=== PATIENT | female | born 1955 | race Caucasian/White ===

== ENCOUNTER → 2017-11-03 16:00 | Outpatient (CLI) | payer MEDICARE, SELFPAY ==
[2017-11-03 20:36] LABS: Anion Gap 9 (5-15); BUN 7 mg/dL (7-18); BUN/Creat Ratio 14.9 RATIO (10-20); Chloride 105 mmol/L (98-107); Creatinine, Serum 0.47 mg/dL (0.55-1.02); EST Glomerular Filtration Rate 142 mL/min (>60); Est Glom Filt Rate - Afr Amer 172 mL/min (>60); Glucose 129 mg/dL (70-110); Potassium 4.2 mmol/L (3.5-5.1); Sodium Level 139 mmol/L (136-145)
[2017-11-03 20:50] LABS: Hematocrit 34.9 % (37-47); Hemoglobin 10.7 g/dl (12.0-15.0); Mean Corp Hgb Conc 30.7 g/gl (32-36); Mean Corpuscular Hgb 31.9 pg (27.0-32.0); Mean Corpuscular Volume 104.2 fL (81-99); Mean Platelet Vol. 10.9 fl (6.2-12.0); Platelet Count 330 K/mm3 (150-450); RBC Distribution Width CV 20.9 % (11.6-14.6); RBC Distribution Width SD 80.2 fl (35.1-43.9); Red Blood Count 3.35 M/mm3 (4.2-5.4); White Blood Count 5.3 K/mm3 (4.4-11.0)
[2017-11-03 20:52] LABS: Scan Indicated on CBC? Y/N YES- FLAGS NOTED
[2017-11-03 21:24] LABS: Differential Comment SCANNED; Erythrocyte Sedimentation Rate 35 mm/hr (0-30)
--- OUTSIDE RECORDS SUMMARY | 2017-12-30 11:56 | XMS RPT_ITS ---
:1955 Author Organization OHIP Support Name Relationship Address Phone D Unavailable Unavailable Unavailable JEAN, KRYS Unavailable [address] + [place] [address] D Unavailable Unavailable Unavailable JEAN, KRYS Unavailable [address] + [place] [address] D Unavailable Unavailable Unavailable JEAN, KRYS Unavailable [address] + [place] [address] D Unavailable Unavailable Unavailable JEAN, KRYS Unavailable Sue [phone] [place] [address] D Unavailable Unavailable Unavailable JEAN, KRYS Unavailable [address] + [place] [address] D Unavailable Unavailable Unavailable JEAN, KRYS Unavailable [address] + [place] [address] D Unavailable Unavailable Unavailable JEAN, KRYS Unavailable [address] + [place] [address] D Unavailable Unavailable Unavailable JEAN, KRYS Unavailable [address] + [place] [address] D Unavailable Unavailable Unavailable JEAN, KRYS Unavailable Sue [phone] [place] [address] D Unavailable Unavailable Unavailable JEAN, KRYS Unavailable [address] + [place] [address] D Unavailable Unavailable Unavailable JEAN, KRYS Unavailable Sue [phone] [place] [address] D Unavailable Unavailable Unavailable JEAN, KRYS Unavailable Sue [phone] [place] [address] D Unavailable Unavailable Unavailable JEAN, KRYS Unavailable Sue [phone] [place] [address] D Unavailable Unavailable Unavailable JEAN, KRYS Unavailable [address] + [place] [address] D Unavailable Unavailable Unavailable JEAN, KRYS Unavailable [address] + [place] [address] D Unavailable Unavailable Unavailable JEAN, KRYS Unavailable [address] + [place] [address] D Unavailable Unavailable Unavailable JEAN, KRYS Unavailable [address] + [place] [address] D Unavailable Unavailable Unavailable JEAN, KRYS Unavailable [address] + [place] [address] D Unavailable Unavailable Unavailable JEAN, KRYS Unavailable [address] + [place] [address] Care Team Providers Name Role Phone Javier Godinez Attending Unavailable [facility] Care Unavailable RamanvaidenJavier Attending Unavailable [facility] Care Unavailable Carmelo Garibay Admitting Unavailable Carmelo Garibay Attending Unavailable [facility] Care Unavailable Aram Garcia Admitting Unavailable Aram Garcia Attending Unavailable [facility] Primary Care Unavailable Orlando Ramírez Consulting Unavailable Lexa Hahn Admitting Unavailable Lexa Hahn Attending Unavailable [facility] Unavailable Kurt Noriega Admitting Unavailable [facility] Care Unavailable Too Abbott Consulting Unavailable Orlando Ramírez Attending Unavailable Jamey Patiño Attending Unavailable [facility] Primary Care Unavailable Jamey Patiño Attending Unavailable [facility] Primary Care Unavailable Lexa Hahn Admitting Unavailable [facility] Primary Care Unavailable Rolando Lee Consulting Unavailable Diane Forbes Attending Unavailable Mariano Yoichi Consulting Unavailable Tai, Kenya SJosé Manuel Admitting Unavailable [facility] Primary Care Unavailable Diane Forbes Consulting Unavailable Tony Barry Attending Unavailable Rolando Lee Attending Unavailable [facility] Primary Care Unavailable Rolando Lee Attending Unavailable [facility] Primary Care Unavailable Rolando Lee Attending Unavailable [facility] Primary Care Unavailable Lorna Patel MARSHMALLOW MACHINE WORKER-C Attending Unavailable [facility] Primary Care Unavailable Rolando Lee Attending Unavailable [facility] Primary Care Unavailable Rolando Lee Attending Unavailable Javier Godinez Primary Care Unavailable Kurt Noriega Attending Unavailable Javier Godinez Primary Care Unavailable Lorna Patel MARSHMALLOW MACHINE WORKER-C Attending Unavailable Javier Godinez Primary Care Unavailable Rolando Lee Attending Unavailable Javier Godinez Primary Care Unavailable PROBLEMS PROBLEMS DATE TYPE CONDITION / CODE ATTENDING STATUS SOURCE 12/19/2017 Unknown E78.5 - Rosa, Active [facility] Hyperlipidemia, [facility] unspecified / Hospital E78.5(ICD-10) Repository 11/26/2017 Unknown G47.33 - Obstructive JorgeLorna dasilva MARSHMALLOW MACHINE WORKER-C Active [facility] sleep apnea (adult) Community (pediatric) / Hospital G47.33(ICD-10) Repository 11/04/2017 Unknown Z00.00 - Encounter Rosa Active [facility] for general adult [facility] medical examination Hospital without abnormal Repository findings / Z00.00(ICD-10) 11/02/2017 Unknown T81.4XXA - Infection Rosa Active [facility] following a [facility] procedure, initial Hospital encounter / Repository T81.4XXA(ICD-10) 10/15/2017 Unknown OTHER FATIGUE / Gbaruk, Kombian Active [facility] R53.83(ICD-10) [facility] Repository 10/15/2017 Unknown PRESENCE OF RIGHT Gbaruk, 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 [facility] JOINT / Hospital Z96.651(ICD-10) Repository 10/15/2017 Unknown INFECT/INFLM [place]baruk, Kombian Active [facility] REACTION DUE TO [facility] INTERNAL R KNEE Hospital PROSTH, SUBS / Repository T84.53XD(ICD-10) 10/15/2017 Unknown HYPERGLYCEMIA, [place], Kombian Active [facility] UNSPECIFIED / Community R73.9(ICD-10) Hospital Repository 10/16/2017 Unknown NICOTINE DEPENDENCE, Sementi, Active [facility] CIGARETTES, Diane Community UNCOMPLICATED / Hospital F17.210(ICD-10) Repository 10/16/2017 Unknown ESSENTIAL (PRIMARY) Sementi, Active [facility] HYPERTENSION / Diane [facility] I10(ICD-10) Hospital Repository 10/16/2017 Unknown SCOLIOSIS, Sementi, Active [facility] UNSPECIFIED / Diane Community M41.9(ICD-10) Hospital Repository 10/16/2017 Unknown OTHER CHRONIC PAIN / Sementi, Active [facility] G89.29(ICD-10) [facility] Repository 10/16/2017 Unknown DORSALGIA, Sementi, Active [facility] UNSPECIFIED / [facility] M54.9(ICD-10) Hospital Repository 10/16/2017 Unknown GASTRO-ESOPHAGEAL Sementi, Active [facility] REFLUX DISEASE [facility] WITHOUT ESOPHAGITIS Hospital / K21.9(ICD-10) Repository 10/16/2017 Unknown MAJOR DEPRESSIVE Sementi, Active [facility] DISORDER, SINGLE [facility] EPISODE, UNSPECIFIED Hospital / F32.9(ICD-10) Repository 10/16/2017 Unknown UNSPECIFIED Sementi, Active [facility] OSTEOARTHRITIS, [facility] UNSPECIFIED SITE / Hospital M19.90(ICD-10) Repository 10/16/2017 Unknown 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 MEDICAL SALES ASSOCIATE 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, Active [facility] (CURRENT) DRUG [facility] THERAPY / Hospital Z79.899(ICD-10) Repository 10/16/2017 Unknown PAIN IN RIGHT LOWER Sementi, Active [facility] LEG / [facility] M79.661(ICD-10) Hospital Repository 10/16/2017 Unknown INFECT/INFLM Sementi, Active [facility] REACTION DUE TO [facility] INTERNAL R KNEE Hospital PROSTH, INIT / Repository T84.53XA(ICD-10) 10/16/2017 Unknown STAPHYLOCOCCAL Sementi, Active [facility] ARTHRITIS, RIGHT [facility] KNEE / Hospital M00.061(ICD-10) Repository 10/16/2017 Unknown IMPLNT OF ARTIF INT Sementi, Active [facility] DEV CAUSE ABN [facility] REACT/COMPL, W/O Hospital MISADVNT / Repository Y83.1(ICD-10) 10/16/2017 Unknown HYPOXEMIA / Sementi, Active [facility] R09.02(ICD-10) [facility] Hospital Repository 10/16/2017 Unknown OTH STAPHYLOCOCCUS Sementi, Active [facility] THE CAUSE OF [facility] DISEASES CLASSD Hospital ELSWHR / Repository B95.7(ICD-10) 10/16/2017 Unknown OBESITY, UNSPECIFIED Sementi, Active [facility] / E66.9(ICD-10) [facility] Hospital Repository 10/16/2017 Unknown NUTRITIONAL ANEMIA, Sementi, Active [facility] UNSPECIFIED / [facility] D53.9(ICD-10) Hospital Repository 10/16/2017 Unknown ARTHRODESIS STATUS / Sementi, Active [facility] Z98.1(ICD-10) [facility] Repository 10/16/2017 Unknown PRESENCE OF Sementi, Active [facility] ARTIFICIAL KNEE [facility] JOINT, BILATERAL / Hospital Z96.653(ICD-10) Repository 10/16/2017 Unknown SLEEP APNEA, Sementi, Active [facility] UNSPECIFIED / [facility] G47.30(ICD-10) Hospital Repository 10/16/2017 Unknown BODY MASS INDEX Sementi, Active [facility] (BMI) 34.0-34.9, [facility] ADULT / Hospital Z68.34(ICD-10) Repository 10/14/2017 Unknown AFTERCARE FOLLOWING TerOrlando thompson Active [facility] JOINT REPLACEMENT [facility] SURGERY / Hospital Z47.1(ICD-10) Repository 10/14/2017 Unknown ACUTE Tereletsky, Orlando Active [facility] POSTHEMORRHAGIC [facility] ANEMIA / D62(ICD-10) Hospital Repository 10/14/2017 Unknown MEDICAL SALES ASSOCIATE (CURRENT) Tereletsboby, Orlando Active [facility] USE OF ASPIRIN / [facility] Z79.82(ICD-10) Hospital Repository 10/14/2017 Unknown TREMOR, UNSPECIFIED Tereletsky, Orlando Active [facility] / R25.1(ICD-10) [facility] Repository 10/14/2017 Unknown ELEVATED WHITE BLOOD Terjay, Orlando Active [facility] CELL COUNT, Community UNSPECIFIED / Hospital D72.829(ICD-10) Repository 10/14/2017 Unknown CONSTIPATION, Tereletsboby, Orlando Active [facility] UNSPECIFIED / Community K59.00(ICD-10) Hospital Repository 10/14/2017 Unknown UNILATERAL PRIMARY Tricia Hahnney Active [facility] OSTEOARTHRITIS, Community RIGHT KNEE / Hospital M17.11(ICD-10) Repository 10/11/2017 Unknown HYPO-OSMOLALITY AND Aram Garcia Active [facility] HYPONATREMIA / Community E87.1(ICD-10) Hospital Repository 10/11/2017 Unknown ESSENTIAL TREMOR / Aram Garcia Active [facility] G25.0(ICD-10) [facility] Repository 10/11/2017 Unknown MEDICAL SALES ASSOCIATE (CURRENT) Aram Garcia Active [facility] USE OF NON-STEROIDAL [facility] NON-INFLAM (NSAID) / Hospital Z79.1(ICD-10) Repository 10/11/2017 Unknown PRESENCE OF LEFT Aram Garcia Active [facility] ARTIFICIAL KNEE [facility] JOINT / Hospital Z96.652(ICD-10) Repository 10/11/2017 Unknown UNILATERAL PRIMARY KnapCarmelo dent Active [facility] OSTEOARTHRITIS, LEFT [facility] KNEE / Hospital M17.12(ICD-10) Repository 10/11/2017 Unknown OTHER SYNOVITIS AND KnapCarmelo dent Active [facility] TENOSYNOVITIS, LEFT [facility] LOWER LEG / Hospital M65.862(ICD-10) Repository 10/11/2017 Unknown OTHER SPECIFIED RollyapCarmelo dent Active [facility] DISORDERS OF TENDON, Community LEFT KNEE / Hospital M67.864(ICD-10) Repository 10/11/2017 Unknown ENCNTR SCREEN Herbert Active [facility] MAMMOGRAM FOR [facility] MALIGNANT NEOPLASM [facility] BREAST / Repository Z12.31(ICD-10) 10/11/2017 Unknown ENCNTR SCREEN FOR Ranoscar, Active [facility] MALIGNANT NEOPLASM [facility] RESPIRATORY [facility] ORGANS / Repository Z12.2(ICD-10) 10/11/2017 Unknown TOBACCO USE / Ranoscar, Active [facility] Z72.0(ICD-10) [facility] Repository 10/11/2017 Unknown PERSONAL HISTORY OF Herbert, Active [facility] NICOTINE DEPENDENCE [facility] / Z87.891(ICD-10) Hospital Repository PROCEDURES PROCEDURES DATE CODE DESCRIPTION STATUS SOURCE 03/24/2017 [id number](ICD-10 REPLACE OF L KNEE JT Completed [facility] ) WITH SYNTH SUB, Hospital Repository CEMENT, OPEN APPROACH 03/24/2017 [id number](ICD-10 EXCISION OF LEFT Completed [facility] ) KNEE JOINT, OPEN Hospital Repository APPROACH RESULTS RESULTS CBC W/DIFF, AUTOMATED Collected: 12/19/2017 Status: F Source: [place] 2:48 PM [facility] REPOSITORY TYPE CODE TESTS RESULT OUT OF RANGE REFERENCE UNITS LAB L100.1000 Normal 4.4-11.0 K/mm3 WBC 7.2 LAB L100.1200 Low 4.2-5.4 M/mm3 RBC 3.60 LAB L100.1300 Low 12.0-15.0 g/dl HGB 11.6 LAB L100.1400 Low 37-47 % HCT 35.0 LAB L100.1500 Normal 81-99 fL MCV 97.2 LAB L100.1600 High 27.0-32.0 pg MCH 32.2 LAB L100.1700 Normal 32-36 g/gl MCHC 33.1 LAB L100.1810 High 11.6-14.6 % RDW 20.8 CV LAB L100.1820 High 35.1-43.9 fl RDW 71.6 SD LAB L100.1900 Normal 150-450 K/mm3 PLT 388 LAB L100.2000 Normal 6.2-12.0 fl MPV 11.2 LAB L100.2100 Normal 47-70 % NEUT% 68.2 LAB L100.2200 Normal 19-41 % LY% 23.0 LAB L100.2300 Normal 0-10 % MONO% 6.1 LAB L100.2400 Normal 0-5 % EO% 2.2 LAB L100.2500 Normal 0-1 % BASO% 0.4 LAB L100.2550 Normal 0.0-0.9 % IM 0.100 GRAN % Result Comment: IG% - Immature Granulocytes (promyelocytes, myelocytes andmetamyelocytes) > 1% indicates that a LEFT SHIFT is Present. LAB L100.2620 Normal 2.0-7.7 X10 3/uL Absolute 4.9 Neut LAB L100.2720 Normal 0.83-4.51 X10 3/ul Absolute 1.65 Lymph LAB L100.4500 Normal SMEAR SCANNED COMMENT Result Comment: 2+ ANISOCYTOSIS Performed By: #### L100.0100, L101.9900 ####[facility] [address] [facility]. [place], [place], [id number] ERYTHROCYTE SED RATE Collected: 12/19/2017 Status: F Source: [place] 2:48 PM [facility] REPOSITORY TYPE CODE TESTS RESULT OUT OF RANGE REFERENCE UNITS LAB L102.0000 Normal 0-30 mm/hr SED 20 RATE Performed By: #### L100.0100, L101.9900 ####[facility] [address] [facility]. [place], [place], [address] BASIC METABOLIC Collected: 12/19/2017 Status: F Source: [place] PROFILE (BMP) 2:48 PM [facility] REPOSITORY TYPE CODE TESTS RESULT OUT OF RANGE REFERENCE UNITS LAB L501.0100 Normal 70-110 mg/dL GLU 96 LAB L501.1000 High 7-18 mg/dL BUN 19 LAB L501.1100 Normal 0.55-1.02 mg/dL 0.62 CREAT,SERUM Result Comment: The validity of the calculated GFR AND GFRAA in patients over70 years has not been determined. Clinical correlation isessential. LAB L501.1110 Normal >60 mL/min EST GFR 104 Result Comment: Non- GFR Calc LAB L501.1115 Normal >60 mL/min EST GFR - 126 AA Result Comment: GFR Calc LAB L501.1300 High 10-20 RATIO BUN/CRE 30.9 LAB L501.2200 Normal 8.5-10.1 mg/dL CA 9.1 LAB L501.5300 Normal 136-145 mmol/L NA 138 LAB L501.5600 Normal 3.5-5.1 mmol/L K 3.8 LAB L501.5900 Normal 98-107 mmol/L CL 104 LAB L501.6100 Normal 21.0-32.0 mmol/L CO2 26.0 LAB L501.6200 Normal 5-15 GAP 8 Performed By: #### L500.2500 ####[facility] [address] [place], [address] CBC W/DIFF, AUTOMATED Collected: 11/17/2017 Status: F Source: [place] 1:40 PM [facility] REPOSITORY TYPE CODE TESTS RESULT OUT OF RANGE REFERENCE UNITS LAB L100.1000 Normal 4.4-11.0 K/mm3 WBC 5.0 LAB L100.1200 Low 4.2-5.4 M/mm3 RBC 3.54 LAB L100.1300 Low 12.0-15.0 g/dl HGB 11.3 LAB L100.1400 Low 37-47 % HCT 35.7 LAB L100.1500 High 81-99 fL MCV 100.8 LAB L100.1600 Normal 27.0-32.0 pg MCH 31.9 LAB L100.1700 Low 32-36 g/gl MCHC 31.7 LAB L100.1810 High 11.6-14.6 % RDW 20.8 CV LAB L100.1820 High 35.1-43.9 fl RDW 75.5 SD LAB L100.1900 Normal 150-450 K/mm3 PLT 383 LAB L100.2000 Normal 6.2-12.0 fl MPV 10.7 LAB L100.2100 Normal 47-70 % NEUT% 62.7 LAB L100.2200 Normal 19-41 % LY% 26.7 LAB L100.2300 Normal 0-10 % MONO% 5.0 LAB L100.2400 High 0-5 % EO% 5.4 LAB L100.2500 Normal 0-1 % BASO% 0.2 LAB L100.2550 Normal 0.0-0.9 % IM 0.000 GRAN % Result Comment: IG% - Immature Granulocytes (promyelocytes, myelocytes andmetamyelocytes) > 1% indicates that a LEFT SHIFT is Present. LAB L100.2620 Normal 2.0-7.7 X10 3/uL Absolute Neut 3.1 LAB L100.2720 Normal 0.83-4.51 X10 3/ul Absolute Lymph 1.33 LAB L100.7300 Normal ANISO 1+ LAB L100.7600 Normal HYPOCHROMASIA 1+ LAB L100.7800 Normal MACROCYTE 1+ LAB L100.8600 Normal [employer] CELLS RARE Performed By: #### L100.0100, L101.9900 ####[facility] [address] [facility]. [place], [place], [address] ERYTHROCYTE SED RATE Collected: 11/17/2017 Status: F Source: [place] 1:40 PM [facility] REPOSITORY TYPE CODE TESTS RESULT OUT OF RANGE REFERENCE UNITS LAB L102.0000 Normal 0-30 mm/hr SED 30 RATE Performed By: #### L100.0100, L101.9900 ####[facility] [address] [facility] [place], [address] BASIC METABOLIC Collected: 11/17/2017 Status: F Source: [place] PROFILE (BMP) 1:40 PM [facility] REPOSITORY TYPE CODE TESTS RESULT OUT OF RANGE REFERENCE UNITS LAB L501.0100 High 70-110 mg/dL GLU 144 Result Comment: Fasting Glucose result greater than or equal to 126 mg/ dLsuggests DIABETES MELLITUS per A.D.A. criteria. LAB L501.1000 Low 7-18 mg/dL BUN 6 LAB L501.1100 Normal 0.55-1.02 mg/dL CREAT,SERUM 0.56 Result Comment: The validity of the calculated GFR AND GFRAA in patients over70 years has not been determined. Clinical correlation isessential. LAB L501.1110 Normal >60 mL/min EST GFR 117 Result Comment: Non- GFR Calc LAB L501.1115 Normal >60 mL/min EST GFR - 141 AA Result Comment: GFR Calc LAB L501.1300 Normal 10-20 RATIO BUN/CRE 10.8 LAB L501.2200 Normal 8.5-10.1 mg/dL CA 9.1 LAB L501.5300 Normal 136-145 mmol/L NA 139 LAB L501.5600 Normal 3.5-5.1 mmol/L K 3.6 LAB L501.5900 Normal 98-107 mmol/L CL 101 LAB L501.6100 Normal 21.0-32.0 mmol/L CO2 27.0 LAB L501.6200 Normal 5-15 GAP 11 Performed By: #### L500.2500 ####[facility] [address] [place], [address] CBC W/DIFF, AUTOMATED Collected: 11/10/2017 Status: F Source: [place] 1:15 PM [facility] REPOSITORY TYPE CODE TESTS RESULT OUT OF RANGE REFERENCE UNITS LAB L100.1000 Normal 4.4-11.0 K/mm3 WBC 5.6 LAB L100.1200 Low 4.2-5.4 M/mm3 RBC 3.44 LAB L100.1300 Low 12.0-15.0 g/dl HGB 11.2 LAB L100.1400 Low 37-47 % HCT 34.8 LAB L100.1500 High 81-99 fL MCV 101.2 LAB L100.1600 High 27.0-32.0 pg MCH 32.6 LAB L100.1700 Normal 32-36 g/gl MCHC 32.2 LAB L100.1810 High 11.6-14.6 % RDW 20.8 CV LAB L100.1820 High 35.1-43.9 fl RDW 76.0 SD LAB L100.1900 Normal 150-450 K/mm3 PLT 383 LAB L100.2000 Normal 6.2-12.0 fl MPV 10.7 LAB L100.2100 Normal 47-70 % NEUT% 61.4 LAB L100.2200 Normal 19-41 % LY% 26.6 LAB L100.2300 Normal 0-10 % MONO% 5.9 LAB L100.2400 High 0-5 % EO% 5.7 LAB L100.2500 Normal 0-1 % BASO% 0.4 LAB L100.2550 Normal 0.0-0.9 % IM 0.000 GRAN % Result Comment: IG% - Immature Granulocytes (promyelocytes, myelocytes andmetamyelocytes) > 1% indicates that a LEFT SHIFT is Present. LAB L100.2620 Normal 2.0-7.7 X10 3/uL Absolute 3.4 Neut LAB L100.2720 Normal 0.83-4.51 X10 3/ul Absolute 1.49 Lymph LAB L100.4500 Normal SMEAR SCANNED COMMENT LAB L100.7300 Normal ANISO 2+ Performed By: #### L100.0100, L101.9900 ####[facility] [address] [facility]. [place], [place], [address] ERYTHROCYTE SED RATE Collected: 11/10/2017 Status: F Source: [place] 1:15 PM [facility] REPOSITORY TYPE CODE TESTS RESULT OUT OF RANGE REFERENCE UNITS LAB L102.0000 Normal 0-30 mm/hr SED 30 RATE Performed By: #### L100.0100, L101.9900 ####[facility] [address] [place], [place], [address] BASIC METABOLIC Collected: 11/10/2017 Status: F Source: [place] PROFILE (BMP) 1:15 PM [facility] REPOSITORY TYPE CODE TESTS RESULT OUT OF RANGE REFERENCE UNITS LAB L501.0100 Normal 70-110 mg/dL GLU 89 LAB L501.1000 Normal 7-18 mg/dL BUN 8 LAB L501.1100 Low 0.55-1.02 mg/dL 0.46 CREAT,SERUM Result Comment: The validity of the calculated GFR AND GFRAA in patients over70 years has not been determined. Clinical correlation isessential. LAB L501.1110 Normal >60 mL/min EST GFR 148 Result Comment: Non- GFR Calc LAB L501.1115 Normal >60 mL/min EST GFR - 179 AA Result Comment: GFR Calc LAB L501.1300 Normal 10-20 RATIO BUN/CRE 17.6 LAB L501.2200 Normal 8.5-10.1 mg/dL CA 9.1 LAB L501.5300 Normal 136-145 mmol/L NA 139 LAB L501.5600 Normal 3.5-5.1 mmol/L K 4.1 LAB L501.5900 Normal 98-107 mmol/L CL 105 LAB L501.6100 Normal 21.0-32.0 mmol/L CO2 28.0 LAB L501.6200 Normal 5-15 GAP 6 Performed By: #### L500.2500 ####[facility] [address] [place], [address] DISCHARGE SUMMARY Observed: 11/06/2017 Status: F Source: [place] 4:44 PM [facility] RE[facility]ORY [facility] [address] [place], [place] [address]Nbydazbjf Kxenwaa02/14/17 0926MR#: [id number] Acct: [id number]: HAIM LIAO Rep #: [id number]: 1955 61 From: Lorna Patel MARSHMALLOW MACHINE WORKER-CPCP: Javier Godinez MD Status: DIS IN YLocation: RU [id number] by MARSHMALLOW MACHINE WORKER Lorna Patel on 11/06/17 at 1644Patient has a history of snoring, per family and Nursing staff , given that she is obese, andwith her snoring and poor sleeping quality feel that a sleep study is highly recommended.11/06/17 1644 <Electronically signed by Lorna HOPPERC>Date Lorna Patel MARSHMALLOW MACHINE WORKER -Ccc: RUDOLPH Patel; Javier Godinez MD *SignedRehab Discharge SummaryDATE OF ADMISSION: 10/10/17DATE OF DISCHARGE: 10/14/17- Rehab DiagnosisRight Knee RevisionDischarge Diet: No RestrictionsDischarge Activity: May Not Drive, May not drive while taking narcotic pain medications., MayShower, Use Walker, - - Do not soak in tubWeight Bearing Status: Weight bearing as toleratedCall your doctor if your incision/area has: Increased Pain/ Swelling, Increased Redness, FoulSmelling Discharge, Swelling at the incision siteCall your doctor if you observe: Fever of 101 or Higher, Coldness, Increased Pain, Numbness orTingling, Change in Color, Inability to urinate, Inability to have a bowel movement, Using morethan one pad per hour , Shortness of breath, Dizziness, Fainting spells, Swelling in the ankles,Chest pain, Prolonged hiccoughing, Increased palpitations (irregular heartbeat), Calfdiscomfort, Uncontrolled painHome Medications:Medications to take at DischargeNadolol [ Corgard (Beta Sal)] 20 mg PO DAILY 08/26/16ertraline HCl [Zoloft] 100 mg PO DAILY 08/26/16Cyclobenzaprine [Flexeril] 10 mg PO TID PRN PRN #30 tablet Lisinopril [Zestril] 20 mg PO DAILY #30 tablet 09/15/17Melatonin 10 mg PO QHS tablet 09/15/17Primidone [Mysoline] 50 mg PO BID #60 09/15/17cetaminophen [Tylenol] 1,000 mg PO Q8 tablet 10/10/17spirin 325 mg PO BIDCM tablet 10/10/17Ensure Enlive 120 ml PO 4X/DAY 10/10/17Nicotine [Nicoderm] 14 mg TRANSDERM. DAILY #42 patch 10/10/17Pantoprazole Sodium [Protonix] 20 mg PO DAILY tablet Ceftriaxone 2 gm IV Q24 38 Days 10/14/17Oxycodone [Oxyir] 5 - 10 mg PO Q6H PRN PRN #20 tablet 10/14/17Following Prescrptions Were Given to Patient:Oxycodone [Oxyir] 5 - 10 mg PO Q6H PRN PRN #20 tabletPRN Reason: Mod-Severe Pain (-09/09)Ceftriaxone 2 gm IV Q24 38 DaysPrimary Care Physician:Gaurang Godinez MD [Primary Care Provider] - Please Follow Up With: Lexa Hahn MDWhen: October 15, 2017Please Follow Up With: Gaurang Godinez MDWhen: October 21, 2017Please Follow Up With: Rosa, Rolando, MDDisposition: Home with Home HealthMinutes spent on discharge:: 40Patient Condition:: GoodRehab CourseThe patient is a 61 year old F with a PMH of hypertension, chronic back pain, status postlumbar fusion with Garcia rods, depression, GERD, obesity, osteoarthritis and tobaccodependence who was admitted to the hospital by Dr. Lexa Hahn for an infected rightprosthetic knee joint. Arthrocentesis done as an outpatient was positive for methicillinsensitive staph epidermidis. She was taken to surgery on 10/09 for debridement and wash out.Dr. Lee from [place] was consulted. Culture of the joint fluid from the wash out grew MSSE.She was transferred to rehab on 10/10 and will need 6 weeks of IV Rocephin , 2 GM daily. Aftershe completes 6 weeks of Rocephin she will need lifelong suppression with either doxycycline orKeflex. While on Rocephin she will require weekly BMP, CBC, ESR and labs should be sent to Dr.Robert Lee.While in the hospital she had an overnight trending pulse ox because she has HTN, isalways tired and her friends tell her snores like a [employer] train. The trending pulse ox wasconsistent with sleep disordered breathing. This was discussed with her and I recommend shehave and OP sleep study, she agreed and a sleep study appointment was setup. Smoking cessationcounselling was given in the hospital and she received a nicotine patch.With therapy patient is supervision and is doing well able to ambulate with walker, and doown self care task. Patient is requiring IV antibiotics. She will be discharged with homehealth to assist with IV therapy at home.Meaningful Use InfoMeaningful Use Diagnoses (Choose all that apply): None [id number]/14/17 1019 < Electronically signed by Lorna ALMEIDA>Date Lorna Patel NP-10/14/17 1106< Electronically signed by Kurt Noriega MD>Alfredo Signature (if applicable): Date Kurt Noriega [place] [facility]: [facility] Patel; Javier Godinez MD Signed BASIC METABOLIC Collected: 11/03/2017 Status: F Source: [place]AN[place] PROFILE (BMP) 10:08 AM [facility] REPOSITORY TYPE CODE TESTS RESULT OUT OF RANGE REFERENCE UNITS LAB L501.0100 High 70-110 mg/dL GLU 129 Result Comment: Fasting Glucose result greater than or equal to 126 mg/ dLsuggests DIABETES MELLITUS per A.D.A. criteria. LAB L501.1000 Normal 7-18 mg/dL BUN 7 LAB L501.1100 Low 0.55-1.02 mg/dL CREAT,SERUM 0.47 Result Comment: The validity of the calculated GFR AND GFRAA in patients over70 years has not been determined. Clinical correlation isessential. LAB L501.1110 Normal >60 mL/min EST GFR 142 Result Comment: Non- GFR Calc LAB L501.1115 Normal >60 mL/min EST GFR - 172 AA Result Comment: GFR Calc LAB L501.1300 Normal 10-20 RATIO BUN/CRE 14.9 LAB L501.2200 Normal 8.5-10.1 mg/dL CA 9.0 LAB L501.5300 Normal 136-145 mmol/L NA 139 LAB L501.5600 Normal 3.5-5.1 mmol/L K 4.2 Result Comment: Slight Hemolysis, Result may be falsely increased. LAB L501.5900 Normal 98-107 mmol/L CL 105 LAB L501.6100 Normal 21.0-32.0 mmol/L CO2 25.0 LAB L501.6200 Normal 5-15 9 GAP Performed By: #### L500.2500 ####[facility] [address] [place], [place], [address] CBC-COMPLETE BLOOD CNT Collected: 11/03/2017 Status: F Source: [place]AN[place] NO DIFF 10:08 AM [facility] REPOSITORY TYPE CODE TESTS RESULT OUT OF RANGE REFERENCE UNITS LAB L100.1000 Normal 4.4-11.0 K/mm3 WBC 5.3 LAB L100.1200 Low 4.2-5.4 M/mm3 RBC 3.35 LAB L100.1300 Low 12.0-15.0 g/dl HGB 10.7 LAB L100.1400 Low 37-47 % HCT 34.9 LAB L100.1500 High 81-99 fL MCV 104.2 LAB L100.1600 Normal 27.0-32.0 pg MCH 31.9 LAB L100.1700 Low 32-36 g/gl MCHC 30.7 LAB L100.1810 High 11.6-14.6 % RDW 20.9 CV LAB L100.1820 High 35.1-43.9 fl RDW 80.2 SD LAB L100.1900 Normal 150-450 K/mm3 PLT 330 LAB L100.2000 Normal 6.2-12.0 fl MPV 10.9 Performed By: #### L100.0500, L100.4500, L101.9900 ####[facility] [address] [place], [place], [id number] DIFFERENTIAL COMMENT Collected: 11/03/2017 Status: F Source: DANIA 10:08 AM [facility] REPOSITORY TYPE CODE TESTS RESULT OUT OF RANGE REFERENCE UNITS LAB L100.4500 Normal SMEAR SCANNED COMMENT Result Comment: ANISOCYTOSIS 1+RARE HYPOCHROMASIARARE TARGET CELLS Performed By: #### L100.0500, L100.4500, L101.9900 ####[facility] [address] [place], [place], [address] ERYTHROCYTE SED RATE Collected: 11/03/2017 Status: F Source: DAN[place] 10:08 AM [facility] REPOSITORY TYPE CODE TESTS RESULT OUT OF RANGE REFERENCE UNITS LAB L102.0000 High 0-30 mm/hr SED 35 RATE Performed By: #### L100.0500, L100.4500, L101.9900 ####[facility] [address] [place], [place], [address] BASIC METABOLIC Collected: 10/27/2017 Status: F Source: DANIA PROFILE (BMP) 11:25 AM [facility] REPOSITORY TYPE CODE TESTS RESULT OUT OF RANGE REFERENCE UNITS LAB L501.0100 High 70-110 mg/dL GLU 119 Result Comment: Fasting Glucose result from 110 to <126 mg/dLsuggests IMPAIRED HOMEOSTASIS per A.D.A. criteria. LAB L501.1000 Normal 7-18 mg/dL BUN 8 LAB L501.1100 Low 0.55-1.02 mg/dL CREAT,SERUM 0.46 Result Comment: The validity of the calculated GFR AND GFRAA in patients over70 years has not been determined. Clinical correlation isessential. LAB L501.1110 Normal >60 mL/min EST GFR 147 Result Comment: Non- GFR Calc LAB L501.1115 Normal >60 mL/min EST GFR - 177 AA Result Comment: GFR Calc LAB L501.1300 Normal 10-20 RATIO BUN/CRE 17.5 LAB L501.2200 Normal 8.5-10.1 mg/dL CA 8.9 LAB L501.5300 Normal 136-145 mmol/L NA 137 LAB L501.5600 Normal 3.5-5.1 mmol/L K 4.0 Result Comment: Slight Hemolysis, Result may be falsely increased. LAB L501.5900 Normal 98-107 mmol/L CL 100 LAB L501.6100 Normal 21.0-32.0 mmol/L CO2 28.0 LAB L501.6200 Normal 5-15 9 GAP Performed By: #### L500.2500 ####[facility] [address] [place], [place], [address] CBC-COMPLETE BLOOD CNT Collected: 10/27/2017 Status: F Source: [place] NO DIFF 11:25 AM [facility] REPOSITORY TYPE CODE TESTS RESULT OUT OF RANGE REFERENCE UNITS LAB L100.1000 Normal 4.4-11.0 K/mm3 WBC 5.0 LAB L100.1200 Low 4.2-5.4 M/mm3 RBC 3.13 LAB L100.1300 Low 12.0-15.0 g/dl HGB 10.5 LAB L100.1400 Low 37-47 % HCT 31.9 LAB L100.1500 High 81-99 fL MCV 101.9 LAB L100.1600 High 27.0-32.0 pg MCH 33.5 LAB L100.1700 Normal 32-36 g/gl MCHC 32.9 LAB L100.1810 High 11.6-14.6 % RDW 20.4 CV LAB L100.1820 High 35.1-43.9 fl RDW 74.0 SD LAB L100.1900 Normal 150-450 K/mm3 PLT 417 LAB L100.2000 Normal 6.2-12.0 fl MPV 10.8 Performed By: #### L100.0500, L100.4500, L101.9900 ####[facility] [address] [place], [address] DIFFERENTIAL COMMENT Collected: 10/27/2017 Status: F Source: [place] 11:25 AM [facility] REPOSITORY TYPE CODE TESTS RESULT OUT OF RANGE REFERENCE UNITS LAB L100.4500 Normal SMEAR COMMENT Result Comment: SLIDE SCANNED - 1+ ANISO NOTED. Performed By: #### L100.0500, L100.4500, L101.9900 ####[facility] [address] [place], [address] ERYTHROCYTE SED RATE Collected: 10/27/2017 Status: F Source: [place] 11:25 AM [facility] REPOSITORY TYPE CODE TESTS RESULT OUT OF RANGE REFERENCE UNITS LAB L102.0000 High 0-30 mm/hr SED 46 RATE Performed By: #### L100.0500, L100.4500, L101.9900 ####[facility] [address] [place], [address] 12 LEAD ELECTROCARDIOGRAM Observed: 10/21/2017 Status: F Source: [place] 10:27 AM [facility] RE[facility]ITORY [facility] [address] [place], [place] [id number] Lead EKG112/10/16 0621#: [id number] Acct: [id number]: HAIM LIAO Rep #: [id number]: 1955 61 From: Jose Braxton Dr: Diane oFrbes Status: DIS INOrdering Dr: Chriss Forbes DO Date: 10/10/17Location: MS3 Sex: F CAdmitted: 10/08/17Test Reason :Blood Pressure : / mmHGVent. Rate : 070 BPM Atrial Rate : 070 BPMP-R Int : 154 ms QRS Dur : 086 msQT Int : 378 ms P -R-T Axes : 017 038 050 degreesQTc Int : 408 msNormal sinus rhythmNormal ECGConfirmed by KATHERINE MANNING, JOSE ([id number]), managing editor ANYA HAHN ([id number]) on 10/21/2017 10:26:26 AMReferred By: Confirmed By:JOSE MURPHY MD10/21/17 1026Date Jose Murphy MDCC: Javier Godinez MD Signed BASIC METABOLIC Collected: 10/20/2017 Status: F Source: [place] PROFILE (BMP) 10:45 AM [facility] REPOSITORY TYPE CODE TESTS RESULT OUT OF RANGE REFERENCE UNITS LAB L501.0100 High 70-110 mg/dL GLU 114 Result Comment: Fasting Glucose result from 110 to <126 mg/dLsuggests IMPAIRED HOMEOSTASIS per A.D.A. criteria. LAB L501.1000 Low 7-18 mg/dL BUN 6 LAB L501.1100 Low 0.55-1.02 mg/dL CREAT,SERUM 0.40 Result Comment: The validity of the calculated GFR AND GFRAA in patients over70 years has not been determined. Clinical correlation isessential. LAB L501.1110 Normal >60 mL/min EST GFR 171 Result Comment: Non- GFR Calc LAB L501.1115 Normal >60 mL/min EST GFR - 207 AA Result Comment: GFR Calc LAB L501.1300 Normal 10-20 RATIO BUN/CRE 15.0 LAB L501.2200 Normal 8.5-10.1 mg/dL CA 9.3 LAB L501.5300 Normal 136-145 mmol/L NA 138 LAB L501.5600 Normal 3.5-5.1 mmol/L K 3.8 LAB L501.5900 Normal 98-107 mmol/L CL 103 LAB L501.6100 Normal 21.0-32.0 mmol/L CO2 26.0 LAB L501.6200 Normal 5-15 GAP 9 Performed By: #### L500.2500 ####[facility] [address] [place], [place], [id number] CBC-COMPLETE BLOOD CNT Collected: 10/20/2017 Status: F Source: [place] NO DIFF 10:45 AM [facility] REPOSITORY TYPE CODE TESTS RESULT OUT OF RANGE REFERENCE UNITS LAB L100.1000 Normal 4.4-11.0 K/mm3 WBC 8.2 LAB L100.1200 Low 4.2-5.4 M/mm3 RBC 3.00 LAB L100.1300 Low 12.0-15.0 g/dl HGB 10.1 LAB L100.1400 Low 37-47 % HCT 30.7 LAB L100.1500 High 81-99 fL MCV 102.3 LAB L100.1600 High 27.0-32.0 pg MCH 33.7 LAB L100.1700 Normal 32-36 g/gl MCHC 32.9 LAB L100.1810 High 11.6-14.6 % RDW 20.7 CV LAB L100.1820 High 35.1-43.9 fl RDW 75.6 SD LAB L100.1900 High 150-450 K/mm3 PLT 488 LAB L100.2000 Normal 6.2-12.0 fl MPV 10.7 Performed By: #### L100.0500, L100.4500, L101.9900 ####[facility] [address] [place], [place], [address] DIFFERENTIAL COMMENT Collected: 10/20/2017 Status: F Source: [place] 10:45 AM [facility] REPOSITORY TYPE CODE TESTS RESULT OUT OF RANGE REFERENCE UNITS LAB L100.4500 Normal SMEAR COMMENT COMMENT Result Comment: SLIDE SCANNED - 1+ ANISO NOTED. Performed By: #### L100.0500, L100.4500, L101.9900 ####[facility] [address] [place], [place], [id number] ERYTHROCYTE SED RATE Collected: 10/20/2017 Status: F Source: [place] 10:45 AM [facility] REPOSITORY TYPE CODE TESTS RESULT OUT OF RANGE REFERENCE UNITS LAB L102.0000 High 0-30 mm/hr SED 55 RATE Performed By: #### L100.0500, L100.4500, L101.9900 ####[facility] [address] [place], [address] HISTORY AND PHYSICAL Observed: 10/14/2017 Status: F Source: [place] EXAM 11:06 AM [facility] REPOSITORY [facility]ITAL[facility] [address] [place] [address]Stdszfz and Fxuemfgn76/10/17 1253MR#: [id number] Acct: [id number]: BENJAMIN LIAOSilke Harry Rep #: [id number]: 1955 61 From: Kurt Noriega MDPCP: Javier Godinez MD Status: DIS IN YLocation: MS3 [id number] of Present IllnessDate of Admission: 10/10/17Chief Complaint: Left knee pain, debilityThe patient is a 61 year old F with a past medical history of joint replacements, was recentlydischarged from the rehab unit last month after a right total knee replacement. Initially shehad some pain during her rehab stay but this dramatically improved [place] at home she experienced increasing pain to the extent that she could notstand. She is now status post treatment of her right total knee due to infection of theprosthetic joint. The procedure was performed by Dr. Hahn and Dr. Morgan withoutcomplication. She says her pain is now significantly improved. She has no other complaints.No GI or complaints. She has been sleeping well and tolerating therapies thus far, she nowp[facility] for rehabilitation in order toreturn home to her previous level functional independence. [facility], there are 3 steps.Past Medical HistoryPast Medical History (Chronic Problems):Chronic ProblemsAcquired scoliosis (Chronic)Benign essential HTN (Chronic)Chronic back pain (Chronic)Depression (Chronic)GERD (gastroesophageal reflux disease) (Chronic)Allergiesmeperidine [From Demerol] Adverse Reaction (Verified 10/20/16 19:26)OtherMAKES ME GOOFYPenicillins [PCN] Adverse Reaction (Verified 10/20/16 19:26)NauseaHome Medications:Ambulatory OrdersMedication Instructions RecordedNadolol [Corgard (Beta Sal)] 20 mg PO DAILY 08/26/16Omeprazole [Prilosec] 20 mg PO DAILY urgical History: cholecystectomy - Laparoscopic, total knee arthroplasty - Bilateral, - -Previous Back surgies x 3Psychiatric History: DepressionGYN History: No pertinent WEIGHT CONTROL ENGINEER historyLives: RoommateSmoking Status: Heavy Smoker (>10/day)- *Family History MaternalHistory Items: No pertinent history PaternalHistory Items: No pertinent historyReview of SystemsConstitutional: Denies: Chills, Fever, Weight ChangeHEENT: Denies: Head Aches, Sinus Congestion, Sinus DrainageCardiovascular : Denies: Chest Pain, PalpitationsRespiratory: Denies: Cough, Shortness of breath at rest, Sputum productionGastrointestinal: Denies: Abdominal Pain, Nausea, VomitingGenitourinary: Denies: DysuriaMusculoskeletal: Reports: Joint Pain - Knee. Denies: Joint TendernessSkin: Denies: Rash, WoundsNeurological: Denies: Numbness, Tingling, Focal weaknessPsychiatric: Denies: Anxiety, Depression, Homicidal Ideations, Suicidal IdeationsHematologic/ Lymphatic: Denies: Easy Bruising, Easy BleedingVTE Information - Inpt OnlyVTE Present on Admission: YesVTE Mechan Device Prophylaxis: SCD'sPatient Problems:Active and Suspected ProblemsProsthetic joint infection (Acute)- Physical ExamGeneral: Alert, Oriented x3, CooperativeHEENT: Atraumatic, PERRLA, EOMI, NormocephalicNeck: Supple, No JVD, Negative Carotid BruitsLungs: Clear to auscultation, Normal air movementCardiovascular: Regular rate, No murmursAbdomen: Bowel Sounds Present, Soft, Non TenderExtremities: No edema, Capillary Refill Less than 3 SecondsSkin: No rashes, No breakdownMusculoskeletal: No Tenderness to Palpation of Joints or ExtremitiesNeurological: Cranial nerves II -XII grossly intactPsych/Mental Status: Normal Affect, AppropriateVital SignsTemp Pulse Resp BP Pulse Ox36.6 C 83 14 131/69 09:48 10/10/17 09:48 09:48 10/10/17 09:48 10/10/17 09:48Oxygen Flow Rate 2Oxygen Delivery Method Room AirWeight: 90.7 kgBody Mass Index (BMI) 34.3Intake and Output for Last 24 HoursIntake Total 1999 2901 1625Output Total 500Balance 1999 2401 1625Microbiology Past 72 Hours10/08/17 20:35 Gram Stain - FinalTissue - Knee Wound Culture - Zfspnnkxigw26/08/17 20:35 Gram Stain - FinalLaboratory Tests Past 24 HrsWBC 5.8RBC 2.64 LHgb 8.7 LAssessment/PlanActive and Suspected ProblemsProsthetic joint infection (Acute)Pression: Debility status post prosthetic joint infection status post revision/debridement.Her postoperative course has been uneventful. She now presents to the [facility] acute rehab unit for rehabilitation in order to return her functional status toindependence as previously.Plan: Physical therapy for gait and balanceOccupational Therapy for ADLsAs needed analgesicsAntibiotics per ID recommendationsBowel protocolContinue cpgqulgbssgxreczi04/14/17 1106 <Electronically signed by Kurt Noriega MD>Date Kurt Noriega [facility] TULSAosigner Signature: Date (if applicable)CC: Javier Godinez MD; Kurt Noriega MD Signed DISCHARGE INSTRUCTION Observed: 10/14/2017 Status: F Source: [place] 11:06 AM [facility] REPOSITORY [facility]ITAL[facility] [address] [place] [address]Bglueowpcgxt for Home/Discharge Brtljxnnfrck36/14/17 0934MR #: [id number] Acct: [id number]: HAIM LIAO Rep #: [id number]: 1955 61 From: Lorna Patel MARSHMALLOW MACHINE WORKER- CPCP: Herbert MANNING,Javier Status: ADM IN- Discharge DiagnosesReason(s) for Visit for Discharge Instructions: Right Knee RevisionYou will use the following diet at home:: No restrictionsYour food should be the consistency of: RegularYour liquids should be the consistency of: Regular/ThinDischarge Activity: May Not Drive, May not drive while taking narcotic pain medications., MayShower, Use Walker, - - Do not soak in tubWeight Bearing Status: Weight bearing as toleratedCall your doctor if your incision/area has: Increased Pain/ Swelling, Increased Redness, FoulSmelling Discharge, Swelling at the incision siteCall your doctor if you observe: Fever of 101 or Higher, Coldness, Increased Pain, Numbness orTingling, Change in Color, Inability to urinate, Inability to have a bowel movement, Using morethan one pad per hour , Shortness of breath, Dizziness, Fainting spells, Swelling in the ankles,Chest pain, Prolonged hiccoughing, Increased palpitations (irregular heartbeat), Calfdiscomfort, Uncontrolled painAllergies/Adverse Reactions:Allergiesmeperidine [From Demerol] Adverse Reaction (Verified 10/20/16 19:26)OtherMAKES ME GOOFYPenicillins [PCN ] Adverse Reaction (Verified 10/20/16 19:26)NauseaMedications to take at DischargeNadolol [Corgard (Beta Sal)] 20 mg PO DAILY 08/26/16ertraline HCl [Zoloft] 100 mg PO DAILY 08/26/16Cyclobenzaprine [Flexeril] 10 mg PO TID PRN PRN #30 tablet 09/15/17Lisinopril [Zestril] 20 mg PO DAILY #30 tablet Melatonin 10 mg PO QHS tablet 09/15/17Primidone [Mysoline] 50 mg PO BID #60 cetaminophen [Tylenol] 1,000 mg PO Q8 tablet 10/10/17spirin 325 mg PO BIDCM tablet 10/10/17Ensure Enlive 120 ml PO 4X/DAY 10/10/17Nicotine [Nicoderm] 14 mg TRANSDERM. DAILY #42 patch 10/10/17Pantoprazole Sodium [Protonix] 20 mg PO DAILY tablet 10/10/17Ceftriaxone 2 gm IV Q24 38 Days 10/14/17Oxycodone [Oxyir] 5 - 10 mg PO Q6H PRN PRN #20 tablet 10/14/17The following prescriptions were given:Oxycodone [ Oxyir] 5 - 10 mg PO Q6H PRN PRN #20 tabletPRN Reason: Mod-Severe Pain (4-10/10) Ceftriaxone 2 gm IV Q24 38 DaysPrimary Care Physician:Gaurang Godinez MD [Primary Care Provider] -Please Follow Up With: Lexa Hahn MDWhen: October 15, 2017Please Follow Up With: Gaurang Godinez MDWhen: October 21, 2017Please Follow Up With: Rolando Lee MDProposed Discharge Date: 10/14/1711/14/17 1015 <Electronically signed by Lorna Patel NP-C>Date Lorna Patel MARSHMALLOW MACHINE WORKER-CCC: Diane Forbes; Javier Godinez MD BASIC METABOLIC Collected: 10/13/2017 Status: F Source: [place] PROFILE (BMP) 5:35 AM [facility] REPOSITORY TYPE CODE TESTS RESULT OUT OF RANGE REFERENCE UNITS LAB L501.0100 High 70-110 mg/dL GLU 123 Result Comment: Fasting Glucose result from 110 to <126 mg/dLsuggests IMPAIRED HOMEOSTASIS per A.D.A. criteria. LAB L501.1000 Normal 7-18 mg/dL BUN 9 LAB L501.1100 Low 0.55-1.02 mg/dL CREAT,SERUM 0.44 Result Comment: The validity of the calculated GFR AND GFRAA in patients over70 years has not been determined. Clinical correlation isessential. LAB L501.1110 Normal >60 mL/min EST GFR 153 Result Comment: Non- GFR Calc LAB L501.1115 Normal >60 mL/min EST GFR - 185 AA Result Comment: GFR Calc LAB L501.1255 Normal ml/min Estimated 114.48 CRCL LAB L501.1300 High 10-20 RATIO BUN/CRE 20.4 LAB L501.2200 Normal 8.5-10 mg/dL CA 8.9 .1 LAB L501.5300 Normal 136-14 mmol/L NA 141 5 LAB L501.5600 Normal 3.5-5. mmol/L K 4.1 1 LAB L501.5900 Normal 98-107 mmol/L CL 102 LAB L501.6100 Normal 21.0-3 mmol/L CO2 31.0 2.0 LAB L501.6200 Normal 5-15 GAP 8 Performed By: #### L500.2500 ####[facility] [address] [place], [place], [address] ERYTHROCYTE SED RATE Collected: 10/13/2017 Status: F Source: [place] 5:35 AM [facility] REPOSITORY TYPE CODE TESTS RESULT OUT OF RANGE REFERENCE UNITS LAB L102.0000 High 0-30 mm/hr SED 67 RATE Performed By: #### L101.9900, L100.0500, L100.4500 ####[facility] [address] [place], [place], [address] CBC-COMPLETE BLOOD CNT Collected: 10/13/2017 Status: F Source: [place] NO DIFF 5:35 AM [facility] REPOSITORY TYPE CODE TESTS RESULT OUT OF RANGE REFERENCE UNITS LAB L100.1000 Normal 4.4-11.0 K/mm3 WBC 5.6 LAB L100.1200 Low 4.2-5.4 M/mm3 RBC 2.65 LAB L100.1300 Low 12.0-15.0 g/dl HGB 8.6 LAB L100.1400 Low 37-47 % HCT 27.3 LAB L100.1500 High 81-99 fL MCV 103.0 LAB L100.1600 High 27.0-32.0 pg MCH 32.5 LAB L100.1700 Low 32-36 g/gl MCHC 31.5 LAB L100.1810 High 11.6-14.6 % RDW 20.1 CV LAB L100.1820 High 35.1-43.9 fl RDW 74.8 SD LAB L100.1900 High 150-450 K/mm3 PLT 520 LAB L100.2000 Normal 6.2-12.0 fl MPV 10.3 Performed By: #### L101.9900, L100.0500, L100.4500 ####[facility] [address] [facility] [place], [address] DIFFERENTIAL COMMENT Collected: 10/13/2017 Status: F Source: [place] 5:35 AM [facility] REPOSITORY TYPE CODE TESTS RESULT OUT OF RANGE REFERENCE UNITS LAB L100.4500 Normal SMEAR COMMENT Result Comment: 1+ ANISO2+ HYPO2+ MACROCYTESPLATELETS APPEAR SLIGHTLY INCREASED Performed By: #### L101.9900, L100.0500, L100.4500 ####[facility] [address] [facility] [place], [address] DISCHARGE SUMMARY Observed: 10/13/2017 Status: F Source: [place] 2:30 AM [facility] REPOSITORY [facility]ITAL[facility] Records [address] [place], [place] [address]Gkvcypoux Iguwect41/11/17 0625MR#: [id number] Acct: [id number]: HAIM LIAO Rep #: [id number]: 1955 61 From: Chriss Forbes DOPCP: Javier Godinez MD Status: DIS IN YLocation: MS3 [id number] Date and DiagnosisDate of Admission: 10/08/17Date of Discharge: 10/10/17- Primary Discharge DiagnosisProsthetic joint infection - R knee due to MSSE- Secondary Discharge DiagnosisChronic ProblemsAcquired scoliosis (Chronic)Benign essential HTN (Chronic)Chronic back pain (Chronic)Depression (Chronic)GERD (gastroesophageal reflux disease) (Chronic)History of lumbar spinal fusion (Chronic)Macrocytic anemia (Chronic)Obesity (Chronic)Osteoarthritis (Chronic)Sleep-disordered breathing (Chronic)Status post left knee replacement (Chronic)Tobacco dependence (Chronic)Hospital Course and TreatmentImaging Results:Laboratory Last ValuesWBC 5.8 K/mm3 (4.4-11.0) 10/10/17 05:40RBC 2.64 M/mm3 (4.2-5.4) L 10/10/17 05:40Hgb 8.7 g/dl (12.0-15.0) L 10/10/17 05:40Hct 27.2 % (37-47) L 10/10/17 05:59Zuimwhfffzub41/08/17 20:35 Tissue - Knee Gram Stain - Final10/08/17 20:35 Tissue - Knee Wound Culture - PreliminaryNo growth- Final to xdfjby65/08/17 20:35 Tissue - Knee Gram Stain - Final10/08/17 20:35 Tissue - Knee Wound Culture - PreliminaryNo growth-Final to umzgpu95/08/17 20:35 Tissue - Knee Gram Stain - Final10/08/17 20:35 Tissue - Knee Wound Culture - PreliminaryNo growth-Final to followHospitalist service - Admitted to Dr. Lexa HahnOperations: NoneProcedures: -Summary of Care Provided:The patient is a 61 year old F with a PMH of hypertension, chronic back pain, status postlumbar fusion with Garcia rods, depression, GERD, obesity, osteoarthritis and tobaccodependence who was admitted to the hospital by Dr. Lexa Hahn for an infected rightprosthetic knee joint. Arthrocentesis done as an outpatient was positive for methicillinsensitive staph epidermidis. She was taken to surgery on 10/09 for debridement and wash out.Dr. Lee from [place] was consulted. Culture of the joint fluid from the wash out grew MSSE.She was transferred to rehab on 10/10 and will need 6 weeks of IV Rocephin, 2 GM daily. Aftershe completes 6 weeks of Rocephin she will need lifelong suppression with either doxycycline orKeflex. While on Rocephin she will require weekly BMP, CBC, ESR and labs should be sent to Dr.Robert Lee.While in the hospital she had an overnight trending pulse ox because she has HTN, isalways tired and her friends tell her snores like a freBridgeway Capital train. The trending pulse ox wasconsistent with sleep disordered breathing. This was discussed with her and I recommend shehave and OP sleep study. Smoking cessation counselling was given in the hospital and shereceived a nicotine patch.Weight Bearing Status: Weight bearing as toleratedKeep extremity elevated above heart level: Right LegCall your doctor if you observe: Fever of 101 or Higher, Shortness of breath, Dizziness,Fainting spells, Swelling in the ankles, Chest painRemove Dressing in (days):: 4Home Medications:Medications to take at DischargeNadolol [Corgard ( Beta Sal)] 20 mg PO DAILY 08/26/16ertraline HCl [Zoloft] 100 mg PO DAILY 08/26/16Cyclobenzaprine [Flexeril] 10 mg PO TID PRN PRN #30 tablet Lisinopril [Zestril] 20 mg PO DAILY #30 tablet 09/15/17Melatonin 10 mg PO QHS tablet 09/15/17Oxycodone [Oxyir] 5 - 10 mg PO Q6H PRN PRN #56 tablet 09/15/17Primidone [Mysoline] 50 mg PO BID #60 09/15/17cetaminophen [Tylenol] 1,000 mg PO Q8 tablet 10/10/17spirin 325 mg PO BIDCM tablet 10/10/17Ceftriaxone [Rocephin] 2 gm IV Q24 #41 bag 10/10/17Ensure Enlive 120 ml PO 4X/DAY 10/10/17Nicotine [Nicoderm Cq ( PBKC)] 14 mg TRANSDERM. DAILY #42 patch 10/10/17Pantoprazole Sodium [Protonix] 20 mg PO DAILY tablet 10/10/17Senna/Docusate Sodium [Senokot-S] 2 tablet PO BID tablet 10/10/17Following Prescrptions Were Given to Patient:Ceftriaxone [Rocephin] 2 gm IV Q24 #41 bagNicotine [Nicoderm Cq (PBKC)] 14 mg TRANSDERM. DAILY #42 patchPrimary Care Physician:Gaurang Godinez MD [Primary Care Provider] -Please follow up with your Primary Care Physician in: following DC from the rehab unitPlease Follow Up With: Lexa Hahn MDWhen: 7-10 daysDisposition: Inpt Rehab Unit/FacilityMinutes spent on discharge:: 35Patient Condition:: GoodMeaningful Use InfoMeaningful Use Diagnoses (Choose all that apply): None yzyyjstszk49/13/17 0230 <Electronically signed by Chriss Forbes DO>Date M Blake Forbes DOCosigner Signature (if applicable): Date CC: Suzy Lujan MD; Diane Forbes; Javier Godinez MD; Lexa RENEigned BASIC METABOLIC Collected: 10/11/2017 Status: F Source: [place] PROFILE (BMP) 7:40 AM [facility] REPOSITORY TYPE CODE TESTS RESULT OUT OF RANGE REFERENCE UNITS LAB L501.0100 High 70-110 mg/dL GLU 130 Result Comment: Fasting Glucose result greater than or equal to 126 mg/ dLsuggests DIABETES MELLITUS per A.D.A. criteria. LAB L501.1000 Low 7-18 mg/dL BUN 6 LAB L501.1100 Low 0.55-1.02 mg/dL CREAT,SERUM 0.37 Result Comment: The validity of the calculated GFR AND GFRAA in patients over70 years has not been determined. Clinical correlation isessential. LAB L501.1110 Normal >60 mL/min EST GFR 189 Result Comment: Non- GFR Calc LAB L501.1115 Normal >60 mL/min EST GFR - 228 AA Result Comment: GFR Calc LAB L501.1255 Normal ml/min Estimated 136.13 CRCL LAB L501.1300 Normal 10-20 RATIO BUN/CRE 16.3 LAB L501.2200 Normal 8.5-10 mg/dL CA 8.9 .1 LAB L501.5300 Normal 136-14 mmol/L NA 139 5 LAB L501.5600 Normal 3.5-5. mmol/L K 4.0 1 LAB L501.5900 Normal 98-107 mmol/L CL 103 LAB L501.6100 Normal 21.0-3 mmol/L CO2 27.0 2.0 LAB L501.6200 Normal 5-15 GAP 9 Performed By: #### L500.2500 ####[facility] [address] [place], [address] CBC-COMPLETE BLOOD CNT Collected: 10/11/2017 Status: F Source: [place] NO DIFF 7:40 AM [facility] REPOSITORY TYPE CODE TESTS RESULT OUT OF RANGE REFERENCE UNITS LAB L100.1000 Normal 4.4-11.0 K/mm3 WBC 8.1 LAB L100.1200 Low 4.2-5.4 M/mm3 RBC 2.83 LAB L100.1300 Low 12.0-15.0 g/dl HGB 9.5 LAB L100.1400 Low 37-47 % HCT 28.5 LAB L100.1500 High 81-99 fL MCV 100.7 LAB L100.1600 High 27.0-32.0 pg MCH 33.6 LAB L100.1700 Normal 32-36 g/gl MCHC 33.3 LAB L100.1810 High 11.6-14.6 % RDW 19.4 CV LAB L100.1820 High 35.1-43.9 fl RDW 69.5 SD LAB L100.1900 High 150-450 K/mm3 PLT 471 LAB L100.2000 Normal 6.2-12.0 fl MPV 10.4 Performed By: #### L100.0500, L100.4500 ####[facility] [address] [facility] [place], [place], [address] DIFFERENTIAL COMMENT Collected: 10/11/2017 Status: F Source: [place] 7:40 AM [facility] REPOSITORY TYPE CODE TESTS RESULT OUT OF RANGE REFERENCE UNITS LAB L100.4500 Normal SMEAR SCAN COMMENT Result Comment: ANISOCYTOSIS 1+MICROCYTOSIS 1+HYPOCHROMIA 1+ Performed By: #### L100.0500, L100.4500 ####[facility] [address] [place], [address] DISCHARGE INSTRUCTION Observed: 10/10/2017 Status: F Source: [place] 3:01 PM [facility] REPOSITORY [facility] [address] [facility] [place], [place] [address]Kvbuolnbywsf for Home/Discharge Abnwtlwgafhl52/10/17 1442 #: [id number] Acct: [id number]: HAIM LIAO Rep #: [id number]: 1955 61 From: Chriss Forbes DOPCP: Javier Godinez MD Status: ADM IN- Discharge DiagnosesCurrent Active Problems:Current Active and Chronic ProblemsProsthetic joint infection (Acute)You will use the following diet at home:: CardiacYour food should be the consistency of: RegularYour liquids should be the consistency of: Regular/ ThinWeight Bearing Status: Weight bearing as toleratedKeep extremity elevated above heart level: Right LegCall your doctor if you observe: Fever of 101 or Higher, Shortness of breath, Dizziness,Fainting spells, Swelling in the ankles, Chest painRemove Dressing in (days):: 4Additional Instructions: ice to the right knee 3-4 times a day for 15 minutesAllergies/Adverse Reactions:Allergiesmeperidine [From Demerol] Adverse Reaction (Verified 10/20/16 19:26)OtherMAKES ME GOOFYPenicillins [PCN] Adverse Reaction (Verified 10/20/16 19:26)NauseaMedications to take at DischargeNadolol [Corgard (Beta Sal)] 20 mg PO DAILY 08/26/16ertraline HCl [Zoloft] 100 mg PO DAILY 08/26/16Cyclobenzaprine [Flexeril] 10 mg PO TID PRN PRN #30 tablet 09/15/17Lisinopril [Zestril] 20 mg PO DAILY #30 tablet 09/15/17Melatonin 10 mg PO QHS tablet 09/15/17Oxycodone [Oxyir] 5 - 10 mg PO Q6H PRN PRN #56 tablet 09/15/17Primidone [Mysoline] 50 mg PO BID #60 09/15/17cetaminophen [Tylenol] 1,000 mg PO Q8 tablet 10/10/17spirin 325 mg PO BIDCM tablet 10/10/17Ceftriaxone [Rocephin] 2 gm IV Q24 #41 bag 10/10/17Ensure Enlive 120 ml PO 4X/DAY 10/10/17Nicotine [Nicoderm Cq (PBKC)] 14 mg TRANSDERM. DAILY #42 patch 10/10/17Pantoprazole Sodium [Protonix] 20 mg PO DAILY tablet 10/10/17Senna/ Docusate Sodium [Senokot-S] 2 tablet PO BID tablet 11/10/17The following prescriptions were given:Ceftriaxone [Rocephin] 2 gm IV Q24 #41 bagNicotine [Nicoderm Cq (PBKC)] 14 mg TRANSDERM. DAILY #42 patchPrimary Care Physician:Gaurang Godinez MD [ Primary Care Provider] -Please follow up with your Primary Care Physician in: following DC from the rehab unitPlease Follow Up With: Lexa Hahn MDWhen: 7-10 daysProposed Discharge Date: 10/10/1711/10/17 1501 <Electronically signed by Chriss Forbes DO>Date Chriss Forbes DOCC: Javier Godinez MD; Rolando Lee MD; Lexa Hahn MD; Angeles Quintana M.D. HEMOGLOBIN A1C Collected: 10/10/2017 Status: F Source: [place] 5:40 AM [facility] REPOSITORY Order Comment: SPECIMEN OBTAINED FROM LINE DRAW TYPE CODE TESTS RESULT OUT OF RANGE REFERENCE UNITS LAB L501.9985 Normal 4.2-6.3 % HGB 6.0 A1C Performed By: #### L501.9985 ####[facility] [address] [place], [address] COMPREHENSIVE METABOLIC Collected: 10/10/2017 Status: F Source: [facility] 5:40 AM [facility] REPOSITORY Order Comment: SPECIMEN OBTAINED FROM LINE DRAW TYPE CODE TESTS RESULT OUT OF RANGE REFERENCE UNITS LAB L501.0100 High 70-110 mg/dL GLU 121 Result Comment: Fasting Glucose result from 110 to <126 mg/dLsuggests IMPAIRED HOMEOSTASIS per A.D.A. criteria. LAB L501.1000 Low 7-18 mg/dL BUN 5 LAB L501.1100 Low 0.55-1.02 mg/dL CREAT,SERUM 0.39 Result Comment: The validity of the calculated GFR AND GFRAA in patients over70 years has not been determined. Clinical correlation isessential. LAB L501.1110 Normal >60 mL/min EST GFR 175 Result Comment: Non- GFR Calc LAB L501.1115 Normal >60 mL/min EST GFR - 212 AA Result Comment: GFR Calc LAB L501.1255 Normal ml/min Estimated 129.15 CRCL LAB L501.1300 Normal 10-20 RATIO BUN/CRE 12.7 LAB L501.1500 Low 6.4-8. g/dL T PROT 5.9 2 LAB L501.1800 Low 3.4-5. g/dL ALB 2.7 0 Result Comment: Please note revised Albumin AND Globulin reference rangeeffective 2017. LAB L501.1950 Normal 2.2-4.2 g/dL GLOB 3.2 LAB L501.2000 Low 0.9-2.4 RATIO A/G 0.8 LAB L501.2200 Normal 8.5-10.1 mg/dL CA 8.5 LAB L501.4100 Low 15-37 U/L AST 11 LAB L501.4305 Normal 45-117 U/L ALK P 88 LAB L501.4405 Normal 12-78 U/L ALT 16 LAB L501.4600 Normal 0.20-1.00 mg/dL T BILI 0.30 LAB L501.5300 Normal 136-145 mmol/L NA 139 LAB L501.5600 Normal 3.5-5.1 mmol/L K 3.8 LAB L501.5900 Normal 98-107 mmol/L CL 103 LAB L501.6100 Normal 21.0-32.0 mmol/L CO2 29.0 LAB L501.6200 Normal 5-15 GAP 7 Performed By: #### L500.4050, L500.4100, L501.9520, L506.0250 ####[facility] [address] [place], [address] LIPID PROFILE Collected: 10/10/2017 Status: F Source: [place] 5:40 AM [facility] REPOSITORY Order Comment: SPECIMEN OBTAINED FROM LINE DRAW TYPE CODE TESTS RESULT OUT OF RANGE REFERENCE UNITS LAB L501.4900 Normal 200 mg/dL CHOL 173 Result Comment: <200 mg/dL Desirable 200-240 mg/dL Borderline >240 mg/dL High Risk LAB L501.5000 Normal mg/dL TRIG 125 Result Comment: The drugs N-Acetylcysteine and Metamizole may falselydepress this assay.Serum Triglycerides Reference Interval Normal <150 mg/dL Borderline high 150 - 199 mg/ dL High 200 - 499 mg/dL Very High > zq=423 mg/dL LAB L501.6400 Low mg/dL HDL 33 Result Comment: The drugs N-Acetylcysteine and Metamizole may falselydepress this assay. Reference Range HDL <40 mg/dL Low HDL Cholesterol HDL >or=60 mg/dL High HDL Cholesterol LAB L501.6500 Normal 0-130 mg/dL LDL 115 LAB L501.6600 Normal 5-40 mg/dL VLDL 25 Performed By: #### L500.4050, L500.4100, L501.9520, L506.0250 ####[facility] [address] [facility] [address] [place], [place], [id number] THYROID STIM HORMONE Collected: 10/10/2017 Status: F Source: [place] (TSH) 5:40 AM [facility] REPOSITORY Order Comment: SPECIMEN OBTAINED FROM LINE DRAW TYPE CODE TESTS RESULT OUT OF RANGE REFERENCE UNITS LAB L501.9520 High 0.358-3.74 uIU/mL TSH 10.70 Performed By: #### L500.4050, L500.4100, L501.9520, L506.0250 ####[facility] [address] [place], [place], [id number] FOLATES, (FOLIC ACID) Collected: 10/10/2017 Status: F Source: [place] 5:40 AM [facility] REPOSITORY Order Comment: SPECIMEN OBTAINED FROM LINE DRAW TYPE CODE TESTS RESULT OUT OF RANGE REFERENCE UNITS LAB L506.0250 Normal 3.1-55.4 ng/mL FOLATES 9.50 Result Comment: Please note revised Folates reference range tuhrlqfwh52/14/ 2017. Performed By: #### L500.4050, L500.4100, L501.9520, L506.0250 ####[facility] [address] [place], [place], [id number] CBC-COMPLETE BLOOD CNT Collected: 10/10/2017 Status: F Source: [place] NO DIFF 5:40 AM [facility] REPOSITORY Order Comment: SPECIMEN OBTAINED FROM LINE DRAW TYPE CODE TESTS RESULT OUT OF RANGE REFERENCE UNITS LAB L100.1000 Normal 4.4-11.0 K/mm3 WBC 5.8 LAB L100.1200 Low 4.2-5.4 M/mm3 RBC 2.64 LAB L100.1300 Low 12.0-15.0 g/dl HGB 8.7 LAB L100.1400 Low 37-47 % HCT 27.2 LAB L100.1500 High 81-99 fL MCV 103.0 LAB L100.1600 High 27.0-32.0 pg MCH 33.0 LAB L100.1700 Normal 32-36 g/gl MCHC 32.0 LAB L100.1810 High 11.6-14.6 % RDW 19.6 CV LAB L100.1820 High 35.1-43.9 fl RDW 74.6 SD LAB L100.1900 Normal 150-450 K/mm3 PLT 428 LAB L100.2000 Normal 6.2-12.0 fl MPV 10.2 Performed By: #### L100.0500, L100.9950, L100.4500 ####[facility] [address] [place], [place], [id number] RETIC PANEL Collected: 10/10/2017 Status: F Source: [place] 5:40 AM [facility] REPOSITORY Order Comment: SPECIMEN OBTAINED FROM LINE DRAW TYPE CODE TESTS RESULT OUT OF RANGE REFERENCE UNITS LAB L101.0000 High 0.5-1.5 % RETIC 1.94 LAB L101.0060 High 3.00-15.90 % IM RET 23.50 FRACTION LAB L101.0090 Low 30-35 pg RET-HE 29.6 LAB L101.0110 Normal 1.0-7.9 % IPF 2.0 Result Comment: Low PLT + Low IPF suggest a bone marrow production disorderLow PLT + high IPF suggests peripheral destruction(e.g.ITP, TTP, HIT, DIC, autoimmune) or bone marrow recoveryTrending of serial IPF measurements is recommended whenevaluating for bone marrow responesValue above normal range indicates an increase in RBCcellular response from bone marrow. Performed By: #### L100.0500, L100.9950, L100.4500 ####[facility] [address] [place], [place], [id number] DIFFERENTIAL COMMENT Collected: 10/10/2017 Status: F Source: [place] 5:40 AM [facility] REPOSITORY Order Comment: SPECIMEN OBTAINED FROM LINE DRAW TYPE CODE TESTS RESULT OUT OF RANGE REFERENCE UNITS LAB L100.4500 Normal SMEAR SCAN COMMENT Result Comment: ANISOCYTOSIS 1+HYPOCHROMIA 1+MICROCYTOSIS 1+POLYCHROMASIA 1+ Performed By: #### L100.0500, L100.9950, L100.4500 ####[facility] [address] [place], [address] VITAMIN B12 Collected: 10/10/2017 Status: F Source: [place] 5:40 AM [facility] REPOSITORY Order Comment: SPECIMEN OBTAINED FROM LINE DRAW TYPE CODE TESTS RESULT OUT OF RANGE REFERENCE UNITS LAB L503.0105 Normal 211-911 pg/mL Vitamin 713 B12 Performed By: #### L503.0105 ####[facility] [address] [facility] [place], [address] VANCOMYCIN, TROUGH Collected: 10/09/2017 Status: F Source: [place]AN[place] LEVEL 8:06 PM [facility] REPOSITORY Order Comment: Time Medication is to be Given? 2000 TYPE CODE TESTS RESULT OUT OF RANGE REFERENCE UNITS LAB L501.8820 Normal 5.0-15.0 ug/mL VANCO, 10.9 TROUGH Result Comment: VANCOMYCIN STANDARED DRUG THERAPY TROUGH LEVEL: 5.0 - 15.0 mg/LVANCOMYCIN HIGH INTENSITY THERAPY TROUGH LEVEL: 15.0 - 20.0 mg/LHigh Intensity therapy recommended for serious lifethreatening infections include:- Aptagddlaj-Vlzdhrnilfch-Glgdbyuum (Ventilator/Healtcare Associated)- SepsisPLEASE CONTACT PHARMACY SERVICES (#[id number]) FOR INTERPRETATIONOF RESULTS. Performed By: #### L501.8820 ####[facility] [address] [place], [address] CONSULTATION Observed: 10/09/2017 Status: F Source: [place] 12:19 PM [facility] REPOSITORY [facility] [address] [place], [place] [address]Pngbbfnflbjp69/09/17 1212#: [id number] Acct: [id number]: HAIM LIAO Rep #: [id number]: 1955 61 From: Rolando Lee MDPCP: Javier Godinez MD Status: ADM IN YLocation: MS3 [id number] List(1) Prosthetic joint infectionStatus: AcuteReason for Consult: PJIConsulted by: Dr. HahnHistory of Present Illness:The patient is a 61 year old F with R knee TKA 09/08/[address] Hahn. About 1-2 weekspost-op developed progressive soreness at the joint, worse with movement. No drainage, noredness, no fever, no outpatient abx. [place] like knee was getting swollen. Aspiration done10/07 which showed some purulence and cx (+ ) for staph. Taken to OR 10/08 for I AND D and polyexchange. Given vanc and cefazolin rere-op which she tolerated with no issue. Feeling finethis AM, pain controlled.Full ROS performed and neg except as noted above.- Medical HistoryPast Medical History (Chronic Problems):Chronic ProblemsAcquired scoliosis (Chronic)Benign essential HTN (Chronic)Chronic back pain (Chronic)Depression (Chronic)GERD (gastroesophageal reflux disease) (Chronic)Allergies/Adverse Reactions:Allergiesmeperidine [From Demerol ] Adverse Reaction (Verified 10/20/16 19:26)OtherMAKES ME GOOFYPenicillins [PCN ] Adverse Reaction (Verified 10/20/16 19:26)NauseaHome Medications:Ambulatory OrdersMedication Instructions RecordedNadolol [ Corgard (Beta Sal)] 20 mg PO DAILY 08/26/16Omeprazole [Prilosec] 20 mg PO DAILY 08/26/16- Social HistoryTobacco Use: cigarettesVital SignsTemp Pulse Resp BP Pulse Ox96.2 F 64 18 105/54 08:57 10/09/17 08:57 10/09/17 08:57 08/17 08:57 10/09/17 08:57Oxygen Flow Rate 2Oxygen Delivery Method Room AirWeight: 90.7 kgBody Mass Index (BMI) 34.3Microbiology Past 72 Hours10/08/17 20:35 Gram Stain - FinalTissue - Knee10/08/17 20:35 Gram Stain - FinalTissue - Knee10/08/17 20:35 Gram Stain - FinalTissue - KneeLaboratory Tests Past 24 HrsWBC 8.1RBC 2.80 LHgb 9.2 LHct 29.0 LMCV 103.6 HMCH 32.9 HMCHC 31.7 L- Other StudiesRadiology: [] reviewedOther Studies: []Route of nutrition/ use of supplements: []Nutritional Intake: []IV Site: []Cole Catheter: []- Physical ExamGeneral: Alert, Oriented x3, Cooperative, No apparent distressHEENT: Atraumatic, PERRLA, EOMINeck: Supple, No NodesLungs: Clear to auscultation, Normal air movementCardiovascular: Regular rate, Regular Rhythm, No murmursAbdomen: Bowel Sounds Present, Soft, Non Tender, Non- DistendedExtremities: - - RLE with surg dressing in placeSkin: No rashesIV Site: Peripheral, without redness- Assessment/PlanAntibiotics: []Assessment/Plan: []R knee MSSE PJI - now s/p I AND D and poly exchange 10/08/[address] Hahn. Surg cx pending.Aspiration 10/07 (+) for MSSE. Tolerated cefazolin rere-op, so will add ceftriaxone and orderpicc. Tentative plan, assuming no other organisms grow would be for 6 week course of ivceftriaxone, and then fdc suppression with po abx like doxy or keflex. Weekly bmp, cbc ,and esr while on iv abx. Rx written for labs and iv abx.Thank you, will followbrad case finisher.10/09/17 9632 <Electronically signed by Rolando Lee MD> Date Rolando MORALESosign Signature (if applicable): Date CC: Javier Godinez MD; Rolando Lee MD; Angeles Quintana M.D. Signed CONSULTATION Observed: 10/09/2017 Status: F Source: [place] 7:57 AM [facility] REPOSITORY [facility] [address] [address]Fhcckgfgmsba89/09/17 0746MR#: [id number] Acct: [id number]: HAIM LIAO Rep #: [id number]: 1955 61 From: Angeles Quintana MDPCP: Javier Godinez MD Status: ADM IN YLocation: MS3 [id number] List(1) Status post left knee replacementStatus: AcuteReason for ConsultDate of Consultation: 10/09/17Reason for Consultation: post-op pain.History of Present Illness: Patient is a 61 years old female, who had right knee open irrigation and debridementon 10/08/17 for infected right knee arthropathy. She is having persisting problems with pain inthe right leg despite of current pain medications.Past Medical HistoryPast Medical History (Chronic Problems):Chronic ProblemsAcquired scoliosis (Chronic) Benign essential HTN (Chronic)Chronic back pain (Chronic)Depression (Chronic)GERD (gastroesophageal reflux disease) (Chronic)Allergiesmeperidine [From Demerol] Adverse Reaction (Verified 10/20/16 19:26)OtherMAKES ME GOOFYPenicillins [PCN] Adverse Reaction (Verified 10/20/16 19:26)NauseaHome Medications:Ambulatory OrdersMedication Instructions RecordedNadolol [Corgard (Beta Sal)] 20 mg PO DAILY 08/26/16Omeprazole [Prilosec] 20 mg PO DAILY urgical History: cholecystectomy - Laparoscopic, total knee arthroplasty - Bilateral, - -Previous Back surgies x 3Psychiatric History: DepressionGYN History: No pertinent WEIGHT CONTROL ENGINEER historySmoking Status: Heavy Smoker (>10/day)- *Family History MaternalHistory Items: No pertinent history PaternalHistory Items: No pertinent historyReview of SystemsConstitutional: Denies: Anorexia, Chills, Fever, Night Sweats, MalaiseEyes: Denies: Blurred vision, Cataracts, Double vision, Pain, RednessHEENT: Denies: Difficulty Hearing, Difficulty SwallowingCardiovascular: Denies: Chest Pain, Claudication, Chest Pressure, Edema, OrthopneaRespiratory: Denies: Cough, Hemoptysis, Shortness of breath at restGastrointestinal: Denies: Abdominal Pain, Constipation, DiarrheaGenitourinary: Denies: Dysuria, Frequency , HematuriaGynecological: Denies: Breast symptoms, Vaginal bleedingMusculoskeletal: Reports: Joint stiffness, Leg PainSkin: Denies: Dryness, JaundiceNeurological: Denies: Balance problems, Blurred vision, Double visionPsychiatric: Denies: Anxiety, DepressionEndocrine: Denies: Change in Body HabitusHematologic/ Lymphatic: Denies: Adenopathy, Petechiae, PurpuraObjective:In general, patient is a well- nourished and developed adult.HEENT: Head is atraumatic, and normocephalic. Pupils are equal, round, and reactive to lightand accommodations. Neck is supple. There is no lymphadenopathy, or thyromegaly. Oral mucosa ispink, and moist. There are no lesions.Heart: Auscultation is normal with regular rhythm and rate. There is no extra heart sounds, ormurmurs. S1 and S2 are present. Point of maximal impulse is not displaced.Lungs: Lungs are clear to auscultation bilaterally. There is no wheezing, or crackles.Abdomen: Abdominal wall is non-tender, and non-distended. There is no palpable mass ororganomegaly. Normoactive bowel sounds are present.Extremities : There is no cyanosis or clubbing. Peripheral pulses are palpable. There is noedema. Right leg dressed, clean and dry.Skin: There are no any skin discoloration or lesions.Neurological: CN II - XII are intact. Sensory and motor functions are grossly normal with noobvious deficit. Cerebellar functions are within normal range. Gait was not tested.- Physical ExamVital SignsTemp Pulse Resp BP Pulse Ox98.2 F 59 16 125/63 02:00 10/09/17 02:00 10/09/17 02:00 10/09/17 02:00 10/09/17 02:00Oxygen Flow Rate 2Oxygen Delivery Method Nasal CannulaWeight: 199 lb 15.348 ozBody Mass Index (BMI) 34.3Intake and Output for Last 24 HoursIntake Total 1999 2301Output Total 500Balance 1999 1801Laboratory Tests Past 24 HrsWBC 8.1RBC 2.80 LHgb 9.2 LHct 29.0 LMCV 103.6 HMCH 32.9 HMCHC 31.7 LAssessment/PlanPatient is a 61 years old female, who had right knee open irrigation and debridementon 10/08/17 for infected right knee arthropathy. She is having persisting problems with pain inthe right leg despite of current pain medications.#1 leg pain.S/P Right knee open irrigation and debridement for Infected right total knee replacement.She is currently on MS Contin 15 mg po bid, Oxycodone IR 5 to 10 mg po q6h prn. She had beensleeping between the dosing of oxycodone. She states that she was on Duragesic patch in thepast, and had difficulty of getting off.Stop MS Contin and use short acting medications only. Continue oxycodone IR at current dosage.Add Morphine IVP 2 mg q4hr prn for breakthrough pain.#2 essential hypertension.Blood pressure is adequate.#3 Mild hypoxia.Oxygen prn.Add bronchodilator.Thank you for consultation. We will follow with you.10/09/17 0757 <Electronically signed by Angeles Quintana MD>Date Angeles Quintana [facility] Signature (if applicable): Date CC: Javier Godinez MD; Rolando Lee MD; Angeles Quintana M.D. Signed CBC-COMPLETE BLOOD CNT Collected: 10/09/2017 Status: F Source: [place] NO DIFF 5:52 AM [facility] REPOSITORY TYPE CODE TESTS RESULT OUT OF RANGE REFERENCE UNITS LAB L100.1000 Normal 4.4-11.0 K/mm3 WBC 8.1 LAB L100.1200 Low 4.2-5.4 M/mm3 RBC 2.80 LAB L100.1300 Low 12.0-15.0 g/dl HGB 9.2 LAB L100.1400 Low 37-47 % HCT 29.0 LAB L100.1500 High 81-99 fL MCV 103.6 LAB L100.1600 High 27.0-32.0 pg MCH 32.9 LAB L100.1700 Low 32-36 g/gl MCHC 31.7 LAB L100.1810 High 11.6-14.6 % RDW 19.8 CV LAB L100.1820 High 35.1-43.9 fl RDW 74.9 SD LAB L100.1900 Normal 150-450 K/mm3 PLT 423 LAB L100.2000 Normal 6.2-12.0 fl MPV 9.8 Performed By: #### L100.0500, L100.4500 ####[facility] [address] [place], [place], [address] DIFFERENTIAL COMMENT Collected: 10/09/2017 Status: F Source: [place] 5:52 AM [facility] REPOSITORY TYPE CODE TESTS RESULT OUT OF RANGE REFERENCE UNITS LAB L100.4500 Normal SMEAR SCAN COMMENT Result Comment: ANISOCYTOSIS 1+HYPOCHROMIA 1+MICROCYTOSIS 1+ Performed By: #### L100.0500, L100.4500 ####[facility] [address] [place], [place], [address] BASIC METABOLIC Collected: 10/09/2017 Status: F Source: [place] PROFILE (BMP) 5:52 AM [facility] REPOSITORY TYPE CODE TESTS RESULT OUT OF RANGE REFERENCE UNITS LAB L501.0100 High 70-110 mg/dL GLU 121 Result Comment: Fasting Glucose result from 110 to <126 mg/dLsuggests IMPAIRED HOMEOSTASIS per A.D.A. criteria. LAB L501.1000 Low 7-18 mg/dL BUN 6 LAB L501.1100 Low 0.55-1.02 mg/dL CREAT,SERUM 0.42 Result Comment: The validity of the calculated GFR AND GFRAA in patients over70 years has not been determined. Clinical correlation isessential. LAB L501.1110 Normal >60 mL/min EST GFR 160 Result Comment: Non- GFR Calc LAB L501.1115 Normal >60 mL/min EST GFR - 193 AA Result Comment: GFR Calc LAB L501.1255 Normal ml/min Estimated 119.93 CRCL LAB L501.1300 Normal 10-20 RATIO BUN/CRE 14.1 LAB L501.2200 Low 8.5-10 mg/dL CA 8.3 .1 LAB L501.5300 Normal 136-14 mmol/L NA 138 5 LAB L501.5600 Normal 3.5-5. mmol/L K 3.8 1 LAB L501.5900 Normal 98-107 mmol/L CL 101 LAB L501.6100 Normal 21.0-3 mmol/L CO2 27.0 2.0 LAB L501.6200 Normal 5-15 GAP 10 Performed By: #### L500.2500 ####[facility] [address] [facility]. [place], [place], [id number] Observed: 10/08/2017 Status: F Source: [place] CULTURE, DEEP WOUND 8:35 PM [facility] REPOSITORY Comments: COLLECTED IN OR SUPRA PATELLA POUCHGram StainGram Stain 3+ White Blood Cells Rare Red Blood Cells No organisms seen Wound CultureNo growth aerobically. Cult, AnaerobicNo anaerobic bacteria isolated. Performed By: #### M100.1500, M100.3880, M600.1900 ####[facility] [address] [facility] [place], [address] AFB Observed: 10/08/2017 Status: F Source: [place] CULT/SMEAR [id number] 8:35 PM [facility] REPOSITORY Comments: COLLECTED IN OR SUPRA PATELLA POUCH RIGHT KNEE Comments: COLLECTED IN OR SUPRA PATELLA POUCH Is this test to exclude patient from TB Isolation? N AFB Smear/Fluor TESTING PERFORMED AT [facility]. ORIGINAL REPORT ON FILE IN LAB CONTAINS ADDITIONAL TEST SITE INFORMATION. Smear, Acid Fast Tissue Grinding Smear: Negative AFB Cult TESTING PERFORMED AT [facility]. ORIGINAL REPORT ON FILE IN LAB CONTAINS ADDITIONAL TEST SITE INFORMATION. Culture, Acid Fast NO ACID-FAST BACILLI ISOLATED AFTER 6 WEEKS. Performed By: #### M100.1500, M100.3880, M600.1900 ####[facility] [address] [place], [address] Observed: 10/08/2017 Status: F Source: MARIBEL LOJA W/ 8:35 PM [facility] [id number] REPOSITORY Comments: COLLECTED IN OR SUPRA PATELLA POUCH RIGHT KNEE Comments: COLLECTED IN OR SUPRA PATELLA POUCH Is this test to exclude patient from TB Isolation? Silke Luke,Eamnqr8314 TESTING PERFORMED AT [facility]. ORIGINAL REPORT ON FILE IN LAB CONTAINS ADDITIONAL TEST SITE INFORMATION. CUF No yeast or mold isolated after [address] TESTING PERFORMED AT [facility]. ORIGINAL REPORT ON FILE IN LAB CONTAINS ADDITIONAL TEST SITE INFORMATION. Fungus Stain No yeast or mold observed. Performed By: #### M100.1500, M100.3880, M600.1900 ####[facility] [address] [place], [place], [id number] Observed: 10/08/2017 Status: F Source: [place] CULTURE, DEEP WOUND 8:35 PM [facility] REPOSITORY Comments: COLLECTED IN OR MEDIAL GUTTER RIGHT KNEEGram StainGram Stain 3+ Red Blood Cells No organisms seen Wound CultureORGANISM 1: Staphylococcus epidermidisAmount Growth Very Rare Staphylococcus epidermidis: REACTION Benzylpenicillin NF 0.25 R Cefoxitin *NF - Clindamycin $$ >=8 R Inducable Clindamycin Resistan - Erythromycin $ >=8 R Gentamicin $ & lt;=0.5 S Levofloxacin $ <=0.12 S Linezolid $$$ $ 1 S Oxacillin NF <=0.25 S Tigecycline $$$$ <=0.12 S Rifampin $$ <=0.5 S Tetracycline NF <=1 S Vancomycin $ 1 S(NF) indicates non-formulary drug at [facility]. Approval by Infectious Disease Specialist required before non-formulary drugs may be ordered and/or dispensed. * CLSI guidelines does not recommend testing of cephalosporins. This interpretation is deduced from Beta-lactam/penicillin results. Cult, AnaerobicNo anaerobic bacteria isolated. Performed By: #### M100.1500, M100.3880, M600.1900 ####[facility] [address] [place], [place], [address] AFB Observed: 10/08/2017 Status: F Source: [place] CULT/SMEAR [id number] 8:35 PM [facility] REPOSITORY Comments: COLLECTED IN OR RIGHT KNEE MEDIAL GUTTER Is this test to exclude patient from TB Isolation? N AFB Smear/Fluor TESTING PERFORMED AT [facility]. ORIGINAL REPORT ON FILE IN LAB CONTAINS ADDITIONAL TEST SITE INFORMATION. Smear, Acid Fast Tissue Grinding Smear: Negative AFB Cult TESTING PERFORMED AT [facility]. ORIGINAL REPORT ON FILE IN LAB CONTAINS ADDITIONAL TEST SITE INFORMATION. Culture, Acid Fast NO ACID-FAST BACILLI ISOLATED AFTER 6 WEEKS. Performed By: #### M100.1500, M100.3880, M600.1900 ####[place] [facility] [address] [place], [address] Observed: 10/08/2017 Status: F Source: MARIBEL LOJA W/ 8:35 PM [facility] [id number] REPOSITORY Comments: COLLECTED IN OR RIGHT KNEE MEDIAL GUTTER Is this test to exclude patient from TB Isolation? N MarlyGpddlf1614 TESTING PERFORMED AT [facility]. ORIGINAL REPORT ON FILE IN LAB CONTAINS ADDITIONAL TEST SITE INFORMATION. CUF No yeast or mold isolated after [address] TESTING PERFORMED AT [facility]. ORIGINAL REPORT ON FILE IN LAB CONTAINS ADDITIONAL TEST SITE INFORMATION. Fungus Stain No yeast or mold observed. Performed By: #### M100.1500, M100.3880, M600.1900 ####[facility] [address] [place] [place], [address] Observed: 10/08/2017 Status: F Source: [place] CULTURE, DEEP WOUND 8:35 PM [facility] REPOSITORY Comments: COLLECTED IN OR IMPLANT MEMBRANE RIGHT KNEEGram StainGram Stain Rare Red Blood Cells Rare White Blood Cells No organisms seen Wound CultureORGANISM 1: Staphylococcus epidermidisAmount Growth Rare Staphylococcus epidermidis: REACTION Benzylpenicillin NF 0.25 R Cefoxitin *NF - Clindamycin $$ >=8 R Inducable Clindamycin Resistan - Erythromycin $ >=8 R Gentamicin $ <=0.5 S Levofloxacin $ 0.25 S Linezolid $$$$ 1 S Oxacillin NF <=0.25 S Tigecycline $$$$ <=0.12 S Rifampin $$ <=0.5 S Tetracycline NF <=1 S Vancomycin $ 2 S(NF) indicates non-formulary drug at [facility]. Approval by Infectious Disease Specialist required before non- formulary drugs may be ordered and/or dispensed. * CLSI guidelines does not recommend testing of cephalosporins. This interpretation is deduced from Beta-lactam/penicillin results. Cult, AnaerobicNo anaerobic bacteria isolated. Performed By: #### M100.1500 ####[facility] [address] [place] [place], [address] AFB Observed: 10/08/2017 Status: F Source: [place] CULT/SMEAR [id number] 8:35 PM [facility] REPOSITORY Comments: COLLECTED IN OR IMPLANT MEMBRANE RIGHT KNEE Comments: COLLECTED IN OR IMPLANT MEMBRANE RIGHT KNEE Is this test to exclude patient from TB Isolation? N AFB Smear/Fluor TESTING PERFORMED AT [facility]. ORIGINAL REPORT ON FILE IN LAB CONTAINS ADDITIONAL TEST SITE INFORMATION. Smear, Acid Fast Tissue Grinding Smear: Negative AFB Cult TESTING PERFORMED AT [facility]. ORIGINAL REPORT ON FILE IN LAB CONTAINS ADDITIONAL TEST SITE INFORMATION. Culture, Acid Fast NO ACID-FAST BACILLI ISOLATED AFTER 6 WEEKS. Performed By: #### M100.3880, M600.1900 ####[place] [facility] [address] [place], [address] Observed: 10/08/2017 Status: F Source: [place] KELLEY, FUNGUS W/ 8:35 PM [facility] [id number] REPOSITORY Comments: COLLECTED IN OR IMPLANT MEMBRANE RIGHT KNEE Comments: COLLECTED IN OR IMPLANT MEMBRANE RIGHT KNEE Is this test to exclude patient from TB Isolation? N Cu,Zhfcrl0779 TESTING PERFORMED AT [facility]. ORIGINAL REPORT ON FILE IN LAB CONTAINS ADDITIONAL TEST SITE INFORMATION. __ CUF No yeast or mold isolated after [address] TESTING PERFORMED AT [facility]. ORIGINAL REPORT ON FILE IN LAB CONTAINS ADDITIONAL TEST SITE INFORMATION. Fungus Stain No yeast or mold observed. Performed By: #### M100.3880, M600.1900 ####[facility] [address] [place], [address] OPERATIVE REPORT Observed: 10/08/2017 Status: F Source: [place] 8:20 PM [facility] RE[facility]ITORY [facility] [address] [place] [address]T[place]owjak Bqyqmq36/08/17 [facility]#: [id number] Acct: [id number]: HAIM LIAO Rep #: [id number]: 1955 61 From: Lexa Hahn MDPCP: Javier Godinez MD Status: ADM IN YLocation: ACINP [id number] ReportDate of Procedure: 10/08/17Pre-operative diagnosis: Infected right total knee replacementpostoperative diagnosis: SameTitle of operation: Right knee open irrigation and debridement, 1 component revisionSurgeon: Dr. Lexa HahnAssistant: Dr. Kenny MorganAnesthesia: GeneralAnesthesiologist: Dr. GastonlaMedications: Vancomycin, Ancef IV. Also vancomycin powder intra-articularIndications for surgery: Patient is a 61-year-old female that had right total knee replacementapproximately 1 month ago. Postoperatively she noted to have pain and swelling. Right kneewas aspirated yesterday in the office showing fluid with increased white blood cell count,increased neutrophil percentage. Also elevated CRP and sed rate. Gram stain negative. Woundcultures reportedly growing staph bacteria today. Patient understood treatment options and didwish to proceed emergently to surgery this evening for right knee irrigation debridement,cultures, 1 component revision.. Had been discussed with the anesthesia department, Dr. Morgan,Dr. Sandoval, Dr. Contreras.. Certainly from an orthopedic standpoint it was felt patient would mostbenefit from expedient right knee irrigation debridement. Patient understood the increasedrisks especially associated with eating at approximately 3 PM today. It is still uncertain whogave the order for this.Findings: Intraoperative findings showed purulent fluid in her joint. Fibrinous soft tissuesconsistent with joint infection. Joint components noted to be well fixed. She underwentstandard thorough debridement of the joint, irrigation, soft tissue cultures obtained, 1component revision. Standard wound closure in layers.early childhood assistant, Dr. Kenny Morgan was crucial throughout the entire procedure. Hehelp with patient positioning, holding the limb holding of retractors. He help with the actualsurgical procedure of debridement, as well as through irrigation, obtaining cultures, woundrevision. Help with wound closure bandage application patient transfer. Without surgicalphysician as assistant at surgery, surgical time would have been increased, surgical outcome could havebeen less optimal. His expertise was required throughout.Details of procedure: She was taken to the operating room and transferred to the OR table.Appropriate timeouts were performed. Vancomycin was being given IV. 2 g of Ancef was givenIV. Well-padded tourniquet was applied to the right upper thigh. Left lower extremity had TEDhose and SCDs on throughout. Right lower extremity was prepped padded draped in the usualorthopedic sterile fashion for the procedure. Limb was elevated. Tourniquet was applied to250 mmHg. Midline incision carried out at the knee. Careful dissection through skinsubcutaneous tissue was carried out. Suture material removed. Careful full-thickness skinflaps raised medially and laterally about the patella. Came through the previous medialparapatellar arthrotomy with a knife. Purulent material noted. Further suture materialremoved. We carefully dissected the soft tissues from underneath the medial and lateral gutterproximally and distally with pickups, rondure, Bovie. Debridement carried out officially to D.Proximal to distal as well. Obtain cultures from the medial gutter, suprapatellar pouchregion, as well as fibrinous material from on the implant. We did remove the polyethylenecomponent of the knee. We also debrided the back of the joint with Kerrison rongeurscarefully. PCL was preserved. We used a chlorhexidine sterile sponge to thoroughly cleanse themetallic and plastic implants that remained. We used 6 L of sterile saline as irrigant. Theaqua Mantis was used to help with diminished postoperative bleeding. Surgeons changed gownsand gloves. Is again thoroughly irrigated. Knee had been found to be ligamentously stableprior to removing implant.. New identical sized 3-11 X3 CS polyethylene impacted fully. Hehad good range of motion and patellar tracking. Tourniquet was let down. Bleeding controlledwith the Bovie. 2 g of vancomycin powder in the knee joint. Knee closed in layers with a #1Vicryl in a xrwgqn-yh-gzgcf fashion as well as running fashion. Then inverted 2-0 Vicryl,chrissy. Silverlon dressing applied. Rudy Wrap applied. Patient was awoken from heranesthetic. Transferred back to her own bed in recovery room in satisfactory condition.Tranexamic acid will be ordered. Infectious disease consult placed. Hospitalist consultplaced.Tentative plan 6 weeks of IV antibiotics most likely. Also most likely will recommend 1 yearof oral antibiotic.10/08/172019 <Electronically signed by Lexa Hahn MD>Date Lexa Hahn [facility]: Javier Godinez MD; Lexa Hahn MD Signed HISTORY AND PHYSICAL Observed: 10/08/2017 Status: F Source: [place] EXAM 6:43 PM [facility] REPOSITORY [facility] [id number] [address]Edyjyjl and Kjwwnwri87/08/17 1833MR#: [id number] Acct: [id number]: HAIM LIAO Piero Rep #: [id number]: 1955 61 From: Lexa Hahn MDPCP: Javier Godinez MD Status: ADM IN YLocation: [facility]-OGP-3Rqmtwyw of Present IllnessDate of Admission: 10/08/17Chief Complaint: Right knee painThe patient is a 61 year old female that had right total knee replacement September 08, 2017. Shehas had some discomfort ever since. Seemingly pain is gotten worse over the past few days.More swelling. Denies injury. Denies significant fever chills. Patient was seen in theoffice yesterday. Knee aspiration done by physician assistant at surgery. Fluid had increased whitecount, neutrophils. Also elevated ESR and CRP. Cultures positive for staph today. Gram stainwas negative. Patient would like to proceed with urgent/emergent irrigation debridement ofright knee joint. []Past Medical HistoryPast Medical History (Chronic Problems):Chronic ProblemsAcquired scoliosis (Chronic)Benign essential HTN (Chronic)Chronic back pain (Chronic)Depression (Chronic)GERD (gastroesophageal reflux disease) (Chronic)Allergiesmeperidine [ From Demerol] Adverse Reaction (Verified 10/20/16 19:26)OtherMAKES ME GOOFY Penicillins [PCN] Adverse Reaction (Verified 10/20/16 19:26)NauseaHome Medications: Ambulatory OrdersMedication Instructions RecordedNadolol [ Corgard (Beta Sal)] 20 mg PO DAILY 08/26/16Omeprazole [Prilosec] 20 mg PO DAILY 08/26/urgical History: cholecystectomy - Laparoscopic, total knee arthroplasty - Bilateral, - -Previous Back surgies x 3Psychiatric History: DepressionGYN History: No pertinent WEIGHT CONTROL ENGINEER historySmoking Status: Heavy Smoker (>10/day)- *Family History MaternalHistory Items: No pertinent history PaternalHistory Items: No pertinent historyVTE Information - Inpt OnlyVTE Present on Admission: NoVTE Mechan Device Prophylaxis: SCD's, Knee High CECILIA HoseVTE Pharm Prophylaxis ordered?: Yes- Physical ExamGeneral: Alert, Oriented [id number]: PERRLAOral: Moist MucosaNeck: SuppleLungs : Clear to auscultationCardiovascular: Regular rateAbdomen: Bowel Sounds PresentExtremities: No clubbing, No cyanosisSkin: No rashesMusculoskeletal: Tenderness - Right knee joint. Fusion right knee joint. Knee motion 0-80 .Knee without pain or swelling in motion 0-105.Neurological: Cranial nerves II-XII grossly intactPsych/Mental Status: Normal AffectVital SignsTemp Pulse Resp BP Pulse Ox97.5 F 82 18 146/72 14:41 10/08/17 15:13 10/08/17 15:13 10/08/17 14:41 10/08/17 14:41Oxygen Delivery Method Room AirWeight: 90.718 kgBody Mass Index (BMI) 34.3Assessment/PlanRight knee joint infection status post total knee replacement approximately 1 month ago. Sheunderstands her risk. She understands associated increased risk of ingesting a small amount ofsoda and crackers approximately 4 hours ago. Risk of aspiration discussed. Patient and herfamily friend went to proceed with surgery this evening as soon as possible. Risk of surgeryincluding but not limited to from operative or postoperative complications. Risk ofanesthetic complications such as heart attacks, strokes, seizures, or . Risk ofinfections. Risk of damage to nerves arteries tendons. Risk of inadvertent fractures ordislocations. Risk of bone or wound healing complications. Possibility of nonunion malunionpain stiffness weakness. Possible need for further surgery such as hardware removal. Risk ofDVT PE and other potential complications could lead to or disability explained. Noguarantees were stated or implied. All of their questions were answered. Appropriate informedconsent was obtained and signed for surgical intervention. Patient understands Dr. Cathy avalos assisting/performing surgery. Again he is a total joint board-certified specialist. Sheunderstands more than one surgery may be needed to clear her infection. Patient can be limb orlife-threatening. Possibility of leaving a drain in the knee was discussed. She will beadmitted to the hospital, hospitalist service will be consulted. Infectious disease servicewill be consulted.10/08/17 1843 <Electronically signed by Lexa Hahn MD> Date Lexa Hahn MDCosigner Signature (if applicable): Date CC: Javier Godinez MD; Lexa Hahn MD Signed VENOUS DUPLEX LOWER Observed: 10/08/2017 Status: F Source: [place] EXTREMITY 8:47 AM [facility] REPOSITORY [facility]ITAL[facility] [address] [place], [place] [address]Jgklyu Duplex US, Wwlcjqvdjq59/07/17 1130MR#: [id number] Acct: [id number]: HAIM LIAO Rep #: [id number]: 1955 61 From: Chava Card MDAttending Dr: Jamey Encarnacion Status: REG CLIOrdering Dr: Jamey Patiño PA-C Date: 10/07/17Location: [facility] Sex: F CAdmitted:Reason For Study: LEG PAINRIGHT LEFTGSV is normal. CFV is compressible, spontaneous, phasic,CFV is compressible, spontaneous, phasic, competent, and demonstrates normalcompetent and demonstrates normal augmentation.augmentation.FV is compressible, spontaneous, phasic,competent and demonstrates normalaugmentation.POP V is compressible, spontaneous, phasic,competent and demonstrates normalaugmentation.T/P Trunk is compressible.PTV is compressible.RT PerV is compressible.ProcedureExam performed in department.A preliminary report was called and/or faxedto Gerri Patiño.Interpretation SummaryDeep veins of the right lower extremity are patent and compressible segmentally. There is noevidence of right lower extremity deep vein thrombosis. Valvular competence appears intactwithinthe proximal deep venous system on the right . The right greater saphenous vein appears patentandcompressible segmentally. Ordering Physician: Jamey PatiñoReferring Physician: Javier Godinez MDPerformed By: Indy Donald RVT 10/08/17 0847Date Chava Card MDCC: Javier Godinez MD; Jamey HAGER Date Dictated: 10/07/17 1130Date Transcribed: 10/08/17 0847Transcriptionist:Signed SYNOVIAL FLUID RBC, Collected: 10/07/2017 Status: C Source: [place] WBC AND DIFF 11:17 AM [facility] REPOSITORY TYPE CODE TESTS RESULT OUT OF RANGE REFERENCE UNITS LAB L200.4600 Normal SYNOVIAL RIGHT SOURCE KNEE LAB L200.4900 Normal Pale Yellow SYNOVIAL Red COLOR LAB L200.5000 Normal CLEAR SYNOVIAL NAMRATA. Cloudy LAB L200.5050 High 0.000-0.000 10 [address] 16.0930 Result Comment: This is the Total Number of Nucleated Cell Types in the BodyFluid. LAB L200.5100 High 0 10 6/uL SYNOVIAL RBC 0.372 LAB L200.5200 High 0.000-0 10 3uL SYNOVIAL WBC 16.0780 .002 LAB L200.5260 Normal % SYBF PMN WBC% 96.0 LAB L200.5270 Normal 10 3/ul SYBF PMN WBC# 15.428 LAB L200.5280 Normal % SYBF MN WBC% 4.0 LAB L200.5290 Normal 10 3/ul SYBF MN WBC# 0.650 LAB L200.5300 High 0-25 % NEUTROPHIL 96 LAB L200.5400 Normal % LYMPH 2 LAB L200.5500 Normal % MONO 2 LAB L200.5800 Normal PATH COM/SYFL Reviewed Result Comment: Negative for malignant cells and crystals.The specimen is bloody.Dean Masterson M.D. 10/08/17 AMENDED REPORT 10/08/17 1356 PATH COM/SYFL previously reported as: May follow Performed By: #### L200.0400 ####[facility] [address] [place], [place], [address] Observed: 10/07/2017 Status: F Source: [place] CULTURE, BODY FLUID 11:17 AM [facility] REPOSITORY List Antibiotics Last 48 Hours? UNKList Antibiotics to be Started? UNKGram StainCentrifuged Specimen? Culture performed on centrifuged specimen Gram Stain 2+ Red Blood Cells Rare White Blood Cells No organisms seen Body Fluid CultRESULTS CALLED TO SANDRA AT [place] [facility] 10/08/17 1012 Yissel Shah. REPORT READ BACK BY SAME. ORGANISM 1: Staphylococcus epidermidisAmount Growth Rare Staphylococcus epidermidis: REACTION Benzylpenicillin NF 0.25 R Cefoxitin *NF - Clindamycin $$ >=8 R Inducable Clindamycin Resistan - Erythromycin $ >=8 R Gentamicin $ <=0.5 S Levofloxacin $ 0.25 S Linezolid $$$$ 1 S Oxacillin NF <=0.25 S Tigecycline $$$$ <=0.12 S Rifampin $$ <=0.5 S Tetracycline NF <=1 S Vancomycin $ 1 S(NF) indicates non-formulary drug at [facility]. Approval by Infectious Disease Specialist required before non-formulary drugs may be ordered and/or dispensed. * CLSI guidelines does not recommend testing of cephalosporins. This interpretation is deduced from Beta-lactam/penicillin results. Cult, AnaerobicNo anaerobic bacteria isolated. Performed By: #### M100.1300 ####[facility] [address], [address] Observed: 10/07/2017 Status: F Source: [place] ACID FAST BACT 11:17 AM [facility] CULT/SM REPOSITORY AFB Smear/Fluor TESTING PERFORMED AT [facility]. ORIGINAL REPORT ON FILE IN LAB CONTAINS ADDITIONAL TEST SITE INFORMATION. Smear, Acid Fast NO ACID-FAST BACILLI OBSERVED ON SMEAR. AFB Cult TESTING PERFORMED AT [facility]. ORIGINAL REPORT ON FILE IN LAB CONTAINS ADDITIONAL TEST SITE INFORMATION. Culture, Acid Fast NO ACID-FAST BACILLI ISOLATED AFTER 6 WEEKS. Performed By: #### M300.1000, M600.2000 ####[facility] [address] [place], [address] Observed: 10/07/2017 Status: F Source: MARIBEL LOJA 8482 11:17 AM [facility] REPOSITORY Cu,Hpwwkt6066 TESTING PERFORMED AT [facility]. ORIGINAL REPORT ON FILE IN LAB CONTAINS ADDITIONAL TEST SITE INFORMATION. CUF No yeast or mold isolated after 4 weeks. Performed By: #### M300.1000, M600.2000 ####[place] [facility] [address] [place], [address] CBC W/DIFF, AUTOMATED Collected: 10/07/2017 Status: F Source: [place] 11:12 AM [facility] REPOSITORY TYPE CODE TESTS RESULT OUT OF RANGE REFERENCE UNITS LAB L100.1000 Normal 4.4-11.0 K/mm3 WBC 6.6 LAB L100.1200 Low 4.2-5.4 M/mm3 RBC 3.60 LAB L100.1300 Normal 12.0-15.0 g/dl HGB 12.0 LAB L100.1400 Low 37-47 % HCT 36.8 LAB L100.1500 High 81-99 fL MCV 102.2 LAB L100.1600 High 27.0-32.0 pg MCH 33.3 LAB L100.1700 Normal 32-36 g/gl MCHC 32.6 LAB L100.1810 High 11.6-14.6 % RDW 19.5 CV LAB L100.1820 High 35.1-43.9 fl RDW 72.7 SD LAB L100.1900 High 150-450 K/mm3 PLT 479 LAB L100.2000 Normal 6.2-12.0 fl MPV 9.9 LAB L100.2100 Normal 47-70 % NEUT% 65.0 LAB L100.2200 Normal 19-41 % LY% 26.2 LAB L100.2300 Normal 0-10 % MONO% 4.8 LAB L100.2400 Normal 0-5 % EO% 3.5 LAB L100.2500 Normal 0-1 % BASO% 0.2 LAB L100.2550 Normal 0.0-0.9 % IM 0.300 GRAN % Result Comment: IG% - Immature Granulocytes (promyelocytes, myelocytes andmetamyelocytes) > 1% indicates that a LEFT SHIFT is Present. LAB L100.2620 Normal 2.0-7.7 X10 3/uL Absolute 4.3 Neut LAB L100.2720 Normal 0.83-4.51 X10 3/ul Absolute 1.74 Lymph LAB L100.4500 Normal SMEAR SCANNED COMMENT LAB L100.7300 Normal ANISO 2+ LAB L100.7800 Normal MACROCYTE 2+ LAB L100.7900 Normal BASO STIP 1+ LAB L100.8600 Normal TARGET 1+ CELLS Performed By: #### L100.0100, L101.9900 ####[facility] [address] [place], [address] ERYTHROCYTE SED RATE Collected: 10/07/2017 Status: F Source: [place] 11:12 AM [facility] REPOSITORY TYPE CODE TESTS RESULT OUT OF RANGE REFERENCE UNITS LAB L102.0000 High 0-30 mm/hr SED 75 RATE Performed By: #### L100.0100, L101.9900 ####[facility] [address] [place], [address] CRP Collected: 10/07/2017 Status: F Source: [place] 11:12 AM [facility] REPOSITORY TYPE CODE TESTS RESULT OUT OF RANGE REFERENCE UNITS LAB L501.6710 High 0.0-3.0 mg/L 39.00 C-REACTIVE PROT Result Comment: C-Reactive Protein (CRP) provides useful information for thediagnosis, therapy and monitoring of inflammatory processesand associated diseases. For the evaluation of Relative Riskfor Cardiovascular Disease, a High Sensitivity CRP (HSCRP)should be ordered. Performed By: #### L501.6710 ####[facility] [address] [facility] [place], [address] DISCHARGE SUMMARY Observed: 09/16/2017 Status: F Source: [place] 10:03 AM [facility] REPOSITORY [facility] [address] [facility] [place], [place] [address]Jsmevjpoa Mcgeckr03/16/17 1112#: [id number] Acct: [id number]: HAIM LIAO Rep #: [id number]: 1955 61 From: Lorna Patel MARSHMALLOW MACHINE WORKER-CPCP: Javier Godinez MD Status: DIS IN YLocation: RU [id number] Discharge SummaryDATE OF ADMISSION: 09/09/17DATE OF DISCHARGE: 09/15/17- Rehab DiagnosisRight Knee ReplacementDischarge Diet: No RestrictionsDischarge Activity: Return to Normal Activity, May Not Drive, May not drive while takingnarcotic pain medications., May Shower, Use Walker - or cane, - - Do not soak in a tub bathuntil cleared by your surgeonWeight Bearing Status: Weight bearing as toleratedCall your doctor if your incision/area has: Increased Pain/ Swelling, Increased Redness, FoulSmelling Discharge, Swelling at the incision siteCall your doctor if you observe: Fever of 101 or Higher, Coldness, Increased Pain, Numbness orTingling, Change in Color, Inability to urinate, Inability to have a bowel movement, Using morethan one pad per hour , Shortness of breath, Dizziness, Fainting spells, Swelling in the ankles,Chest pain, Prolonged hiccoughing, Increased palpitations (irregular heartbeat), Calfdiscomfort, Uncontrolled painHome Medications:Medications to take at DischargeNadolol [ Corgard (Beta Sal)] 20 mg PO DAILY 08/26/16Omeprazole [Prilosec] 20 mg PO DAILY 08/26/16ertraline HCl [Zoloft] 100 mg PO DAILY 08/26/16Acetaminophen [Tylenol ] 1,000 mg PO Q8 tablet 09/09/17spirin 325 mg PO BIDCM tablet Cyclobenzaprine [Flexeril] 10 mg PO TID PRN PRN #30 tablet 09/15/17Lisinopril [Zestril] 20 mg PO DAILY #30 tablet 09/15/17Melatonin 10 mg PO QHS tablet 09/15/17Oxycodone [ Oxyir] 5 - 10 mg PO Q6H PRN PRN #56 tablet 09/15/17Primidone [Mysoline] 50 mg PO BID #60 09/15/17Following Prescrptions Were Given to Patient:Oxycodone [Oxyir] 5 - 10 mg PO Q6H PRN PRN #56 tabletPRN Reason: Mod-Severe Pain (-09/09)Cyclobenzaprine [ Flexeril] 10 mg PO TID PRN PRN #30 tabletPRN Reason: Muscle SpasmLisinopril [Zestril] 20 mg PO DAILY #30 tabletPrimidone [Mysoline] 50 mg PO BID #60Primary Care Physician:Gaurang Godinez MD [Primary Care Provider] -Please Follow Up With: Lexa Hahn MDPlease Follow Up With: Dr Pineda Follow Up With: [facility] OrthopaedicDisposition: HomeMinutes spent on discharge:: 40Patient Condition:: GoodRehab CourseThe patient is a 61 year old Female with a history of knee arthritis appropriately treatedand failed conservative measures and wished to proceed with total knee replacement. who is nowbeing admitted to the [facility] acute rehab unit as a result of debility s/p RTKR. Patient has hadan ongoing history of pain and discomfort in the R knee for years. Despite conservativemanagement, including therapy, NSAIDs, cortisone injections, pain progressed to the point thatit began to impair patient daily function. In addition she noted instability of the R knee.Thus on 09/08/17 patient underwent RTKR at [facility] by Dr. Lexa Hahn. The procedure itself wasreported without complications. With Physical therapy Able to ambulate on different surfaces,worked on going up and down stairs, with a walker and a cane. She did very well WithOccupational therapy she is stand by assist with upper body and minimum assist with gettingsocks and shoes on. Her blood pressure has been somewhat elevated so her Zestril was increased,she will follow up with Dr. Hahn her orthopedic surgeon on the to evaluate her progress,her knee pain has dramatically improved since her admission. Overall she has done very wellfrom both a Nursing. Physical therapy, and Occupational therapy viewpoint. The staff feels shewill do well at home.Meaningful Use InfoMeaningful Use Diagnoses (Choose all that apply): None yxspvdwkph81/16/17 1145 <Electronically signed by Lorna ALMEIDA>Date Lorna Patel NP-09/16/17 1003<Electronically signed by Kurt Noriega MD>Alfredo Signature (if applicable): Date Kurt Noriega [facility] MARSHMALLOW MACHINE WORKER Lorna Patel; Javier Godinez MD; Kurt Noriega MD Signed DISCHARGE INSTRUCTION Observed: 09/16/2017 Status: F Source: [place] 10:03 AM [facility] REPOSITORY [facility] [id number] [place] [address]Pvgfunefzvpj for Home/Discharge Fzdvgpawgcww76/16/17 1115MR #: [id number] Acct: [id number]: HAIM LIAO Rep #: [id number]: 1955 61 From: Lorna Patel [employer]SHMALLOW MACHINE WORKER- CPCP: Herbert MANNING,Javier Status: DIS INYou will use the following diet at home:: No restrictions, RegularYour food should be the consistency of: RegularYour liquids should be the consistency of: Regular/ThinDischarge Activity: Return to Normal Activity, May Not Drive, May not drive while takingnarcotic pain medications., May Shower, Use Walker - or cane, - - Do not soak in a tub bathuntil cleared by your surgeonWeight Bearing Status: Weight bearing as toleratedCall your doctor if your incision/area has: Increased Pain/ Swelling, Increased Redness, FoulSmelling Discharge, Swelling at the incision siteCall your doctor if you observe: Fever of 101 or Higher, Coldness, Increased Pain, Numbness orTingling, Change in Color, Inability to urinate, Inability to have a bowel movement, Using morethan one pad per hour , Shortness of breath, Dizziness, Fainting spells, Swelling in the ankles,Chest pain, Prolonged hiccoughing, Increased palpitations (irregular heartbeat), Calfdiscomfort, Uncontrolled painAllergies/Adverse Reactions:Allergiesmeperidine [From Demerol] Adverse Reaction (Verified 10/20/16 19:26)OtherMAKES ME GOOFYPenicillins [PCN ] Adverse Reaction (Verified 10/20/16 19:26)NauseaMedications to take at DischargeNadolol [Corgard (Beta Sal)] 20 mg PO DAILY 08/26/16Omeprazole [Prilosec] 20 mg PO DAILY 08/26/16ertraline HCl [Zoloft] 100 mg PO DAILY 08/26/16Acetaminophen [Tylenol] 1,000 mg PO Q8 tablet 09/09/17spirin 325 mg PO BIDCM tablet 09/09/17Cyclobenzaprine [Flexeril] 10 mg PO TID PRN PRN #30 tablet 09/15/17Lisinopril [Zestril] 20 mg PO DAILY #30 tablet 09/15/17Melatonin 10 mg PO QHS tablet 09/15/17Oxycodone [Oxyir] 5 - 10 mg PO Q6H PRN PRN #56 tablet 09/15/17Primidone [Mysoline] 50 mg PO BID #60 09/15/17The following prescriptions were given:Oxycodone [Oxyir] 5 - 10 mg PO Q6H PRN PRN #56 tabletPRN Reason: Mod-Severe Pain (-09/09)Cyclobenzaprine [Flexeril] 10 mg PO TID PRN PRN #30 tabletPRN Reason: Muscle SpasmLisinopril [Zestril] 20 mg PO DAILY #30 tabletPrimidone [Mysoline] 50 mg PO BID #60Primary Care Physician:Gaurang Godinez MD [ Primary Care Provider] -Please Follow Up With: Lexa Hahn MDPlease Follow Up With: Dr Pineda Follow Up With: [facility]ia OrthopaedicProposed Discharge Date: 09/15/1710/16/17 1145 <Electronically signed by Lorna ALMEIDA>Date Lorna Patel NP-CCC: Javier Godinez MD; Too Abbott MD CBC W/DIFF, AUTOMATED Collected: 09/12/2017 Status: F Source: [place] 5:37 AM [facility] REPOSITORY TYPE CODE TESTS RESULT OUT OF RANGE REFERENCE UNITS LAB L100.1000 Normal 4.4-11.0 K/mm3 WBC 5.7 LAB L100.1200 Low 4.2-5.4 M/mm3 RBC 2.80 LAB L100.1300 Low 12.0-15.0 g/dl HGB 9.5 LAB L100.1400 Low 37-47 % HCT 29.1 LAB L100.1500 High 81-99 fL MCV 103.9 LAB L100.1600 High 27.0-32.0 pg MCH 33.9 LAB L100.1700 Normal 32-36 g/gl MCHC 32.6 LAB L100.1810 High 11.6-14.6 % RDW 21.7 CV LAB L100.1820 High 35.1-43.9 fl RDW 82.1 SD LAB L100.1900 Normal 150-450 K/mm3 PLT 352 LAB L100.2000 Normal 6.2-12.0 fl MPV 10.5 LAB L100.2100 Normal 47-70 % NEUT% 57.3 LAB L100.2200 Normal 19-41 % LY% 27.7 LAB L100.2300 Normal 0-10 % MONO% 7.9 LAB L100.2400 High 0-5 % EO% 6.5 LAB L100.2500 Normal 0-1 % BASO% 0.4 LAB L100.2550 Normal 0.0-0.9 % IM 0.200 GRAN % Result Comment: IG% - Immature Granulocytes (promyelocytes, myelocytes andmetamyelocytes) > 1% indicates that a LEFT SHIFT is Present. LAB L100.2620 Normal 2.0-7.7 X10 3/uL Absolute Neut 3.3 LAB L100.2720 Normal 0.83-4.51 X10 3/ul Absolute Lymph 1.57 LAB L100.4500 Normal SMEAR COMMENT SCAN LAB L100.7300 Normal ANISO 1+ LAB L100.7800 Normal MACROCYTE 1+ Performed By: #### L100.0100 ####[facility] [address] [place], [address] ERYTHROCYTE SED RATE Collected: 09/11/2017 Status: F Source: [place] 11:58 AM [facility] REPOSITORY TYPE CODE TESTS RESULT OUT OF RANGE REFERENCE UNITS LAB L102.0000 High 0-30 mm/hr SED 70 RATE Performed By: #### L101.9900 ####[facility] [address] [place], [address] H AND P W/ COSIGN Observed: 09/10/2017 Status: F Source: [place] 1:57 PM [facility] REPOSITORY [facility] [id number] [place] [address]U AND P w/ Fnhzew42/10/17 1531#: [id number] Acct: [id number]: HAIM LIAO Rep #: [id number]: 1955 61 From: Lorna Patel 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 who is nowbeing admitted to the [facility] acute rehab unit as a result of debility s/p RTKR. Patient has hadan ongoing history of pain and discomfort in the R knee for years. Despite conservativemanagement, including therapy, NSAIDs, cortisone injections, pain progressed to the point thatit began to impair patient daily function. In addition she noted instability of the R knee.Thus on 09/08/17 patient underwent RTKR at [facility] by Dr. Lexa Hahn. The procedure itself wasreported without complications. Brii is admitted to the acute rehab unit at [facility] to participate in>3 hours of therapy daily. Therapies will focus on but not be limited to, strengthening theLLE, gait stability and instructing patient on how to compensate for new deficits. Final goalof rehab stay is for patient to return home at or near her prior level of functionalindependence (needing no assist with ADLs). Of note patient lives in a 1 level home. She doeshave basement with 13 steps but reports no need to go down them. She also had 4 steps to enterthe house.Past Medical HistoryPast Medical History (Chronic Problems):Chronic ProblemsAcquired scoliosis (Chronic)Benign essential HTN (Chronic)Chronic back pain (Chronic)Depression (Chronic)GERD (gastroesophageal reflux disease) (Chronic)Allergiesmeperidine [ From Demerol] Adverse Reaction (Verified 10/20/16 19:26)OtherMAKES ME GOOFY Penicillins [PCN] Adverse Reaction (Verified 10/20/16 19:26)NauseaHome Medications: Ambulatory OrdersMedication Instructions RecordedNadolol [ Corgard (Beta Sal)] 20 mg PO DAILY 08/26/16Surgical History: cholecystectomy - Laparoscopic, total knee arthroplasty - Bilateral, - -Previous Back surgies x 3Psychiatric History: DepressionGYN History: No pertinent WEIGHT CONTROL ENGINEER historyLives: AloneSmoking Status: Heavy Smoker (>10/day)Tobacco Use: CigarettesAlcohol: NoneDrugs: None- *Family History MaternalHistory Items: No pertinent history PaternalHistory Items: No pertinent historyReview of SystemsConstitutional: Denies: Chills, Fever, Weight ChangeHEENT: Denies: Head Aches, Sinus Congestion, Sinus DrainageCardiovascular: Denies: Chest Pain, PalpitationsRespiratory: Denies: Cough, Shortness of breath at rest, Sputum productionGastrointestinal: Denies: Abdominal Pain, Nausea, VomitingGenitourinary: Denies: DysuriaMusculoskeletal: Denies: Joint Pain, Joint TendernessSkin: Denies: Rash, WoundsNeurological: Denies: Numbness, Tingling, Focal weaknessPsychiatric : Denies: Anxiety, Depression, Homicidal Ideations, Suicidal IdeationsHematologic / Lymphatic: Denies: Easy Bruising, Easy BleedingVTE Information - Inpt OnlyVTE Present on Admission: NoVTE Mechan Device Prophylaxis: SCD's, Thigh High CECILIA HoseVTE Pharm Prophylaxis ordered?: Yes- Physical ExamGeneral: Alert, Oriented x3, CooperativeHEENT: Atraumatic, PERRLA, EOMI, NormocephalicNeck: Supple, No JVD, Negative Carotid BruitsLungs: Clear to auscultation, Normal air movementCardiovascular: Regular rate, No murmursAbdomen: Bowel Sounds Present, Soft, Non TenderExtremities: No edema, Capillary Refill Less than 3 SecondsSkin: No rashes, No breakdownMusculoskeletal: No Tenderness to Palpation of Joints or ExtremitiesNeurological: Cranial nerves II-XII grossly intact, Motor Exam 5/5 strength throughout - exceptin LLE associated with knee flexion and extension as a result of recent surgery., Muscle tonenormal, Sensory exam intact to light touch and pain - (pain=pin). No neglect., Coordinationnormal - FNF/ARACELIS, - - Gait deferred at this time and will reeval with therapists tomorrowmorning.Psych/Mental Status: Normal Affect, AppropriateAssessment/PlanDebility s/p RTKR, Patient now being admitted to the acute rehab unit where she will undergo>3 hours of therapy daily with final goal being patient's return home at or near her priorlevel of functional independence. While in the rehab unit, patient's other medical conditionswill be monitored and treated as needed.- PT/OT=> Weight bearing as tolerated- Analgesics prn=> OxyIR, OxyContin, and Tylenol for pain.- Bowel protocol: Currently with constipation.- DVT prophylaxis: B/L teds, SCDs, ASA 325mg BID per ortho.- RTKR : Will need ortho follow up after d/c from rehab unit.- Tremors: Continue home dose of Primidone.- HTN: Chronic. Goal BP <140/90. Continue home dose of Corgard.- Depression: Chronic and stable. Continue home dose of Sertraline.- Tobacco abuse: Encouraged cessation. Continue NicoDerm Cq while in rehab.- GERD: Stable. Continue Protonix.- Leukocytosis, afebrile; without acute signs of infection likely resulting from Decadronversus acute stress response anticipate resolution over the next couple days. Continue tomonitor.- Drop in hemoglobin hematocrit, asymptomatic; without indication for transfusion. Continue tomonitor.- Incentive spirometry every hour while awake09/09/17 1726 <Electronically signed by Lorna Patel NP-C> Date Lorna Patel [employer]SHMALL[employer] MACHINE WORKER-C10 [id number]<Electronically signed by Kurt Noriega MD>Cosigner Signature (if applicable): Date Kurt Noriega [facility]: RUDOLPH Patel; Javier Godinez MD; Kurt Noriega MD Signed BASIC METABOLIC Collected: 09/10/2017 Status: F Source: [place] PROFILE (BMP) 5:30 AM [facility] REPOSITORY TYPE CODE TESTS RESULT OUT OF RANGE REFERENCE UNITS LAB L501.0100 High 70-110 mg/dL GLU 114 Result Comment: Fasting Glucose result from 110 to <126 mg/dLsuggests IMPAIRED HOMEOSTASIS per A.D.A. criteria. LAB L501.1000 Normal 7-18 mg/dL BUN 11 LAB L501.1100 Low 0.55-1.02 mg/dL CREAT,SERUM 0.45 Result Comment: The validity of the calculated GFR AND GFRAA in patients over70 years has not been determined. Clinical correlation isessential. LAB L501.1110 Normal >60 mL/min EST GFR 150 Result Comment: Non- GFR Calc LAB L501.1115 Normal >60 mL/min EST GFR - 181 AA Result Comment: GFR Calc LAB L501.1255 Normal ml/min Estimated 111.93 CRCL LAB L501.1300 High 10-20 RATIO BUN/CRE 24.4 LAB L501.2200 Normal 8.5-10 mg/dL CA 8.9 .1 LAB L501.5300 Normal 136-14 mmol/L NA 140 5 LAB L501.5600 Normal 3.5-5. mmol/L K 4.1 1 LAB L501.5900 Normal 98-107 mmol/L CL 104 LAB L501.6100 Normal 21.0-3 mmol/L CO2 28.0 2.0 LAB L501.6200 Normal 5-15 GAP 8 Performed By: #### L500.2500 ####[facility] [address] [place], [place], [id number] CBC-COMPLETE BLOOD CNT Collected: 09/10/2017 Status: F Source: [place] NO DIFF 5:30 AM [facility] REPOSITORY TYPE CODE TESTS RESULT OUT OF RANGE REFERENCE UNITS LAB L100.1000 Normal 4.4-11.0 K/mm3 WBC 7.9 LAB L100.1200 Low 4.2-5.4 M/mm3 RBC 2.65 LAB L100.1300 Low 12.0-15.0 g/dl HGB 9.2 LAB L100.1400 Low 37-47 % HCT 27.1 LAB L100.1500 High 81-99 fL MCV 102.3 LAB L100.1600 High 27.0-32.0 pg MCH 34.7 LAB L100.1700 Normal 32-36 g/gl MCHC 33.9 LAB L100.1810 High 11.6-14.6 % RDW 21.9 CV LAB L100.1820 High 35.1-43.9 fl RDW 78.2 SD LAB L100.1900 Normal 150-450 K/mm3 PLT 339 LAB L100.2000 Normal 6.2-12.0 fl MPV 10.8 Performed By: #### L100.0500, L100.4500 ####[facility] [address] [facility] [address] [place], [place], [id number] DIFFERENTIAL COMMENT Collected: 09/10/2017 Status: F Source: [place] 5:30 AM [facility] REPOSITORY TYPE CODE TESTS RESULT OUT OF RANGE REFERENCE UNITS LAB L100.4500 Normal SMEAR SCAN COMMENT Result Comment: ANISOCYTOSIS 1+MACROCYTOSIS 1+POLYCHROMASIA 1+ Performed By: #### L100.0500, L100.4500 ####[facility] [address] [facility] [place], [address] DISCHARGE INSTRUCTION Observed: 09/09/2017 Status: F Source: [place] 9:04 AM [facility] REPOSITORY [facility] [address] [place], [place] [address]Qxkvcgsgqpek for Home/Discharge Oojwgvnklosi39/10/17 0902MR #: [id number] Acct: [id number]: HAIM LIAO Rep #: [id number]: 1955 61 From: Rachael RosaCP: Javier Godinez MD Status: ADM INDischarge Diet: No RestrictionsDischarge Activity: May Not Drive, May not drive while taking narcotic pain medications., UseWalkerMay shower in (days): 2 - AVOID DIRECT SHOWER CONTACT WITH DRESSING. PAT DRY.Ice area for (Minutes): 20 - every hour while awake.Weight Bearing Status: Weight bearing as toleratedElevate: Operative ExtremityAdditional Activity Instructions:: Wear elastic stockings for 2 weeks after your surgery. SEEPINK SHEETCall your doctor if your incision/area has: Continuous Slow Oozing , Sudden Increased Bleeding,Increased Pain/ Swelling, Increased Redness, Foul Smelling DischargeCall your doctor if you observe: Fever of 101 or Higher, Coldness, Increased Pain, Numbness orTingling, Change in Color, Calf discomfort, Uncontrolled painRemove Dressing in (days):: 5Cleanse incision/area with: Soap AND WaterAdditional Dressing/Incision Instructions:: SEE PINK SHEETAllergies/Adverse Reactions:Allergiesmeperidine [From Demerol] Adverse Reaction (Verified 19:26)OtherMAKES ME GOOFYPenicillins [PCN] Adverse Reaction (Verified 19:26)NauseaMedications to take at DischargeNadolol [Corgard (Beta Sal)] 20 mg PO DAILY 08/26/16Omeprazole [Prilosec] 20 mg PO DAILY 08/26/16Primidone [Mysoline ] 50 mg PO BID 08/26/16ertraline HCl [Zoloft] 100 mg PO DAILY 08/26/16Cyclobenzaprine [Flexeril] 10 mg PO TID PRN PRN #30 tablet 04/01/17Lisinopril [Zestril] 10 mg PO DAILY #30 tablet 04/01/17cetaminophen [Tylenol] 1,000 mg PO Q8 tablet 09/09/17spirin 325 mg PO BIDCM tablet 09/09/17Oxycodone CR [Oxycontin] 10 mg PO BID #15 tablet 09/09/17Oxycodone [Oxyir] 5 - 10 mg PO Q6H PRN PRN #60 tablet 09/09/17Senna/Docusate Sodium [Senokot-S] 2 tablet PO BID tablet 09/09/17The following prescriptions were given:Oxycodone [Oxyir] 5 - 10 mg PO Q6H PRN PRN # 60 tabletPRN Reason: Mod-Severe Pain (-10/10)Oxycodone CR [Oxycontin] 10 mg PO BID #15 tabletPrimary Care Physician:Gaurang Godinez MD [Primary Care Provider] -09/16 09 <Electronically signed by Rachael Jean >Date Rachael LeonardC: Javier Godinez MD CBC-COMPLETE BLOOD CNT Collected: 09/09/2017 Status: F Source: [place] NO DIFF 6:03 AM [facility] REPOSITORY TYPE CODE TESTS RESULT OUT OF RANGE REFERENCE UNITS LAB L100.1000 High 4.4-11.0 K/mm3 WBC 13.8 LAB L100.1200 Low 4.2-5.4 M/mm3 RBC 2.75 LAB L100.1300 Low 12.0-15.0 g/dl HGB 9.5 LAB L100.1400 Low 37-47 % HCT 28.6 LAB L100.1500 High 81-99 fL MCV 104.0 LAB L100.1600 High 27.0-32.0 pg MCH 34.5 LAB L100.1700 Normal 32-36 g/gl MCHC 33.2 LAB L100.1810 High 11.6-14.6 % RDW 22.0 CV LAB L100.1820 High 35.1-43.9 fl RDW 79.2 SD LAB L100.1900 Normal 150-450 K/mm3 PLT 331 LAB L100.2000 Normal 6.2-12.0 fl MPV 10.8 Performed By: #### L100.0500, L100.4500 ####[facility] [address] [place], [address] DIFFERENTIAL COMMENT Collected: 09/09/2017 Status: F Source: [place] 6:03 AM [facility] REPOSITORY TYPE CODE TESTS RESULT OUT OF RANGE REFERENCE UNITS LAB L100.4500 Normal SMEAR SCAN COMMENT Result Comment: ANISOCYTOSIS 2+MACROCYTOSIS 1+POLYCHROMASIA 1+HYPOCHROMIA 1+ Performed By: #### L100.0500, L100.4500 ####[facility] [address] [place], [address] BASIC METABOLIC Collected: 09/09/2017 Status: F Source: [place] PROFILE (BMP) 6:03 AM [facility] REPOSITORY TYPE CODE TESTS RESULT OUT OF RANGE REFERENCE UNITS LAB L501.0100 High 70-110 mg/dL GLU 163 Result Comment: Fasting Glucose result greater than or equal to 126 mg/ dLsuggests DIABETES MELLITUS per A.D.A. criteria. LAB L501.1000 Normal 7-18 mg/dL BUN 8 LAB L501.1100 Low 0.55-1.02 mg/dL CREAT,SERUM 0.51 Result Comment: The validity of the calculated GFR AND GFRAA in patients over70 years has not been determined. Clinical correlation isessential. LAB L501.1110 Normal >60 mL/min EST GFR 130 Result Comment: Non- GFR Calc LAB L501.1115 Normal >60 mL/min EST GFR - 158 AA Result Comment: GFR Calc LAB L501.1255 Normal ml/min Estimated 98.76 CRCL LAB L501.1300 Normal 10-20 RATIO BUN/CRE 15.7 LAB L501.2200 Low 8.5-10 mg/dL CA 8.4 .1 LAB L501.5300 Normal 136-14 mmol/L NA 137 5 LAB L501.5600 Normal 3.5-5. mmol/L K 4.0 1 LAB L501.5900 Normal 98-107 mmol/L CL 103 LAB L501.6100 Normal 21.0-3 mmol/L CO2 28.0 2.0 LAB L501.6200 Normal 5-15 GAP 6 Performed By: #### L500.2500 ####[facility] [address] [place], [address] OPERATIVE REPORT Observed: 09/08/2017 Status: F Source: [place] 1:57 PM [facility] RE[facility] [address] [place], [place] [address]Eszlikgjz Dlekki94/09/17 1354MR#: [id number] Acct: [id number]: HAIM LIAO Rep #: [id number]: 1955 61 From: Lexa Hahn MDPCP: Javier Godinez MD Status: ADM IN YLocation: MS3 [id number] ReportDate of Procedure: 09/08/17Preoperative diagnosis: [Right] knee severe primary osteoarthritisPostoperative diagnosis: SameTitle of procedure : [Right] total knee replacementSurgeon: Lexa Hahn MDAssistant: Rachael Jean PA-CAnesthesia: General, adductor canal nerve block for postoperative painAnesthesiologist: Dr. MartinSpecial medications: Ancef, tranexamic acidIndications for surgery: Patient is a [61]-year-old [female] with a history of knee arthritis appropriately treated andfailed conservative measures and wished to proceed with total knee replacement. Patient wascleared for surgery by the medical doctor and has been evaluated by the anesthesia staffFindings: Intraoperative findings showed severe arthritis of the knee. Patient underwent kneereplacement using Birchbox triathlon total knee components. Size [4] femur press-fit, size [3]tibia cemented, [29 x 9] asymmetric X3 patella cemented, size [3-11 CS] X3 tibial polyethyleneinsert, knee was nicely balanced. Patella tracked well. Patient underwent standard woundclosure in layers. Vicryl and strata fix sutures utilized.early childhood assistant, physician assistant at surgery, was utilized throughout the entire procedure.They were vital in helping with patient positioning, holding of retractors, exposing thetissues adequately for safe completion of the procedure including cutting of the bone, helpingjudge appropriate alignment and sizing of the components, implantation of the components, aswell as wound closure, bandage application, and safe patient transfer. Without surgical firstassistant, physician assistant at surgery, surgical time would have been significantly increased, andsurgical outcome would have been less optimal.Description of procedure:The patient was taken to the OR, transferred to the OR table. They were given a spinalanesthetic. Ancef was given IV preoperatively. Tranexamic acid was given IV preoperatively.Well-padded tourniquet was applied to the upper thigh of the operative leg. Nonoperative leghad a CECILIA hose and SCD on throughout. Operative limb was prepped padded and draped in usualorthopedic sterile fashion for the procedure. We began by injecting the pain relievingsolution in the anterior superior aspect of the knee region. The limb was exsanguinated, andthe tourniquet was applied to 300 mmHg. Made a midline incision through skin, subcutaneoustissue, bringing down us on the extensor mechanism. Medial parapatellar arthrotomy was carriedout. Straw-colored joint fluid was evacuated. We raised the sleeve of tissue off the uppermedial tibia. Resected some of the infrapatellar fat pad. We remove degenerative medial andlateral meniscus. Removed bone spurs from about the joint. We removed tissue off the anterioraspect of the distal femur. Patella was translated laterally and/or everted as neededthroughout the procedure. ACL was resected. PCL was preserved. Collateral ligaments werepreserved. Physician placed the retractors and assistant at surgery held retractors protecting aboveligaments throughout the procedure. Drill was placed up the distal femur. Flex guide tricia wasplaced up the femoral canal. We resected 8 mm off of the distal femur. 6 valgus cut. Nextcutting block was applied to the front of the femur. 3 of external rotation . We sized offthat block and decided on the appropriate size femur. 4-in-1 cutting block was applied to thedistal femur and held in place with 2 pins. Press Writer again held retractors to protect thesoft tissues while surgeon performed anterior, posterior, and chamfer cuts. Bony fragmentswere removed. PCL retractor was placed and collateral ligament protectors placed by thesurgeon, held by the assistance. Tibial external alignment guide was utilized under standardtechnique going down the shaft of the tibia, to the base of the second metatarsal. Appropriateposterior slope was built in. Press Writer help powerhouse engineer alignment. We went 2 mm off the deficientside of the tibia. Cutting block was held in place with 3 pins. Again checked the externalalignment. Tibial cut carried out with a saw while the assistant at surgery held retractors protectingthe soft tissues about the anterior, medial, lateral, and posterior knee. Bone fragmentremoved. We then sized off the upper tibia with the help of the assistant at surgery. We then checkedflexion extension gaps finding them to be adequate and equal. Next the distal femoral trialwas applied. Tibial tray was allowed to freefloat with a 9 mm insert. Knee was flexed andextended an external alignment guide is utilized. Tibial trial was pinned in place. Drillholes were placed into the distal femoral trial and it was removed. Punch was used on theupper tibial component and that was removed. The sclerotic bone was softened with a sharp pin.Bone spurs removed from the posterior medial and posterior lateral aspect of the knee whilethe assistant at surgery lifted up on the distal femur and exposed each compartment. Patella was evertedand measured and appropriate resection was carried out while the assistant at surgery held the guide andpatella in good position. Patella was sized. Clamp was utilized. 3 drill holes were placedthrough the clamp held by the assistant at surgery. Trial patella was placed and removed. Bleeding wascontrolled at the back of the knee with the bovey. Posterior knee soft tissues were carefullyinjected with pain relieving solution. Components were checked and open. One batch of bonecement were mixed. Knee was thoroughly irrigated by the assistant at surgery while surgeon fashioned abone plug that was placed in the femoral canal hole. The bony surfaces cleaned and dried.When the cement was of the appropriate texture the tibia, and then patella was cemented inplace. Femur was press-fit in place excellent bony contact. Press Writer held retractorsexposing the bony surfaces of the tibia and femur which were hammered in position. Patellaclamped into position. The excess bone cement removed. A trial insert applied to the tibia.Knee was held in full extension while the cement hardened. While the cement was hardening painrelieving solution was injected throughout the knee. When cement was fully hardened tourniquetwas deflated. We re-trialed with the help of the assistant at surgery and then placed the appropriatesized polyethylene component. We thoroughly irrigated and debrided the knee. Bleedingcontrolled with the Bovie. The knee was irrigated with sterile Betadine solution for 3minutes. Knee was again thoroughly irrigated. Patella noted to track nicely. We repairedthe arthrotomy with a combination of #1 Vicryl and #2 strata fix. We did a mid layer of 1Vicryl and #1 strata fix running. We then did inverted 3-0 Vicryl and running 0 strata fix .We then applied Steri-Strips over skin prep. Mepilex dressing applied. CECILIA hose and SCDsapplied. Patient was awoken from their anesthetic, transferred back [facility] satisfactory condition.Patient was admitted, appropriate IV antibiotic to be utilized as well as medication for DVTprevention. Hopeful discharge in 1-3 days. Physical therapy will be consulted.This note was generated with Enject dictation software. It may contain incorrect words,spelling, and punctuation that were not noted in checking the note before signing.09/08/17 1357 <Electronically signed by Lexa Hahn MD& gt;Date Lexa Hahn MDCC: Javier Godinez MD; Lexa Hahn MD Signed KNEE 1 OR 2 VIEWS Observed: 09/08/2017 Status: F Source: [place] 1:26 PM [facility] REPOSITORY [facility] [address] [place] [address]Ganc 1 or 2 ViewsMR#: [id number] Acct: [id number]: HAIM LIAO Rep #: [id number]: 1955 F 61 From: Atul Lu MDPCP: Javier Godinez MD Status: ADM INStudy: Knee 1 or 2 Views Date of Exam: 09/08/17Exam# [id number] Ordering Dr: Lexa Hahn MDSTUDY: X-RAY - RIGHT KNEEREASON FOR EXAM: Female, 61 years old. Total knee replacement.TECHNIQUE: AP and lateral view(s) of the knee.COMPARISON: Comparison is made with prior study dated March 07, 2016. FINDINGS:Normal visualized distal femur. Normal visualized proximal tibia andfibula. Normal proximal tibiofibular articulation.The patient is status post total knee replacement. There is goodalignment.Postoperative soft tissue changes. ORDER #: [id number] RAD/Knee 1 or 2 ViewsIMPRESSION:Status post total knee replacement. There is good alignment.Postoperative soft tissue changes.Electronically Signed:Atul Lu MD at 14:39 [facility] [phone], Service support , US: Javier Godinez MD; Lexa Hahn MD Cto: Signed TOTAL KNEE REPLACEMENT Observed: 09/08/2017 Status: F Source: [place] 11:58 AM [facility] REPOSITORY Patient: HAIM LIAO : 1955 (61/F) Acct Num: [id number] Phys: Lexa Hahn MD Unit Num: [id number] Loc: MS3 [id number] Specimen: [id number] Received: 09/08/171445 Spec Type: TOTAL KNEE TISSUES TISSUES: GROSS DESCRIPTION Received is one container designated bone and soft tissue right knee. The specimen consists of multiple fragments of molina-yellow bone measuring in aggregate 9 x 9 x 4 cm. No soft tissue is identified. A number of bony fragments contain articular surfaces consistent with tibial plateau and femoral condyle and displaying prominent osteophyte formation, eburnation, and bone erosion. Packing Floor Worker sections are submitted in one cassette after decalcification. / SJ:clint 09/08/17 TC:5 CPT: 47981, 61914 HEADER OPERATION: Total knee replacement PRE-OP DIAGNOSIS: Osteoarthritis right knee TISSUE SUBMITTED: Bone and tissue right knee MICROSCOPIC DESCRIPTION Slides are reviewed. MICROSCOPIC DIAGNOSIS Bone and soft tissue of right knee, total knee resection: Degenerative joint disease. AM: 09/12/17 Signed [facility] 09/12/17 <signature on file> Performed By: #### PKNEE ####[facility] [address] [place], [place], [id number] CBC-COMPLETE BLOOD CNT Collected: 09/02/2017 Status: F Source: [place] NO DIFF 10:30 AM [facility] REPOSITORY TYPE CODE TESTS RESULT OUT OF RANGE REFERENCE UNITS LAB L100.1000 Normal 4.4-11.0 K/mm3 WBC 4.5 LAB L100.1200 Low 4.2-5.4 M/mm3 RBC 3.43 LAB L100.1300 Normal 12.0-15.0 g/dl HGB 12.0 LAB L100.1400 Low 37-47 % HCT 35.2 LAB L100.1500 High 81-99 fL MCV 102.6 LAB L100.1600 High 27.0-32.0 pg MCH 35.0 LAB L100.1700 Normal 32-36 g/gl MCHC 34.1 LAB L100.1810 High 11.6-14.6 % RDW 22.0 CV LAB L100.1820 High 35.1-43.9 fl RDW 80.1 SD LAB L100.1900 Normal 150-450 K/mm3 PLT 360 LAB L100.2000 Normal 6.2-12.0 fl MPV 10.9 Performed By: #### L100.0500, L100.4500, M100.651 ####[facility] [address] [place], [place], [id number] DIFFERENTIAL COMMENT Collected: 09/02/2017 Status: F Source: [place] 10:30 AM [facility] REPOSITORY TYPE CODE TESTS RESULT OUT OF RANGE REFERENCE UNITS LAB L100.4500 Normal SMEAR COMMENT COMMENT Result Comment: SLIDE SCANNED - 1+ ANISO NOTED. Performed By: #### L100.0500, L100.4500, M100.651 ####[facility] [address] [place], [address] Observed: 09/02/2017 Status: F Source: [place] MRSA/SAID SCREEN 10:30 AM [facility] REPOSITORY Copy of report sent to Infection Control Printer [id number] 09/04/17 0821 BLUCAS. Copy of report sent to Printer [id number] MRSA/SAID SCRNS. AUREUS S. aureus PositiveMRSA MRSA Negative Performed By: #### L100.0500, L100.4500, M100.651 ####[facility] [address] [place], [address] BASIC METABOLIC Collected: 09/02/2017 Status: F Source: [place] PROFILE (BMP) 10:30 AM [facility] REPOSITORY TYPE CODE TESTS RESULT OUT OF RANGE REFERENCE UNITS LAB L501.0100 Normal 70-110 mg/dL GLU 105 LAB L501.1000 Normal 7-18 mg/dL BUN 7 LAB L501.1100 Normal 0.55-1.02 mg/dL 0.59 CREAT,SERUM Result Comment: The validity of the calculated GFR AND GFRAA in patients over70 years has not been determined. Clinical correlation isessential. LAB L501.1110 Normal >60 mL/min EST GFR 110 Result Comment: Non- GFR Calc LAB L501.1115 Normal >60 mL/min EST GFR - 134 AA Result Comment: GFR Calc LAB L501.1255 Normal ml/min Estimated 85.37 CRCL LAB L501.1300 Normal 10-20 RATIO BUN/CRE 11.9 LAB L501.2200 Normal 8.5-10 mg/dL CA 9.3 .1 LAB L501.5300 Normal 136-14 mmol/L NA 138 5 LAB L501.5600 Normal 3.5-5. mmol/L K 3.5 1 LAB L501.5900 Normal 98-107 mmol/L CL 104 LAB L501.6100 Normal 21.0-3 mmol/L CO2 28.0 2.0 LAB L501.6200 Normal 5-15 GAP 6 Performed By: #### L500.2500 ####[facility] [address] [place], [address] DISCHARGE SUMMARY Observed: 04/02/2017 Status: F Source: [place] 2:58 PM [facility] REPOSITORY [facility] [id number] [facility] [place] [address]Roofvbmdp Ptkpzrc28/02/17 1231#: [id number] Acct : [id number]: HAIM LIAO Rep #: [id number]: 1954 61 From: Katharina Bautista MARSHMALLOW MACHINE WORKER-CPCP: Javier Godinez MD Status: DIS IN YLocation: [place] [id number] Date and DiagnosisDate of Admission: Date of Discharge: 04/01/17- Primary Discharge DiagnosisLTKR- Secondary Discharge DiagnosisChronic ProblemsAcquired scoliosis (Chronic)Benign essential HTN (Chronic)Chronic back pain (Chronic)Depression (Chronic)GERD (gastroesophageal reflux disease) (Chronic)Hospital Course and TreatmentImaging Results:Laboratory Last ValuesWBC 6.3 K/mm3 (4.4-11.0) 03/27/17 05:40RBC 2.99 M/mm3 (4.2-5.4 ) L 03/27/17 05:40Hgb 10.0 g/dl (12.0-15.0) L 03/27/17 05:40Hct 30.4 % ( 37-47) L 03/27/17 05:40MCV 101.7 fL (81-99) H 03/27/17 05:40MCH 33.4 pg (27.0-32.0) H 03/27/17 05:40MCHC 32.9 g/gl (32-36) 03/27/17 05 :40RDW 20.5 % (11.6-14.6) H 03/27/17 05:40RDW Differential 77.1 fl (35.1 -43.9) H 03/27/17 05:40Plt Count 334 K/mm3 (150-450) 03/27/17 05:40MPV 10.2 fl (6.2-12.0) 03/27/17 05: 40Differential Comment SCANNED 03/27/17 05:40Sodium 130 mmol/L (136-145) L 03/27/17 05:40Potassium 4.2 mmol/L (3.5-5.1) 05:40Chloride 93 mmol/L (98-107) L 03/27/17 05:40Carbon Dioxide 30.0 mmol/L (21.0-32.0) 03/27/17 05:40Anion Gap 7 (5-15) 03/27/17 05:40BUN 5 mg/dL (7-18) L 03/27/17 05: 40Creatinine 0.46 mg/dL (0.55-1.02) L 03/27/17 05:40Estim Creat Clear Calc 109.50 ml/ min 03/27/17 05:40Est GFR (MDRD) Af Amer 176 mL/min (>60) 03/27/17 05: 40Est GFR (MDRD) Non-Af 145 mL/min (>60) 03/27/17 05:40BUN/Creatinine Ratio 10.8 RATIO (10-20) 03/27/17 05:40Glucose 129 mg/dL (70-110 ) H 03/27/17 05:40Calcium 8.5 mg/dL (8.5-10.1) 03/27/17 05: 40POC Glucose 87 mg/dL (70-110) 03/31/17 12:14[facility] Hospitalist GroupOperations: NoneProcedures: NoneSummary of Care Provided:The patient is a 61 year old right handed female, who is now being admitted to the [facility] acuterehab unit as a result of debility s/p LTKR. Patient has had an ongoing history of pain anddiscomfort in the L knee for years. She reports that she had a scope of the L knee done inthe fall of 2015 that showed lateral meniscus tear, OA and synovitis. Despite conservativemanagement, including therapy, NSAIDs, cortisone injections , pain progressed to the point thatit began to impair patient daily function. In addition she noted instability of the L knee.She underwent an MRI early this year that showed per Dr. Garibay: significant lateralcompartment failure with chondral and meniscal insufficiency as well as patellofemoralchondromalacia. Thus on 03/24/17 patient underwent LTKR at [facility] by Dr. Garibay. The procedureitself was reported without complications.Haim was admitted to the acute rehab unit at [facility] to participate in >3 hours of therapydaily. Final goal of rehab stay was for patient to return home at or near her prior level offunctional independence (needing no assist with ADLs). Her care in the RU was uncomplicatedand she was able to be discharged home with her family on 04/01/17.Summary of care provided* Debility due to above: PT/OT.* Pain due to above: Analgesics prn.* Bowel protocol: Currently with constipation.* DVT prophylaxis: ASA 325mg BID per ortho.* weight: 104.78, BMI 39.7, recommend weight loss* LTKR: Will need ortho follow up after d/c from rehab unit.* Hyponatremia : Mild and asx. Will monitor.* Post-op anemia: Currently asx. Will monitor. Start on Fe supplements. 03/26 HH 10 and 30.4will monitor* H/o Laminectomy x2: Currently complaints of thoracic pain. Will need MRI of spine followingd/c from rehab as well as follow up with neurosurgery. Pain control as above.* Tremors: Continue home dose of Primidone.* HTN: Chronic. Goal BP <140/90. Continue home dose of Corgard.* Depression: Chronic and stable. Continue home dose of Sertraline.* Tobacco abuse: Encouraged cessation. Continue Nicoderm Cq while in rehab.* GERD: Stable. Continue Protonix.Discharge Diet: No RestrictionsDischarge Activity: May Not Drive, Use WalkerWeight Bearing Status: Weight bearing as tolCall your doctor if your incision/area has: Continuous Slow Oozing, Sudden Increased Bleeding,Increased Pain/ Swelling, Increased Redness, Foul Smelling Discharge, Swelling at the incisionsiteCall your doctor if you observe: Fever of 101 or Higher, Coldness, Increased Pain, Numbness orTingling, Inability to urinate, Inability to have a bowel movement, Shortness of breath,Dizziness, Calf discomfort, Uncontrolled painHome Medications:Medications to take at DischargeMeloxicam [Mobic] 15 mg PO DAILY 08/26/16Nadolol [Corgard (Beta Sal)] 20 mg PO DAILY 08/26/16Omeprazole [ Prilosec] 20 mg PO DAILY 08/26/16Primidone [Mysoline] 50 mg PO BID 08/26/16ertraline HCl [Zoloft] 100 mg PO DAILY 08/26/16Acetaminophen [Tylenol] 1,000 mg PO Q8 #90 tablet 03/26/17mlodipine [Norvasc] 5 mg PO DAILY tablet 04/01/17spirin 325 mg PO BIDCM #46 tablet 04/01/17Cyclobenzaprine [Flexeril] 10 mg PO TID PRN PRN #30 tablet 04/01/17Lisinopril [Zestril] 10 mg PO DAILY #30 tablet 04/01/17Nicotine [ Nicoderm Cq] 7 mg TRANSDERM. DAILY #30 patch 04/01/17Oxycodone [Oxyir] 5 - 10 mg PO Q6H PRN PRN #30 tablet 04/01/17Senna/Docusate Sodium [Senokot-S] 2 tablet PO BID tablet 04/01/17Following Prescrptions Were Given to Patient:Oxycodone [Oxyir] 5 - 10 mg PO Q6H PRN PRN #30 tabletPRN Reason: Mod-Severe Pain (4-10/10)Cyclobenzaprine [ Flexeril] 10 mg PO TID PRN PRN #30 tabletPRN Reason: Muscle SpasmLisinopril [Zestril] 10 mg PO DAILY #30 tabletNicotine [Nicoderm Cq] 7 mg TRANSDERM. DAILY #30 patchPrimary Care Physician:Gaurang Godinez MD [Primary Care Provider] -Please follow up with your Primary Care Physician in: 1 weekPlease Follow Up With: [facility]When : as directedPatient Instructions: After Knee Replacement: Back at Home, After Knee Replacement: The FirstMonthAdditional Instructions:[facility] pharmacyDisposition: HomeMinutes spent on discharge:: 25Patient Condition:: GoodMeaningful Use InfoMeaningful Use Diagnoses (Choose all that apply): None lwmrdpfipq93/03/17 1458 <Electronically signed by Katharina ALMEIDA>Date Katharina Bautista NP-CCosigner Signature (if applicable): Date CC: Kahtarina Bautista NP; Javier Godinez MD; Carmelo Garibay DO; Kurt Noriega MD Signed DISCHARGE INSTRUCTION Observed: 04/02/2017 Status: F Source: [place] 9:24 AM [facility] REPOSITORY [facility] [id number] [place] [place] [address]Upwujpwbhkws for Home/Discharge Yvckunvufuph53/02/17 1227MR #: [id number] Acct: [id number]: HAIM LIAO Rep #: [id number]: 1955 61 From: Katharina Bautista MARSHMALLOW MACHINE WORKER-CPCP: Javier Godinez MD Status: DIS INDischarge Diet: No RestrictionsDischarge Activity: May Not Drive, Use WalkerWeight Bearing Status: Weight bearing as tolCall your doctor if your incision/area has: Continuous Slow Oozing, Sudden Increased Bleeding,Increased Pain/ Swelling, Increased Redness, Foul Smelling Discharge, Swelling at the incisionsiteCall your doctor if you observe: Fever of 101 or Higher, Coldness, Increased Pain, Numbness orTingling, Inability to urinate, Inability to have a bowel movement, Shortness of breath,Dizziness, Calf discomfort, Uncontrolled painInstructions: After Knee Replacement: The First Month, After Knee Replacement: Back at HomeAdditional Instructions:[facility] pharmacyAllergies/Adverse Reactions:Allergiesmeperidine [From Demerol] Adverse Reaction (Verified 10/20/16 19:26)OtherMAKES ME GOOFYPenicillins [PCN] Adverse Reaction (Verified 10/20/16 19:26)NauseaMedications to take at DischargeMeloxicam [Mobic] 15 mg PO DAILY 08/26/16Nadolol [Corgard (Beta Sal)] 20 mg PO DAILY 08/26/16Omeprazole [Prilosec] 20 mg PO DAILY 08/26/16Primidone [Mysoline] 50 mg PO BID 08/26/16ertraline HCl [Zoloft] 100 mg PO DAILY 08/26/16Acetaminophen [ Tylenol] 1,000 mg PO Q8 #90 tablet 03/26/17mlodipine [Norvasc] 5 mg PO DAILY tablet 04/01/17spirin 325 mg PO BIDCM #46 tablet 04/01/17Cyclobenzaprine [Flexeril] 10 mg PO TID PRN PRN #30 tablet 04/01/17Lisinopril [Zestril] 10 mg PO DAILY #30 tablet 04/01/17Nicotine [Nicoderm Cq] 7 mg TRANSDERM. DAILY #30 patch Oxycodone [Oxyir] 5 - 10 mg PO Q6H PRN PRN #30 tablet 04/01/17Senna/Docusate Sodium [ Senokot-S] 2 tablet PO BID tablet 04/01/17The following prescriptions were given: Oxycodone [Oxyir] 5 - 10 mg PO Q6H PRN PRN #30 tabletPRN Reason: Mod-Severe Pain (4-10/10)Cyclobenzaprine [Flexeril] 10 mg PO TID PRN PRN #30 tabletPRN Reason: Muscle SpasmLisinopril [Zestril] 10 mg PO DAILY #30 tabletNicotine [Nicoderm Cq] 7 mg TRANSDERM. DAILY #30 patchPrimary Care Physician:Gaurang Godinez MD [ Primary Care Provider] -Please follow up with your Primary Care Physician in: 1 weekPlease Follow Up With: [facility]When: as directedProposed Discharge Date: 04/02/1705/03/17 0924 <Electronically signed by Katharina Bautista NP-C> Date Katharina Bautista NP-CCC: Javier Godinez MD; Orlando Ramírez DO BEDSIDE GLUCOSE Collected: 03/31/2017 Status: F Source: [place] 12:14 PM [facility] REPOSITORY TYPE CODE TESTS RESULT OUT OF RANGE REFERENCE UNITS LAB L501.080 Normal 70-110 mg/dL BEDSIDE 87 GLU Result Comment: No Action RequiredMANAGEMENT OF PATIENT CARE PER NURSING PROTOCOL Performed By: #### L501.080 ####[facility] LaboratoryPoint of [address] [place] [address] OPERATIVE REPORT Observed: 03/31/2017 Status: F Source: [place] 8:27 AM [facility] REPOSITORY [facility] [address] [place] [address]Ipfrgtszb ReportMR#: [id number] Acct: [id number]: HAIM LIAO Rep #: [id number]: 1955 61 From: Carmelo Garibay DOPCP: Javier Godinez MD Status: DIS INDATE OF SERVICE: 03/24/2017DATE OF PROCEDURE:March 24, 2017OPERATION:Left total knee replacement arthroplasty utilizing [place] [employer] size 4 posteriorstabilized cemented femur, size 3 cemented tibia, 11 mm polyethylene and 29 mm cementedpatella with subtotal synovectomy and excision of capsular cyst.SURGEON:Carmelo CASSIDY GREEN CHAIN OFFBEARER:Jamey Patiño PA-C.PREOPERATIVE DIAGNOSIS:Osteoarthritis, left knee.POSTOPERATIVE DIAGNOSIS:Osteoarthritis, left knee with severe synovitis and lateral retinacular cyst.DRAINS:None.SPECIMEN:Bone and soft tissue.ESTIMATED BLOOD LOSS:25 mL.DESCRIPTION OF PROCEDURE:With appropriate informed consent, the patient was taken to the operative suite. Afterthe induction of general anesthesia and administration of preoperative antibiotics, thewell leg was fitted with TEDs and SCDs and well padded. The operative extremity wasfitted with a tourniquet and prepared and draped sterilely. Subsequently, an Esmarchbandage was utilized to exsanguinate the left lower extremity. Tourniquet was applied at300 mmHg.A midline longitudinal incision was made over the anterior aspect of the left knee and amedial parapatellar approach to the knee was carried out. There was severe patellofemoraland lateral compartment osteoarthritis. There was significant inflammatory and hyperemicsynovitis. There was also a firm cyst probably scar tissue from previous arthroscopy ____around the lateral retinaculum.A subtotal synovectomy with excision of the cyst was carried out. This was sent asspecimen.Access was gained to the femoral and tibial shafts with a step-cut drill. Femoralintramedullary alignment tricia was placed and the distal femoral cutting block was affixedto the distal femur. An oscillating saw was utilized to perform the distal femoralosteotomy. The osteotomized bone and cutting block were then removed. Femoral sizingguide was placed. 3-degree external rotation pins were drilled and then a size 4four-in- one cutting block was affixed to the distal femur. Anterior, posterior andchamfer cuts were made. The excess bone and cutting block were removed and then attentionwas brought to the tibia.Tibial alignment tricia was placed and then the proximal tibial osteotomy guide was affixedto proximal tibia. An oscillating saw was utilized to perform the proximal tibialosteotomy. The osteotomized bone was removed, as was interposed soft tissue.Subsequently, the femoral box cut was made and then trialing was undertaken with theabove-noted components revealing excellent range of motion and stability.The patella was everted, reamed and drilled to accept a 29-mm patella. The final punchcut was made in the tibia.All trials were removed. Hemostasis was perfected throughout the joint with Aquamantyselectrocautery and the pericapsular soft tissue was injected with 60 mL of the orthopedicjoint cocktail for postoperative pain management.The wound was copiously irrigated with sterile saline, pulsatile lavage and driedthoroughly while cement was mixed under third generation cementing technique. Insequence, the tibia, the femur and the patella were cemented into place. Knee was held inextension until the cement had cured. Excess cement was removed with curettes androngeurs.The trial poly was removed and the tourniquet was released. Excellent blood flow returnedto left lower extremity. Hemostasis was perfected with Aquamantys electrocautery and thenthe wound was copiously irrigated with sterile saline pulsatile lavage with the terminalBetadine wash. Thereafter, the permanent polyethylene was snapped into place. The woundwas then closed in layers in standard fashion with chrissy on the skin. Sterilewell-padded dressing was applied.My assistant at surgery, Mr. Patiño, provided a vital role in performance of this procedure, beginningwith positioning the patient, maneuvering the leg and holding retraction of soft tissueduring exposure of the wound, preparation of bone and placement of prosthesis. Then,under my direct supervision, he closed the wound and applied sterile postoperativedressing. Postoperatively, the patient was extubated and transferred to the PACU instable and satisfactory condition.Carmelo Garibay , DOT: NTSJOB: [id number]/12/17 0827 <Electronically signed by Carmelo Garibay DO>Date Carmelo Garibay DOCosigner Signature (If Indicated): Date ___CC: Javier Godinez MD; Carmelo Garibay DO Date Dictated: 03/24/17 1021Date Transcribed: 03/24/17 1021Transcriptionist:Signed HISTORY AND PHYSICAL Observed: 03/31/2017 Status: F Source: [place] EXAM 1:20 AM [facility] RE[facility]ITORY [facility] [address]pm[address] [place] [address]Wgytgvs and Xchxjjce37/26/17 1201MR#: [id number] Acct: [id number]: HAIM LIAO Rep #: [id number]: 1954 61 From: Aram Garcia MDPCP: Javier Godinez MD Status: DIS IN YLocation: MS3 LW686-1Ucigezl of Present IllnessDate of Admission: Chief Complaint: Debility s/p LTKR.The patient is a pleasant 61 year old right handed female, who is now being admitted to the [facility] rehab unit as a result of debility s/p LTKR. Patient has had an ongoing history of painand discomfort in the L knee for years. She reports that she had a scope of the L knee donein the fall of 2015 that showed lateral meniscus tear, OA and synovitis. Despite conservativemanagement , including therapy, NSAIDs, cortisone injections, pain progressed to the point thatit began to impair patient daily function. In addition she noted instability of the L knee.She underwent an MRI early this year that showed per Dr. Garibay: significant lateralcompartment failure with chondral and meniscal insufficiency as well as patellofemoralchondromalacia. Thus on 03/24/17 patient underwent LTKR at [facility] by Dr. Garibay. The procedureitself was reported without complications. Only complaints patient now as 2 days post op ispain and swelling of L knee (as would be expected) and constipation. She has an additionalcomplaint of back pain in the R thoracic region with no radiation near her prior laminectomyincision site. However, this is chronic and patient has reportedly not followed up withneurosurgeons.Patient now being admitted to the acute rehab unit at [facility] where she will undergo >3 hours oftherapy daily. Therapies will focus on but not be limited to, strengthening the LLE, gaitstability and instructing patient on how to compensate for new deficits. Final goal of rehabstay is for patient to return home at or near her prior level of functional independence (needing no assist with ADLs). Of note patient lives in a 1 level home. She does have basementwith 13 steps but reports no need to go down them. She also had 4 steps to enter the house.Past Medical HistoryPast Medical History (Chronic Problems):Chronic ProblemsAcquired scoliosis (Chronic)Benign essential HTN (Chronic)Chronic back pain (Chronic)Depression (Chronic)GERD (gastroesophageal reflux disease) (Chronic)Allergiesmeperidine [From Demerol] Adverse Reaction (Verified 10/20/16 19:26)OtherMAKES ME GOOFYPenicillins [PCN] Adverse Reaction ( Verified 10/20/16 19:26)NauseaHome Medications:Ambulatory OrdersMedication Instructions RecordedMeloxicam [Mobic] 15 mg PO DAILY 08/26/16Nadolol [Corgard] 20 mg PO DAILY 08/26/16Omeprazole [Prilosec] 20 mg PO DAILY 08/26/16Primidone [Mysoline] 50 mg PO BID 08/26/16ertraline HCl [Zoloft] 100 mg PO DAILY 08/26/16Ibuprofen 200 mg PO PRN PRN 03/19/17Oxycodone HCl/Acetaminophen 1 - 2 tablet PO Q4H PRN PRN 03/19/17[Percocet 5/325]Surgical History: 3 previous back surgeries, laparoscopic cholecystectomyLives: AloneSmoking Status: Current every day smokerTobacco Use: CigarettesAlcohol: NoneDrugs: None- *Family History MaternalHistory Items: No pertinent history PaternalHistory Items: No pertinent historyReview of SystemsConstitutional: Denies: Chills, Fever, Weight ChangeEyes: Denies: Vision ChangeHEENT: Denies: Head Aches, Sinus Congestion, Sinus Drainage, Visual ChangesCardiovascular: Denies: Chest Pain, Light Headedness, Palpitations, SyncopeRespiratory: Denies: Cough, Shortness of breath at rest, Sputum productionGastrointestinal: Reports: Constipation. Denies: Abdominal Pain, Nausea, VomitingGenitourinary: Denies: DysuriaMusculoskeletal: Reports: Back Pain - See HPI. Denies: Joint Pain, Joint Tenderness, Neck PainSkin: Denies: Rash, WoundsNeurological: Denies: Balance problems, Blurred vision, Double vision, Change in Speech,Slurred speech, Confusion, Difficulty swallowing, Focal weakness, Headaches, Incoordination,Numbness, Tingling, Tremor, SeizuresPsychiatric: Denies: Anxiety, Depression, Homicidal Ideations, Suicidal IdeationsHematologic/ Lymphatic: Denies: Easy Bruising, Easy BleedingVTE Information - Inpt OnlyVTE Present on Admission: NoVTE Mechan Device Prophylaxis: SCD's, Knee High CECILIA HoseVTE Pharm Prophylaxis ordered?: Yes- Physical ExamGeneral: Alert, Oriented x3, Cooperative, No apparent distress, - - Fluent and non dysarthric.Fund of knowledge grossly nml by MOCA.HEENT: Atraumatic, PERRLA, EOMI, Normocephalic, - - Fundi without papilledema.Oral: Moist MucosaNeck: Supple, No JVD, Negative Carotid BruitsLungs: Clear to auscultation, Normal air movementCardiovascular: Regular rate, Regular Rhythm, Normal S1, Normal P7Ekuolan: Bowel Sounds Present, Soft, Non TenderExtremities: No edema, Capillary Refill Less than 3 Seconds, No Calf TendernessSkin: No rashes, No breakdownMusculoskeletal: No Tenderness to Palpation of Joints or ExtremitiesNeurological: Cranial nerves II-XII grossly intact, Motor Exam 5/5 strength throughout - exceptin LLE associated with knee flexion and extension as a result of recent surgery., Muscle tonenormal, Sensory exam intact to light touch and pain - (pain=pin). No neglect., Coordinationnormal - FNF/ARACELIS, - - Gait deferred at this time and will reeval with therapists later today.Psych/Mental Status: Normal Affect, AppropriateVital SignsTemp Pulse Resp BP Pulse Ox97.8 F 58 18 160/79 08:30 03/26/17 08:30 03/26/17 08:30 03/26/17 08:30 08:30Oxygen Flow Rate 3Oxygen Delivery Method Room AirWeight: 217 lb 9.54 ozBody Mass Index (BMI) 37.3Intake and Output for Last 24 Hours03/24/17 03/25/17 03/26/1723:59 23 :59 23:59Intake Total 36535 720Balance 3653 1924 720Assessment/PlanPatient with debility s/p LTKR as result of significant lateral compartment failure withchondral and meniscal insufficiency as well as patellofemoral chondromalacia. Patient nowbeing admitted to the acute rehab unit where she will undergo >3 hours of therapy daily withfinal goal being patient's return home at or near her prior level of functional independence.While in the rehab unit, patient's other medical conditions will be monitored and treated asneeded.* Debility due to above: PT/OT.* Pain due to above: Analgesics prn.* Bowel protocol: Currently with constipation.* DVT prophylaxis: ASA 325mg BID per ortho.* LTKR: Will need ortho follow up after d/c from rehab unit.* Hyponatremia: Mild and asx. Will monitor.* Post-op anemia: Currently asx. Will monitor. Start on Fe supplements.* H/o Laminectomy x2: Currently complaints of thoracic pain. Will need MRI of spine followingd/c from rehab as well as follow up with neurosurgery. Pain control as above.* Tremors: Continue home dose of Primidone.* HTN: Chronic. Goal BP < 140/90. Continue home dose of Corgard.* Depression: Chronic and stable. Continue home dose of Sertaline.* Tobacco abuse: Encouraged cessation. Continue Nicoderm Cq while in rehab.* GERD: Stable. Continue Protonix.03/31/17 0120 <Electronically signed by Aram Garcia MD>Date Aram Garcia MDCosigner Signature (if applicable): Date CC: Javier Godinez MD; Aram Garcia MD Signed 12 LEAD ELECTROCARDIOGRAM Observed: 03/28/2017 Status: F Source: [place] 1:20 PM [facility] REPOSITORY [facility]ITAL[facility] [id number] [address]TUS - SD03/19/17 1038MR#: [id number] Acct: [id number]: HAIM LIAO Rep #: [id number]: 1955 61 From: Jose Murphy MDAttending Dr: Carmelo Garibay DO Status: DIS INOrdering Dr: Carmelo Garibay DO Date: Location: MS3 Sex: F CAdmitted: 03/24/17Test Reason :Blood Pressure : / mmHGVent. Rate : 064 BPM Atrial Rate : 064 BPMP-R Int : 188 ms QRS Dur : 084 msQT Int : 406 ms P-R-T Axes : 046 013 081 degreesQTc Int : 418 msNormal sinus rhythmNonspecific T wave abnormalityPoor R wave progressionAbnormal ECGConfirmed by KATHERINE MANNING, JOSE ([id number]), managing editor ANYA HAHN ([id number]) on 2016 1:05:03 PMReferred By: ISREAL ESCOBAR Confirmed By:JOSE MURPHY MD 1305Date Jose Murphy MDCC: Javier Godinez MD; Jose Murphy MD Date Dictated: 03/19/17 1038Date Transcribed: 03/19/17 1038Transcriptionist:Signed BASIC METABOLIC Collected: 03/27/2017 Status: F Source: [place] PROFILE (BMP) 5:40 AM [facility] REPOSITORY TYPE CODE TESTS RESULT OUT OF RANGE REFERENCE UNITS LAB L501.0100 High 70-110 mg/dL GLU 129 Result Comment: Fasting Glucose result greater than or equal to 126 mg/ dLsuggests DIABETES MELLITUS per A.D.A. criteria. LAB L501.1000 Low 7-18 mg/dL BUN 5 LAB L501.1100 Low 0.55-1.02 mg/dL CREAT,SERUM 0.46 Result Comment: The validity of the calculated GFR AND GFRAA in patients over70 years has not been determined. Clinical correlation isessential. LAB L501.1110 Normal >60 mL/min EST GFR 145 Result Comment: Non- GFR Calc LAB L501.1115 Normal >60 mL/min EST GFR - 176 AA Result Comment: GFR Calc LAB L501.1255 Normal ml/min Estimated 109.50 CRCL LAB L501.1300 Normal 10-20 RATIO BUN/CRE 10.8 LAB L501.2200 Normal 8.5-10 mg/dL CA 8.5 .1 LAB L501.5300 Low 136-14 mmol/L NA 130 5 LAB L501.5600 Normal 3.5-5. mmol/L K 4.2 1 LAB L501.5900 Low 98-107 mmol/L CL 93 LAB L501.6100 Normal 21.0-3 mmol/L CO2 30.0 2.0 LAB L501.6200 Normal 5-15 GAP 7 Performed By: #### L500.2500 ####[facility] [address] [place], [place], [id number] CBC-COMPLETE BLOOD CNT Collected: 03/27/2017 Status: F Source: [place] NO DIFF 5:40 AM [facility] REPOSITORY TYPE CODE TESTS RESULT OUT OF RANGE REFERENCE UNITS LAB L100.1000 Normal 4.4-11.0 K/mm3 WBC 6.3 LAB L100.1200 Low 4.2-5.4 M/mm3 RBC 2.99 LAB L100.1300 Low 12.0-15.0 g/dl HGB 10.0 LAB L100.1400 Low 37-47 % HCT 30.4 LAB L100.1500 High 81-99 fL MCV 101.7 LAB L100.1600 High 27.0-32.0 pg MCH 33.4 LAB L100.1700 Normal 32-36 g/gl MCHC 32.9 LAB L100.1810 High 11.6-14.6 % RDW 20.5 CV LAB L100.1820 High 35.1-43.9 fl RDW 77.1 SD LAB L100.1900 Normal 150-450 K/mm3 PLT 334 LAB L100.2000 Normal 6.2-12.0 fl MPV 10.2 Performed By: #### L100.0500, L100.4500 ####[facility] [address] [place], [address] DIFFERENTIAL COMMENT Collected: 03/27/2017 Status: F Source: [place] 5:40 AM [facility] REPOSITORY TYPE CODE TESTS RESULT OUT OF RANGE REFERENCE UNITS LAB L100.4500 Normal SMEAR SCANNED COMMENT Result Comment: 2+ TARGET CELLS2+ MACROCYTOSIS2+ ANISOCYTOSIS Performed By: #### L100.0500, L100.4500 ####[facility] [address] [place], [address] DISCHARGE INSTRUCTION Observed: 03/26/2017 Status: F Source: [place] 2:28 PM [facility] REPOSITORY [facility]ITAL[facility] Records [id number] [facility] [place], [place] [address]Hapuhwgivosd for Home/Discharge Isnlnjlirohh84/26/17 1426 #: [id number] Acct: [id number]: YANNIHAIM J Rep #: [id number]: 1955 61 From: Jamey HAGER-CPCP: Javier Godinez MD Status: ADM INDischarge Diet: No RestrictionsDischarge Activity: May Not Drive, May Shower, Use WalkerMay shower in (days): 1Ice area for (Minutes): 20 - each hour while awake.Weight Bearing Status: Weight bearing as tolElevate: Operative ExtremityAdditional Activity Instructions:: Wear elastic stockings for 2 weeks after your surgery.Call your doctor if your incision/ area has: Continuous Slow Oozing, Sudden Increased Bleeding,Increased Pain/ Swelling, Increased Redness, Foul Smelling DischargeCall your doctor if you observe: Fever of 101 or Higher, Coldness, Increased Pain - inextremity, Numbness or Tingling, Change in Color, Calf discomfort, Uncontrolled painChange Dressing in (Days):: 0 - and daily as needed.Remove Dressing in (days):: 9 - REMOVE AG DRESSING WHEN CHRISSY ARE REMOVED 2-0-62Oyhwcwe incision/area with: Soap AND WaterAllergies/Adverse Reactions:Allergiesmeperidine [From Demerol] Adverse Reaction (Verified 19:26)OtherMAKES ME GOOFYPenicillins [PCN] Adverse Reaction (Verified 19:26)NauseaMedications to take at DischargeMeloxicam [Mobic] 15 mg PO DAILY 08/26/16Nadolol [Corgard (Beta Sal)] 20 mg PO DAILY 08/26/16Omeprazole [ Prilosec] 20 mg PO DAILY 08/26/16Primidone [Mysoline] 50 mg PO BID 08/26/16ertraline HCl [Zoloft] 100 mg PO DAILY 08/26/16Ibuprofen 200 mg PO PRN PRN cetaminophen [Tylenol] 1,000 mg PO Q8 #90 tablet 03/26/17spirin 325 mg PO BIDCM #60 tablet 03/26/17Cyclobenzaprine [Flexeril] 10 mg PO TID PRN PRN #30 tablet Oxycodone [Oxyir] 5 - 10 mg PO Q6H PRN PRN #60 tablet 03/26/17The following prescriptions were given:Oxycodone [Oxyir] 5 - 10 mg PO Q6H PRN PRN #60 tabletPRN Reason: Mod- Severe Pain (4-10/10)Acetaminophen [Tylenol] 1,000 mg PO Q8 #90 tabletCyclobenzaprine [Flexeril] 10 mg PO TID PRN PRN #30 tabletPRN Reason: Muscle SpasmAspirin 325 mg PO BIDCM #60 tabletPrimary Care Physician:Gaurang Godinez MD [Primary Care Provider] -Please Follow Up With: Jayjay Garibay: SEE PINK SHEET03/26/17 1428 <Electronically signed by Jamey Patiño PA-C>Date Jamey LINCCC: Javier Godinez MD BASIC METABOLIC Collected: 03/25/2017 Status: F Source: [place] PROFILE (BMP) 5:28 AM [facility] REPOSITORY TYPE CODE TESTS RESULT OUT OF RANGE REFERENCE UNITS LAB L501.0100 Normal 70-110 mg/dL GLU 106 LAB L501.1000 Normal 7-18 mg/dL BUN 11 LAB L501.1100 Normal 0.55-1.02 mg/dL 0.68 CREAT,SERUM Result Comment: The validity of the calculated GFR AND GFRAA in patients over70 years has not been determined. Clinical correlation isessential. LAB L501.1110 Normal >60 mL/min EST GFR 93 Result Comment: Non- GFR Calc LAB L501.1115 Normal >60 mL/min EST GFR - 113 AA Result Comment: GFR Calc LAB L501.1255 Normal ml/min Estimated 74.07 CRCL LAB L501.1300 Normal 10-20 RATIO BUN/CRE 16.2 LAB L501.2200 Low 8.5-10 mg/dL CA 8.2 .1 LAB L501.5300 Low 136-14 mmol/L NA 130 5 LAB L501.5600 Normal 3.5-5. mmol/L K 4.6 1 Result Comment: Slight Hemolysis, Result may be falsely increased. LAB L501.5900 Low 98-107 mmol/L CL 96 LAB L501.6100 Normal 21.0-32.0 mmol/L CO2 26.0 LAB L501.6200 Normal 5-15 GAP 8 Performed By: #### L500.2500 ####[facility] [address] [place], [place], [id number] CBC-COMPLETE BLOOD CNT Collected: 03/25/2017 Status: F Source: [place] NO DIFF 5:28 AM [facility] REPOSITORY TYPE CODE TESTS RESULT OUT OF RANGE REFERENCE UNITS LAB L100.1000 Normal 4.4-11.0 K/mm3 WBC 8.5 LAB L100.1200 Low 4.2-5.4 M/mm3 RBC 3.11 LAB L100.1300 Low 12.0-15.0 g/dl HGB 10.6 LAB L100.1400 Low 37-47 % HCT 33.0 LAB L100.1500 High 81-99 fL MCV 106.1 LAB L100.1600 High 27.0-32.0 pg MCH 34.1 LAB L100.1700 Normal 32-36 g/gl MCHC 32.1 LAB L100.1810 High 11.6-14.6 % RDW 21.2 CV LAB L100.1820 High 35.1-43.9 fl RDW 82.8 SD LAB L100.1900 Normal 150-450 K/mm3 PLT 311 LAB L100.2000 Normal 6.2-12.0 fl MPV 10.2 Performed By: #### L100.0500, L100.4500 ####[facility] [address] [place], [address] DIFFERENTIAL COMMENT Collected: 03/25/2017 Status: F Source: [place] 5:28 AM [facility] REPOSITORY TYPE CODE TESTS RESULT OUT OF RANGE REFERENCE UNITS LAB L100.4500 Normal SMEAR SCANNED COMMENT Result Comment: 3+ MACROCYTOSISRARE TARGET CELLS2+ ANISOCYTOSIS Performed By: #### L100.0500, L100.4500 ####[facility] [address] [place], [address] TOTAL KNEE REPLACEMENT Observed: 03/24/2017 Status: F Source: [place] 9:32 AM [facility] REPOSITORY Patient: HAIM LIAO : 1955 (61/F) Acct Num: [id number] Phys: Carmelo Garibay DO Unit Num: [id number] Loc: MS3 SR190-9 Specimen: [id number] Received: 03/24/17 - 1259 Spec Type: TOTAL KNEE TISSUES TISSUES: GROSS DESCRIPTION A - Received is one container labeled with the patient's name and designated left knee cyst. The specimen consists of a piece of molina soft tissue measuring2.5 x 1 x 0.5 cm. The specimen is bisected and submitted entirely in one cassette. B - Received is one container designated bone and soft tissue left knee. Thespecimen consists of multiple fragments of molina-yellow bone measuring in aggregate 13 x 10 x 3 cm. Also in the specimen container are multiple fragmentsof yellow-white soft tissue measuring in aggregate 3 x 3 x 1 cm. A number of bony fragments contain articular surfaces consistent with tibial plateau and femoral condyle and displaying prominent osteophyte formation and bone erosion. Packing Floor Worker sections are submitted in two cassettes as follows: 1 - soft tissue, 2 - bone after decalcification. / SJ:clint 03/24/17 TC:5 CPT: 78980 x2, 25805 HEADER OPERATION: Total knee replacement PRE-OP DIAGNOSIS: Endstage osteoarthritis, left knee TISSUE SUBMITTED: A - Left knee cyst, B - Bone and soft tissue, left knee MICROSCOPIC DESCRIPTION Slides are reviewed. MICROSCOPIC DIAGNOSIS A. Cyst of left knee, excision: Fibrinoid material. Fragments of fibrocartilaginous tissue. B. Bone and soft tissue of left knee, total knee resection: Synovium with embedded cartilaginous tissue and associated reactive change. Bone with degenerative changes. AM:clint 03/27/17 Signed Chucho Uvaldo 03/27/17 < signature on file> Performed By: #### PKNEE ####[facility] [address] [facility] [place], [address] HISTORY AND PHYSICAL Observed: 03/24/2017 Status: F Source: [place] EXAM 7:17 AM [facility] REPOSITORY [facility] [id number] [facility] [place], [place] [address]Fvtgjir and Imeaieds97/20/17 1124MR#: [id number] Acct: [id number]: HAIM LIAO Rep #: [id number]: 1954 61 From: Carmelo Garibay DOPCP: Javier Godinez MD Status: PRE INLocation: ACINPDATE OF SERVICE:DATE OF SURGERY:March 24, 2017CHIEF COMPLAINT:Left knee pain.HISTORY OF CHIEF COMPLAINT:This is a very pleasant 61-year-old female, who has had an ongoing history of pain anddiscomfort in her left knee. She had an arthroscopy of the left knee performed by anotherphysician in August of 2016. At that point in time, she was noted to have lateralmeniscus tear, osteoarthritis, and synovitis. She unfortunately continued to have leftknee pain, swelling, and difficulty with ambulation despite physical therapy, cortisoneinjections, and activity modification. She ultimately came to see me and MRI and x-rayswere noted to show significant lateral compartment failure with chondral and meniscalinsufficiency as well as high-grade patellofemoral chondromalacia. At this point in time,options of treatment have been discussed and she wishes to proceed with left total kneereplacement arthroplasty.PAST MEDICAL HISTORY:Significant for arthritis, fibromyalgia, and mitral valve prolapse.ALLERGIES:DEMEROL AND PENICILLIN.MEDICATIONS:Please see the hospital intake sheet.PAST SURGICAL HISTORY:Laminectomy x2 in 2002 and 2003, laminectomy decompression with fusion in 2010 and 2012,cholecystectomy, and left wrist surgery. She has had no anesthesia complications.FAMILY HISTORY:Noncontributory.SOCIAL HISTORY:The patient is retired. She smokes cigarettes. Uses alcohol occasionally.REVIEW OF SYSTEMS:Negative with exception of the above.PHYSICAL EXAMINATION:VITAL SIGNS: Blood pressure is 150/80, pulse 72, respirations 18, and temperature is96.5.GENERAL: The patient is alert and oriented x3, moderately overweight female.HEENT: Pupils equal, round, and reactive to light and accommodation. Extraocular musclesare intact.NECK: Trachea is midline.HEART: Regular rate and rhythm.PULMONARY: Clear to auscultation and percussion bilaterally.ABDOMEN: Soft and nontender. Positive bowel sounds throughout.GENITOURINARY: Deferred.RECTAL: Deferred.NEUROLOGIC: Sensory and motor function in bilateral upper and lower extremities grosslyintact.MUSCULOSKELETAL : Evaluation of left knee revealed she has 2+ effusion without warmth orerythema. She has 3-100 degrees motion with pain along the mediolateral joint lines. Noinstability.IMPRESSION:Endstage osteoarthritis, left knee.PLAN:At this point in time, the patient likes to proceed with left total knee replacementarthroplasty. We did review the potential risks, benefits, and complications of theprocedure in detail, including, but not limited to , infection, nerve and bloodvessel damage, persistent pain, numbness, tingling, paresthesias, blood clots, pulmonaryembolism, and requiring further surgery. She is in full understanding and she does wishto proceed.Carmelo Garibay, DOT: NTSJOB: [id number]/ 0717 <Electronically signed by Carmelo Garibay DO>Date: Time: Carmelo Garibay DOCC: Javier Godinez MD; Carmelo Garibay DO Date Dictated: 03/20/17 1124Date Transcribed: 03/20/17 1124Transcriptionist:Signed____ I have re-examined the patient. There are no clinical changes since date ofexam.____ See Progress Notes for Changes____ Dictated on AdmissionDate: Time: Signature: BASIC METABOLIC Collected: 03/19/2017 Status: F Source: [place] PROFILE ([facility]) 11:54 AM [facility] REPOSITORY TYPE CODE TESTS RESULT OUT OF RANGE REFERENCE UNITS LAB L501.0100 Normal 70-110 mg/dL GLU 96 LAB L501.1000 Normal 7-18 mg/dL BUN 8 LAB L501.1100 Normal 0.55-1.02 mg/dL 0.66 CREAT,SERUM Result Comment: The validity of the calculated GFR AND GFRAA in patients over70 years has not been determined. Clinical correlation isessential. LAB L501.1110 Normal >60 mL/min EST GFR 97 Result Comment: Non- GFR Calc LAB L501.1115 Normal >60 mL/min EST GFR - 118 AA Result Comment: GFR Calc LAB L501.1255 Normal ml/min Estimated 76.32 CRCL LAB L501.1300 Normal 10-20 RATIO BUN/CRE 12.2 LAB L501.2200 Normal 8.5-10 mg/dL CA 9.1 .1 LAB L501.5300 Low 136-14 mmol/L NA 131 5 LAB L501.5600 Normal 3.5-5. mmol/L K 4.3 1 LAB L501.5900 Low 98-107 mmol/L CL 94 LAB L501.6100 Normal 21.0-3 mmol/L CO2 30.0 2.0 LAB L501.6200 Normal 5-15 GAP 7 Performed By: #### L500.2500, L100.0500 ####[facility] [address] [place], [place], [address] CBC-COMPLETE BLOOD CNT Collected: 03/19/2017 Status: F Source: [place] NO DIFF 11:54 AM [facility] REPOSITORY Order Comment: 2+ TARGET CELLS, 1+ BASOPHILIC STIPPLING, LARGE PLATELETSWITH MILD CLUMPING 2+ ANISO WITH MACROCYTIC CELLS TYPE CODE TESTS RESULT OUT OF RANGE REFERENCE UNITS LAB L100.1000 Normal 4.4-11.0 K/mm3 WBC 6.6 LAB L100.1200 Low 4.2-5.4 M/mm3 RBC 3.98 LAB L100.1300 Normal 12.0-15.0 g/dl HGB 13.5 LAB L100.1400 Normal 37-47 % HCT 40.4 LAB L100.1500 High 81-99 fL MCV 101.5 LAB L100.1600 High 27.0-32.0 pg MCH 33.9 LAB L100.1700 Normal 32-36 g/gl MCHC 33.4 LAB L100.1810 High 11.6-14.6 % RDW 20.3 CV LAB L100.1820 High 35.1-43.9 fl RDW 75.8 SD LAB L100.1900 Normal 150-450 K/mm3 PLT 393 LAB L100.2000 Normal 6.2-12.0 fl MPV 10.3 Performed By: #### L500.2500, L100.0500 ####[facility] [address] [place], [place], [address] Observed: 03/19/2017 Status: F Source: [place] MRSA/SAID SCREEN 11:40 AM [facility] REPOSITORY MRSA/SAID SCRNCopy of report sent to Infection Control Printer [id number] 03/20/[address] [place] [address]. Copy of report sent to Printer MS#[id number] S. AUREUS S. aureus PositiveMRSA MRSA Negative Performed By: #### M100.651 ####[facility] [address] [place], [place], [address] CHEST PA AND LATERAL Observed: 03/19/2017 Status: F Source: [place] 11:33 AM [facility] REPOSITORY [place] [facility] [id number] [place] [address]Jxdcoqf 4dChest PA and LateralMR#: [id number] Acct: [id number]: HAIM LIAO Rep #: [id number]: 1954 F 61 From: Wagner Rausch MDPCP: Javier Godinez MD Status: PRE INStudy: Chest PA and Lateral Date of Exam: 03/19/17Exam# [id number] Ordering Dr: Carmelo Garibay DOSTUDY: X-RAY CHESTREASON FOR EXAM: Female, 61 years old. PreopTECHNIQUE: Frontal and lateral views of the chest.COMPARISON: Chest x-ray 12/24/2016, CT scan 01/21/2017. FINDINGS:The lungs are clear and expanded. There is no demonstrated pleuralabnormality.Normal size heart. Normal mediastinum and arthur. Normal visualizedpulmonary arteries. Normal visualized aortic arch and descending thoracicaorta.Previous thoracolumbar surgery and posterior fixation.There is no demonstrated abnormality of the visualized soft tissuestructures of the upper abdomen. ORDER #: [id number] RAD/ Chest PA and LateralIMPRESSION:No acute chest disease.Electronically Signed:Wagner Rausch MD at 16:15 EDTT [phone], Service support , AE: Javier Godinez MD; Carmelo Garibay DO Cto:Signed SCREENING MAMM (CAD), Observed: 02/13/2017 Status: F Source: [place]AN[place] BILAT 9:52 AM [facility] RE[facility]ITORY [facility] [id number] [place] [address]Muqzxwr 4dSCREENING MAMM (CAD), BILATMR#: [id number] Acct: [id number]: HAIM LIAO Rep #: [id number]: 1954 F 61 From: Atul Lu MDPCP: Javier Godinez MD Status: REG CLIStudy: SCREENING MAMM (CAD), BILAT Date of Exam: 02/13/17Exam# [id number] Ordering Dr: Gaurang Godinez MDMAMMOGRAPHY - BILATERAL SCREENINGREASON FOR EXAM: Female, 61 years old. Routine annual screeningexamination.PERTINENT HISTORY: Non-contributory.TECHNIQUE: Digital bilateral breast ladarius (3D mammographic acquisition) inthe CC and MLO projections. 2-D mediolateral oblique (MLO) and craniocaudad(CC) views of both breasts were obtained. CAD: Full Field DigitalMammography with Computer Added Detection was performed.COMPARISON: Comparison is made with prior study dated October 12, 2015. FINDINGS:Breast Composition: There are scattered areas of fibroglandular density.There are no dominant masses or suspicious calcifications.No other significant abnormalities are identified. There has been nosignificant change since the prior study. HPBI/SCREENING MAMM (CAD), BILATIMPRESSION:Stable bilateral screening mammogram. Yearly follow-up mammogramrecommended. (A) ASSESSMENT CATEGORY:BIRADS Category 1: Negative. A letter regarding these results will besent to the patient by the facility within 30 days.Approximately 10% of breast cancers are not detected by mammography. Anormal mammogram should not delay biopsy of a clinically suspiciousabnormality.[id number] Signed:Atul Lu MD at 12:43 EDTTel [phone], Service support [phone], HG: Javier Godinez MD Cto:Signed LOW DOSE CT LUNG Observed: 01/21/2017 Status: F Source: [place] SCREENING 2:27 PM [facility] RE[facility]ITORY [facility] [id number] [place] [id number] 4dLow Dose CT Lung ScreeningMR#: [id number] Acct: [id number]: HAIM LIAO Piero Rep #: [id number]: 1954 F 61 From: Atul Lu MDPCP: Javier Godinez MD Status: REG CLIStudy: Low Dose CT Lung Screening Date of Exam: 01/21/17Exam# [id number] Ordering Dr: Gaurang Godinez MDSTUDY: CT CHEST WITHOUT CONTRAST- LOW DOSE SCREENING PROTOCOLREASON FOR EXAM: Female, 61 years old. Current smoker. 40 pack per yearhistory. No current symptoms of lung cancer or pulmonary infection. Shareddecision-making with referring PCP documented in patient's record.RADIATION DOSAGE (If Supplied By Facility): CTDIvol=( 4.02 ) mGy, DLP=( 137.93 ) mGycmTECHNIQUE: Low dose screening CT examination performed from the base of theneck to the upper abdomen. Sagittal and coronal reformatted imagesperformed. Sagittal and coronal MIP images provided. The measurementsprovided are average, rounded measurements per ACR guidelines.Individualized dose optimization techniques were used for this CT.COMPARISON: None. FINDINGS:The lungs are normal. There is no demonstrated pleural abnormality.Normal heart and pericardium. There are calcifications of the coronaryarteries.Normal mediastinum. Normal hilar regions. Normal unenhanced pulmonaryarteries. Normal aorta arch and descending thoracic aorta.There are multi-level degenerative changes of the thoracic spine. Thepatient is status post interpedicular screw fixation of the upper lumbarspine.Small hiatal hernia. ORDER #: [id number] CT/Low Dose CT Lung ScreeningIMPRESSION:1. No significant indeterminate incidental findings requiring additionalimaging.ASSESSMENT CATEGORY:LungRADS 2 - Benign Appearance or Behavior. Continue annual screening withLDCT in 12 months, per established ACR guidelines.Electronically Signed:Atul Lu MD at 15:30 ESTTel [phone], Service support [phone], XB: Javier Godinez MD Cto:Signed ALLERGIES ALLERGIES DATE TYPE / CODE NAME / CODE REACTION SEVERITY SOURCE 10/20/2016 Drug Penicillins/ Nausea Unknown [facility]160 [id number]([facility] 02982(SNOMED XNORM) Repository CT) 10/20/2016 Drug meperidine/F Other Unknown [facility]/4160 [id number]([facility] 08731(SNOMED NORM) Repository CT) 10/20/2016 Drug Penicillins/ Nausea [facility] Allergy/4160 [id number]([facility] 36026(SNOMED XNORM) Repository CT) 10/20/2016 Drug meperidine/F Other [facility] Allergy/4160 [id number]([facility] 98768(SNOMED NORM) Repository CT) ENCOUNTERS ENCOUNTERS ADMIT/DISCHARGE ACCOUNT ADMITTING ENCOUNTER LOCATION SOURCE NUMBER CLASS 12/19/2017 [id number] Ambulatory [place] [facility] 1 [facility] ing:MTLAB Repository 12/03/2017 [id number] Ambulatory [place] [facility] 4 [facility] ing:SP Repository 11/26/2017 [id number] Ambulatory [place] 0 [facility] ing:SL Repository 11/17/2017 [id number] Ambulatory [place] [facility] 9 [facility] ing:MEDOUTP Repository 11/12/2017 [id number] Ambulatory [place] 9 [facility] ing:LAB Repository 11/10/2017 [id number] Ambulatory [place] 6 [facility] ing:SL Repository 11/10/2017 [id number] Ambulatory [place] [facility] 5 [facility] ing:MEDOUTP Repository 11/03/2017 [id number] Ambulatory [place] [facility] 3 [facility] ing:HHLAB Repository 10/20/2017/ [id number] Amb[facility] [place] 7 9 [facility] ing:HHLAB Repository 10/10/2017/ [id number] Tai, Inpatient [place] 7 4 Kenya S. Encounter [facility] ing:RURoom: Repository YW684Aho: 1 10/08/2017/ [id number] Hahn, Inpatient [facility] 7 3 Lexa Encounter [facility] ing:YQ4Npxe: Repository FK189Tpj: 1 10/08/2017 [id number] Ambulatory [place] 0 [facility] ing:LAB.FUTUR Repository E 10/07/2017 [id number] Ambulatory [place] 9 [facility] ing:CVS Repository 09/09/2017/ [id number] Noriega, Inpatient [place] 7 2 Kurt Encounter [facility] ing:RURoom: Repository [id number]: 1 09/08/2017/ [id number] Hahn, Inpatient [place] [facility] 9 Lexa Encounter [facility] ing:MW1Qztw: Repository JG328Tbv: 1 03/26/2017/ [id number] Garcia, Inpatient [place] [facility] 8 Aram Encounter [facility] ing:RURoom: Repository RS738Zyv: 1 03/24/2017/ [id number] [place], Inpatient [place] 7 0 Carmelo Encounter [facility] ing:NL2Krgd: Repository BS336Www: 1 02/13/2017 [id number] Ambulatory [place] 8 [facility] ing:BI Repository 01/21/2017 [id number] Ambulatory [place] 2 [facility] ing:CT Repository PAYERS PAYERS ENCOUNTER GUARANTOR PAYER SUBSCRIBER SOURCE 12/19/2017 HAIM Harry Primary HAIM RINALDIORICH3688 Insurance:HOMETO SLYHDOB: [facility] [id number] Repository [address]Lhv: (330) Number: [id number] (HP) [id number] Date: [place], [place] [address]CQ: 12/19/2017 Secondary NOT GIVENUNK [place] Insurance:SELF PAY [facility] Number: Effective Repository Date:2017-12-19 12/03/2017 Haim Piero Primary Haim Piero Najera [id number] Insurance:[place] GregorichDOB: [facility] [id number] [facility] [place] Rep[place] [address]Kuj: (330) Number: [phone] (HP) [id number] Date: [place], [place] [address]DG: 12/03/2017 Secondary NOT GIVENUNK [place] Insurance:SELF PAY [facility] Number: Effective Repository Date:2017-11-26 11/26/2017 Haim J Primary Haim Piero Najera [id number] Insurance:[place] GregorichDOB: [facility] [id number] [facility] [place] Repository [address]Fbi: (330) Number: [phone] () [id number] Date:[id number] [place], [place] [address]VG: 11/26/2017 Secondary NOT GIVENUNK [place] Insurance:SELF PAY [facility] Number: Effective Repository Date:2017-11-21 11/17/2017 Haim J Primary Haim Piero Najera [id number] Insurance:[place] GregorichDOB: [facility] [id number] [facility] [place] Rep[place] [address]Ygh: (330) Number: [id number] (HP) [id number] Date: [place], [place] [address]RE: 11/17/2017 Secondary NOT GIVENUNK [place] Insurance:SELF PAY [facility] Number: Effective Repository Date:2017-11-04 11/12/2017 Haim Harry Primary Haim Piero [place] [id number] Insurance:[place] GregorichDOB: [facility] [id number] [facility] [place] Rep[place] [address]Evb: (330) Number: [phone] () [id number] Date:[id number] [place], [place] [address]QA: 11/12/2017 Secondary NOT GIVENUNK [place] Insurance:SELF PAY [facility] Number: Effective Repository Date:2017-11-02 11/10/2017 Haim Harry Primary Haim Harry [place] [id number] Insurance:[place] RanorichDOB: [facility] [id number] [facility] [place] Rep[place] [address]Kxy: (330) Number: [phone] () [id number] Date:[id number] [place], [place] [address]QQ: 11/10/2017 Secondary NOT GIVENUNK [place] Insurance:SELF PAY [facility] Number: Effective Repository Date:2017-10-14 11/10/2017 Haim J Primary Haim Piero [place] [id number] Insurance:[place] RanorichDOB: [facility] [id number] [facility] [place] Rep[place] [address]Tvk: (330) Number: [phone] () [id number] Date: [place], [place] [address]EC: 11/10/2017 Secondary NOT GIVENUNK [place] Insurance:SELF PAY [facility] Number: Effective Repository Date:2017-11-04 11/03/2017 Haim Harry Primary Haim Piero [place] [id number] Insurance:[place] GregorichDOB: [facility] [id number] [facility] [place] Rep[place] [address]Dxk: (330) Number: [phone] (HP) [id number] Date: [place], [place] [address]GH: 11/03/2017 Secondary NOT GIVENUNK [place] Insurance:SELF PAY [facility] Number: Effective Repository Date:2017-11-03 10/20/2017 HAIM Harry Primary HAIM RINALDIORICH3688 Insurance:[place] GREGORICHDOB: [facility] [id number] [facility] [place] Repository [address]Dlv: (330) Number: [phone] () [id number] Date: [place], [place] [address]IB: 10/10/2017 HAIM Harry Primary HAIM RINALDIORICH3688 Insurance:[place] GREGORICHDOB: [facility] [id number] [facility] [place] Repository [address]Xwl: (330) Number: [phone] () [id number] Date: [place], [place] [address]ND: 10/08/2017 HAIM Harry Primary HAIM RINALDIORICH3688 Insurance:[place] GREGORICHDOB: [facility] [id number] [facility] [place] Repository [address]Sdg: (330) Number: [phone] (HP) [id number] Date: [place], [place] [address]NU: 10/08/2017 HAIM Harry Primary HAIM RINALDIORICH3688 Insurance:[place] GREGORICHDOB: [facility] [id number] [facility] [place] MED[place] Repository [address]Uao: (330) Number: [phone] (HP) [id number] Date: [place], [place] [address]PO: 10/07/2017 HAIM RINALDIORICH3688 Insurance:[place] GREGORICHDOB: [facility] [id number] [facility] [place] Repository [address]Cgz: (330) Number: [phone] (HP) [id number] Date: [place], [place] [address]TS: 09/09/2017 HAIM RINALDIORICH3688 Insurance:[place] GREGORICHDOB: [facility] [id number] [facility] [place] Repository [address]Fdk: (330) Number: [phone] (HP) [id number] Date: [place], [place] [address]DG: 09/08/2017 HAIM RINALDIORICH3688 Insurance:[place] GREGORICHDOB: [facility] [id number] [facility] [place] MED[place] Repository [address]Amw: (330) Number: [phone] (HP) [id number] Date: [place], [place] [address]XF: 03/26/2017 HAIM RINALDIORICH3688 Insurance:[place] GREGORICHDOB: [facility] [id number] [facility] [place] Repository [address]Hjy: (330) Number: [phone] (HP) [id number] Date: [place], [place] [address]OP: 03/24/2017 HAIM Harry Primary HAIM RINALDIORICH3688 Insurance:HOMETOWSilke HEARTHDOB: [facility] [id number] [facility] [place] MED[place] Repository [address]Ady: (330) Number: [phone] () [id number] Date: [place], [place] [address]FP: 02/13/2017 HAIM Harry Primary HAIM Najera [id number] Insurance:HOMETOWSilke RINALDIORICHDOB: [facility] [id number] [facility] [place] MED[place] Repository [address]Ynb: (330) Number: [phone] () [id number] Date: [place], [place] [address]PZ: 01/21/2017 HAIM Harry Primary HAIM Najera [id number] Insurance:HOMETOWSilke HEARTHDOB: [facility] [id number] [facility] [place] MEDIC[place] Repository [address]Myc: (330) Number: [phone] () [id number] Date: [place], [place] [address]CO:
== END ==
PROVIDERS: Family Provider Family Medicine; PCP Family Medicine; Visit Provider Internal Medicine Infectious Disease
DX: T84.53XA Infection and inflammatory reaction due to internal right knee prosthesis, initial encounter (principal); Z45.2 Encounter for adjustment and management of vascular access device
CPT/HCPCS: 80048; 85027; 85652

== ENCOUNTER → 2018-03-25 12:36 | Outpatient (CLI) | payer MEDICARE, SELFPAY ==
--- NOTE | 2018-03-25 12:55 | RAD_ITS ---
STUDY: X-RAY CHEST REASON FOR EXAM: Female, 62 years old. Shortness of breath for 6 months. TECHNIQUE: 2 views COMPARISON: Prior chest radiograph of March 19, 2017 FINDINGS: The lungs are normally expanded to mildly hyperexpanded without focal consolidation, atelectasis or pleural effusion. There is no demonstrated pleural abnormality. Normal size heart. Normal mediastinum and arthur. Normal visualized pulmonary arteries. There is atherosclerotic tortuosity of the aortic arch and descending thoracic aorta. There is straightening of the normal kyphosis of the thoracic spine. Spinal fusion hardware of the lower thoracic and lumbar spine included in the ubpxb-zi-wdet without change from prior exam. There is no demonstrated abnormality of the visualized soft tissue structures of the upper abdomen. RAD/Chest PA and Lateral IMPRESSION: Normal expansion to mild hyperexpansion of the lungs unchanged from the prior exam without new consolidation, focal atelectasis, pleural effusion or cardiomegaly. Electronically Signed: Marie Tomlin MD at 18:02 EDT , Service support ,
[2018-03-25 14:02] LABS: Hematocrit 34.9 % (37-47); Hemoglobin 11.8 g/dl (12.0-15.0); Mean Corp Hgb Conc 33.8 g/gl (32-36); Mean Corpuscular Hgb 33.7 pg (27.0-32.0); Mean Corpuscular Volume 99.7 fL (81-99); Mean Platelet Vol. 11.7 fl (6.2-12.0); Platelet Count 337 K/mm3 (150-450); RBC Distribution Width CV 21.6 % (11.6-14.6); RBC Distribution Width SD 77.1 fl (35.1-43.9); White Blood Count 4.8 K/mm3 (4.4-11.0)
[2018-03-25 14:03] LABS: Scan Indicated on CBC? Y/N YES- FLAGS NOTED
[2018-03-25 14:43] LABS: ALB/GLOB Ratio 1.3 RATIO (0.9-2.4); AST(SGOT) 13 U/L (15-37); Alanine Aminotransfer ALT/SGPT 26 U/L (13-56); Alkaline Phosphatase 85 U/L (45-117); Anion Gap 6 (5-15); BUN 9 mg/dL (7-18); BUN/Creat Ratio 19.1 RATIO (10-20); Calcium,Total 9.2 mg/dL (8.5-10.1); Chloride 105 mmol/L (98-107); Creatinine, Serum 0.47 mg/dL (0.55-1.02); EST Glomerular Filtration Rate 141 mL/min (>60); Est Glom Filt Rate - Afr Amer 171 mL/min (>60); Glucose 87 mg/dL (74-106); Potassium 4.3 mmol/L (3.5-5.1); Sodium Level 138 mmol/L (136-145); Thyroid Stim Hormone (TSH) 5.36 uIU/mL (0.358-3.74)
== END ==
PROVIDERS: Family Provider Family Medicine; PCP Family Medicine; Visit Provider Family Medicine
DX: R06.00 Dyspnea, unspecified (principal)
CPT/HCPCS: 36415; 71046; 80053; 84443; 85027

== ENCOUNTER → 2018-04-20 10:18 | Outpatient (CLI) | payer MEDICARE, SELFPAY | PROVIDERS: Family Provider Family Medicine; PCP Family Medicine; Visit Provider Internal Medicine Cardiovascular Disease | DX: R00.2 Palpitations (principal) | CPT/HCPCS: 93225; 93226 ==

== ENCOUNTER → 2018-04-21 12:45 | Outpatient (CLI) | payer MEDICARE, SELFPAY ==
--- NOTE | 2018-04-21 12:46 | ECHOD_ITS ---
Reason For Study: MVP Procedure This was a 2D Doppler, Color Flow transthoracic echocardiogram. Exam performed in department. Left Ventricle Normal LV size. Left ventricular systolic function is normal. The estimated ejection fraction is 60 %. No evidence for diastolic dysfunction. No regional wall motion abnormalities noted. Right Ventricle Normal RV size. Normal systolic function. Atria Normal left atrium. Normal right atrium. Mitral Valve Normal mitral valve. Tricuspid Valve Normal tricuspid valve. Mild (1+) tricuspid valve insufficiency. Pulmonary artery systolic pressure is 29 mmHg. Aortic Valve Trisinus/trileaflet aortic valve. Mild focal aortic valve calcification. Pulmonic Valve Normal pulmonic valve. Great Vessels Normal aortic root. The pulmonary artery is normal size. Normal inferior vena cava. Pericardium/Pleural No pericardial effusion. MMode/2D Measurements & Calculations LVIDd: 4.8 cm IVSd: 1.2 cm Ao root diam: 3.0 cm LVIDs: 2.8 cm LVPWd: 0.88 cm LA dimension: 4.2 cm RVDd: 3.2 cm FS: 42.0 % LAV(MOD-sp2): 70.8 ml LVAd ap4: 16.2 cm2 LA A4 area: 16.5 cm2 EDV(MOD-sp4): 40.8 ml EDV(sp4-el): 43.0 ml RA A4 area: 20.7 cm2 Time Measurements MV dec time: 0.27 sec Doppler Measurements & Calculations MV E max nimesh: 107.3 cm/sec Lat Peak E' Nimesh: 10.7 cm/sec Med Peak E' Nimesh: 9.7 cm/sec MV A max nimesh: 72.3 cm/sec E/E' lat: 10.0 E/E' med: 11.0 MV E/A: 1.5 MV V2 max: 120.4 cm/sec MV P1/2t max nimesh: 120.4 cm/sec Ao V2 max: 183.6 cm/sec MV max P.8 mmHg MV P1/2t: 135.4 msec Ao max P.5 mmHg MV V2 mean: 61.2 cm/sec MV dec slope: 260.4 cm/sec2 Ao V2 mean: 117.5 cm/sec MV mean P.8 mmHg MVA(P1/2t): 1.6 cm2 Ao mean P.2 mmHg MV V2 VTI: 40.1 cm Ao V2 VTI: 35.5 cm LV V1 max: 145.2 cm/sec PA V2 max: 87.6 cm/sec TR max nimesh: 255.3 cm/sec LV V1 max P.4 mmHg TR max P.1 mmHg LV V1 mean P.8 mmHg LV V1 mean: 90.6 cm/sec LV V1 VTI: 29.9 cm Interpretation Summary Normal LV size. Left ventricular systolic function is normal. The estimated ejection fraction is 60 %. No evidence for diastolic dysfunction. Mild (1+) tricuspid valve insufficiency. Ordering Physician: Edgar Bowie Referring Physician: Edgar Bowie Performed By: Anival Ho RCS
== END ==
PROVIDERS: Family Provider Family Medicine; PCP Family Medicine; Visit Provider Internal Medicine Cardiovascular Disease
DX: R00.2 Palpitations (principal)
CPT/HCPCS: 93306

== ENCOUNTER → 2018-05-27 12:29 | Outpatient (CLI) | payer MEDICARE, SELFPAY ==
--- NOTE | 2018-05-27 12:45 | RAD_ITS ---
STUDY: X-RAY - RIGHT SHOULDER REASON FOR EXAM: Female, 62 years old. Shoulder impingement TECHNIQUE: 4 view(s) of the shoulder. COMPARISON: 10/29/2016 FINDINGS: Normal glenohumeral articulation. There is widening of the acromioclavicular joint, suggesting previous distal clavicle resection. Normal acromion. Normal humeral head and visualized proximal humerus. There is periarticular soft tissue calcification consistent with a calcific tendinitis. Normal visualized pulmonary apex. RAD/Shoulder min 2 Views IMPRESSION: Previous AC joint surgery, with distal right clavicle resection. Small calcification superior to the humeral head suggests calcific tendinitis. Electronically Signed: Wai Sheehan DO at 8:28 EDT Tel , Service support ,
--- NOTE | 2018-05-27 12:54 | RAD_ITS ---
STUDY: XR SPINE ENTIRE THORACIC T LUMBAR (W SKULL, CERVICAL AND SACRAL SPINE IF PERFORMED) REASON FOR EXAM: Female, 62 years old. Scoliosis TECHNIQUE: Radiological exam, spine, entire thoracic and lumbar, including skull, cervical and sacral spine if performed (eg, scoliosis evaluation); 2 or 3 views. COMPARISON: 10/20/2016 FINDINGS: There is a 17 degree levocurvature of the thoracic spine from T1 to T5. There is no significant curvature of the lumbar spine. The patient is status post extensive spinal fusion from T11 through the sacrum. The orthopedic hardware appears grossly intact. There is slightly exaggerated kyphosis at the thoracolumbar junction. The bones are demineralized. Multiple mild vertebral body compression deformities are seen. Intervertebral disc spacers are seen at L2-L3 and L3-L4. Efforts chronic calcifications are seen within the abdominal aorta. RAD/Scoliosis 2 or 3 views IMPRESSION: Postoperative changes to the lumbar spine, as described above. Electronically Signed: Wai Sheehan DO at 8:26 EDT Tel , Service support ,
== END ==
PROVIDERS: Family Provider Family Medicine; PCP Family Medicine; Visit Provider Family Medicine
DX: M75.41 Impingement syndrome of right shoulder (principal); M41.9 Scoliosis, unspecified
CPT/HCPCS: 72082; 73030

== ENCOUNTER → 2018-12-04 10:32 | Outpatient (CLI) | payer MEDICARE, SELFPAY ==
--- NOTE | 2018-12-04 10:37 | BI_ITS ---
MAMMOGRAPHY - BILATERAL SCREENING REASON FOR EXAM: Female, 63 years old. Routine annual screening examination. PERTINENT HISTORY: Non-contributory. TECHNIQUE: Digital bilateral breast ladarius (3D mammographic acquisition) in the CC and MLO projections. 2-D mediolateral oblique (MLO) and craniocaudad (CC) views of both breasts were obtained. CAD: Full Field Digital Mammography with Computer Added Detection was performed. COMPARISON: Comparison is made with prior study dated February 13, 2017 and October 12, 2015. FINDINGS: Breast Composition: There are scattered areas of fibroglandular density. There is a 7.4 mm well-defined nodule in the mid retroareolar region of the left breast. Correlation with ultrasound is recommended. Stable benign-appearing bilateral axillary lymph nodes. No other significant abnormalities are identified. BI/SCREENING MAMM (CAD), BILAT IMPRESSION: 7.4 mm well-defined nodule in the mid retroareolar region of the left breast as described. Correlation with ultrasound is recommended. ASSESSMENT CATEGORY: BIRADS Category 0: Incomplete. Need additional imaging evaluation. A letter regarding these results will be sent to the patient by the facility within 30 days. Approximately 10% of breast cancers are not detected by mammography. A normal mammogram should not delay biopsy of a clinically suspicious abnormality. [id number] Electronically Signed: Atul uL MD at 12:35 EST Tel [phone], Service support ,
== END ==
PROVIDERS: Family Provider Family Medicine; PCP Family Medicine; Referring Provider Family Medicine; Visit Provider Family Medicine
DX: Z12.31 Encounter for screening mammogram for malignant neoplasm of breast (principal)
CPT/HCPCS: 77063; 77067

== ENCOUNTER → 2018-12-08 15:23 | Outpatient (CLI) | payer MEDICARE, SELFPAY ==
--- NOTE | 2018-12-08 15:25 | US_ITS ---
STUDY: ULTRASOUND BREAST - LEFT REASON FOR EXAM: Female, 63 years old. Abnormal screening mammogram. TECHNIQUE: Axial and longitudinal images of the LEFT breast were performed with a high resolution ultrasound transducer. COMPARISON: Comparison is made with prior mammogram dated December 04, 2018. FINDINGS: LEFT Breast: The mammographic abnormality corresponds to a 7 mm x 4 mm x 5 mm hypoechoic well-defined nodule at the 3:00 position of the breast 1 cm from nipple. A biopsy is recommended for further evaluation. US/Breast Limited Unilateral IMPRESSION: 7 mm x 4 mm x 5 mm hypoechoic well-defined nodule at the 3:00 position of the breast, summary from nipple. A biopsy is recommended. ASSESSMENT CATEGORY: BIRADS Category 4: Suspicious - Biopsy Should Be Considered. A letter regarding these results will be sent to the patient by the facility within 30 days. Electronically Signed: Atul Lu MD at 8:14 EST Tel [phone], Service support ,
== END ==
PROVIDERS: Family Provider Family Medicine; PCP Family Medicine; Referring Provider Family Medicine; Visit Provider Family Medicine
DX: R92.8 Other abnormal and inconclusive findings on diagnostic imaging of breast (principal); N63.20 Unspecified lump in the left breast, unspecified quadrant
CPT/HCPCS: 76642

== ENCOUNTER → 2018-12-18 09:43 | Outpatient (CLI) | payer MEDICARE, SELFPAY ==
[2018-12-14 15:35] VITALS: BMI 35.2
--- NOTE | 2018-12-18 09:59 | EKG12_ITS ---
Test Reason : PRE OP Blood Pressure : / mmHG Vent. Rate : 081 BPM Atrial Rate : 081 BPM P-R Int : 156 ms QRS Dur : 080 ms QT Int : 358 ms P-R-T Axes : 054 076 073 degrees QTc Int : 415 ms Normal sinus rhythm Normal ECG Confirmed by MINGO MANNING, YARIEL ([id number]), editor book MISAEL BEDOLLA ([id number]) on 12/21/2018 9:31:33 AM Referred By: Carmelo Garibay Confirmed By:YARIEL AGUILA MD
[2018-12-18 11:24] LABS: Anion Gap 7 (5-15); BUN 10 mg/dL (7-18); BUN/Creat Ratio 18.4 RATIO (10-20); Calcium,Total 8.8 mg/dL (8.5-10.1); Chloride 105 mmol/L (98-107); Creatinine, Serum 0.54 mg/dL (0.55-1.02); EST Glomerular Filtration Rate 120 mL/min (>60); Est Glom Filt Rate - Afr Amer 145 mL/min (>60); Glucose 129 mg/dL (74-106); Potassium 3.8 mmol/L (3.5-5.1); Sodium Level 137 mmol/L (136-145)
--- OUTSIDE RECORDS SUMMARY | 2019-02-21 17:17 | XMS RPT_ITS ---
:1955 Author Organization OHIP Support Name Relationship Address Phone D Unavailable Unavailable Unavailable JEAN, KRYS Unavailable Unavailable + D Unavailable Unavailable Unavailable JEAN, KRYS Unavailable Unavailable + [place] [address] D Unavailable Unavailable Unavailable JEAN, KRYS Unavailable Unavailable + D Unavailable Unavailable Unavailable JEAN, KRYS Unavailable . + [place] [address] D Unavailable Unavailable Unavailable JEAN, KRYS Unavailable Unavailable + D Unavailable Unavailable Unavailable JEAN, KRYS Unavailable Unavailable + D Unavailable Unavailable Unavailable JEAN, KRYS Unavailable [address] + [place] [address] D Unavailable Unavailable Unavailable JEAN, KRYS Unavailable [address] + [place] [address] D Unavailable Unavailable Unavailable JEAN, KRSY Unavailable [address] + [place] [address] D Unavailable Unavailable Unavailable JEAN, KRYS Unavailable [address] + [place] [address] D Unavailable Unavailable Unavailable JEAN, KRYS Unavailable [address] + [place] [address] D Unavailable Unavailable Unavailable JEAN, KRYS Unavailable [address] + [place] [address] Care Team Providers Name Role Phone Javier Godinez Attending Unavailable Javier Godinez Referring Unavailable Javier Godinez Primary Care Unavailable Rolando Falk Attending Unavailable Javier Godinez Referring Unavailable Carmelo Garibay Attending Unavailable Carmelo Garibay Referring Unavailable Javier Godinez Primary Care Unavailable Lorna Patel CHECK GRADER-C Attending Unavailable Lorna Patel CHECK GRADER-C Referring Unavailable Ranney, Christopher Primary Care Unavailable Azeb, Edgar Attending Unavailable Carmelo Garibay Referring Unavailable Ranney, Christopher Attending Unavailable Ranney, Christopher Primary Care Unavailable Azeb, Plano Attending Unavailable Ranney, Christopher Referring Unavailable Ranney, Christopher Primary Care Unavailable Azeb, Edgar Attending Unavailable Azeb, Edgar Referring Unavailable Ranney, Christopher Primary Care Unavailable Azeb, Plano Attending Unavailable Azeb, Plano Referring Unavailable Ranney, Christopher Primary Care Unavailable Azeb, Edgar Attending Unavailable Ranney, Christopher Attending Unavailable Ranney, Christopher Referring Unavailable Ranney, Christopher Primary Care Unavailable Ranney, Christopher Attending Unavailable Ranney, Christopher Primary Care Unavailable Ranney, Christopher Referring Unavailable PROBLEMS PROBLEMS DATE TYPE CONDITION / CODE ATTENDING STATUS SOURCE 12/25/2018 Unknown I10 - Essential Azeb, Edgar Active [facility] (primary) [facility] hypertension / Hospital I10(ICD-10) Repository 04/01/2018 Unknown R00.2 - Azeb, Edgar Active [place] Palpitations / Community R00.2(ICD-10) Hospital Repository 04/01/2018 Unknown I36.1 - Azeb, Plano Active [facility] tricuspid (valve) Hospital insufficiency / Repository I36.1(ICD-10) 03/25/2018 Unknown R06.00 - Dyspnea, Ranney, Active [place] unspecified / [facility] R06.00(ICD-10) Hospital Repository 03/25/2018 Unknown 786.09 - Other Ranney, Active [place] respiratory [facility] abnormalities / Hospital 786.09(ICD-9) Repository PROCEDURES PROCEDURES No Procedure Records FoundRESULTS RESULTS 12 LEAD ELECTROCARDIOGRAM Observed: 12/21/2018 Status: F Source: [place] 9:31 AM [facility] REPOSITORY [facility] Cardiovascular Services [address] [place] [address] 12 Lead EKG 12/18/18 1011 MR#: [id number] Acct: [id number] Name: HAIM LIAO Rep #: [id number] : 1955 63 From: Edgar Bowie MD Attending Dr: Carmelo Garibay DO Status: REG CLI Ordering Dr: Carmelo Garibay DO Date: 12/18/18 Location: LAB Sex: F C Admitted: Test Reason : PRE OP Blood Pressure : / mmHG Vent. Rate : 081 BPM Atrial Rate : 081 BPM P-R Int : 156 ms QRS Dur : 080 ms QT Int : 358 ms P-R-T Axes : 054 076 073 degrees QTc Int : 415 ms Normal sinus rhythm Normal ECG Confirmed by AZEB MANNING, EDGAR ([id number]), order editor MISAEL BEDOLLA ([id number]) on 12/21/2018 9:31:33 AM Referred By: Carmelo Garibay Confirmed By:EDGAR BOWIE MD 12/21/18 0931 Date Edgar Bowie MD CC: Javier Godinez MD; Carmelo Garibay DO Signed BASIC METABOLIC Collected: 12/18/2018 Status: F Source: [place] PROFILE (BMP) 9:51 AM [facility] REPOSITORY TYPE CODE TESTS RESULT OUT OF RANGE REFERENCE UNITS LAB L501.0100 74-106 mg/dL High GLU 129 Result Comment: Fasting Glucose result greater than or equal to 126 mg/dL suggests DIABETES MELLITUS per A.D.A. criteria. Please note revised GLUCOSE reference range effective 2018. LAB L501.1000 7-18 mg/dL Normal BUN 10 LAB L501.1100 0.55-1.02 mg/dL Low CREAT,SERUM 0.54 Result Comment: The validity of the calculated GFR AND GFRAA in patients over 70 years has not been determined. Clinical correlation is essential. LAB L501.1110 >60 mL/min Normal EST GFR 120 Result Comment: Non- GFR Calc LAB L501.1115 >60 mL/min Normal EST GFR - AA 145 Result Comment: GFR Calc LAB L501.1300 10-20 RATIO Normal BUN/CRE 18.4 LAB L501.2200 8.5-10.1 mg/dL CA Normal 8.8 LAB L501.5300 136-145 mmol/L NA Normal 137 LAB L501.5600 3.5-5.1 mmol/L K Normal 3.8 LAB L501.5900 98-107 mmol/L CL Normal 105 LAB L501.6100 21.0-32.0 mmol/L Normal CO2 25.0 LAB L501.6200 5-15 Normal GAP 7 Performed By: #### L500.2500 #### [facility] [address] [place], [address] SURGERY VISIT REPORT Observed: 12/14/2018 Status: F Source: [place] 5:11 PM [facility] REPOSITORY [facility] [address] [place] [address] OFFICE VISIT Date of Service: 12/14/18 MR#: [id number] Acct: [id number] Name: HAIM LIAO Rep #: [id number] : 1955 Provider: Rolando Falk MD Age/Sex: 63/F Location: [facility] Status: Signed Intake Vital Signs12/14/18 Height 5 ft 4 in 12/14/18 Weight: 205 lb 2 oz 12/14/18 Body Mass Index (BMI) 35.2 12/14/18 Blood Pressure 127/77 H 12/14/18 Blood Pressure Location Lt brachial Intake Visit Reasons: L Breast birads 4 Mammo AND US 12/08 Chief Complaint: Initial visit. Is patient in pain?: No Allergies meperidine [From Demerol] Adverse Reaction (Verified 12/14/18 15:36) Other Penicillins [PCN] Adverse Reaction (Verified 12/14/18 15:36) Nausea Medications Sertraline HCl [Zoloft] 100 mg PO DAILY 08/26/16 [History Confirmed 04/01/18] Lisinopril [Zestril] 20 mg PO DAILY #30 tab 09/15/17 [Rx Confirmed 04/01/18] Primidone [Mysoline] 50 mg PO BID #60 09/15/17 [Rx Confirmed 04/01/18] Acetaminophen [Tylenol] 1,000 mg PO Q8 tab 10/10/17 [Rx Confirmed 04/01/18] meloxicam 15 mg tablet 15 mg PO QDAY 04/01/18 [History Confirmed 04/01/18] nadolol 20 mg tablet 20 mg PO BID tab 04/01/18 [History Confirmed 04/01/18] omeprazole 10 mg capsule,delayed release 10 mg PO QDAY 04/01/18 [History Confirmed 04/01/18] PFSH Medical History Nicotine dependence (Chronic) Sleep-disordered breathing (Chronic) Macrocytic anemia (Chronic) Osteoarthritis (Chronic) Obesity (Chronic) Acquired scoliosis (Chronic) Depression (Chronic) GERD (gastroesophageal reflux disease) (Chronic) Chronic back pain (Chronic) Prosthetic joint infection (Resolved) Surgical History History of lumbar spinal fusion (Chronic) Status post left knee replacement (Chronic) History of right knee joint replacement (Chronic) Family History Mother Heart disease Valvular Heart Disease Social History Smoking Status: Current every day smoker tobacco type: cigarettes alcohol intake: current alcohol intake frequency: a few times a week substance use type: does not use HPI HPI HPI: HAIM LIAO, is a 63 F who presents to the office today for surgical consultation regarding an abnormal left breast mammogram and ultrasound. The patient is referred by Dr. Javier Godinez and a written copy of my surgical consult recommendations will be returned to him 63-year-old female. G0. Menarche at age 11. Menopause approximately age 53. No previous breast biopsies. Not on any estrogen replacement. No family history of breast cancer. She has smoked cigarettes however since age 17 and smokes at least 1/2 pack/day. She is not interested in stopping. On December 04, 2018 at the [facility] she had bilateral screening mammography. This was compared back to films of February 13, 2017 and October 12, 2015. The right breast was felt not to be remarkable. There was felt to be a 7.4 mm well-defined nodule in the mid retroareolar area of the left breast. Ultrasound was recommended. On December 08, 2018 at the [facility] a left breast ultrasound was obtained. It was felt that the mammographic density corresponds to a 7 x 4 x 5 mm hypoechoic well-defined nodule left breast 3 o'clock position +1 cm. BI-RADS Category 4 ROS General General: No weight change, appetite, fatigue, colon cancer, breast cancer or weakness HEENT HEENT: No difficulty swallowing, eye injury, eye surgery, swollen glands or hoarseness Endo Endocrine: No thyroid disease, diabetes mellitus, thyroid cancer, Hair loss, heat intolerance or cold intolerance Skin Skin: No rash or changing moles Musc Musculoskeletal: Yes back problems and arthritis; no rheumatoid arthritis, gout or joint pain Cardio Cardiovascular: Yes murmur and high blood pressure; no pacemaker, heart disease, atrial fibrillation, heart attack, heart stent, palpitations, shortness of breat with exertion or chest pain Psych Psychiatric: No depression, anxiety or hearing voices Resp Respiratory: Yes sleep apnea, No shortness of breath, No cough, No COPD, No asthma, No emphysema, No wheezing Gastro Gastrointestinal: Yes acid reflux, No abdominal pain, No nausea or vomiting, No diarrhea, No constipation, No blood in stool, No hemorrhoids, No ulcers, No gallbladder problem, No black,tarry stools Edvin Hematologic: Yes anemia, No blood thinners, No blood disorders, No bleeding, No blood clots Neuro Neurologic: No system reviewed and no additional complaints, except as docu, No as per HPI, No abnormal walking, No abnormal hearing, No abnormal movements, No abnormal speech, No behavioral changes, No burning sensations, No confusion, No seizure-like activity, No unsteadiness, No dizziness, No localized weakness, No frequent falls, No headache(s), No lack of coordination, No loss of vision, No memory loss, No numbness, No other visual disturbances, No radiating pain, No restless legs, No sensory deficit, No fainting, No tingling, No tremor(s), No weakness, No other Exam Const General: cooperative Other: Odor of tobacco Chest Other: Right breast: No focal mass. No nipple discharge. No axillary or clavicular adenopathy Left breast: No focal mass. No nipple discharge. No axillary or clavicular Cardio Heart Sounds: murmur Assessment AND Plan Problems 1. Abnormal mammogram of left breast R92.8 Plan I am recommending the patient a ultrasound-guided needle core biopsy left breast 3 o'clock position +1 cm and I have described the technique, benefit, risks and alternatives. I believe that this would be an easier procedure for her than a stereotactic procedure. She has had an opportunity to ask and have questions answered. We will schedule and expedite her care. I very much appreciate the kind opportunity of assisting with her surgical management. Currently the findings would suggest more likely benign event. CC: Dr. Javier Falk M.D., F.A.C.S. Coding Level of Care Code Off vis,new,level 2 Diagnoses Abnormal mammogram of left breast R92.8 12/14/18 1711 <Electronically signed by Rolando Falk MD> Date Rolando Falk MD Cosigner Signature: Date (if applicable) CC: Javier Godinez MD BREAST LIMITED Observed: 12/08/2018 Status: F Source: [place] UNILATERAL 3:25 PM [facility] REPOSITORY [facility] Imaging Services [address] [place] [address] Breast Limited Unilateral MR#: [id number] Acct: [id number] Name: HAIM LIAO Rep #: [id number] : 1955 F 63 From: Atul Lu MD PCP: Javier Godinez MD Status: REG CLI Study: Breast Limited Unilateral Date of Exam: 12/08/18 Exam# [id number] Ordering Dr: Gaurang Godinez MD STUDY: ULTRASOUND BREAST - LEFT REASON FOR EXAM: Female, 63 years old. Abnormal screening mammogram. TECHNIQUE: Axial and longitudinal images of the LEFT breast were performed with a high resolution ultrasound transducer. COMPARISON: Comparison is made with prior mammogram dated December 04, 2018. FINDINGS: LEFT Breast: The mammographic abnormality corresponds to a 7 mm x 4 mm x 5 mm hypoechoic well-defined nodule at the 3:00 position of the breast 1 cm from nipple. A biopsy is recommended for further evaluation. US/Breast Limited Unilateral IMPRESSION: 7 mm x 4 mm x 5 mm hypoechoic well-defined nodule at the 3:00 position of the breast, summary from nipple. A biopsy is recommended. ASSESSMENT CATEGORY: BIRADS Category 4: Suspicious - Biopsy Should Be Considered. A letter regarding these results will be sent to the patient by the facility within 30 days. Electronically Signed: Atul Lu MD at 8:14 EST Tel [phone], Service support , CC: Javier Godinez MD Stock Pitcher: Signed SCREENING MAMM (CAD), Observed: 12/04/2018 Status: F Source: [facility] 10:37 AM [facility] REPOSITORY [facility] Imaging Services [address] [place] [id number] SCREENING MAMM (CAD), BILAT MR#: [id number] Acct: [id number] Name: HAIM LIAO Rep #: [id number] : 1955 F 63 From: Atul Lu MD PCP: Javier Godinez MD Status: REG CLI Study: SCREENING MAMM (CAD), BILAT Date of Exam: 12/04/18 Exam# [id number] Ordering Dr: Gaurang Godinez MD MAMMOGRAPHY - BILATERAL SCREENING REASON FOR EXAM: Female, 63 years old. Routine annual screening examination. PERTINENT HISTORY: Non-contributory. TECHNIQUE: Digital bilateral breast ladarius (3D mammographic acquisition) in the CC and MLO projections. 2-D mediolateral oblique (MLO) and craniocaudad (CC) views of both breasts were obtained. CAD: Full Field Digital Mammography with Computer Added Detection was performed. COMPARISON: Comparison is made with prior study dated February 13, 2017 and October 12, 2015. FINDINGS: Breast Composition: There are scattered areas of fibroglandular density. There is a 7.4 mm well-defined nodule in the mid retroareolar region of the left breast. Correlation with ultrasound is recommended. Stable benign-appearing bilateral axillary lymph nodes. No other significant abnormalities are identified. BI/SCREENING MAMM (CAD), BILAT IMPRESSION: 7.4 mm well-defined nodule in the mid retroareolar region of the left breast as described. Correlation with ultrasound is recommended. ASSESSMENT CATEGORY: BIRADS Category 0: Incomplete. Need additional imaging evaluation. A letter regarding these results will be sent to the patient by the facility within 30 days. Approximately 10% of breast cancers are not detected by mammography. A normal mammogram should not delay biopsy of a clinically suspicious abnormality. [id number] Electronically Signed: Atul Lu MD at 12:35 EST Tel [phone], Service support , CC: Javier Godinez MD Stock Pitcher: Signed SCOLIOSIS 2 OR 3 VIEWS Observed: 05/27/2018 Status: F Source: [place] 12:36 PM [facility] REPOSITORY [facility] Imaging Services [address] [place] [id number] Scoliosis 2 or 3 views MR#: [id number] Acct: [id number] Name: HAIM LIAO Rep #: [id number] : 1955 F 62 From: Wai Sheehan DO PCP: Javier Godinez MD Status: REG CLI Study: Scoliosis 2 or 3 views Date of Exam: 05/27/18 Exam# [id number] Ordering Dr: Gaurang Godinez MD STUDY: XR SPINE ENTIRE THORACIC T LUMBAR (W SKULL, CERVICAL AND SACRAL SPINE IF PERFORMED) REASON FOR EXAM: Female, 62 years old. Scoliosis TECHNIQUE: Radiological exam, spine, entire thoracic and lumbar, including skull, cervical and sacral spine if performed (eg, scoliosis evaluation); 2 or 3 views. COMPARISON: 10/20/2016 FINDINGS: There is a 17 degree levocurvature of the thoracic spine from T1 to T5. There is no significant curvature of the lumbar spine. The patient is status post extensive spinal fusion from T11 through the sacrum. The orthopedic hardware appears grossly intact. There is slightly exaggerated kyphosis at the thoracolumbar junction. The bones are demineralized. Multiple mild vertebral body compression deformities are seen. Intervertebral disc spacers are seen at L2-L3 and L3-L4. Efforts chronic calcifications are seen within the abdominal aorta. RAD/Scoliosis 2 or 3 views IMPRESSION: Postoperative changes to the lumbar spine, as described above. Electronically Signed: Wai Sheehan DO at 8:26 EDT Tel , Service support , CC: Javier Godinez MD Stock Pitcher: Signed SHOULDER MIN 2 VIEWS Observed: 05/27/2018 Status: F Source: [place] 12:36 PM [facility] REPOSITORY [facility] Imaging Services [address] [place] [address] Shoulder min 2 Views MR#: [id number] Acct: [id number] Name: YANNIMERCYHAIM J Rep #: [id number] : 1955 F 62 From: Wai Sheehan DO PCP: Javier Godinez MD Status: REG CLI Study: Shoulder min 2 Views Date of Exam: 05/27/18 Exam# [id number] Ordering Dr: Gaurang Godinez MD STUDY: X-RAY - RIGHT SHOULDER REASON FOR EXAM: Female, 62 years old. Shoulder impingement TECHNIQUE: 4 view(s) of the shoulder. COMPARISON: 10/29/2016 FINDINGS: Normal glenohumeral articulation. There is widening of the acromioclavicular joint, suggesting previous distal clavicle resection. Normal acromion. Normal humeral head and visualized proximal humerus. There is periarticular soft tissue calcification consistent with a calcific tendinitis. Normal visualized pulmonary apex. RAD/Shoulder min 2 Views IMPRESSION: Previous AC joint surgery, with distal right clavicle resection. Small calcification superior to the humeral head suggests calcific tendinitis. Electronically Signed: Wai Sheehan DO at 8:28 EDT Tel , Service support , CC: Javier Godinez MD Stock Pitcher: Signed ECHOCARDIOGRAM COMPLETE Observed: 04/21/2018 Status: F Source: [place] 2:15 PM [facility] REPOSITORY [facility] Cardiovascular Services [address] [place] [id number] Echo Complete 04/21/18 1304 MR#: [id number] Acct: [id number] Name: HAIM LIAO Rep #: [id number] : 1955 62 From: Edgar Bowie MD Attending Dr: Edgar Bowie MD Status: REG CLI Ordering Dr: Edgar Bowie MD Date: 04/21/18 Location: [facility] Sex: F C Admitted: Reason For Study: MVP Procedure This was a 2D Doppler, Color Flow transthoracic echocardiogram. Exam performed in department. Left Ventricle Normal LV size. Left ventricular systolic function is normal. The estimated ejection fraction is 60 %. No evidence for diastolic dysfunction. No regional wall motion abnormalities noted. Right Ventricle Normal RV size. Normal systolic function. Atria Normal left atrium. Normal right atrium. Mitral Valve Normal mitral valve. Tricuspid Valve Normal tricuspid valve. Mild (1+) tricuspid valve insufficiency. Pulmonary artery systolic pressure is 29 mmHg. Aortic Valve Trisinus/trileaflet aortic valve. Mild focal aortic valve calcification. Pulmonic Valve Normal pulmonic valve. Great Vessels Normal aortic root. The pulmonary artery is normal size. Normal inferior vena cava. Pericardium/Pleural No pericardial effusion. MMode/2D Measurements AND Calculations LVIDd: 4.8 cm IVSd: 1.2 cm Ao root diam: 3.0 cm LVIDs: 2.8 cm LVPWd: 0.88 cm LA dimension: 4.2 cm RVDd: 3.2 cm FS: 42.0 % LAV(MOD-sp2): 70.8 ml LVAd ap4: 16.2 cm2 LA A4 area: 16.5 cm2 EDV(MOD-sp4): 40.8 ml EDV(sp4-el): 43.0 ml RA A4 area: 20.7 cm2 Time Measurements MV dec time: 0.27 sec Doppler Measurements AND Calculations MV E max nimesh: 107.3 cm/sec Lat Peak E' Nimesh: 10.7 cm/sec Med Peak E' Nimesh: 9.7 cm/sec MV A max nimesh: 72.3 cm/sec E/E' lat: 10.0 E/E' med: 11.0 MV E/A: 1.5 MV V2 max: 120.4 cm/sec MV P1/2t max nimesh: 120.4 cm/sec Ao V2 max: 183.6 cm/sec MV max P.8 mmHg MV P1/2t: 135.4 msec Ao max P.5 mmHg MV V2 mean: 61.2 cm/sec MV dec slope: 260.4 cm/sec2 Ao V2 mean: 117.5 cm/sec MV mean P.8 mmHg MVA(P1/2t): 1.6 cm2 Ao mean P.2 mmHg MV V2 VTI: 40.1 cm Ao V2 VTI: 35.5 cm LV V1 max: 145.2 cm/sec PA V2 max: 87.6 cm/sec TR max nimesh: 255.3 cm/sec LV V1 max P.4 mmHg TR max P.1 mmHg LV V1 mean P.8 mmHg LV V1 mean: 90.6 cm/sec LV V1 VTI: 29.9 cm Interpretation Summary Normal LV size. Left ventricular systolic function is normal. The estimated ejection fraction is 60 %. No evidence for diastolic dysfunction. Mild (1+) tricuspid valve insufficiency. Ordering Physician: Edgar Bowie Referring Physician: Edgar Bowie Performed By: Anival Ho RCS 04/21/18 1414 Date [place] Azeb MD CC: Javier Godinez MD; Edgar Bowie MD Date Dictated: 04/21/18 1304 Date Transcribed: 04/21/18 1414 Stock Pitcher: Signed CARDIOLOGY VISIT Observed: 04/01/2018 Status: F Source: [place] REPORT 10:57 AM [facility] REPOSITORY [facility] [address] [place] [address] OFFICE VISIT Date of Service: 04/01/18 MR#: [id number] Acct: [id number] Name: HAIM LIAO Rep #: [id number] : 1955 Provider: Edgar Bowie MD Age/Sex: 62/F Location: [facility] Status: Signed HPI HPI Chief Complaint: Initial visit. Details: HAIM LIAO, is a 62 F who presents to the office today for an initial visit of possible mitral valve prolapse as well as palpitations. She had been seen in the neurologists office and was noted to have an elevated blood pressure of 160/80 mmHg due to her history of strokes it was decided to refer her to cardiology for further evaluation and management. She has not had any neck arm or jaw discomfort suggest angina no dizziness or diaphoresis she has had occasional palpitations. She has not had any neck arm or jaw discomfort suggest angina. She did have stress testing in 2011. She also has an essential tremor. She says that since the added the lisinopril to her regimen her blood pressure has been under much better control. Her physical exam today demonstrates clear lung bates regular rate and rhythm and no pedal edema no murmurs are noted. Intake Vital Signs04/01/18 Height 5 ft 4 in 04/01/18 Weight: 204 lb 04/01/18 Body Mass Index (BMI) 35.0 04/01/18 Blood Pressure 138/62 04/01/18 Respiratory Rate 18 04/01/18 Pulse Rate 66 Intake Visit Reasons: ref'd by Neuro,Hx of valve problems, [place] Allergies meperidine [From Demerol] Adverse Reaction (Verified 04/01/18 10:30) Other Penicillins [PCN] Adverse Reaction (Verified 04/01/18 10:30) Nausea Medications Sertraline HCl [Zoloft] 100 mg PO DAILY 08/26/16 [History Confirmed 04/01/18] Lisinopril [Zestril] 20 mg PO DAILY #30 tab 09/15/17 [Rx Confirmed 04/01/18] Primidone [Mysoline] 50 mg PO BID #60 09/15/17 [Rx Confirmed 04/01/18] Acetaminophen [Tylenol] 1,000 mg PO Q8 tab 10/10/17 [Rx Confirmed 04/01/18] doxycycline hyclate 100 mg capsule 100 mg PO BID 04/01/18 [History Confirmed 04/01/18] meloxicam 15 mg tablet 15 mg PO QDAY 04/01/18 [History Confirmed 04/01/18] nadolol 20 mg tablet 20 mg PO BID tab 04/01/18 [History Confirmed 04/01/18] omeprazole 10 mg capsule,delayed release 10 mg PO QDAY 04/01/18 [History Confirmed 04/01/18] PFSH Medical History Nicotine dependence (Chronic) Sleep-disordered breathing (Chronic) Macrocytic anemia (Chronic) Osteoarthritis (Chronic) Obesity (Chronic) Acquired scoliosis (Chronic) Depression (Chronic) GERD (gastroesophageal reflux disease) (Chronic) Chronic back pain (Chronic) Prosthetic joint infection (Resolved) Surgical History History of lumbar spinal fusion (Chronic) Status post left knee replacement (Chronic) History of right knee joint replacement (Chronic) Family History Mother Heart disease Valvular Heart Disease Social History Smoking Status: Current every day smoker tobacco type: cigarettes ROS Const Const: Negative for fatigue, weakness, difficulty sleeping, frequent falls, headache(s) or excessive sweating Eyes Eyes: Negative for loss of peripheral vision, transient loss of vision, blurry vision or double vision ENT ENT: Negative for headache(s), dizziness, Nosebleed/epistaxis or balance problems Cardio Chest Pain: No Palpitations: Yes feels like its: skipping, fast Edema: None Muscle aches with walking: None Resp Respiratory: Positive for SOB with activity (Better now that BP is under control); negative for SOB at rest, SOB orthopnea\SOB lying down or paroxysmal nocturnal dyspnea GI GI: Negative nausea or heartburn : Negative for hematuria Musc Musc: Positive for joint pain; negative for muscle aches/ myalgia, muscle weakness or balance problems Skin Skin: Negative non-healing lesions, unusual bruising or rash Neuro Neuro: Negative for weakness, frequent falls, blurry vision, headache(s), dizziness, lightheadedness, orthostatic symptoms or double vision Edvin Hematologic/Lymphatic: Negative for easy bruising Endo Endo: Negative for fatigue, excessive sweating or increased thirst/drinking Psych Psych: Negative for anxiety or depression Allergy Allergy/Immunology: Negative for hives, Negative for rash Cardiology Exam Const Appearance: cooperative, healthy appearing, well developed, well groomed and no acute distress Nutritional Appearance: well nourished and average body habitus Orientation: alert, awake and oriented x3 Head Head: normal to inspection, normocephalic and atraumatic Ears: hearing grossly normal bilaterally and external ears normal Nose: external nose normal, nasal mucous membranes and turbinates normal, nares normal, septum normal, no nasal discharge Face and Sinus: face symmetric Mouth: oral mucosae normal, tongue normal, oropharynx normal and moist mucous membranes Teeth and gingiva: dentition normal Throat: posterior oropharynx normal, tonsils normal and uvula midline Eyes General: appearance normal, both eyes and all related structures Eyelids: eyelids normal Conjunctivae: conjunctivae normal Pupils: PERRL, normal by confrontation and accommodation normal EOM: EOM intact bilaterally Neck Neck: normal visual inspection, trachea midline and no JVD JVD: +5 Carotids: normal carotid upstroke and bounding pulses Chest Chest inspection: normal inspection of the chest, symmetric chest movement and normal respiratory effort Auscultation: Bilateral: Clear to Auscultation Cardio Palpation: normal PMI Rate: regular rate Rhythm: regular rhythm Heart sounds: S1 normal, S2 normal and normal, physiologic split S2; negative rub, gallop or murmur GI GI: normal to inspection, soft, no hepatosplenomegaly and bowel sounds present Neuro General: alert, awake, oriented x3, no focal sensory deficit, gait normal and moves all extremities Skin Skin: no rashes or lesions noted Extremities Pulses: Normal: Right Femoral Pulse, Left Femoral Pulse, Right Dorsalis Pedis Pulse, Left Dorsalis Pedis Pulse, Right Posterior Tibial Pulse, Left Posterior Tibial Pulse, Right Radial Pulse, Left Radial Pulse Lower Extremity Edema: None: Bilateral Musculoskel Musculoskeletal: No joint tenderness Psych Psychological: normal affect Assessment AND Plan 1. Essential hypertension I10 Plan Her blood pressure appears to be under much better control at this time my recommendation is to continue the lisinopril together with the nadolol which may be providing mild antihypertensive properties. I will suggest that we obtain an echocardiogram to reassess her left ventricular function. 2. Palpitation R00.2 Plan She has been having palpitations the etiology of which is unclear she says that she was told that she had mitral valve prolapse Once upon a time and the plan would be to obtain a 24-hour Holter monitor to exclude any significant cardiac dysrhythmias. I have a doubt that she is having any significant abnormalities. Orders Orders: 3. Non-rheumatic tricuspid valve insufficiency I36.1 Plan She apparently does have a history of tricuspid regurgitation and as noted above she was told that she may have mitral valve prolapse I would like us to repeat her echocardiogram to reassess her left ventricular function evidence of tricuspid regurgitation as well as a mitral valve integrity. If no significant prolapse or regurgitation is noted I would not recommend any antibiotic prophylaxis. Thank you for allowing me to participate in the care of your patient. 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) Coding Level of Care Code Off vis,new,level 4 Diagnoses Essential hypertension I10 Hypertension type: essential hypertension Palpitation R00.2 Non-rheumatic tricuspid valve insufficiency I36.1 Coding Level of Care Code Off vis,new,level 4 Diagnoses Essential hypertension I10 Hypertension type: essential hypertension Palpitation R00.2 Non-rheumatic tricuspid valve insufficiency I36.1 04/01/18 1057 <Electronically signed by Edgar Bowie MD> Date Edgar Bowie MD Cosigner Signature: Date (if applicable) CC: Javier Godinez MD CHEST PA AND LATERAL Observed: 03/25/2018 Status: F Source: [place] 12:55 PM [facility] RE[facility] Imaging Services [address] [place] [address] Chest PA and Lateral MR#: [id number] Acct: [id number] Name: HAIM LIAO Rep #: [id number] : 1955 F 62 From: Marie Tomlin MD PCP: Javier Godinez MD Status: REG CLI Study: Chest PA and Lateral Date of Exam: 03/25/18 Exam# [id number] Ordering Dr: Gaurang Godinez MD STUDY: X-RAY CHEST REASON FOR EXAM: Female, 62 years old. Shortness of breath for 6 months. TECHNIQUE: 2 views COMPARISON: Prior chest radiograph of March 19, 2017 FINDINGS: The lungs are normally expanded to mildly hyperexpanded without focal consolidation, atelectasis or pleural effusion. There is no demonstrated pleural abnormality. Normal size heart. Normal mediastinum and arthur. Normal visualized pulmonary arteries. There is atherosclerotic tortuosity of the aortic arch and descending thoracic aorta. There is straightening of the normal kyphosis of the thoracic spine. Spinal fusion hardware of the lower thoracic and lumbar spine included in the [id number]-rw-ahni without change from prior exam. There is no demonstrated abnormality of the visualized soft tissue structures of the upper abdomen. RAD/Chest PA and Lateral IMPRESSION: Normal expansion to mild hyperexpansion of the lungs unchanged from the prior exam without new consolidation, focal atelectasis, pleural effusion or cardiomegaly. Electronically Signed: Marie Tomlin MD at 18:02 EDT , Service support , CC: Javier Godinez MD Stock Pitcher: Signed CBC-COMPLETE BLOOD CNT Collected: 03/25/2018 Status: F Source: [place] NO DIFF 12:37 PM [facility] Order Comment: Order Date: 03/25/18 Order Info: [id number] - CBC TYPE CODE TESTS RESULT OUT OF RANGE REFERENCE UNITS LAB L100.1000 4.4-11.0 K/mm3 Normal WBC 4.8 LAB L100.1200 4.2-5.4 M/mm3 Low RBC 3.50 LAB L100.1300 12.0-15.0 g/dl Low HGB 11.8 LAB L100.1400 37-47 % Low HCT 34.9 LAB L100.1500 81-99 fL High MCV 99.7 LAB L100.1600 27.0-32.0 pg High MCH 33.7 LAB L100.1700 32-36 g/gl Normal MCHC 33.8 LAB L100.1810 11.6-14.6 % High RDW CV 21.6 LAB L100.1820 35.1-43.9 fl High RDW SD 77.1 LAB L100.1900 150-450 K/mm3 Normal PLT 337 LAB L100.2000 6.2-12.0 fl Normal MPV 11.7 Performed By: #### L100.0500, L100.4500, L500.4050, L501.9520 #### [facility] [address] [place], [place], [address] DIFFERENTIAL COMMENT Collected: 03/25/2018 Status: F Source: [place] 12:37 PM [facility] Order Comment: Order Date: 03/25/18 Order Info: [id number] - CBC TYPE CODE TESTS RESULT OUT OF RANGE REFERENCE UNITS LAB L100.4500 Normal SMEAR COMMENT Result Comment: ANISOCYTOSIS 2+ Performed By: #### L100.0500, L100.4500, L500.4050, L501.9520 #### [facility] [address] [place], [place], [address] COMPREHENSIVE METABOLIC Collected: 03/25/2018 Status: F Source: [place] PROFIL 12:37 PM [facility] Order Comment: Order Date: 03/25/18 Order Info: [id number] - CMP Order Info: 3016-3 - TSH TYPE CODE TESTS RESULT OUT OF RANGE REFERENCE UNITS LAB L501.0100 74-106 mg/dL Normal GLU 87 Result Comment: Please note revised GLUCOSE reference range effective 2018. LAB L501.1000 7-18 mg/dL Normal BUN 9 LAB L501.1100 0.55-1.02 mg/dL Low CREAT,SERUM 0.47 Result Comment: The validity of the calculated GFR AND GFRAA in patients over 70 years has not been determined. Clinical correlation is essential. LAB L501.1110 >60 mL/min Normal EST GFR 141 Result Comment: Non- GFR Calc LAB L501.1115 >60 mL/min Normal EST GFR - AA 171 Result Comment: GFR Calc LAB L501.1300 10-20 RATIO Normal BUN/CRE 19.1 LAB L501.1500 6.4-8.2 g/dL T Normal PROT 7.0 LAB L501.1800 3.2-5.0 g/dL Normal ALB 4.0 LAB L501.1950 2.2-4.2 g/dL Normal GLOB 3.0 LAB L501.2000 0.9-2.4 RATIO Normal A/G 1.3 LAB L501.2200 8.5-10.1 mg/dL CA Normal 9.2 LAB L501.4100 15-37 U/L Low AST 13 LAB L501.4305 45-117 U/L Normal ALK P 85 LAB L501.4405 13-56 U/L Normal ALT 26 LAB L501.4600 0.20-1.00 mg/dL T Normal BILI 0.80 LAB L501.5300 136-145 mmol/L NA Normal 138 LAB L501.5600 3.5-5.1 mmol/L K Normal 4.3 LAB L501.5900 98-107 mmol/L CL Normal 105 LAB L501.6100 21.0-32.0 mmol/L Normal CO2 27.0 LAB L501.6200 5-15 Normal GAP 6 Performed By: #### L100.0500, L100.4500, L500.4050, L501.9520 #### [facility] [address] [place], [address] THYROID STIM HORMONE Collected: 03/25/2018 Status: F Source: [place] (TSH) 12:37 PM [facility] Order Comment: Order Date: 03/25/18 Order Info: [id number] - CMP Order Info: 3016-3 - TSH TYPE CODE TESTS RESULT OUT OF RANGE REFERENCE UNITS LAB L501.9520 0.358-3.74 uIU/mL High TSH 5.36 Performed By: #### L100.0500, L100.4500, L500.4050, L501.9520 #### [facility] [address] [place], [address] ALLERGIES ALLERGIES DATE TYPE / CODE NAME / CODE REACTION SEVERITY SOURCE 12/22/2018 Drug Penicillins/ Nausea Unknown [facility] Allergy/4160 [id number](R Hospital 30571(SNOMED XNORM) Repository CT) 12/22/2018 Drug meperidine/F Other Unknown [facility] Allergy/4160 [id number](RX Hospital 91178(SNOMED NORM) Repository CT) ENCOUNTERS ENCOUNTERS ADMIT/DISCHARGE ACCOUNT ADMITTING ENCOUNTER LOCATION SOURCE NUMBER CLASS 12/24/2018 [id number] Ambulatory [place] 5 [facility] ing:SL Repository 12/18/2018 [id number] Ambulatory [place] 5 [facility] ing:LAB Repository 12/18/2018 [id number] Ambulatory BMSBuilding:W [place] 1 [facility] Repository 12/14/2018/ [id number] Ambulatory BMSBuilding:B [place] 9 3 [facility] Repository 12/08/2018 [id number] Ambulatory [place] [facility] ing:OPUS Repository 12/04/2018 [id number] Ambulatory [place] 5 [facility] ing:OPBI Repository 05/27/2018 [id number] Ambulatory [place] [facility] ing:MTRAD Repository 04/21/2018 [id number] Ambulatory [place] [facility] ing:CVS Repository 04/21/2018 [id number] Ambulatory BMSBuilding:W [place] 1 [facility] Repository 04/20/2018 [id number] Ambulatory [place] 1 [facility] ing:PSN Repository 04/01/2018/ [id number] Ambulatory BMSBuilding:B [place] 8 4 [facility] Repository 03/25/2018 [id number] Ambulatory [place] 5 [facility] ing:MFPLAB Repository PAYERS PAYERS ENCOUNTER GUARANTOR PAYER SUBSCRIBER SOURCE 12/24/2018 HAIM Piero Primary HAIM [place]aj[place] [id number] [place]: Community [facility] [id number] [facility] [place] MEDICARE[place] Repository 32547Evh: (330) Number: [phone] () [id number] Date[facility] [place] [address]QU: 12/24/2018 Secondary NOT GIVENUNK [place] Insurance:SELF PAY [facility] Number: Effective Repository Date:2018-12-09 12/18/2018 HAIM Piero Primary HAIM [place] [id number] Insurance:[place]REG[place]IC[place]OB: [facility] [id number] [facility] [place] MEDICARE[place] Repository 489[address]Yjd: (330) Number: [phone] () [id number] Date: [facility] [place] [address]XP: 12/18/2018 Secondary NOT GIVENUNK [place] Insurance:SELF PAY [facility] Number: Effective Repository Date:2018-12-18 12/18/2018 HAIM Harry Primary HAIM [place] [id number] Insurance:[place]IC[place]OB: [facility] [id number] [facility] [place] MED[place] Repository 857[address]Eio: (330) Number: [phone] (HP) [id number] Date[facility] [place] [address]IU: 12/18/2018 Secondary NOT GIVENUNK [place] Insurance:SELF PAY [facility] Number: Effective Repository Date:2018-12-18 12/14/2018 HAIM Piero Primary HAIM [place] [id number] Insurance:[place]ORIC[place]OB: Community [facility] [id number] [facility] [place] MED[place]ARE[place] Repository 914[address]Bxl: (330) Number: [phone] () [id number] Date: [place], [place] [address]WV: 12/14/2018 Secondary NOT GIVENUNK [place] Insurance:SELF PAY [facility] Number: Effective Repository Date:2018-12-09 12/08/2018 HAIM Piero Primary HAIM Harry [place] [id number] Insurance:[place]IC[place]OB: Community [facility] [id number] [facility] [place] MED[place] Repository [address]Nub: (330) Number: [phone] () [id number] Date: [place], [place] [address]IW: 12/08/2018 Secondary NOT GIVENUNK [place] Insurance:SELF PAY [facility] Number: Effective Repository Date:2018-12-04 12/04/2018 HAIM Piero Primary HAIM [place] [id number] Insurance:[place]OB: Community [facility] [id number] [facility] [place] Repository [address]Qza: (330) Number: [phone] () [id number] Date: [place], [place] [address]DM: 12/04/2018 Secondary NOT GIVENUNK [place] Insurance:SELF PAY [facility] Number: Effective Repository Date:2018-07-16 05/27/2018 HAIM Piero Primary HAIM [place] [id number] Insurance:[place]OB: Community [facility] [id number] [facility] [place] Repository [address]Njv: (330) Number: [phone] (HP) [id number] Date: [place], [place] [address]HU: 05/27/2018 Secondary NOT GIVENUNK [place] Insurance:SELF PAY [facility] Number: Effective Repository Date:2018-05-27 04/21/2018 HAIM Piero Primary HAIM N[place] [id number] Insurance:[place]: Community [facility] [id number] [facility] [place] Repository [address]Biq: (330) Number: [phone] (HP) [id number] Date: [place], [place] [address]SI: 04/21/2018 Secondary NOT GIVENUNK [place] Insurance:SELF PAY [facility] Number: Effective Repository Date:2018-04-01 04/21/2018 HAIM Harry Primary HAIM Piero [place] [id number] Insurance:[place]OB: Community [facility] [id number] [facility] [place] Repository 89[address]Qxo: (330) Number: [phone] () [id number] Date: [place], [place] [address]YJ: 04/21/2018 Secondary NOT GIVENUNK [place] Insurance:SELF PAY [facility] Number: Effective Repository Date:2018-04-21 04/20/2018 HAIM Piero Primary HAIM [place] [id number] Insurance:[place]OB: Community [facility] [id number] [facility] [place] Repository [address]Bfn: (330) Number: [phone] (HP) [id number] Date: [place], [place] [address]ET: 04/20/2018 Secondary NOT GIVENUNK [place] Insurance:SELF PAY [facility] Number: Effective Repository Date:2018-04-01 04/01/2018 HAIM [place] [id number] Insurance:HOMETOWBernice GAGNONOB: Community [facility] [id number] [facility] [place] MEDICARE[place] Repository [address]Zjj: (330) Number: [phone] () [id number] Date: [place], [place] [address]BZ: 04/01/2018 Secondary NOT GIVENUNK [place] Insurance:SELF PAY [facility] Number: Effective Repository Date:2018-04-01 03/25/2018 HAIM [place] [id number] Insurance:HOMETOWBernice GAGNONOB: Community [facility] [id number] [facility] [place] Repository [address]Ueg: (330) Number: [phone] () [id number] Date: [place], [place] [address]RZ: 03/25/2018 Secondary NOT GIVENUNK [place] Insurance:SELF PAY [facility] Number: Effective Repository Date:2018-03-25
== END ==
PROVIDERS: Family Provider Family Medicine; PCP Family Medicine; Referring Provider Orthopaedic Surgery; Visit Provider Orthopaedic Surgery
DX: Z01.818 Encounter for other preprocedural examination (principal)
CPT/HCPCS: 36415; 80048; 93005

== ENCOUNTER 2018-12-28 09:56 | Day surgery (SDC) | payer MEDICARE, SELFPAY ==
[2018-12-14 15:35] VITALS: BMI 35.2
[2018-12-28 10:26] VITALS: BP 130/73; PULSE 72; RESP 16; TEMP 36; O2SAT 95; BMI 35.3
[2018-12-28] MEDS: Cefazolin 2 GM in 0.9% Normal Saline 100 ML IV (11:02)
--- NOTE | 2018-12-28 11:03 | PCM.IMDPSTOP ---
Immediate Post-Op Note Date of Procedure: 12/28/18 Primary Surgeon/Physician: Carmelo Garibay, DO sack repairer: none Pre-Operative Diagnosis: A1 stenosing tenosynovitis LMF Post-Operative Diagnosis: same Surgery/Procedure Performed:: Release A1 dilia LMF Description of Surgical Findings:: see op note Estimated Blood Loss: min Specimen's removed: none Type of Anesthesia:: Block,Juaquin ASA Class: ASA3 Severe Disease - Admit VTE Documentation VTE Present on Admission: No VTE Mechan Device Prophylaxis: SCD's VTE Pharm Prophylaxis ordered?: No Reason prophylaxis not ordered:: Treatment Not Indicated
--- NOTE | 2018-12-28 11:06 | OP.PN_ITS ---
Immediate Post-Op Note Date of Procedure: 12/28/18 Primary Surgeon/Physician: Carmelo Garibay, DO job coach: none Pre-Operative Diagnosis: A1 stenosing tenosynovitis LMF Post-Operative Diagnosis: same Surgery/Procedure Performed:: Release A1 dilia LMF Description of Surgical Findings:: see op note Estimated Blood Loss: min Specimen's removed: none Type of Anesthesia:: Block,Juaquin ASA Class: ASA3 Severe Disease - Admit VTE Documentation VTE Present on Admission: No VTE Mechan Device Prophylaxis: SCD's VTE Pharm Prophylaxis ordered?: No Reason prophylaxis not ordered:: Treatment Not Indicated
[2018-12-28 11:35] VITALS: BP 130/73; BP 132/68; PULSE 66; RESP 16; TEMP 36.2; O2SAT 96
[2018-12-28 11:40] VITALS: BP 124/68; BP 130/73; PULSE 64; RESP 18; O2SAT 95
[2018-12-28 11:45] VITALS: BP 129/67; BP 130/73; PULSE 62; RESP 16; O2SAT 96
[2018-12-28 11:50] VITALS: BP 118/69; BP 130/73; PULSE 62; RESP 18; TEMP 36.5; O2SAT 96
--- NOTE | 2018-12-28 11:54 | PCM.OP.BLANK ---
Operative Report Date of Procedure: 12/28/18 Operation: Release of A1 dilia LMF Pre-op DX: A1 stenosing tenosynovitis LMF Post-op DX: same Anesthesia: [place] block Anesthesiologist: Dr. Martin Drains: none Specimen: none Complications: none EBL: minimal Procedure: With appropriate informed consent and the LMF having been marked in pre-op holding, the patient was taken to OR 1. After the induction of [place] block anesthesia, the LUE was prepared and draped sterilely. Time out was taken. A longitudinal incision was made in the palm overlying the A1 dilia of the LMF. Hemostasis was perfected with bipolar electrocautery. Scissor dissection was carried down to the annular dilia. Under direct visualization, the dilia was divided with a combination of scalpel and scissor dissection. Care was taken to protect neurovascular structures and the flexor tendon. After release of the A1 dilia, the finger was no longer noted to trigger or catch. The wound was then copiously irrigated with normal saline and closed with interrupted sutures of 4-0 nylon. A sterile, well-padded dressing and CRISTOBAL wrap were applied. The tourniquet was released revealing excellent blood flow to the LUE. The patient was then transferred to PACU in stable and satisfactory condition.
--- NOTE | 2018-12-28 12:05 | OP.PCM_ITS ---
Operative Report Date of Procedure: 12/28/18 Operation: Release of A1 dilia LMF Pre-op DX: A1 stenosing tenosynovitis LMF Post-op DX: same Anesthesia: [place] block Anesthesiologist: Dr. Martin Drains: none Specimen: none Complications: none EBL: minimal Procedure: With appropriate informed consent and the LMF having been marked in pre-op holding, the patient was taken to OR 1. After the induction of [place] block anesthesia, the LUE was prepared and draped sterilely. Time out was taken. A longitudinal incision was made in the palm overlying the A1 dilia of the LMF. Hemostasis was perfected with bipolar electrocautery. Scissor dissection was carried down to the annular dilia. Under direct visualization, the dilia was divided with a combination of scalpel and scissor dissection. Care was taken to protect neurovascular structures and the flexor tendon. After release of the A1 dilia, the finger was no longer noted to trigger or catch. The wound was then copiously irrigated with normal saline and closed with interrupted sutures of 4-0 nylon. A sterile, well-padded dressing and CRISTOBAL wrap were applied. The tourniquet was released revealing excellent blood flow to the LUE. The patient was then transferred to PACU in stable and satisfactory condition.
[2018-12-28 12:24] VITALS: BP 130/73
== END 2018-12-28 12:25 | disposition home or self-care (01) ==
LOC: SDC 09:57 → AC 09:58
PROVIDERS: Family Provider Family Medicine; PCP Family Medicine; Referring Provider Orthopaedic Surgery; Visit Provider Orthopaedic Surgery
PROC: (CPT 26055; principal; 2018-12-28 11:15)
DX: M65.332 Trigger finger, left middle finger (principal); S46.011A Strain of muscle(s) and tendon(s) of the rotator cuff of right shoulder, initial encounter; E66.3 Overweight; F17.210 Nicotine dependence, cigarettes, uncomplicated; Z68.36 Body mass index [BMI] 36.0-36.9, adult; I10 Essential (primary) hypertension; I34.1 Nonrheumatic mitral (valve) prolapse; M79.7 Fibromyalgia; K21.9 Gastro-esophageal reflux disease without esophagitis; E78.00 Pure hypercholesterolemia, unspecified; F32.9 Major depressive disorder, single episode, unspecified; G47.30 Sleep apnea, unspecified; Z79.891 Long term (current) use of opiate analgesic; Z79.899 Other long term (current) drug therapy; W18.30XA Fall on same level, unspecified, initial encounter; Y93.89 Activity, other specified; Y92.89 Other specified places as the place of occurrence of the external cause; Y99.8 Other external cause status
CPT/HCPCS: 01810; 26055; J7120

== ENCOUNTER → 2019-01-04 10:25 | Outpatient (CLI) | payer MEDICARE, SELFPAY ==
[2018-12-28 10:26] VITALS: BMI 35.3
--- NOTE | 2019-01-04 11:53 | PCM.OPRPT ---
Problem List (1) Abnormal mammogram of left breast Status: Acute Report of Operation Date of Procedure: 01/04/19 Pre-Operative Diagnosis: Vague density 3 o'clock position left breast Post-Operative Diagnosis: Same Surgery/Procedure Performed:: Attempted stereotactic needle core left breast biopsy Description of Surgical Findings:: Timeout and informed consent was obtained. 63-year-old female was taken to the stereotactic room. She was placed prone on the table. The left breast was placed in a lateral medial view. Despite several different positions and referral back to the two-dimensional and three-dimensional views the density in question could not be identified with certainty. After multiple localizing efforts I elected to stop the procedure. At the completion of the procedure I strongly recommended to the patient that we refer her to a breast specialty center for evaluation of this left breast density. It is of note that several days prior I attempted in the office to identify this under ultrasound to perform an ultrasound-guided needle core biopsy and I was not able to duplicate what was suggested on the pre-interventional images. At this point the patient declines additional interventions on her left breast. She declines tertiary referral. She is well aware that there is the potential that she currently has a left breast cancer in situ. She suggests that follow-up films to be obtained at 6 months. As noted above I strongly recommended to her that I did not feel comfortable with that and that she should have a tertiary specialist center referral in a timely fashion. She again declined. I will recontact her again this week with recommendations otherwise we will pursue her wishes of repeat left breast mammogram and ultrasound in 6 months Rolando Falk M.D., F.A.C.S.
--- NOTE | 2019-01-04 12:00 | OP.PCM_ITS ---
Problem List (1) Abnormal mammogram of left breast Status: Acute Report of Operation Date of Procedure: 01/04/19 Pre-Operative Diagnosis: Vague density 3 o'clock position left breast Post-Operative Diagnosis: Same Surgery/Procedure Performed:: Attempted stereotactic needle core left breast biopsy Description of Surgical Findings:: Timeout and informed consent was obtained. 63-year-old female was taken to the stereotactic room. She was placed prone on the table. The left breast was placed in a lateral medial view. Despite several different positions and referral back to the two-dimensional and three-dimensional views the density in question could not be identified with certainty. After multiple localizing efforts I elected to stop the procedure. At the completion of the procedure I strongly recommended to the patient that we refer her to a breast specialty center for evaluation of this left breast density. It is of note that several days prior I attempted in the office to identify this under ultrasound to perform an ultrasound-guided needle core biopsy and I was not able to duplicate what was suggested on the pre- interventional images. At this point the patient declines additional interventions on her left breast. She declines tertiary referral. She is well aware that there is the potential that she currently has a left breast cancer in situ. She suggests that follow- up films to be obtained at 6 months. As noted above I strongly recommended to her that I did not feel comfortable with that and that she should have a tertiary specialist center referral in a timely fashion. She again declined. I will recontact her again this week with recommendations otherwise we will pursue her wishes of repeat left breast mammogram and ultrasound in 6 months Rolando Falk M.D., F.A.C.S.
== END ==
PROVIDERS: Family Provider Family Medicine; PCP Family Medicine; Referring Provider Surgery; Visit Provider Surgery
DX: Z53.8 Procedure and treatment not carried out for other reasons (principal); R92.8 Other abnormal and inconclusive findings on diagnostic imaging of breast; M19.90 Unspecified osteoarthritis, unspecified site; F32.9 Major depressive disorder, single episode, unspecified; K21.9 Gastro-esophageal reflux disease without esophagitis; F17.210 Nicotine dependence, cigarettes, uncomplicated; E66.9 Obesity, unspecified; Z68.35 Body mass index [BMI] 35.0-35.9, adult; Z79.899 Other long term (current) drug therapy
CPT/HCPCS: 19081

== ENCOUNTER 2019-01-27 08:34 | Emergency (ER) | payer MEDICARE, SELFPAY ==
[2019-01-27] VITALS (7 sets, daily range): BP systolic 96–151; BP diastolic 56–81; PULSE 61–80; RESP 16–18; TEMP 36.4–36.7; O2SAT 88–99; BMI 35.4
[2019-01-27] MEDS: Ondansetron 4 MG/2 ML Vial IV (09:03)
[2019-01-27] MEDS: Morphine 4 MG/ML Syringe IV (09:03)
--- NOTE | 2019-01-27 09:35 | RAD_ITS ---
STUDY: X-RAY - LEFT HAND REASON FOR EXAM: Female, 63 years old. Infection, left middle finger surgery one month ago, swelling and warmth TECHNIQUE: 3 view(s) of the hand. COMPARISON: 12/08/2014 FINDINGS: There has been prior resection of the proximal carpal row. Stable radiocarpal degenerative disease. Third digit soft tissue swelling. No underlying osteolysis or periosteal reaction. RAD/Hand Min 3 Views IMPRESSION: No evidence of osteomyelitis. If there is further concern for osteomyelitis, consider correlation with three-phase bone scan or contrast-enhanced MRI. Electronically Signed: Aram Hays MD at 9:49 EST Tel , Service support ,
[2019-01-27 09:41] LABS: Erythrocyte Sedimentation Rate 43 mm/hr (0-30)
[2019-01-27 09:49] LABS: Prothrombin Time (Protime)PT. 13.3 SECONDS (11.7-14.9)
[2019-01-27 09:50] LABS: Partial Thromboplast Time 32.2 Seconds (24.1-36.2)
--- NOTE | 2019-01-27 09:53 | CASEMGMT ---
According to patient's insurance, [employer] website, patient can go to [facility], [facility] EDWIN MANNING made aware. Emmy Borges RNCM
[2019-01-27 09:55] LABS: Absolute Lymphocyte Count 1.18 X10^3/ul (0.83-4.51); Absolute Neutrophil Count 7.9 X10^3/uL (2.0-7.7); Basophil# 0.02 X10^3/uL; Basophil% 0.2 % (0-1); Eosinophil# 0.14 X10^3/uL; Eosinophils% 1.4 % (0-5); Hematocrit 35.1 % (37-47); Hemoglobin 11.3 g/dl (12.0-15.0); Lymphocyte # 1.18 X10^3/ul (4.0); Lymphocyte % 11.6 % (19-41); Mean Corp Hgb Conc 32.2 g/gl (32-36); Mean Corpuscular Hgb 32.3 pg (27.0-32.0); Mean Corpuscular Volume 100.3 fL (81-99); Mean Platelet Vol. 10.4 fl (6.2-12.0); Monocyte# 0.95 X10^3/uL; Monocyte% 9.3 % (0-10); Neutrophil # 7.86 X10^3/uL (2.7-7.7); Neutrophil % 77.3 % (47-70); Platelet Count 374 K/mm3 (150-450); RBC Distribution Width CV 22.6 % (11.6-14.6); RBC Distribution Width SD 83.4 fl (35.1-43.9); White Blood Count 10.2 K/mm3 (4.4-11.0)
[2019-01-27 09:58] LABS: Absolute Nucleated RBC Count 0.09 10^3/uL (0-5); Differential Indicated SCAN CRITERIA MET; NRBC Flagged by Analyzer 0.9 % (0-5); POSITIVE COUNT NO; POSITIVE DIFFERENTIAL NO; POSITIVE MORPHOLOGY YES
[2019-01-27 10:16] LABS: Anion Gap 8 (5-15); BUN 8 mg/dL (7-18); BUN/Creat Ratio 13.5 RATIO (10-20); Calcium,Total 8.7 mg/dL (8.5-10.1); Chloride 98 mmol/L (98-107); Creatinine, Serum 0.59 mg/dL (0.55-1.02); EST Glomerular Filtration Rate 109 mL/min (>60); Est Glom Filt Rate - Afr Amer 132 mL/min (>60); Estimated Creatinine Clearance 83.18 ml/min; Glucose 109 mg/dL (74-106); Sodium Level 131 mmol/L (136-145)
[2019-01-27] MEDS: HYDROmorphone 1 MG/ML Syringe IV (11:11)
--- NOTE | 2019-01-27 12:55 | ED.VISSUMM ---
- ER Visit Summary Date of Service: 01/27/19 Chief Complaint: Pain History of Present Illness: The patient is a 63 F with left hand pain for 3 days. Patient had surgery about [address] Garibay for trigger finger. About 3 weeks ago she was having increased pain. She was put on oral antibiotics, and her symptoms improved. They have recurred over the last 3 days, gradually getting worse, and they are very severe this time. No fevers or systemic symptoms. She is right-hand dominant. Physical Examination: Afebrile and vital signs unremarkable. Left palm shows an eschar which is very tender to palpation. There is no bleeding or drainage. Her left middle finger is slightly and diffusely swollen. There is tenderness to palpation over the flexor tendon and the palm. Her finger is held in slight flexion and she has pain with extension. Test Results: X-rays showed no evidence of osteomyelitis. White count normal. Hemoglobin 11.3. [place]izar[place] panel unremarkable. Coags unremarkable. ESR 43 and CRP 76. Emergency Department Course and Treatment: Patient was treated with morphine and Zofran. I spoke with Dr. Morgan who was on-call for Dr. Garibay. He spoke with Dr. Garibay. They advised that if there was concern for flexor tenosynovitis, the patient should see a hand surgeon. I attempted to call Dr. Contreras at this facility, but he is not available. Patient requested [facility]. There was a wait list there, and the patient was notified. She would still like to go to [facility]. She did not want to go to [facility] or [place]. Patient required additional pain meds. She was discussed with Dr. Conner who will consult Dr. Sepulveda. He advised treatment with vancomycin and Unasyn. The patient has a penicillin allergy and she was treated with vancomycin and Azactam. Patient will be transferred for further care. Treatment Plan: As above Disposition: Transfer Impression: 1. Left middle finger flexor tenosynovitis This note was generated with [employer] dictation software. It may contain incorrect words, spelling, and punctuation that were not noted in review of the chart prior to signing ED Disposition - Plan for ED Patient: Referrals: Gaurang Godinez MD [Primary Care Provider] -
--- NOTE | 2019-01-27 12:59 | ED.DCSUM_ITS ---
- ER Visit Summary Date of Service: 01/27/19 Chief Complaint: Pain History of Present Illness: The patient is a 63 F with left hand pain for 3 days. Patient had surgery about [address] Garibay for trigger finger. About 3 weeks ago she was having increased pain. She was put on oral antibiotics, and her symptoms improved. They have recurred over the last 3 days, gradually getting worse, and they are very severe this time. No fevers or systemic symptoms. She is right-hand dominant. Physical Examination: Afebrile and vital signs unremarkable. Left palm shows an eschar which is very tender to palpation. There is no bleeding or drainage. Her left middle finger is slightly and diffusely swollen. There is tenderness to palpation over the flexor tendon and the palm. Her finger is held in slight flexion and she has pain with extension. Test Results: X-rays showed no evidence of osteomyelitis. White count normal. Hemoglobin 11.3. [place]izar[place] panel unremarkable. Coags unremarkable. ESR 43 and CRP 76. Emergency Department Course and Treatment: Patient was treated with morphine and Zofran. I spoke with Dr. Morgan who was on-call for Dr. Garibay. He spoke with Dr. Garibay. They advised that if there was concern for flexor tenosynovitis, the patient should see a hand surgeon. I attempted to call Dr. Contreras at this facility, but he is not available. Patient requested [facility]. There was a wait list there, and the patient was notified. She would still like to go to [facility]. She did not want to go to [facility] or [place]. Patient required additional pain meds. She was discussed with Dr. Conner who will consult Dr. Sepulveda. He advised treatment with vancomycin and Unasyn. The patient has a penicillin allergy and she was treated with vancomycin and Azactam. Patient will be transferred for further care. Treatment Plan: As above Disposition: Transfer Impression: 1. Left middle finger flexor tenosynovitis This note was generated with [employer] dictation software. It may contain incorrect words, spelling, and punctuation that were not noted in review of the chart prior to signing ED Disposition - Plan for ED Patient: Referrals: Gaurang Godinez MD [Primary Care Provider] -
== END 2019-01-27 16:34 | disposition short-term general hospital (02) ==
LOC: ED 08:49
PROVIDERS: Emergency Provider Emergency Medicine; Family Provider Family Medicine; PCP Family Medicine
DX: M65.9 Synovitis and tenosynovitis, unspecified (principal); K21.9 Gastro-esophageal reflux disease without esophagitis; I10 Essential (primary) hypertension; I27.20 Pulmonary hypertension, unspecified; Z72.0 Tobacco use; Z79.899 Other long term (current) drug therapy
CPT/HCPCS: 73130; 80048; 85025; 85610; 85652; 85730; 86140; 96365; 96367; 96375; 99284; J7040; J7050; A4216; J2405

== ENCOUNTER → 2019-07-15 | Outpatient (CLI) | payer MEDICARE, SELFPAY ==
[2019-01-27 08:35] VITALS: BMI 35.4
--- NOTE | 2019-07-15 15:22 | RAD_ITS ---
STUDY: X-RAY - UNILATERAL RIBS ( LEFT ) WITH CHEST REASON FOR EXAM: Female, 63 years old. Fall, chest pain, rib pain TECHNIQUE - RIBS: 3 view(s) of the ribs. TECHNIQUE - CHEST: Single PA view of the chest. COMPARISON: 03/25/2018 FINDINGS - RIBS: Acute nondisplaced fracture of the lateral left sixth rib. FINDINGS - CHEST: The lungs are clear and expanded. There is no demonstrated pleural abnormality. Normal size heart. Normal mediastinum and arthur. Normal visualized pulmonary arteries. Normal visualized aortic arch and descending thoracic aorta. Spinal rods in the thoracolumbar spine. Normal visualized ribs, clavicles, and shoulders. There is no demonstrated abnormality of the visualized soft tissue structures of the upper abdomen. RAD/Ribs Uni Min 3V w/PA Chest IMPRESSION: RIBS: Acute nondisplaced fracture of the lateral left sixth rib. CHEST: No hemothorax or pneumothorax. Electronically Signed: Yakov Rene MD at 15:44 EDT Tel , Service support ,
== END | disposition home or self-care (01) ==
PROVIDERS: Family Provider Family Medicine; PCP Family Medicine; Referring Provider Family Medicine; Visit Provider Family Medicine
DX: S20.219A Contusion of unspecified front wall of thorax, initial encounter (principal)
CPT/HCPCS: 71101

== ENCOUNTER → 2020-01-13 | Outpatient (CLI) | payer MEDICARE, SELFPAY ==
[2019-01-27 08:35] VITALS: BMI 35.4
--- NOTE | 2020-01-13 10:34 | RAD_ITS ---
STUDY: X-RAY - RIGHT HAND REASON FOR EXAM: Female, 64 years old. right hand pain, no injury TECHNIQUE: 3 view(s) of the hand. COMPARISON: None. FINDINGS: There is joint space narrowing of the radiocarpal articulation consistent with degenerative arthrosis. Normal distal radioulnar joint. There is deformity of the lunate. Normal carpal articulations There are degenerative changes of the first metacarpal greater multangular joint. Normal second through fifth carpometacarpal joints. Normal metacarpi. Normal metacarpophalangeal joint of the thumb. Normal interphalangeal joint of the thumb. Normal proximal and distal phalanges of the thumb. Normal metacarpophalangeal joints of the second through fifth fingers. There are degenerative changes of the second, third, and fourth PIP joints and second, third, and fifth DIP joints. Normal phalanges of the second through fifth fingers. The soft tissue structures are unremarkable. RAD/Hand Min 3 Views IMPRESSION: Degenerative joint disease of the hand and wrist, as described above. There is deformity of the lunate which may be congenital in nature or due to old injury. Electronically Signed: Carmine Cartagena MD at 18:12 EST , Service support ,
[2020-01-13 13:01] LABS: AST(SGOT) 14 U/L (15-37); Alanine Aminotransfer ALT/SGPT 29 U/L (13-56); Albumin, Serum 3.8 g/dL (3.2-5.0); Alkaline Phosphatase 75 U/L (45-117); Anion Gap 7 (5-15); BUN 11 mg/dL (7-18); BUN/Creat Ratio 19.4 RATIO (10-20); Calcium,Total 9.4 mg/dL (8.5-10.1); Chloride 107 mmol/L (98-107); Cholesterol 261 mg/dL (200); Creatinine, Serum 0.57 mg/dL (0.55-1.02); EST Glomerular Filtration Rate 114 mL/min (>60); Est Glom Filt Rate - Afr Amer 138 mL/min (>60); Globulin 3.7 g/dL (2.2-4.2); Glucose 107 mg/dL (74-106); High Density Lipoprotein 61 mg/dL; Potassium 4.3 mmol/L (3.5-5.1); Protein, Total 7.5 g/dL (6.4-8.2); Sodium Level 138 mmol/L (136-145); Thyroid Stim Hormone (TSH) 4.89 uIU/mL (0.358-3.74); Triglycerides 96 mg/dL; Very Low Density Lipoprotein 19 mg/dL (5-40)
== END | disposition home or self-care (01) ==
LOC: MTLAB 10:34
PROVIDERS: PCP Family Medicine; Referring Provider Family Medicine; Visit Provider Family Medicine
DX: I10 Essential (primary) hypertension (principal); M79.641 Pain in right hand; R94.6 Abnormal results of thyroid function studies
CPT/HCPCS: 36415; 73130; 80053; 80061; 84443; 84550

== ENCOUNTER 2020-02-03 05:41 | Day surgery (SDC) | payer MEDICARE, SELFPAY ==
[2020-01-21 09:38] VITALS: BMI 35.4
[2020-02-03 06:01] VITALS: BP 117/60; PULSE 64; RESP 16; TEMP 36; O2SAT 96; BMI 34.4
[2020-02-03] MEDS: Lactated Ringers 1,000 ML 100 ML IV (06:18)
--- NOTE | 2020-02-03 07:30 | LES_PTH ---
PATIENT: HAIM LIAO LOC: [facility] U#:[id number] AGE/SX: 64/F ROOM: RE02/03/[address]: Dr. Fabian Temple MD : 1955 BED: DIS: 02/03/2020 SPEC #: [id number] RECD: 02/03/20 09:11 STATUS: MIRA REEdil #: [id number] URSULA: 02/03/20 07:[address]: Fabian Temple DEPT: SURGICAL PATHOLOGY RECD BY: Kleber Chang ENTERED: 02/03/20 09:39 SP TYPE: Lesion OTHR DR: Dr. Javier Godinez MD Tissues: Shoulder, NOS Procedures: Surgery Specimen Level III HEADER OPERATION: Excision subcutaneous left shoulder lesion PRE-OP DIAGNOSIS: Lesion of subcutaneous tissue L98.9 TISSUE SUBMITTED: Left shoulder subcutaneous lesion MICROSCOPIC DIAGNOSIS Left shoulder subcutaneous lesion, excision: Mature adipose tissue, consistent with lipoma. SJ:clint 02/04/20 MICROSCOPIC DESCRIPTION Slides are reviewed. GROSS DESCRIPTION Received is one container labeled with the patient's name and not further designated. The specimen consists of a disrupted piece of molina-yellow adipose tissue measuring 8 x 6 x 3 cm. Sections reveal cut surfaces without any area of hemorrhage, necrosis or cystic degeneration. Terrazzo Mechanic Helper sections are submitted in five cassettes. / NICOLE:clint 02/03/20 TC:1 CPT: 14406
--- NOTE | 2020-02-03 07:55 | PCM.HP.BLA ---
History and Physical Date of Admission: 02/03/20 [facility] [address] [place], [place] [id number] OFFICE VISIT Date of Service: 01/21/20 MR#: [id number] Acct: [id number] Name: HAIM LIAO Rep #: [id number] : [id number] Provider: Fabian Temple MD Age/Sex: 64/F Location: [facility] Status: Signed Intake Vital Signs 01/21/20 Height 5 ft 4 in 01/21/20 Weight: 196 lb 01/21/20 BMI 33.6 01/21/20 BP 154/82 H 01/21/20 Blood Pressure Location Rt brachial 01/21/20 Position Sitting 01/21/20 Respiration 18 01/21/20 Pulse 70 01/21/20 Pulse Source Monitor 01/21/20 Temp 98.2 F 01/21/20 Temp Source Oral 01/21/20 Pulse Oximetry (%) 98 01/21/20 Oxygen Delivery Method room air Intake Visit Reasons: LIPOMA Chief Complaint: 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 left scapula 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 Is patient in pain?: No Allergies meperidine [From Demerol] Adverse Reaction (Verified 01/21/20 09:35) Other Penicillins [PCN] Adverse Reaction (Verified 01/21/20 09:35) Nausea Medications Sertraline HCl [Zoloft] 100 mg PO DAILY 08/26/16 [History Confirmed 01/27/19] meloxicam 15 mg tablet 15 mg PO QDAY 04/01/18 [History Confirmed 01/27/19] nadolol 20 mg tablet 20 mg PO BID tab 04/01/18 [History Confirmed 01/27/19] omeprazole 10 mg capsule,delayed release 20 mg PO QDAY 04/01/18 [History Confirmed 01/27/19] Lisinopril [Zestril] 20 mg PO DAILY 12/22/18 [History Confirmed 01/27/19] Primidone [Mysoline] 50 mg PO BID 12/22/18 [History Confirmed 01/27/19] Amlodipine [Norvasc] 10 mg PO DAILY 01/27/19 [History Confirmed 01/27/19] albuterol sulfate 2.5 mg INHALATION Q4H PRN 01/21/20 [History Confirmed 01/21/20] albuterol sulfate 90 mcg/actuation aerosol inhaler 2 puff INHALATION Q6H PRN 01/21/20 [History Confirmed 01/21/20] amlodipine 10 mg tablet 10 mg PO DAILY 01/21/20 [History Confirmed 01/21/20] cyclobenzaprine 10 mg tablet 10 mg PO TID PRN 01/21/20 [History Confirmed 01/21/20] PFSH Medical History Abnormal mammogram of left breast (Acute) 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) Nicotine dependence (Chronic) Hypertension (Chronic) Secondary pulmonary arterial hypertension (Chronic) Non-rheumatic tricuspid valve insufficiency (Chronic) Sleep-disordered breathing (Chronic) Macrocytic anemia (Chronic) Osteoarthritis (Chronic) Obesity (Chronic) Acquired scoliosis (Chronic) Depression (Chronic) GERD (gastroesophageal reflux disease) (Chronic) Chronic back pain (Chronic) lipoma left scapula (Acute) Prosthetic joint infection (Resolved) Surgical History History of right knee joint replacement (Chronic) History of lumbar spinal fusion (Chronic) Status post left knee replacement (Chronic) History of laparoscopic cholecystectomy (Acute) history left ankle surgery (Acute) history left hand surgery (Acute) history left trigger finger release (Acute) history spur removal right shoulder (Acute) Family History Mother Heart disease Valvular Heart Disease Cancer leukemia Uncle Colon cancer Aunt Cancer Leukemia Social History (Updated 01/30/20 @ 12:[address] Fabian Temple MD) Smoking Status: Current every day smoker tobacco type: cigarettes alcohol intake: current alcohol intake frequency: a few times a week substance use type: does not use HPI HPI HPI: HAIM LIAO, is a 64 F who presents to the office today for HPI HPI HPI: HAIM LIAO, is a 64 F who presents to the office today for Large subcutaneous lesion on her left posterior shoulder. She just noticed this about a month ago. She is unsure of how long it is been there it is very noticeable to her now when she looks into the mirror. She states that she has not complaining of any pain drainage and denies any itching to the area. ROS General General: No weight change, appetite, fatigue, colon cancer, breast cancer or weakness HEENT HEENT: No difficulty swallowing, eye injury, eye surgery, swollen glands or hoarseness Endo Endocrine: No thyroid disease, diabetes mellitus, thyroid cancer, Hair loss, heat intolerance or cold intolerance Skin Skin: No rash or changing moles Breast Breast: No left breast lump, right breast lump, nipple discharge, breast pain, abnormal mammogram, abnormal US or breast enlargement Musc Musculoskeletal: Yes back problems and arthritis; no rheumatoid arthritis, gout or joint pain Cardio Cardiovascular: No murmur, pacemaker, heart disease, atrial fibrillation, high blood pressure, heart attack, heart stent, palpitations, shortness of breat with exertion or chest pain Psych Psychiatric: No depression, anxiety or hearing voices Resp Respiratory: No shortness of breath, Yes sleep apnea, No cough, No COPD, No asthma, No emphysema, No wheezing Gastro Gastrointestinal: No abdominal pain, No nausea or vomiting, No diarrhea, No constipation, No blood in stool, No acid reflux, No hemorrhoids, No ulcers, No gallbladder problem, No black,tarry stools Edvin Hematologic: No blood thinners, No blood disorders, No bleeding, No anemia, No blood clots Neuro Neurologic: No system reviewed and no additional complaints, except as docu, No as per HPI, No abnormal walking, No abnormal hearing, No abnormal movements, No abnormal speech, No behavioral changes, No burning sensations, No confusion, No seizure-like activity, No unsteadiness, No dizziness, No localized weakness, No frequent falls, No headache(s), No lack of coordination, No loss of vision, No memory loss, No numbness, No other visual disturbances, No radiating pain, No restless legs, No sensory deficit, No fainting, No tingling, No tremor(s), No weakness, No other Exam Const General: no acute distress, well developed, well hydrated Orientation: oriented to person, oriented to place, oriented to time [facility] Head: normocephalic, atraumatic Ears: external ears normal Mouth: moist mucous membranes Eyes Sclera: sclerae normal Pupils: normal by confrontation Neck Neck: no lymphadenopathy noted Neck mass: No Thyroid: thyroid normal, symmetrical Chest Chest palpation & inspection: normal inspection of the chest Breast Palpation: No nipple discharge Resp Effort & Inspection: normal respiratory effort Auscultation: clear to auscultation bilaterally Percussion: percussion normal Cardio Rate: regular rate Rhythm: regular rhythm Heart Sounds: no murmurs GI Palpation: soft, no hepatosplenomegaly, no masses, nontender Rectal Exam: other Other: Rectal exam deferred. Skin Other: Large 10 cm subcutaneous lesion lateral to the left shoulder blade near the deltoid region. It feels soft consistent most likely with a lipoma. Extrem General: normal to inspection, no clubbing, cyanosis or edema Assessment & Plan Problems 1. Lesion of subcutaneous tissue L98.9 Plan My plan is to excise this lesion in the OR. Risk benefits to include bleeding infection have been reviewed in detail with the patient. She also understands that there could be some numbness in the area as well as recurrence of the lipoma if I am unable to get the entire thing out. Coding Level of Care Code Off vis,new,level 3 Diagnoses Lesion of subcutaneous tissue L98.9 01/30/20 1256 <Electronically signed by Fabian Temple MD> Date Fabian Temple MD Cosign Signature: Date (if applicable) CC: Javier Godinez MD ~ I have re-examined the patient. There are no clinical changes since date of exam.
[2020-02-03] MEDS: Bupivacaine Mpf 0.5% 30 ML VIAL (07:57)
--- NOTE | 2020-02-03 07:59 | PCM.OPRPT ---
Problem List (1) Lesion of subcutaneous tissue Status: Acute Report of Operation Date of Procedure: 02/03/20 Pre-Operative Diagnosis: 8.5 cm subcutaneous lesion left shoulder Post-Operative Diagnosis: Same Surgery/Procedure Performed:: Excision of an 8-1/2 cm subcutaneous lesion of the left shoulder deep posterior to muscle Type of Anesthesia:: Local MAC Anesthesiologist: Esequiel Londono Specimen's removed: 8.5 cm subcutaneous lesion Estimated Blood Loss (mL): < 25 cc Fluids Replaced: 350 cc lr Description of Procedure: Patient was brought into the operating room. Placed in the right lateral decubitus position with the left shoulder exposed properly padded and then sterilely prepped and draped in the usual fashion. Local was injected. Incision was made electrocautery was used to go through the subcutaneous tissues down to the fascia of the shoulder blade split this length ways got deep to this and identified a fatty lesion which I was able to remove in its entirety. I had good pneumostasis. I injected local deep. I brought the muscle back together with a 2-0 Vicryl. Deep dermal stitches of 3-0 Vicryl. In a running 4-0 Monocryl. Dermabond was applied sterile dressings were applied and the patient tolerated the procedure well. - Admit VTE Documentation VTE Present on Admission: No VTE Mechan Device Prophylaxis: SCD's VTE Pharm Prophylaxis ordered?: No Reason prophylaxis not ordered:: Treatment Not Indicated
--- NOTE | 2020-02-03 08:02 | DCINST_ITS ---
Allergies/Adverse Reactions: Allergies meperidine [From Demerol] Adverse Reaction (Verified 02/01/20 15:16) Other MAKES ME GOOFY Penicillins [PCN] Adverse Reaction (Verified 02/01/20 15:16) Nausea Medications to take at Discharge Sertraline HCl [Zoloft] 100 mg PO DAILY 08/26/16 meloxicam 15 mg tablet 15 mg PO QDAY 04/01/18 nadolol 20 mg tablet 20 mg PO BID tab 04/01/18 omeprazole 10 mg capsule,delayed release 20 mg PO QDAY 04/01/18 Lisinopril [Zestril] 20 mg PO DAILY 12/22/18 Primidone [Mysoline] 50 mg PO BID 12/22/18 Amlodipine [Norvasc] 10 mg PO DAILY 01/27/19 albuterol sulfate 2.5 mg INHALATION Q4H PRN 01/21/20 albuterol sulfate 90 mcg/actuation aerosol inhaler 2 puff INHALATION Q6H PRN 01/21/20 cyclobenzaprine 10 mg tablet 10 mg PO QHS 01/21/20 Levothyroxine [Synthroid] 75 mcg PO DAILY 02/01/20 Oxycodone HCl/Acetaminophen [Percocet 5/325] 1 - 2 tablet PO Q4H PRN PRN 6 Days #30 tablet 02/03/20 The following prescriptions were given: Oxycodone HCl/Acetaminophen [Percocet 5/325] 1 - 2 tablet PO Q4H PRN PRN 6 Days #30 tablet PRN Reason: Pain Transmission Status: Sent to [facility] - [address] Primary Care Physician: Gaurang Godinez MD [Primary Care Provider] - Test Results: Test results from this visit will be discussed in further detail at your follow- up appointment, if applicable. Please Follow Up With: Angelika Adams PA-C
[2020-02-03 08:20] VITALS: BP 117/60; BP 93/60; PULSE 62; RESP 16; TEMP 36.6; O2SAT 93
[2020-02-03 08:25] VITALS: BP 105/54; BP 117/60; PULSE 61; RESP 16; O2SAT 93
[2020-02-03 08:30] VITALS: BP 102/53; BP 117/60; PULSE 58; RESP 16; O2SAT 93
[2020-02-03 08:35] VITALS: BP 101/59; BP 117/60; PULSE 61; RESP 16; TEMP 36.1; O2SAT 93
[2020-02-03 09:01] VITALS: BP 117/60
== END 2020-02-03 09:08 | disposition home or self-care (01) ==
LOC: SDC 05:41 → AC 05:43
PROVIDERS: PCP Family Medicine; Referring Provider Surgery; Visit Provider Surgery
PROC: (CPT 12034; principal; 2020-02-03 07:20)
DX: D17.1 Benign lipomatous neoplasm of skin and subcutaneous tissue of trunk (principal); I10 Essential (primary) hypertension; I27.20 Pulmonary hypertension, unspecified; M19.90 Unspecified osteoarthritis, unspecified site; E66.9 Obesity, unspecified; F32.9 Major depressive disorder, single episode, unspecified; K21.9 Gastro-esophageal reflux disease without esophagitis; F17.210 Nicotine dependence, cigarettes, uncomplicated; E06.9 Thyroiditis, unspecified; G47.30 Sleep apnea, unspecified; G25.0 Essential tremor; M41.9 Scoliosis, unspecified; Z68.33 Body mass index [BMI] 33.0-33.9, adult; Z79.51 Long term (current) use of inhaled steroids; Z79.1 Long term (current) use of non-steroidal anti-inflammatories (NSAID); Z79.899 Other long term (current) drug therapy
CPT/HCPCS: 11406; 12034; 88304; 88305; J7120; J2405

== ENCOUNTER → 2020-05-01 | Outpatient (CLI) | payer MEDICARE, SELFPAY ==
[2020-05-01 13:48] LABS: Cholesterol 238 mg/dL (200); High Density Lipoprotein 55 mg/dL; T4 Free Direct 0.85 ng/dL (0.76-1.46); Thyroid Stim Hormone (TSH) 6.24 uIU/mL (0.358-3.74); Triglycerides 145 mg/dL; Very Low Density Lipoprotein 29 mg/dL (5-40)
== END | disposition home or self-care (01) ==
LOC: MFPLAB 10:09
PROVIDERS: PCP Family Medicine; Referring Provider Family Medicine; Visit Provider Family Medicine
DX: E78.5 Hyperlipidemia, unspecified (principal); E03.9 Hypothyroidism, unspecified
CPT/HCPCS: 36415; 80061; 84439; 84443

== ENCOUNTER → 2020-07-18 | Outpatient (CLI) | payer MEDICARE, SELFPAY ==
[2020-07-18 15:24] LABS: Absolute Lymphocyte Count 1.43 X10^3/uL (0.83-4.51); Absolute Neutrophil Count 2.4 X10^3/uL (2.0-7.7); Basophil# 0.04 X10^3/uL; Basophil% 0.9 % (0-1); Eosinophil# 0.16 X10^3/uL; Eosinophils% 3.7 % (0-5); Hematocrit 34.6 % (37-47); Hemoglobin 11.7 g/dL (12.0-15.0); Lymphocyte # 1.43 X10^3/ul (4.0); Lymphocyte % 33.2 % (19-41); Mean Corp Hgb Conc 33.8 g/dL (32-36); Mean Corpuscular Hgb 34.4 pg (27.0-32.0); Mean Corpuscular Volume 101.8 fL (81-99); Mean Platelet Vol. 10.5 fl (6.2-12.0); Monocyte# 0.29 X10^3/uL; Monocyte% 6.7 % (0-10); NRBC Flagged by Analyzer 0 % (0-5); Neutrophil # 2.38 X10^3/uL (2.7-7.7); Neutrophil % 55.3 % (47-70); POSITIVE MORPHOLOGY YES; Platelet Count 400 K/mm3 (150-450); RBC Distribution Width CV 22.5 % (11.6-14.6); RBC Distribution Width SD 83.8 fl (35.1-43.9); White Blood Count 4.3 K/mm3 (4.4-11.0)
[2020-07-18 15:42] LABS: Erythrocyte Sedimentation Rate 20 mm/hr (0-30)
[2020-07-18 15:46] LABS: Differential Indicated SCAN CRITERIA MET
[2020-07-18 16:44] LABS: Differential Comment SCANNED
[2020-07-18 16:45] LABS: Anisocytosis 4+; Macrocytosis 1+; Platelet Estimate ADEQUATE (ADEQ); Target Cells 2+
[2020-07-18 16:46] LABS: ALB/GLOB Ratio 1.2 RATIO (0.9-2.4); AST(SGOT) 16 U/L (15-37); Alanine Aminotransfer ALT/SGPT 29 U/L (13-56); Albumin, Serum 3.8 g/dL (3.2-5.0); Alkaline Phosphatase 68 U/L (45-117); Anion Gap 5 (5-15); BUN 10 mg/dL (7-18); BUN/Creat Ratio 15.8 RATIO (10-20); Chloride 103 mmol/L (98-107); Creatinine, Serum 0.63 mg/dL (0.55-1.02); EST Glomerular Filtration Rate 100 mL/min (>60); Est Glom Filt Rate - Afr Amer 121 mL/min (>60); Globulin 3.2 g/dL (2.2-4.2); Glucose 100 mg/dL (74-106); Potassium 4.1 mmol/L (3.5-5.1); Sodium Level 136 mmol/L (136-145); T4 Free Direct 1.06 ng/dL (0.76-1.46); Thyroid Stim Hormone (TSH) 3.22 uIU/mL (0.358-3.74)
== END | disposition home or self-care (01) ==
LOC: MFPLAB 13:54
PROVIDERS: PCP Family Medicine; Referring Provider Family Medicine; Visit Provider Family Medicine
DX: E03.9 Hypothyroidism, unspecified (principal); R19.7 Diarrhea, unspecified
CPT/HCPCS: 36415; 80053; 84439; 84443; 85025; 85652

== ENCOUNTER 2020-10-02 08:35 | Day surgery (SDC) | payer MEDICARE, SELFPAY ==
--- NOTE | 2020-10-02 10:10 | RAD_ITS ---
PROCEDURE: Caudal block. DATE OF EXAMINATION: 10/02/2020. INDICATION: Female, 64 years old. Chronic low back pain. FLUOROSCOPY TIME (if supplied): (16 seconds.) minutes/seconds. 3 images. Intraoperative imaging provided for caudal block. RAD/Fluor Guidance for Spine Inj IMPRESSION: Intraoperative imaging provided for caudal block. Electronically Signed: Atul Lu, at 12:50 EST , Service support ,
[2020-10-02 10:17] VITALS: BP 123/75; PULSE 62; RESP 18; TEMP 36.4; O2SAT 98; BMI 34.9
[2020-10-02] MEDS: Lactated Ringers 1,000 ML 100 ML IV (10:34)
[2020-10-02] MEDS: MethylPREDNISolone Acetate 40 MG/ML Vial IM (10:51)
[2020-10-02] MEDS: 0.9% Normal Saline (Pres. free 10 ML Vial (10:51)
[2020-10-02] MEDS: Bupivacaine 0.25% 30 ML Vial (10:52)
[2020-10-02 10:57] VITALS: BP 117/61; BP 124/75; PULSE 65; RESP 16; TEMP 36.4; O2SAT 97
[2020-10-02 11:02] VITALS: BP 105/61; BP 124/75; PULSE 65; RESP 16; O2SAT 95
[2020-10-02 11:07] VITALS: BP 109/64; BP 124/75; PULSE 58; RESP 16; O2SAT 95
[2020-10-02 11:12] VITALS: BP 100/54; BP 124/75; PULSE 58; RESP 16; TEMP 36.6; O2SAT 100
--- NOTE | 2020-10-02 14:59 | PCM.OPRPT ---
Report of Operation Date of Procedure: 10/02/20 Description of Surgical Findings:: PREOPERATIVE DIAGNOSIS: Lumbosacral radiculopathy, lumbosacral degenerative disc disease, lumbosacral spinal stenosis POSTOPERATIVE DIAGNOSIS: Lumbosacral radiculopathy, lumbosacral degenerative disc disease, lumbosacral spinal stenosis PROCEDURE PERFORMED: Diagnostic/therapeutic caudal epidural steroid injection. ANESTHESIA: MAC. BLOOD LOSS: Minimal. COMPLICATIONS: None. DESCRIPTION OF PROCEDURE: History and physical of today was reviewed. Risks and benefits of the procedure were explained. The patient understood and agreed to proceed. Informed consent was obtained. IV inserted per routine protocol. The patient was taken to the operating room and placed in the prone position with a pillow positioned underneath the abdomen. The lower back and tailbone area was prepped and draped in a sterile fashion using iodine x3. Under fluoroscopy guidance on a lateral view, the caudal space was identified. The skin and subcutaneous tissue was anesthetized with approximately 3 mL of 1% lidocaine using a 25-gauge regular needle. Under direct visualization with fluoroscopy, using a 22-gauge 3-1/2-inch spinal needle, the needle was advanced via the skin through the sacral hiatus. The tip of the needle was passed through the sacrococcygeal ligament and advanced to approximately S4 area. After negative aspiration of blood or CSF, a total of 3 mL of contrast was injected to confirm correct placement of the needle as well as cephalad spread. The spread was followed to approximately L5 area. After confirmation on AP as well as lateral view and repeated negative aspiration, a total of 15 mL of preservative-free 0.125% Marcaine with 80 mg of Depo-Medrol was injected easily. The needle was then removed intact. The patient experienced no sign or symptoms of intrathecal or intravascular injection. The patient experienced no paresthesia. The procedure was completed without any apparent difficulty or any complications. The patient appeared to tolerate it well. ASSESSMENT AND PLAN: This is an 64-year-old female with lumbosacral radiculopathy, lumbosacral degenerative disc disease, lumbosacral spinal stenosis status post nonstick/therapeutic caudal epidural steroid injection. Patient will continue her current medications, the patient will follow in approximately 2 weeks for reevaluation.
== END 2020-10-02 11:44 | disposition home or self-care (01) ==
LOC: SDC 08:35 → AC 09:42
PROVIDERS: PCP Family Medicine; Referring Provider Anesthesiology Pain Medicine; Visit Provider Anesthesiology Pain Medicine
PROC: 3E0S3BZ Introduction of Anesthetic Agent into Epidural Space, Percutaneous Approach (ICD-10-PCS; CPT 62282; principal; 2020-10-02 10:05)
DX: M51.17 Intervertebral disc disorders with radiculopathy, lumbosacral region (principal); M48.07 Spinal stenosis, lumbosacral region; I10 Essential (primary) hypertension; M19.90 Unspecified osteoarthritis, unspecified site; F17.210 Nicotine dependence, cigarettes, uncomplicated; K21.9 Gastro-esophageal reflux disease without esophagitis; F32.9 Major depressive disorder, single episode, unspecified; E06.9 Thyroiditis, unspecified; Z79.899 Other long term (current) drug therapy
CPT/HCPCS: 01992; 62323; 64520; 64483; 77003; J7040; J7120; J3490

== ENCOUNTER 2020-12-04 08:23 | Day surgery (SDC) | payer MEDICARE, SELFPAY ==
[2020-12-04 08:42] VITALS: BP 130/69; PULSE 64; RESP 16; TEMP 17.7; O2SAT 96; BMI 34.9
[2020-12-04] MEDS: Lactated Ringers 1,000 ML 100 ML IV (09:02)
--- NOTE | 2020-12-04 09:50 | RAD_ITS ---
STUDY: X-RAY - LUMBAR SPINE REASON FOR EXAM: Female, 65 years old. Left side lumbar transforaminal epidural steroid injection, L4-5 and L5-S1. TECHNIQUE: 3 intraprocedural view(s) of the lumbar spine were obtained. COMPARISON: Scoliosis study, 06/26/2016. FINDINGS: 3 images of the lumbar spine demonstrate placement of needles at the left facet joints of L4-5 and L5-S1. Again seen is evidence of spinal fusion. Please refer to the procedural report for further details. RAD/Lumbar Spine 2 or 3 Views IMPRESSION: Left sided L4-5 and L5-S1 epidural steroid injection. Electronically Signed: Zoltan Verdin DO at 17:27 EST Tel [phone], Service support ,
[2020-12-04] MEDS: MethylPREDNISolone Acetate 40 MG/ML Vial IM (10:09)
[2020-12-04] MEDS: Lidocaine 1% (5 ml sdv) 5 ML Vial (10:09)
[2020-12-04] MEDS: Bupivacaine 0.25% 30 ML Vial (10:09)
[2020-12-04 10:19] VITALS: BP 109/52; BP 130/69; PULSE 60; RESP 16; TEMP 36.3; O2SAT 98
[2020-12-04 10:27] VITALS: BP 130/69; BP 94/63; PULSE 56; RESP 16; O2SAT 96
[2020-12-04 10:30] VITALS: BP 130/69; BP 97/64; PULSE 56; RESP 16; O2SAT 95
[2020-12-04 10:35] VITALS: BP 101/64; BP 130/69; PULSE 56; RESP 16; TEMP 36.1; O2SAT 96
[2020-12-04 10:50] VITALS: BP 130/69
--- NOTE | 2020-12-04 10:57 | OP.PCM_ITS ---
Report of Operation Date of Procedure: 12/04/20 Description of Surgical Findings:: PREOPERATIVE DIAGNOSIS: Lumbosacral radiculopathy, lumbosacral degenerative disc disease, postlaminectomy syndrome of the lumbar spine POSTOPERATIVE DIAGNOSIS: Lumbosacral radiculopathy, lumbosacral degenerative disc disease, postlaminectomy syndrome of the lumbar spine PROCEDURE PERFORMED: Left-sided lumbar transforaminal epidural steroid injection, L4-5 and L5-S1. ANESTHESIA: MAC BLOOD LOSS: Minimal COMPLICATIONS: None DESCRIPTION OF PROCEDURE: History and physical of today was reviewed. Risks and benefits of the procedure were explained. The patient understood and agreed to proceed. Informed consent was obtained. IV inserted per routine protocol. The patient was taken to the operating room and placed in the prone position wi th a pillow positioned underneath the abdomen. The left side of the lower back was prepped and draped in a sterile fashion using iodine x3. Under fluoroscopy guidance on oblique view, the L4 through S1 vertebral bodies were visualized. The skin and subcutaneous tissue was anesthetized with approximately 5 mL of 1% lidocaine using a 25-gauge regular needle. Under direct visualization with fluoroscopy at approximately 35-degree angle, starting on the left L4, ending on the left L5, using a 22-gauge 5-inch spinal needle, the needle was advanced via the skin. The tip of the needle was maneuvered and directed towards the inferior and medial gutter of the transverse process at the superiormost aspect of the neural foramen. Once the tip of the needle was at the vicinity of the foramen, after negative aspiration for blood or CSF, a total of 1 mL of contrast was injected in divided doses between both levels to confirm correct placement of the needle as well as medial spread. The confirmation was obtained on AP as well as lateral view. After repeated negative aspiration and confirmation on AP as well as lateral view, a total of 6 mL of preservative-free 0.25% Marcaine with 80 mg of Depo-Medrol was injected in divided doses between both levels. The needles were then removed intact. The patient experienced no sign or symptoms of intrathecal or intravascular injection. The patient experienced no paresthesia. The procedure was completed without any apparent difficulty or any complications. The patient appeared to tolerate it well. Assessment and plan: This is a 65-year-old female with lumbosacral radiculopathy, lumbosacral degenerative disc disease, postlaminectomy syndrome of the lumbar spine status post left-sided lumbar transforaminal epidural steroid injection L4-5, L5-S1, patient will continue her current medications, patient will follow in approximately 2 weeks for reevaluation.
== END 2020-12-04 11:09 | disposition home or self-care (01) ==
LOC: SDC 08:24 → AC 08:25
PROVIDERS: PCP Family Medicine; Referring Provider Anesthesiology Pain Medicine; Visit Provider Anesthesiology Pain Medicine
PROC: 3E0S3BZ Introduction of Anesthetic Agent into Epidural Space, Percutaneous Approach (ICD-10-PCS; CPT 62322; principal; 2020-12-04 09:45)
DX: M51.17 Intervertebral disc disorders with radiculopathy, lumbosacral region (principal); M96.1 Postlaminectomy syndrome, not elsewhere classified; M47.27 Other spondylosis with radiculopathy, lumbosacral region; M48.07 Spinal stenosis, lumbosacral region; M79.7 Fibromyalgia; I10 Essential (primary) hypertension; F17.210 Nicotine dependence, cigarettes, uncomplicated; K21.9 Gastro-esophageal reflux disease without esophagitis; F32.9 Major depressive disorder, single episode, unspecified; Z79.899 Other long term (current) drug therapy
CPT/HCPCS: 64484; 64483; 72050; 72100; J7120

== ENCOUNTER → 2021-01-19 10:24 | Outpatient (CLI) | payer MEDICARE, SELFPAY ==
--- NOTE | 2021-01-19 10:27 | RAD_ITS ---
STUDY: X-RAY CHEST REASON FOR EXAM: Female, 65 years old. Cough TECHNIQUE: PA and lateral views of the chest. COMPARISON: Comparison is made with prior study 07/15/2019. FINDINGS: Hyperinflation. The lungs are clear. There is no demonstrated pleural abnormality. Normal size heart. Normal mediastinum and arthur. Normal visualized pulmonary arteries. There is atherosclerotic tortuosity of the aortic arch and descending thoracic aorta. Prior interpedicular screw and tricia fixation of the lower thoracic and upper lumbar spine. Normal visualized ribs, clavicles, and shoulders. There is no demonstrated abnormality of the visualized soft tissue structures of the upper abdomen. RAD/Chest PA and Lateral IMPRESSION: Hyperinflation. The lungs are clear. Electronically Signed: Atul Lu MD at 14:49 EST , Service support ,
[2021-01-19 12:50] LABS: Erythrocyte Sedimentation Rate 38 mm/hr (0-30)
[2021-01-19 12:53] LABS: Anion Gap 8 (5-15); BUN 7 mg/dL (7-18); BUN/Creat Ratio 12.6 RATIO (10-20); Basophil# 0.07 X10^3/uL; Basophil% 0.8 % (0-1); Calcium,Total 9.2 mg/dL (8.5-10.1); Chloride 101 mmol/L (98-107); Creatinine, Serum 0.56 mg/dL (0.55-1.02); EST Glomerular Filtration Rate 116 mL/min (>60); Eosinophil# 0.71 X10^3/uL; Est Glom Filt Rate - Afr Amer 141 mL/min (>60); Glucose 94 mg/dL (74-106); Hematocrit 37.6 % (37-47); Hemoglobin 12.7 g/dL (12.0-15.0); Lymphocyte % 18.1 % (19-41); Mean Corp Hgb Conc 33.8 g/dL (32-36); Mean Corpuscular Hgb 33.6 pg (27.0-32.0); Mean Corpuscular Volume 99.5 fL (81-99); Mean Platelet Vol. 10.8 fl (6.2-12.0); Monocyte# 0.49 X10^3/uL; Monocyte% 5.5 % (0-10); NRBC Flagged by Analyzer 0.3 % (0-5); Neutrophil # 5.96 X10^3/uL (2.7-7.7); Neutrophil % 67.3 % (47-70); POSITIVE MORPHOLOGY YES; Platelet Count 408 K/mm3 (150-450); Potassium 4.4 mmol/L (3.5-5.1); RBC Distribution Width CV 22.7 % (11.6-14.6); RBC Distribution Width SD 84.2 fl (35.1-43.9); Red Blood Count 3.78 M/mm3 (4.2-5.4); Sodium Level 134 mmol/L (136-145); White Blood Count 8.9 K/mm3 (4.4-11.0)
[2021-01-19 12:59] LABS: Differential Indicated SCAN CRITERIA MET
[2021-01-19 13:15] LABS: Anisocytosis 1+; Differential Comment SCANNED; Hypochromasia 1+; Macrocytosis 1+
== END ==
PROVIDERS: PCP Family Medicine; Referring Provider Family Medicine; Visit Provider Family Medicine
DX: R05 Cough (principal); R53.83 Other fatigue
CPT/HCPCS: 36415; 71046; 80048; 85025; 85652; 87633; 87635; U0002

== ENCOUNTER → 2021-04-03 13:18 | Outpatient (CLI) | payer MEDICARE, SELFPAY ==
--- NOTE | 2021-04-03 13:19 | CT_ITS ---
STUDY: CT LEFT KNEE WITHOUT CONTRAST REASON FOR EXAM: Female, 65 years old. UNILATERAL PRIMARY OSTEOARTHRITIS, L KNEE. The patient is status post total knee replacement. RADIATION DOSAGE (If Supplied By Facility): CTDIvol = ( 15.35 ) mGy, DLP = ( 370.34 ) mGycm TECHNIQUE: Transaxial CT imaging of the knee was performed. Coronal and sagittal images were reformatted. Individualized dose optimization techniques were used for this CT. COMPARISON: None. FINDINGS: Normal medial femoral condyle and medial tibial plateau. There is preservation of the articular joint space of the medial knee compartment. The patient is status post total knee replacement. There is good alignment. Assessment of the detailed anatomical structures is limited due to the beam hardening artifact. Normal proximal tibiofibular articulation. There is no joint effusion. The quadriceps tendon is grossly normal. The patellar tendon is grossly normal. Normal Hoffa''s fat pad. Small joint effusion. CT/Extremity Lower without Contra IMPRESSION: Status post total knee replacement. There is good alignment. Small joint effusion. Electronically Signed: Atul Lu MD at 15:37 EDT , Service support ,
== END ==
PROVIDERS: PCP Family Medicine; Referring Provider Orthopaedic Surgery; Visit Provider Orthopaedic Surgery
DX: M17.12 Unilateral primary osteoarthritis, left knee (principal)
CPT/HCPCS: 73700

== ENCOUNTER 2021-04-07 10:27 | Emergency (ER) | payer MEDICARE, SELFPAY ==
[2021-04-07 10:30] VITALS: BP 160/74; PULSE 71; RESP 17; TEMP 35.8; O2SAT 98; BMI 34.8
--- NOTE | 2021-04-07 10:39 | RAD_ITS ---
STUDY: X-RAY - RIGHT HAND, ATTENTION FINGER REASON FOR EXAM: Female, 65 years old. pain, swelling TECHNIQUE: 3 view(s) of the finger were obtained. COMPARISON: Right hand x-ray dated January 13, 2020 FINDINGS: Small cortical osteophytes are present at the bases of the phalanges of the second and third digits. Mild soft tissue swelling is also present. Normal metacarpal head. Normal metacarpophalangeal joint. Normal proximal phalanx. Normal middle phalanx. Normal distal phalanx. Normal proximal interphalangeal joint. Normal distal interphalangeal joint. There is no demonstrated fracture. RAD/Finger(s) Min 2 Views IMPRESSION: Mild soft tissue swelling and cortical osteophytes Electronically Signed: Andrew Lindsey MD at 12:09 EDT , Service support ,
--- NOTE | 2021-04-07 10:40 | EX.ED.UPPERE ---
HPI History of Present Illness Chief Complaint: Upper Extremity Injury Detail of Chief Complaint: Pain and swelling to right middle finger worse over the last 24 hours Informant: patient Occured/Mechanism Mechanism/Context: No injury and No blunt trauma Onset/Context/Timing Location: Distal phalanx of right middle finger Current Severity: Severe Narrative Narrative: Patient presents to the emergency department with pain to the right middle finger. Patient states that she has had some mild discomfort for about a week off-and-on but over the last 24 hours has had increased pain and swelling. She denies fever. She denies trauma to her finger. She is not had an issue like this before. Prior similar symptoms: No PFSH PFS Medical History (Updated 04/07/21 @ 11:[address] 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 left scapula Macrocytic anemia Nicotine dependence Non-rheumatic tricuspid valve insufficiency Obesity Osteoarthritis Prosthetic joint infection Secondary pulmonary arterial hypertension Sleep-disordered breathing Home Medications sertraline 100 mg PO DAILY 08/26/16 [History Last Taken 12/04/20] meloxicam 15 mg tablet 15 mg PO QDAY 04/01/18 [History Last Taken 12/04/20] nadolol 20 mg tablet 20 mg PO BID tab 04/01/18 [History Last Taken 10/02/20 08:00] omeprazole 10 mg capsule,delayed release 20 mg PO QDAY 04/01/18 [History Last Taken 12/04/20] lisinopril 20 mg PO DAILY 12/22/18 [History Last Taken 12/04/20] primidone 50 mg PO BID 12/22/18 [History Last Taken 10/02/20 08:00] amlodipine 10 mg PO DAILY 01/27/19 [History Last Taken 12/04/20] albuterol sulfate 2.5 mg INHALATION Q4H PRN 01/21/20 [History Last Taken Unknown] albuterol sulfate 90 mcg/actuation aerosol inhaler 2 puff INHALATION Q6H PRN 01/21/20 [History Last Taken Unknown] cyclobenzaprine 10 mg tablet 10 mg PO QHS 01/21/20 [History Last Taken 02/03/20 05:15 10 MG] levothyroxine 75 mcg PO DAILY 02/01/20 [History Last Taken 12/04/20] cephalexin 500 mg PO TID 10 Days #30 cap 04/07/21 [Rx Last Taken Unknown] hydrocodone-acetaminophen 1 tab PO Q6H PRN 3 Days #14 tab 04/07/21 [Rx Last Taken Unknown] sulfamethoxazole-trimethoprim [Bactrim DS] 1 tab PO BID 10 Days #20 tab 04/07/21 [Rx Last Taken Unknown] Allergy/AdvReac Type Severity Reaction Status Date / Time meperidine [From Demerol] AdvReac Other Verified 04/07/21 10:28 Penicillins [PCN] AdvReac Nausea Verified 04/07/21 10:28 Family History Mother Heart disease Valvular Heart Disease Cancer leukemia Uncle Colon cancer Aunt Cancer Leukemia Surgical History history left ankle surgery history left hand surgery history left trigger finger release History of laparoscopic cholecystectomy History of lumbar spinal fusion History of right knee joint replacement history spur removal right shoulder Hx of local excision of skin lesion Status post left knee replacement Social History (Updated 02/10/20 @ 15:38 by Angelika HAGER, PA-C) Smoking Status: Current every day smoker tobacco type: cigarettes alcohol intake: current alcohol intake frequency: a few times a week substance use type: does not use ROS ROS ED Constitutional Constitutional ED: Reports systems reviewed and no addt'l complaints, except as documented; Denies body ache(s), change in weight or chills Eyes Eyes: Denies acute decrease in peripheral vision, change in vision, double vision or loss of vision ENT ENT ED: Reports none; Denies ear pain, lip swelling, loss taste/smell, neck pain, otalgia or sore throat Cardiovascular Cardiovascular: Reports none; Denies abdominal pain, chest pain with activity, leg edema, lightheadedness, palpitations, rapid heart rate or syncope Respiratory/Chest Respiratory/Chest: Reports none; Denies change in mental status, dry cough, dyspnea, hemoptysis, shortness of breath at rest or shortness of breath with exertion Gastrointestinal Gastrointestinal: Reports none; Denies abdominal pain, change in stool character, diarrhea, hematemesis, hematochezia, melena, rectal bleeding or vomiting Genitourinary Genitourinary ED: Reports none; Denies abdominal discomfort, anuria, dysuria, genital pain or polyuria Musculoskeletal Musculoskeletal: Reports none and other Details: Has pain to right middle finger ; Denies arthralgias, back pain, difficulty walking, extremity pain, muscle weakness or myalgias Integumentary Reports none; Denies abscess or rash Neurologic Neurologic: Reports none; Denies abnormal gait, confusion, focal weakness, frequent falls, headache(s), loss of vision, numbness, paresthesias, radicular pain, vertigo or weakness Psychiatric Psychiatric: Reports systems reviewed and no addt'l complaints, except as documented and none; Denies behavioral changes, confusion, difficulty concentrating, hallucinations, suicidal ideation, tactile hallucinations or visual hallucinations Endocrine Endocrinology: Denies none, cold intolerance, excessive sweating, fatigue or heat intolerance Hematologic/Lymphatic Hematologic/Lymphatic: Reports none; Denies anemia, easy bleeding or easy bruising Allergic/Immunologic Allergic/Immunologic ED: Denies as per HPI, none, lip swelling, mouth swelling, throat swelling, tongue swelling or hives EXAM Physical Exam Const Vital Signs: 04/07/21 10:30 Temperature 96.5 F L Temperature Source Temporal Pulse Rate 71 Respiratory Rate 17 Blood Pressure 160/74 H Blood Pressure Mean 102 Pulse Ox 98 Oxygen Delivery Method Room Air Positive well nourished and well developed General Appearance ED: well developed and NAD HEENT Reports TM's clear and moist mucous membranes normocephalic and atraumatic; Negative for trauma or tenderness Tympanic Membrane ED: Yes TM's clear Eyes PERRL and EOMs intact bilaterally General Eye ED: Negative for pale conjunctiva or scleral icterus Neck no lymphadenopathy, supple and no JVD General: Negative for tenderness Chest Wall inspection of chest normal and palpation of chest normal Chest: Negative for tenderness Resp normal respiratory effort and clear to auscultation bilaterally Effort and Inspection: Negative for respiratory distress or pain with movement Auscultation: Negative for rhonchi, wheezes or diminished lung sounds Cardio regular rate, regular rhythm, S1 normal heart sound, S2 normal heart sound and no murmurs Peripheral Pulses: pulses 2+ throughout GI normal to inspection, nondistended, normoactive bowel sounds, soft to palpation, non-tender, non-distended and no masses Back/Spine no CVA tenderness and no thoracic nor lumbar tenderness Extremity normal to inspection Extremity Narrative: Right middle finger-patient does have some subtle soft tissue swelling to the pulp of the distal phalanx. No cellulitic changes noted. No fluctuance or abscess noted. General Extremety ED: Negative for edema General Extremity: Negative for edema Neuro oriented x3, CN's II-XII intact bilaterally, no sensory deficits noted and gait normal Sensorium / Orientation: awake, alert, oriented to person, oriented to place and oriented to time Motor Exam: strength 5/5 throughout and strength abnormal Psych mental status grossly normal Skin no rashes or lesions noted and no wounds MDM MDM MDM Narrative Medical decision making narrative: At this point I suspect patient likely is developing an early felon and recommended antibiotics and warm soaks and follow-up with orthopedics. I did discuss case with Dr. Renard Morgan who would be happy to see the patient in the office for close follow-up within the next 3 to 4 days. Patient was started on Keflex and Bactrim as well as [place] for pain. Radiography Diagnostic Testing: Three-view x-rays of the right middle finger obtained interpreted by myself as mild soft tissue swelling of the distal phalanx without evidence of fractures or osteomyelitis. Discharge Plan Triage Chief Complaint: Upper Extremity Injury ED Provider: Usman Dykes Dx/Rx/DC Orders Clinical Impression: Felon of digit Instructions: Cellulitis, ED Abscess Antibiotic Treatment Only Prescriptions: New cephalexin 500 mg capsule 500 mg PO TID 10 Days Qty: 30 RF: 0 sulfamethoxazole-trimethoprim [Bactrim DS] 800-160 mg tablet 1 tab PO BID 10 Days Qty: 20 RF: 0 hydrocodone-acetaminophen 5-325 mg tablet 1 tab PO Q6H PRN (Reason: pain) 3 Days Qty: 14 RF: 0 No Action omeprazole 10 mg capsule,delayed release(DR/EC) 20 mg PO QDAY RF: 0 meloxicam 15 mg tablet 15 mg PO QDAY RF: 0 albuterol sulfate [ProAir HFA] 90 mcg/actuation HFA aerosol inhaler 2 puff INHALATION Q6H PRN (Reason: breathing) RF: 0 cyclobenzaprine 10 mg tablet 10 mg PO QHS RF: 0 albuterol sulfate 2.5 mg /3 mL (0.083 %) solution for nebulization 2.5 mg INHALATION Q4H PRN (Reason: Shortness Of Breath) RF: 0 sertraline 100 MG tablet 100 mg PO DAILY RF: 0 nadolol 20 mg tablet 20 mg PO BID RF: 0 primidone 50 MG tablet 50 mg PO BID RF: 0 lisinopril 20 MG tablet 20 mg PO DAILY RF: 0 amlodipine 10 MG tablet 10 mg PO DAILY RF: 0 levothyroxine 75 MCG tablet 75 mcg PO DAILY RF: 0 Primary Care Provider: Gaurang Godinez Referrals: Gaurang Godinez MD [Primary Care Provider] - Renard Morgan MD [STAFF PHYSICIAN] - 3-5 Days Disposition Disposition: Home, self care
[2021-04-07] MEDS: Cephalexin 250 MG Capsule 500 MG PO (10:44)
[2021-04-07] MEDS: Smz/Tmp Ds Tablet 1 TABLET PO (10:44)
[2021-04-07] MEDS: HYDROcodone Bitartrate/Apap 5/325 Tablet PO (11:30)
[2021-04-07 11:34] VITALS: BP 160/74; PULSE 71; RESP 18
== END 2021-04-07 11:35 | disposition home or self-care (01) ==
PROVIDERS: Emergency Provider Emergency Medicine; PCP Family Medicine
DX: L03.011 Cellulitis of right finger (principal); F17.210 Nicotine dependence, cigarettes, uncomplicated; E66.9 Obesity, unspecified; K21.9 Gastro-esophageal reflux disease without esophagitis; I10 Essential (primary) hypertension; M19.90 Unspecified osteoarthritis, unspecified site; F32.9 Major depressive disorder, single episode, unspecified; Z79.899 Other long term (current) drug therapy
CPT/HCPCS: 26011; 10060; 73140; 99282; 99284

== ENCOUNTER 2021-04-07 22:14 | Emergency (ER) | payer MEDICARE, SELFPAY ==
[2021-04-07 10:30] VITALS: BMI 34.8
[2021-04-07 22:14] VITALS: BP 159/68; PULSE 75; RESP 16; TEMP 36.8; O2SAT 98; BMI 38.5
[2021-04-07 22:28] VITALS: BP 137/62; PULSE 72; RESP 17; TEMP 36.7; O2SAT 96
[2021-04-07] MEDS: Lidocaine 1% (20 ml mdv) 20 ML Vial INFILT (23:02)
--- NOTE | 2021-04-07 23:33 | EX.ED.UPPERE ---
HPI History of Present Illness Chief Complaint: Upper Extremity Injury Informant: patient Onset/Context/Timing Onset: Today Context: Gradual Onset Timing: Continuous Quality of Pain: Aching and Throbbing Location: Right middle finger Worsened by: Palpation Relieved by: Nothing Associated Symptoms Associated Symptoms: Positive for Parasthesia; Negative for Weakness Narrative Narrative: Patient presents with pain and swelling to her right middle finger that has been getting progressively worse throughout the day. Patient was seen here earlier today and was placed on antibiotics and analgesics. Patient states she took 5 doses of antibiotics and 2 doses of analgesics and has minimal relief. Patient denies any fevers or chills. Patient does admit to some slight tingling in the tip of her right middle finger. Patient denies any weakness. Patient denies any new trauma or injury. [facility] Medical History Abnormal mammogram of left breast Acquired scoliosis Chronic back pain Depression GERD (gastroesophageal reflux disease) Hypertension Infection of total right knee replacement Lipoma lipoma left scapula Macrocytic anemia Nicotine dependence Non-rheumatic tricuspid valve insufficiency Obesity Osteoarthritis Prosthetic joint infection Secondary pulmonary arterial hypertension Sleep-disordered breathing Home Medications sertraline 100 mg PO DAILY 08/26/16 [History Last Taken 12/04/20] meloxicam 15 mg tablet 15 mg PO QDAY 04/01/18 [History Last Taken 12/04/20] nadolol 20 mg tablet 20 mg PO BID tab 04/01/18 [History Last Taken 10/02/20 08:00] omeprazole 10 mg capsule,delayed release 20 mg PO QDAY 04/01/18 [History Last Taken 12/04/20] lisinopril 20 mg PO DAILY 12/22/18 [History Last Taken 12/04/20] primidone 50 mg PO BID 12/22/18 [History Last Taken 10/02/20 08:00] amlodipine 10 mg PO DAILY 01/27/19 [History Last Taken 12/04/20] albuterol sulfate 2.5 mg INHALATION Q4H PRN 01/21/20 [History Last Taken Unknown] albuterol sulfate 90 mcg/actuation aerosol inhaler 2 puff INHALATION Q6H PRN 01/21/20 [History Last Taken Unknown] cyclobenzaprine 10 mg tablet 10 mg PO QHS 01/21/20 [History Last Taken 02/03/20 05:15 10 MG] levothyroxine 75 mcg PO DAILY 02/01/20 [History Last Taken 12/04/20] cephalexin 500 mg PO TID 10 Days #30 cap 04/07/21 [Rx Last Taken Unknown] hydrocodone-acetaminophen 1 tab PO Q6H PRN 3 Days #14 tab 04/07/21 [Rx Last Taken Unknown] sulfamethoxazole-trimethoprim [Bactrim DS] 1 tab PO BID 10 Days #20 tab 04/07/21 [Rx Last Taken Unknown] Allergy/AdvReac Type Severity Reaction Status Date / Time meperidine [From Demerol] AdvReac Other Verified 04/07/21 10:28 Penicillins [PCN] AdvReac Nausea Verified 04/07/21 10:28 Family History Mother Heart disease Valvular Heart Disease Cancer leukemia Uncle Colon cancer Aunt Cancer Leukemia Surgical History history left ankle surgery history left hand surgery history left trigger finger release History of laparoscopic cholecystectomy History of lumbar spinal fusion History of right knee joint replacement history spur removal right shoulder Hx of local excision of skin lesion Status post left knee replacement Social History Smoking Status: Current every day smoker tobacco type: cigarettes alcohol intake: current alcohol intake frequency: a few times a week substance use type: does not use ROS ROS ED Constitutional Constitutional ED: Denies chills or fever(s) Eyes Eyes: Denies blurry vision or change in vision ENT ENT ED: Denies rhinorrhea or sore throat Cardiovascular Cardiovascular: Denies chest pain or palpitations Respiratory/Chest Respiratory/Chest: Denies cough or dyspnea Gastrointestinal Gastrointestinal: Denies nausea or vomiting Genitourinary Genitourinary ED: Denies dysuria or hematuria Musculoskeletal Musculoskeletal: Denies back pain or neck pain Integumentary Denies Abrasions or rash Neurologic Neurologic: Denies headache(s) or weakness Allergic/Immunologic Allergic/Immunologic ED: Denies mouth swelling or urticaria EXAM Physical Exam Const Vital Signs: 04/07/21 22:14 04/07/21 22:28 Temperature 98.2 F 98.0 F Temperature Source Temporal Oral Pulse Rate 75 72 Respiratory Rate 16 17 Blood Pressure 159/68 H 137/62 H Blood Pressure Mean 98 87 Pulse Ox 98 96 Oxygen Delivery Method Room Air Room Air Positive well nourished, well developed and obese General Appearance ED: well developed Nutritional Appearance: obese HEENT normocephalic and atraumatic Extremity Extremity Narrative: There is tenderness, edema, and mild erythema over the distal phalanx of the right middle finger. There is no fluctuance. There is no discharge or drainage. There is some mild white discoloration over the tip of the finger. Capillary refill was less than 2 seconds in all digits. Sensation was intact to light touch in all digits. There is full range of motion of the MP, PIP, and DIP joints of the right middle finger. Neuro oriented x3, CN's II-XII intact bilaterally, no focal motor deficits and no sensory deficits noted Sensorium / Orientation: alert MDM MDM MDM Narrative Medical decision making narrative: Incision and drainage was performed under 1% lidocaine anesthesia via digital block. Patient felt better after this. Patient was instructed to continue her antibiotics and analgesics as prescribed. Patient was instructed to follow-up with her primary care physician as well as with orthopedics as scheduled. Patient understood and was agreeable with the plan. All questions were answered. Procedures Other Procedures Procedure(s): Incision and drainage: The right middle finger was anesthetized 1% plain lidocaine via digital block. The right middle finger was cleaned and prepped in a sterile manner. A midline linear incision was made from the tip of the distal phalanx to the pad of the middle phalanx. Mild amount of purulent drainage was expressed. The wound was irrigated with copious amounts of normal saline. Patient tolerated the procedure well. The wound was left open. Tube gauze dressing was applied. Discharge Plan Triage Chief Complaint: Upper Extremity Injury ED Provider: Richard Nelson Dx/Rx/DC Orders Clinical Impression: Felon of digit Instructions: ED Abscess Incision And Drainage Prescriptions: No Action omeprazole 10 mg capsule,delayed release(DR/EC) 20 mg PO QDAY RF: 0 meloxicam 15 mg tablet 15 mg PO QDAY RF: 0 albuterol sulfate [ProAir HFA] 90 mcg/actuation HFA aerosol inhaler 2 puff INHALATION Q6H PRN (Reason: breathing) RF: 0 cyclobenzaprine 10 mg tablet 10 mg PO QHS RF: 0 albuterol sulfate 2.5 mg /3 mL (0.083 %) solution for nebulization 2.5 mg INHALATION Q4H PRN (Reason: Shortness Of Breath) RF: 0 sertraline 100 MG tablet 100 mg PO DAILY RF: 0 nadolol 20 mg tablet 20 mg PO BID RF: 0 primidone 50 MG tablet 50 mg PO BID RF: 0 lisinopril 20 MG tablet 20 mg PO DAILY RF: 0 amlodipine 10 MG tablet 10 mg PO DAILY RF: 0 levothyroxine 75 MCG tablet 75 mcg PO DAILY RF: 0 cephalexin 500 mg capsule 500 mg PO TID 10 Days Qty: 30 RF: 0 sulfamethoxazole-trimethoprim [Bactrim DS] 800-160 mg tablet 1 tab PO BID 10 Days Qty: 20 RF: 0 hydrocodone-acetaminophen 5-325 mg tablet 1 tab PO Q6H PRN (Reason: pain) 3 Days Qty: 14 RF: 0 Primary Care Provider: Gaurang Godinez Referrals: Gaurang Godinez MD [Primary Care Provider] - 5-7 Days Renard Morgan MD [STAFF PHYSICIAN] - 3-5 Days Disposition Disposition: Home, self care
[2021-04-07 23:45] VITALS: BP 119/75; BP 124/63; PULSE 64; PULSE 70; RESP 17; TEMP 36.7; O2SAT 97; O2SAT 98
== END 2021-04-07 23:48 | disposition home or self-care (01) ==
PROVIDERS: Emergency Provider Emergency Medicine; PCP Family Medicine
DX: L03.011 Cellulitis of right finger (principal); F17.210 Nicotine dependence, cigarettes, uncomplicated; E66.9 Obesity, unspecified
CPT/HCPCS: 99282

== ENCOUNTER → 2021-04-11 13:39 | Outpatient (CLI) | payer MEDICARE, SELFPAY ==
[2021-04-07 22:14] VITALS: BMI 38.5
[2021-04-11 15:45] LABS: Erythrocyte Sedimentation Rate 18 mm/hr (0-30)
[2021-04-11 15:48] LABS: Absolute Lymphocyte Count 1.35 X10^3/uL (0.83-4.51); Absolute Neutrophil Count 3.6 X10^3/uL (2.0-7.7); Basophil# 0.02 X10^3/uL; Basophil% 0.4 % (0-1); Eosinophil# 0.16 X10^3/uL; Hematocrit 31.6 % (37-47); Hemoglobin 10.6 g/dL (12.0-15.0); Lymphocyte # 1.35 X10^3/ul (0.83-4.51); Mean Corp Hgb Conc 33.5 g/dL (32-36); Mean Corpuscular Hgb 33.5 pg (27.0-32.0); Monocyte# 0.29 X10^3/uL; Monocyte% 5.4 % (0-10); NRBC Flagged by Analyzer 0.6 % (0-5); Neutrophil # 3.57 X10^3/uL (2.7-7.7); Neutrophil % 65.8 % (47-70); POSITIVE MORPHOLOGY YES; Platelet Count 370 K/mm3 (150-450); RBC Distribution Width CV 23.5 % (11.6-14.6); RBC Distribution Width SD 86.6 fl (35.1-43.9); Red Blood Count 3.16 M/mm3 (4.2-5.4); White Blood Count 5.4 K/mm3 (4.4-11.0)
[2021-04-11 15:58] LABS: Differential Indicated SCAN CRITERIA MET
[2021-04-11 16:30] LABS: Anisocytosis 4+; Differential Comment SCANNED; Hypochromasia 1+; Macrocytosis 1+; Platelet Estimate ADEQUATE (ADEQ); Target Cells 1+
== END ==
PROVIDERS: PCP Family Medicine; Referring Provider Family Medicine; Visit Provider Family Medicine
DX: L03.019 Cellulitis of unspecified finger (principal)
CPT/HCPCS: 36415; 85025; 85652; 86140

== ENCOUNTER → 2021-04-19 10:18 | Outpatient (CLI) | payer MEDICARE, SELFPAY ==
[2021-04-07 22:14] VITALS: BMI 38.5
--- NOTE | 2021-04-19 10:24 | MRI_ITS ---
STUDY: MRI RIGHT HAND (ATTENTION THUMB) REASON FOR EXAM: Right thumb pain, decreased range of motion for 6 weeks, no specific injury. TECHNIQUE: Standardized fat and water weighted pulse sequences were obtained in all 3 orthogonal planes. COMPARISON: Radiographs 01/13/2020. FINDINGS: There is no bone edema of the first metacarpal, first proximal phalanx or first distal phalanx. There is discontinuity of the flexor pollicis longus tendon with the proximal end of the distal tendon stump at the level of the first carpometacarpal articulation (T2 sagittal images 7, 8; inversion recovery axial images 5, 6). There is a small volume of fluid in the flexor pollicis longus tendon sheath (inversion recovery axial image 10). Normal extensor pollicis longus tendon. There are marginal osteophytes, chondral loss of the first carpometacarpal articulation (T2 sagittal images 9, 10) and a small subchondral cyst in the first metacarpal base. Normal first metacarpophalangeal joint with intact radial and ulnar collateral ligament (inversion recovery coronal image 9). Normal interphalangeal joint of the first digit. Normal thenar musculature. MRI/Upper Ext/No Jt/ wo IMPRESSION: Tear of the flexor pollicis longus tendon. Arthrosis of the first carpometacarpal articulation. Electronically Signed: Wilbert Urias MD at 11:34 EDT Tel , Service support ,
== END ==
PROVIDERS: PCP Family Medicine; Referring Provider Family Medicine; Visit Provider Family Medicine
DX: M79.644 Pain in right finger(s) (principal)
CPT/HCPCS: 73218

== ENCOUNTER → 2021-07-19 12:16 | Outpatient (CLI) | payer MEDICARE, SELFPAY ==
[2021-07-19 15:23] LABS: Absolute Lymphocyte Count 1.62 X10^3/uL (0.83-4.51); Absolute Neutrophil Count 3.7 X10^3/uL (2.0-7.7); Basophil# 0.06 X10^3/uL; Eosinophil# 0.11 X10^3/uL; Eosinophils% 1.9 % (0-5); Hematocrit 33.2 % (37-47); Hemoglobin 11.9 g/dL (12.0-15.0); Lymphocyte # 1.62 X10^3/ul (0.83-4.51); Lymphocyte % 27.3 % (19-41); Mean Corp Hgb Conc 35.8 g/dL (32-36); Mean Corpuscular Hgb 34.9 pg (27.0-32.0); Mean Corpuscular Volume 97.4 fL (81-99); Mean Platelet Vol. 11.1 fl (6.2-12.0); Monocyte# 0.41 X10^3/uL; Monocyte% 6.9 % (0-10); NRBC Flagged by Analyzer 0.8 % (0-5); Neutrophil # 3.72 X10^3/uL (2.7-7.7); Neutrophil % 62.6 % (47-70); POSITIVE MORPHOLOGY YES; Platelet Count 403 K/mm3 (150-450); RBC Distribution Width CV 22.4 % (11.6-14.6); RBC Distribution Width SD 80.2 fl (35.1-43.9); Red Blood Count 3.41 M/mm3 (4.2-5.4); White Blood Count 5.9 K/mm3 (4.4-11.0)
[2021-07-19 15:41] LABS: Differential Indicated SCAN CRITERIA MET
[2021-07-19 15:55] LABS: Erythrocyte Sedimentation Rate 22 mm/hr (0-30)
[2021-07-19 16:04] LABS: Anisocytosis 1+; Macrocytosis 1+; Platelet Estimate SLT INC (ADEQ); Red Cell Morphology N CHROM NORMAL (NORM C&C)
[2021-07-19 16:15] LABS: ALB/GLOB Ratio 1.1 RATIO (0.9-2.4); AST(SGOT) 10 U/L (15-37); Alanine Aminotransfer ALT/SGPT 31 U/L (13-56); Alkaline Phosphatase 76 U/L (45-117); Anion Gap 9 (5-15); BUN 7 mg/dL (7-18); BUN/Creat Ratio 13.6 RATIO (10-20); Calcium,Total 9.4 mg/dL (8.5-10.1); Chloride 99 mmol/L (98-107); Creatinine, Serum 0.52 mg/dL (0.55-1.02); EST Glomerular Filtration Rate 127 mL/min (>60); Est Glom Filt Rate - Afr Amer 153 mL/min (>60); Globulin 3.5 g/dL (2.2-4.2); Glucose 100 mg/dL (74-106); Potassium 3.8 mmol/L (3.5-5.1); Protein, Total 7.5 g/dL (6.4-8.2); Sodium Level 131 mmol/L (136-145); Thyroid Stim Hormone (TSH) 3.46 uIU/mL (0.358-3.74)
== END ==
PROVIDERS: PCP Family Medicine; Referring Provider Family Medicine; Visit Provider Family Medicine
DX: R19.7 Diarrhea, unspecified (principal); R10.9 Unspecified abdominal pain
CPT/HCPCS: 36415; 80053; 84443; 85025; 85652

== ENCOUNTER 2021-07-27 05:49 | Day surgery (SDC) | payer MEDICARE, SELFPAY ==
--- NOTE | 2021-07-27 05:58 | EKG12_ITS ---
Test Reason : PRE-OP Blood Pressure : / mmHG Vent. Rate : 060 BPM Atrial Rate : 060 BPM P-R Int : 198 ms QRS Dur : 082 ms QT Int : 404 ms P-R-T Axes : 060 034 053 degrees QTc Int : 404 ms Normal sinus rhythm with sinus arrhythmia Normal ECG Confirmed by KATHERINE MANNING, HARLEY ([id number]), scientific editor MORRIS SANTA ([id number]) on 08/01/2021 10:01:01 AM Referred By: Richard Ugarte Confirmed By:HARLEY MURPHY MD
[2021-07-27 06:37] VITALS: BP 110/82; PULSE 58; RESP 16; TEMP 36.2; O2SAT 98; BMI 34.2
[2021-07-27] MEDS: Lactated Ringers 1,000 ML 100 ML IV (06:54)
[2021-07-27] MEDS: 0.9% Normal Saline (Pres. free 10 ML Vial (08:02)
[2021-07-27] MEDS: Lidocaine 4% 50 ML Bottle (08:05)
[2021-07-27] MEDS: Oxymetazoline 0.05% 1 SPRAY SPRAY.BTL 15 SPRAY (08:05)
--- NOTE | 2021-07-27 08:12 | PCM.OPRPT ---
Problems Associated Problem List Diagnoses (1) Adductor spasmodic dysphonia: Report of Operation Date of Procedure: 07/27/21 Pre-Operative Diagnosis: Spasmodic dysphonia, adductor type Post-Operative Diagnosis: Same Surgery/Procedure Performed:: BOTOX injection to thyroarytenoid muscles Description of Surgical Findings:: Brii is a 65-year-old female with complaints of halting interrupted speech consistent with abductor type spasmodic dysphonia and confirmed on office laryngoscopy. She reports significant difficulty with communication and interruption of her daily activities from this and Botox injection as this is her primary therapy for this complaint was offered in hopes of improved quality of life and voice production. She was eager to proceed. The risks, alternatives, potential complications, and benefits were discussed at length and any questions answered to the patient and/or caregiver's satisfaction. Witnessed informed consent was obtained in the office, and the patient and/or caregiver was agreeable to proceed. Procedure went as follows: The patient was identified in the preoperative holding and brought to the operating room, placed under general anesthesia, and intubated. When appropriate anesthesia was obtained, the head of bed was rotated and the patient prepped and draped in usual sterile fashion. A dental guard or moistened gauze was then placed to protect the upper gums and the Dedo laryngoscope then introduced. Direct laryngoscopy was then carried out. The lateral posterior pharyngeal wall mucosa, tonsillar fossa, vallecula, piriforms, and epiglottis were noted to be normal in appearance. The true and false vocal folds were then brought into view. The patient was then placed in suspension and the operative microscope brought into the field. Botox injection was then carried out for a total of 1.5 units on each side prepared by diluting 100 unit vial with 4 mL of injectable saline and drawing out 0.06 mL was then performed in the thyroarytenoid musculature bilaterally. Using pledgets soaked in a 50-50 mixture of oxymetazoline and 4% topical lidocaine the true vocal folds were then topicalized. The pledgets were then removed and the patient taken out of suspension and returned to anesthesia, was revived, and extubated without complication having tolerated the procedure well. Surgeon: Richard Ugarte Type of Anesthesia: General Anesthesiologist: Richard Calvillo Special Medications: BOTOX Specimen's removed: none Drains: none Estimated Blood Loss (mL): 0 mL Fluids Replaced: 500 mL Grafts/Implants Used: none Complications none Admit VTE Documentation VTE Present on Admission: No VTE Mechan Device Prophylaxis: SCD's VTE Pharm Prophylaxis ordered?: No
[2021-07-27 08:20] VITALS: BP 110/82; BP 155/64; PULSE 66; RESP 16; TEMP 36.2; O2SAT 94
--- NOTE | 2021-07-27 08:20 | PCM.DC ---
Discharge Instructions Diet Discharge Diet: No restrictions Activity Discharge Activity: Return to Normal Activity Dressing / Incision Call your doctor if you observe: Shortness of breath and - (coughing with liquid intake, inability to swallow) Follow Up Care Please Follow Up With: Richard Ugarte MD When: 2 weeks Test Results: Test results from this visit will be discussed in further detail at your follow-up appointment, if applicable. Discharge Plan Admission Primary Reason for Your Visit: Spasmodic dysphonia Attending Provider: Richard Ugarte Primary Care Provider: Gaurang Godinez Discharge Orders/Prescriptions Prescriptions: New acetaminophen 500 mg Tablet 500 mg PO Q4H PRN PRN (Reason: Pain Score 1-5/10) Qty: 0 RF: 0 Continued omeprazole 10 mg capsule,delayed release(DR/EC) 20 mg PO QDAY RF: 0 meloxicam 15 mg tablet 15 mg PO QDAY RF: 0 albuterol sulfate [ProAir HFA] 90 mcg/actuation HFA aerosol inhaler 2 puff INHALATION Q6H PRN (Reason: breathing) RF: 0 albuterol sulfate 2.5 mg /3 mL (0.083 %) solution for nebulization 2.5 mg INHALATION Q4H PRN (Reason: Shortness Of Breath) RF: 0 nadolol 20 mg tablet 20 mg PO BID RF: 0 primidone 50 MG tablet 50 mg PO BID RF: 0 lisinopril 20 MG tablet 20 mg PO DAILY RF: 0 amlodipine 10 MG tablet 10 mg PO DAILY RF: 0 levothyroxine 75 MCG tablet 100 mcg PO DAILY RF: 0 sertraline 100 mg tablet 100 mg PO DAILY RF: 0 pravastatin 20 mg tablet 20 mg PO QHS RF: 0 ipratropium bromide 42 mcg (0.06 %) spray,non-aerosol 2 spray INTRANASAL TID RF: 0 dicyclomine 10 mg capsule 10 mg PO TID RF: 0 Referrals / Follow Up: Gaurang Godinez MD [Primary Care Provider] - Disposition Disposition (needs filled in before D/C Order can be placed): Home, Self Care
[2021-07-27 08:30] VITALS: BP 103/60; BP 110/82; PULSE 68; RESP 16; O2SAT 94
[2021-07-27 08:45] VITALS: BP 106/55; BP 110/82; PULSE 55; RESP 16; TEMP 35.7; O2SAT 95
[2021-07-27 09:22] VITALS: BP 108/59; BP 110/82; PULSE 52; RESP 16; TEMP 35.9; O2SAT 97
== END 2021-07-27 09:37 | disposition home or self-care (01) ==
LOC: SDC 05:50 → AC 05:50
PROVIDERS: PCP Family Medicine; Referring Provider Otolaryngology; Visit Provider Otolaryngology
PROC: 0CJS8ZZ Inspection of Larynx, Via Natural or Artificial Opening Endoscopic (ICD-10-PCS; CPT 31575; principal; 2021-07-27 07:25)
DX: J38.3 Other diseases of vocal cords (principal); R49.0 Dysphonia; J30.0 Vasomotor rhinitis; F17.200 Nicotine dependence, unspecified, uncomplicated; E78.5 Hyperlipidemia, unspecified; I10 Essential (primary) hypertension; Z79.899 Other long term (current) drug therapy
CPT/HCPCS: 00320; 31571; 64617; 93005; J7120; J0585; J2405; J3490

== ENCOUNTER → 2021-08-04 | Outpatient (CLI) | payer MEDICARE, SELFPAY ==
[2021-08-04 18:49] LABS: Probe Check PASS; Specimen Processing Control PASS
== END | disposition home or self-care (01) ==
LOC: LABSPEC 08-16 14:26
PROVIDERS: Visit Provider Nurse Practitioner Family
DX: R05 Cough (principal)
CPT/HCPCS: 87635; U0005; U0003

== ENCOUNTER → 2021-08-04 | Outpatient (CLI) | payer MEDICARE, SELFPAY | END | disposition home or self-care (01) | LOC: LABSPEC 08-07 10:24 | PROVIDERS: PCP Family Medicine; Referring Provider Nurse Practitioner Family; Visit Provider Nurse Practitioner Family | DX: R05 Cough (principal) ==

== ENCOUNTER 2022-03-08 10:14 | Day surgery (SDC) | payer MEDICARE, SELFPAY ==
[2022-03-08] VITALS (8 sets, daily range): BP systolic 112–146; BP diastolic 59–119; PULSE 51–65; RESP 16; TEMP 36.1–36.4; O2SAT 91–97; BMI 34.4
[2022-03-08] MEDS: Lactated Ringers 1,000 ML 15 ML IV (11:24)
[2022-03-08] MEDS: Clindamycin 900 MG/50 ML BAG 75 MG IV (11:59)
--- NOTE | 2022-03-08 12:38 | OP.PCM_ITS ---
Report of Operation Date of Procedure: 03/08/22 Pre-Operative Diagnosis: Left carpal tunnel syndrome Post-Operative Diagnosis: same Surgery/Procedure Performed:: Left carpal tunnel release Description of Surgical Findings:: Report of Operation Date of Procedure: 03/08/2022 Preoperative Diagnosis: Left Carpal Tunnel Syndrome Postoperative Diagnosis: same Procedure Performed: Left Carpal Tunnel Release Anesthesia: Juaquin Ludwig Anesthesiologist: Esequiel Londono M.D. Description of Procedure: Prior to instituting IV regional anesthesia, Clindamycin 900 mg IV was administered to the patient. With appropriate informed consent, the patient was taken to the operative suite. After the induction of [place] block, the left upper extremity was prepared and draped sterilely. Subsequently, a midline longitudinal incision was made in the base of the left palm, in line with the fourth ray with #15 blade scalpel. Hemostasis was perfected with bipolar electrocautery. Scissor dissection was carried down through the subcutaneous tissue to the palmar fascia. A self-retaining retractor was placed. In sequence, the kim fascia, then the deep transverse carpal ligament was divided with the scalpel under direct visualization. Thereafter, the most proximal and distal aspects of the deep transverse carpal ligament were divided with scissors under direct visualization. The wound was copiously irrigated and closed with interrupted sutures of 4-0 nylon. A sterile well-padded dressing and Rudy wrap were applied. The tourniquet was released. Excellent blood flow was returned to the left upper extremity. The patient was transferred to the PACU in stable and satisfactory condition. Carmelo Garibay DO Surgeon: Carmelo Garibay solar/renewable energy sales: None Type of Anesthesia: Juaquin Ludwig Anesthesiologist: Esequiel Londono Admmessi VTE Documentation VTE Present on Admission: No VTE Mechan Device Prophylaxis: SCD's VTE Pharm Prophylaxis ordered?: No Reason prophylaxis not ordered:: Treatment Not Indicated
== END 2022-03-08 23:59 | disposition home or self-care (01) ==
LOC: SDC 10:17 → AC 10:18
PROVIDERS: PCP Family Medicine; Referring Provider Orthopaedic Surgery; Visit Provider Orthopaedic Surgery
PROC: (CPT 64721; principal; 2022-03-08 11:50)
DX: G56.02 Carpal tunnel syndrome, left upper limb (principal); M19.90 Unspecified osteoarthritis, unspecified site; M79.7 Fibromyalgia; I10 Essential (primary) hypertension; Z79.899 Other long term (current) drug therapy; F17.210 Nicotine dependence, cigarettes, uncomplicated; E66.9 Obesity, unspecified; Z68.34 Body mass index [BMI] 34.0-34.9, adult
CPT/HCPCS: 64721; J7120

== ENCOUNTER → 2022-07-11 | Outpatient (CLI) | payer MEDICARE, SELFPAY ==
--- NOTE | 2022-07-11 12:46 | BI_ITS ---
MAMMOGRAPHY - BILATERAL SCREENING REASON FOR EXAM: Female, 66 years old. Routine annual screening examination. PERTINENT HISTORY: Non-contributory. TECHNIQUE: Digital bilateral breast michel (3D mammographic acquisition) in the CC and MLO projections. 2-D mediolateral oblique (MLO) and craniocaudad (CC) views of both breasts were obtained. CAD: Full Field Digital Mammography with Computer Added Detection was performed. COMPARISON: Comparison is made with prior study dated 12/04/2018 and 02/13/2017. FINDINGS: Breast Composition: The breasts are heterogeneously dense, which may obscure small masses. There are no dominant masses or suspicious calcifications. No other significant abnormalities are identified. There has been no significant change since the prior study. BI/SCRN MAMM (CAD)W/MICHEL BILAT IMPRESSION: Stable bilateral screening mammogram. Yearly follow-up mammogram recommended. (A) ASSESSMENT CATEGORY: BIRADS Category 1: Negative. A letter regarding these results will be sent to the patient by the facility within 30 days. Approximately 10% of breast cancers are not detected by mammography. A normal mammogram should not delay biopsy of a clinically suspicious abnormality. [id number] Electronically Signed: Atul Lu MD at 17:31 EDT ,
--- NOTE | 2022-07-11 12:52 | BD_ITS ---
STUDY: DUAL ENERGY X-RAY ABSORPTIOMETRY / DXA REASON FOR EXAM: Female, 66 years old. [id number] TECHNIQUE: Bone Mineral Density (BMD) measurements of right forearm and bilateral hips were obtained. COMPARISON: Comparison is made with prior study dated 10/12/2016. FINDINGS: Left Femur Total: g/cm2 (0.811) / T-score (-1.1) / Z-score (0.3) Left Femoral Neck: g/cm2 (0.630) / T-score (-2.0) / Z-score (-0.3) Right Femur Total: g/cm2 (0.784) / T-score (-1.3) / Z-score (0.1) Right Femoral Neck: g/cm2 (0.685) / T-score (-1.4) / Z-score (0.2) Right Forearm: g/cm2 (0.548) / T-score (-0.6) / Z-score (1.2) The T-Scores on the most recent prior examination were: Left Femur Total: which represents a worsening of 11.9%. Right Femur Total: which represents a worsening of 9.7%. BD/Dexa Bone Density Study IMPRESSION: The patient is considered osteopenic as outlined below according to World Tristen Organization (WHO) criteria with a moderate fracture risk. There has been worsening of bone density since the previous examination. Reference Information: The T-score is the number of standard deviations above or below the standard which is normal for young adults at their peak bone mineral density. The World Health Organization (WHO) interprets the T-scores as follows: Above -1 Normal bone density Between -1 and -2.5 Osteopenia Equal to / or below -2.5 Osteoporosis As a practical clinical guideline, osteopenia may be graded as follows: Mild -1 through -1.5 Moderate -1.6 through -2.0 Severe -2.1 through -2.4 The Z-score is the number of standard deviations above or below age-matched controls. A Z-score of less than -1.5 would be considered abnormal. References: 1. NIH Osteoporosis and Related Bone Diseases www osteo.org 2. International Society for Clinical Densitometry www iscd.org 3. National Osteoporosis Foundation www nof.org Electronically Signed: Atul Lu MD at 17:45 EDT ,
== END | disposition home or self-care (01) ==
LOC: OPBD 12:44
PROVIDERS: PCP Family Medicine; Visit Provider Family Medicine
DX: Z00.00 Encounter for general adult medical examination without abnormal findings (principal); Z12.31 Encounter for screening mammogram for malignant neoplasm of breast; M85.80 Other specified disorders of bone density and structure, unspecified site; Z78.0 Asymptomatic menopausal state
CPT/HCPCS: 77063; 77067; 77080

== ENCOUNTER → 2022-07-17 | Outpatient (CLI) | payer MEDICARE, SELFPAY ==
[2022-07-17 15:37] LABS: Anion Gap 6 (5-15); BUN 11 mg/dL (7-18); BUN/Creat Ratio 19.5 RATIO (10-20); Calcium,Total 8.9 mg/dL (8.5-10.1); Chloride 103 mmol/L (98-107); Cholesterol 229 mg/dL (200); Creatinine, Serum 0.56 mg/dL (0.55-1.02); EST Glomerular Filtration Rate 114 mL/min (>60); Est Glom Filt Rate - Afr Amer 138 mL/min (>60); Ferritin 153 ng/mL (8-252); Glucose 90 mg/dL (74-106); High Density Lipoprotein 55 mg/dL; Iron 87 ug/dL (50-170); Potassium 4.3 mmol/L (3.5-5.1); Sodium Level 135 mmol/L (136-145); Thyroid Stim Hormone (TSH) 7.03 uIU/mL (0.358-3.74); Triglycerides 133 mg/dL; Very Low Density Lipoprotein 27 mg/dL (5-40)
[2022-07-17 15:38] LABS: Vitamin B12 563 pg/mL (211-911)
== END | disposition home or self-care (01) ==
LOC: MFPLAB 12:10
PROVIDERS: PCP Family Medicine; Referring Provider Family Medicine; Visit Provider Family Medicine
DX: I10 Essential (primary) hypertension (principal); D64.9 Anemia, unspecified; E03.9 Hypothyroidism, unspecified
CPT/HCPCS: 36415; 80048; 80061; 82607; 82728; 83540; 84443

== ENCOUNTER 2022-07-30 19:21 | Emergency (ER) | payer MEDICARE, SELFPAY ==
[2022-07-30 19:22] VITALS: BP 111/89; PULSE 98; RESP 17; TEMP 37.1; O2SAT 99; BMI 34.3
--- NOTE | 2022-08-02 00:09 | EX.ED.DYSGE1 ---
HPI History of Present Illness Chief Complaint: Cellulitis Narrative Narrative: Was roomed, however left before being seen by myself. [facility] Medical History (Updated 06/26/22 @ 18:17 by Jacey Haney) Abnormal mammogram of left breast Acquired scoliosis Alcohol use Ambulates with cane Arthritis Back pain Cardiology follow-up encounter Chronic back pain Depression Gastric reflux GERD (gastroesophageal reflux disease) High cholesterol History of echocardiogram History of IBS History of pain when walking Hypertension Infection of total right knee replacement Lipoma lipoma left scapula Macrocytic anemia Nicotine dependence Non-rheumatic tricuspid valve insufficiency Obesity Osteoarthritis Prosthetic joint infection Secondary pulmonary arterial hypertension Shortness of breath on exertion Sleep apnea Sleep-disordered breathing Thyroid disease Walker as ambulation aid Wears dentures Wears glasses Home Medications meloxicam 15 mg tablet 15 mg PO QDAY ARTHRITIS 04/01/18 [History Last Taken 12/04/20] nadolol 20 mg tablet 20 mg PO BID MVP 04/01/18 [History Last Taken 03/08/22] omeprazole 10 mg capsule,delayed release 20 mg PO QDAY GERD 04/01/18 [History Last Taken 03/08/22] lisinopril 20 mg tablet 20 mg PO DAILY BP 12/22/18 [History Last Taken 03/08/22] primidone 50 mg tablet 50 mg PO BID TREMORS 12/22/18 [History Last Taken 10/02/20 08:00] amlodipine 10 mg tablet 10 mg PO DAILY BLOOD PRESSURE 01/27/19 [History Last Taken 07/27/21 05:30] albuterol sulfate 90 mcg/actuation aerosol inhaler (ProAir HFA) 2 puff inhalation Q6H PRN breathing 01/21/20 [History Last Taken Unknown] levothyroxine 75 mcg tablet 100 mcg PO DAILY thyroid 02/01/20 [History Last Taken 03/08/22] dicyclomine 10 mg capsule 10 mg PO TID 07/26/21 [History Last Taken Unknown] ipratropium bromide 42 mcg (0.06 %) nasal spray 2 spray intranasal TID 07/26/21 [History Last Taken Unknown] pravastatin 20 mg tablet 20 mg PO QHS 07/26/21 [History Last Taken Unknown] sertraline 100 mg tablet 100 mg PO DAILY 07/26/21 [History Last Taken Unknown] Allergy/AdvReac Type Severity Reaction Status Date / Time meperidine [From [facility]] AdvReac Other Verified 07/30/22 19:22 Penicillins [PCN] AdvReac Nausea Verified 07/30/22 19:22 Family History (System 08/15/21 @ 09:02 by Kristen Acosta) Mother Heart disease Valvular Heart Disease Cancer leukemia Uncle Colon cancer Aunt Cancer Leukemia Surgical History (Updated 06/26/22 @ 18:17 by Jacey Haney) history left ankle surgery history left hand surgery history left trigger finger release History of laparoscopic cholecystectomy History of lumbar spinal fusion History of right knee joint replacement history spur removal right shoulder Hx of local excision of skin lesion Hx of total knee replacement Status post left knee replacement Social History (System 08/15/21 @ 09:02 by Kristen Acosta) Smoking Status: Current every day smoker tobacco type: cigarettes alcohol intake: current alcohol intake frequency: a few times a week substance use type: does not use Discharge Plan Triage Chief Complaint: Cellulitis ED Provider: Juan Pablo Obrien Dx/Rx/DC Orders Prescriptions: No Action omeprazole 10 mg capsule,delayed release(DR/EC) 20 mg PO QDAY meloxicam 15 mg tablet 15 mg PO QDAY albuterol sulfate [ProAir HFA] 90 mcg/actuation HFA aerosol inhaler 2 puff INHALATION Q6H PRN (Reason: breathing) nadolol 20 mg tablet 20 mg PO BID Label Comments: MITRAL VALVE primidone 50 MG tablet 50 mg PO BID Label Comments: TREMORS lisinopril 20 MG tablet 20 mg PO DAILY Label Comments: HYPERTENSION amlodipine 10 MG tablet 10 mg PO DAILY levothyroxine 75 MCG tablet 100 mcg PO DAILY sertraline 100 mg tablet 100 mg PO DAILY pravastatin 20 mg tablet 20 mg PO QHS ipratropium bromide 42 mcg (0.06 %) spray,non-aerosol 2 spray INTRANASAL TID dicyclomine 10 mg capsule 10 mg PO TID Label Comments: TAKE 1 CAPSULE BY MOUTH 30 MINUTES BEFORE MEALS Primary Care Provider: Gaurang Godinez Disposition Disposition: LEFT WITHOUT BEING SEEN Discharge Date/Time: 07/30/22 19:45
== END 2022-07-30 19:45 | disposition left against medical advice (07) ==
LOC: ED 07-31 08:12
PROVIDERS: Emergency Provider Emergency Medicine; PCP Family Medicine; Visit Provider Emergency Medicine
DX: L03.90 Cellulitis, unspecified (principal); I10 Essential (primary) hypertension; E78.00 Pure hypercholesterolemia, unspecified; F17.210 Nicotine dependence, cigarettes, uncomplicated; Z79.899 Other long term (current) drug therapy; Z53.29 Procedure and treatment not carried out because of patient's decision for other reasons

== ENCOUNTER → 2022-08-13 | Outpatient (CLI) | payer MEDICARE, SELFPAY | END | disposition home or self-care (01) | LOC: LABSPEC 15:47 | PROVIDERS: PCP Family Medicine; Visit Provider Family Medicine | DX: L03.90 Cellulitis, unspecified (principal) | CPT/HCPCS: 87070; 87077; 87186; 87205 ==

== ENCOUNTER → 2022-08-29 | Outpatient (CLI) | payer MEDICARE, SELFPAY | END | disposition home or self-care (01) | PROVIDERS: PCP Family Medicine; Visit Provider Family Medicine | DX: Z20.822 Contact with and (suspected) exposure to COVID-19 (principal) | CPT/HCPCS: 87635; U0003; U0005 ==

== ENCOUNTER 2022-08-31 11:52 | Emergency (ER) | payer MEDICARE, SELFPAY ==
[2022-08-31 11:53] VITALS: BP 117/64; PULSE 93; RESP 24; TEMP 36.6; O2SAT 97; BMI 34.4
[2022-08-31 11:56] VITALS: BP 117/64; PULSE 93; RESP 24; TEMP 36.6; O2SAT 97
--- NOTE | 2022-08-31 12:26 | CT_ITS ---
EXAM: CT LEFT UPPER EXTREMITY WITH INTRAVENOUS CONTRAST CLINICAL INDICATION: swelling TECHNIQUE: Helically acquired images were obtained of the left upper extremity with intravenous contrast. 2-D reformats were performed by the technologist. This CT exam was performed using one or more of the following dose reduction techniques: automated exposure control, adjustment of the mA and/or kV according to patient size, and/or use of iterative reconstruction technique. This report was created using [employer] report generation technology. CONTRAST: IV 100mL [id number] COMPARISON: None. FINDINGS: BONES/JOINTS: No acute bone or joint abnormality. Degenerative narrowing of the joints of the wrist. No subluxation. Normal alignment. SOFT TISSUES: Prominent edematous changes are noted along the posterior portion of the forearm adjacent to the ulna. More loculated appearing fluid collection noted adjacent to the olecranon process which is incompletely evaluated on these images. Uncertain whether the collection adjacent to the olecranon process represents abscess or bursitis. Anterior soft tissues are normal. No vascular abnormality. No venous thrombosis or evidence of arterial stenosis or occlusion CT/Extremity Upper WITH Contrast IMPRESSION: Diffuse soft tissue swelling along the posterior portion of the forearm. Question of a localized abscess versus bursitis at the level of the olecranon process. Electronically Signed: Yariel Lemon MD at 14:26 EDT ,
--- NOTE | 2022-08-31 12:28 | EDS_ITS ---
HPI History of Present Illness Chief Complaint: Weakness Narrative Narrative: 66-year-old female presenting with generalized weakness, low-grade fevers about 100 ?F, body aches and chills. She states has had this for about a month. She states has been dealing with a staph infection in the left arm/elbow bursa and has been on antibiotics as an outpatient. She has done doxycycline, Augmentin on an outpatient basis. Patient states she was seen by her PCP and he did aspirate some fluid from the left elbow/forearm and sent for culture. She states that her issue is recurrent and after antibiotics were off states does not go away. Patient states that she has seen Dr. Lee in the past but not since she had this elbow problem on the left. Patient states she also saw Dr. Somers who stated he would not be able to do anything for her until she sees infectious disease. They saw him about 10 days ago. They were referred to Dr. Lee and they have made an appointment but they state they are waiting for records to come in order to see her. [facility] Medical History Abnormal mammogram of left breast Acquired scoliosis Alcohol use Ambulates with cane Arthritis Back pain Cardiology follow-up encounter Chronic back pain Depression Gastric reflux GERD (gastroesophageal reflux disease) High cholesterol History of echocardiogram History of IBS History of pain when walking Hypertension Infection of total right knee replacement Lipoma lipoma left scapula Macrocytic anemia Nicotine dependence Non-rheumatic tricuspid valve insufficiency Obesity Osteoarthritis Prosthetic joint infection Secondary pulmonary arterial hypertension Shortness of breath on exertion Sleep apnea Sleep-disordered breathing Thyroid disease Walker as ambulation aid Wears dentures Wears glasses Home Medications meloxicam 15 mg tablet 15 mg PO QDAY ARTHRITIS 04/01/18 [History Last Taken 12/04/20] nadolol 20 mg tablet 20 mg PO BID MVP 04/01/18 [History Last Taken 03/08/22] omeprazole 10 mg capsule,delayed release 20 mg PO QDAY GERD 04/01/18 [History Last Taken 03/08/22] lisinopril 20 mg tablet 20 mg PO DAILY BP 12/22/18 [History Last Taken 03/08/22] primidone 50 mg tablet 50 mg PO BID TREMORS 12/22/18 [History Last Taken 10/02/20 08:00] amlodipine 10 mg tablet 10 mg PO DAILY BLOOD PRESSURE 01/27/19 [History Last Taken 07/27/21 05:30] albuterol sulfate 90 mcg/actuation aerosol inhaler (ProAir HFA) 2 puff inhalation Q6H PRN breathing 01/21/20 [History Last Taken Unknown] levothyroxine 75 mcg tablet 100 mcg PO DAILY thyroid 02/01/20 [History Last Taken 03/08/22] sertraline 100 mg tablet 100 mg PO DAILY 07/26/21 [History Last Taken Unknown] levofloxacin 500 mg tablet 500 mg PO DAILY #7 tabs 08/31/22 [Rx Last Taken Unknown] Allergy/AdvReac Type Severity Reaction Status Date / Time meperidine [From Demerol] AdvReac Other Verified 08/31/22 11:57 Penicillins [PCN] AdvReac Nausea Verified 08/31/22 11:57 Family History Mother Heart disease Valvular Heart Disease Cancer leukemia Uncle Colon cancer Aunt Cancer Leukemia Surgical History history left ankle surgery history left hand surgery history left trigger finger release History of laparoscopic cholecystectomy History of lumbar spinal fusion History of right knee joint replacement history spur removal right shoulder Hx of local excision of skin lesion Hx of total knee replacement Status post left knee replacement Social History Smoking Status: Current every day smoker tobacco type: cigarettes alcohol intake: current alcohol intake frequency: a few times a week substance use type: does not use EXAM Physical Exam Const Vital Signs: 08/31/22 11:53 08/31/22 11:56 08/31/22 12:00 Temperature 97.9 F 97.9 F Temperature Source Temporal Temporal Pulse Rate 93 93 Respiratory Rate 24 H 24 H Respiratory Effort Short of Breath Respiratory Pattern Normal Blood Pressure 117/64 117/64 Blood Pressure Mean 81 81 Pulse Ox 97 97 Oxygen Delivery Method Room Air Room Air Positive well nourished General Appearance ED: NAD; Negative for pallor HEENT Reports moist mucous membranes Eyes PERRL and EOMs intact bilaterally Chest Wall inspection of chest normal and palpation of chest normal Resp normal respiratory effort and clear to auscultation bilaterally Cardio Negative for regular rate or regular rhythm GI normal to inspection, nondistended, normoactive bowel sounds Neuro oriented x3 and CN's II-XII intact bilaterally Sensorium / Orientation: alert Psych mental status grossly normal Skin Skin Narrative: Left elbow/bursa erythema and edema extending into the proximal forearm. Range of motion of the left elbow is normal. There is erythema and warmth overlying this area. General Skin Exam: Negative for jaundice or pallor MDM MDM MDM Narrative Medical decision making narrative: I did obtain blood work and the patient's white blood cell count is 10.5. Her hemoglobin is slightly low at 9.5 but that has not been checked in over a year in our system. She is pink and her conjunctiva are not pale and will think this is acute. She is not on a blood thinner. She denies black or bloody stools. Her sodium is slightly low at 130 and her potassium is slightly low at 3.2 but otherwise her renal function is normal on her CMP. Her alkaline phosphatase is elevated at 192 but her other LFTs are normal. Urinalysis is negative for infection. Chest x-ray on my interpretation shows no acute cardiopulmonary process and the radiologist does agree. Patient was counseled that although she has been on Augmentin, doxycycline, Bactrim previously she states she was on a different antibiotic as well but does not know the name of this. He does look based on her sensitivities she is sensitive to Levaquin. I did offer to start her on this and have her follow-up with orthopedics at which point she states she was spirits a lot of weakness and did not think she wanted to go home. I spoke with the hospitalist who stated that there would not be really any reason to admit her given her normal vital signs and normal lab work unless orthopedics planned on doing any procedures to washout the elbow. I spoke with Dr. Morgan who is on-call and discussed her lab work and vital signs and he did not think she needed anything emergent based on this. She is certainly not septic. She does not have a septic joint. He recommended that she follow-up with Dr. Garibay on Tuesdays when he is in office. She will be started on Levaquin with first dose in the ER. Return precautions were discussed. Impression: 1. Anemia 2. Left olecranon bursitis 3. Generalized weakness Lab Data Attestation: I reviewed the patient's lab results. Labs: Laboratory Results - last 24 hr 08/31/22 08/31/22 08/31/22 13:00 13:00 14:30 WBC 10.5 RBC 2.69 L Hgb 9.5 L Hct 26.5 L MCV 98.5 MCH 35.3 H MCHC 35.8 RDW Std Deviation 79.7 H RDW Coeff of Ike 22.3 H Plt Count 323 MPV 10.2 Immature Gran % (Auto) 0.700 Neut % (Auto) 84.2 H Lymph % (Auto) 3.9 L [place] % (Auto) 3.6 Eos % (Auto) 7.2 H Baso % (Auto) 0.4 Absolute Neuts (auto) 8.8 H Absolute Lymphs (auto) 0.41 L Nucleated RBC % 0 Platelet Estimate SLT INC Hypochromasia 1+ Anisocytosis 1+ Sodium 130 L Potassium 3.2 L Chloride 97 L Carbon Dioxide 24.0 Anion Gap 9 BUN 16 Creatinine 0.72 Estim Creat Clear Calc 47.14 Est GFR (MDRD) Af Amer 105 Est GFR (MDRD) Non-Af 86 BUN/Creatinine Ratio 22.4 H Glucose 106 Calcium 8.3 L Total Bilirubin 0.70 AST 15 ALT 48 Alkaline Phosphatase 192 H Total Protein 6.4 Albumin 2.3 L Globulin 4.1 Albumin/Globulin Ratio 0.6 L Urine Color Yellow Urine Clarity Clear Urine pH 6.5 Ur Specific [place] 1.010 Urine Protein 15 H Urine Glucose (UA) Normal Urine Ketones Negative Urine Occult Blood 25 H Urine Nitrite Negative Urine Bilirubin Negative Urine Urobilinogen 1 H Ur Leukocyte Esterase 100 H Urine RBC 0-5 SEEN Urine WBC 10-25 SEEN Ur Squamous Epith Cells 0-5 SEEN Urine Bacteria 1+ Urine Mucus 0 SEEN Radiography Diagnostic Testing: Clinical Impression(s) from Imaging Studies Upper Extremity CT 08/31/22 12:26 IMPRESSION: Diffuse soft tissue swelling along the posterior portion of the forearm. Question of a localized abscess versus bursitis at the level of the olecranon process. Electronically Signed: Yariel Lemon MD at 14:26 EDT , Chest X-Ray 08/31/22 13:55 IMPRESSION: No acute cardiopulmonary abnormality. No interval change. Electronically Signed: Yariel Lemon MD at 14:10 EDT , Discharge Plan Triage Chief Complaint: Weakness ED Provider: Yfn Hong Dx/Rx/DC Orders Instructions: ED Anemia, Type Not Specified (Adult), ED Weakness (Uncertain Cause), ED Bursitis Elbow Olecranon Prescriptions: New levofloxacin 500 mg tablet 500 mg PO DAILY Qty: 7 0RF No Action omeprazole 10 mg capsule,delayed release(DR/EC) 20 mg PO QDAY meloxicam 15 mg tablet 15 mg PO QDAY albuterol sulfate [ProAir HFA] 90 mcg/actuation HFA aerosol inhaler 2 puff INHALATION Q6H PRN (Reason: breathing) nadolol 20 mg tablet 20 mg PO BID Label Comments: MITRAL VALVE primidone 50 MG tablet 50 mg PO BID Label Comments: TREMORS lisinopril 20 MG tablet 20 mg PO DAILY Label Comments: HYPERTENSION amlodipine 10 MG tablet 10 mg PO DAILY levothyroxine 75 MCG tablet 100 mcg PO DAILY sertraline 100 mg tablet 100 mg PO DAILY Primary Care Provider: Gaurang Godinez Referrals: Gaurang Godinez MD [Primary Care Provider] - Disposition Disposition: Home, Self Care
[2022-08-31 13:07] LABS: Absolute Lymphocyte Count 0.41 X10^3/uL (0.83-4.51); Absolute Neutrophil Count 8.8 X10^3/uL (2.0-7.7); Basophil# 0.04 X10^3/uL; Basophil% 0.4 % (0-1); Eosinophil# 0.75 X10^3/uL; Eosinophils% 7.2 % (0-5); Hematocrit 26.5 % (37-47); Hemoglobin 9.5 g/dL (12.0-15.0); Lymphocyte # 0.41 X10^3/ul (0.83-4.51); Lymphocyte % 3.9 % (19-41); Mean Corp Hgb Conc 35.8 g/dL (32-36); Mean Corpuscular Hgb 35.3 pg (27.0-32.0); Mean Corpuscular Volume 98.5 fL (81-99); Mean Platelet Vol. 10.2 fl (6.2-12.0); Monocyte# 0.38 X10^3/uL; Monocyte% 3.6 % (0-10); NRBC Flagged by Analyzer 0 % (0-5); Neutrophil % 84.2 % (47-70); POSITIVE DIFFERENTIAL YES; POSITIVE MORPHOLOGY YES; Platelet Count 323 K/mm3 (150-450); RBC Distribution Width CV 22.3 % (11.6-14.6); RBC Distribution Width SD 79.7 fl (35.1-43.9); Red Blood Count 2.69 M/mm3 (4.2-5.4); White Blood Count 10.5 K/mm3 (4.4-11.0)
[2022-08-31 13:11] LABS: Differential Indicated SCAN CRITERIA MET
[2022-08-31 13:24] LABS: ALB/GLOB Ratio 0.6 RATIO (0.9-2.4); AST(SGOT) 15 U/L (15-37); Alanine Aminotransfer ALT/SGPT 48 U/L (13-56); Albumin, Serum 2.3 g/dL (3.2-5.0); Alkaline Phosphatase 192 U/L (45-117); Anion Gap 9 (5-15); BUN 16 mg/dL (7-18); BUN/Creat Ratio 22.4 RATIO (10-20); Calcium,Total 8.3 mg/dL (8.5-10.1); Chloride 97 mmol/L (98-107); Creatinine, Serum 0.72 mg/dL (0.55-1.02); EST Glomerular Filtration Rate 86 mL/min (>60); Est Glom Filt Rate - Afr Amer 105 mL/min (>60); Estimated Creatinine Clearance 47.14 ml/min; Globulin 4.1 g/dL (2.2-4.2); Glucose 106 mg/dL (74-106); Potassium 3.2 mmol/L (3.5-5.1); Protein, Total 6.4 g/dL (6.4-8.2); Sodium Level 130 mmol/L (136-145)
[2022-08-31] MEDS: Ondansetron 4 MG/2 ML Vial IV (13:33)
[2022-08-31] MEDS: Morphine 4 MG/ML Syringe IV (13:33)
[2022-08-31 13:38] LABS: Platelet Estimate SLT INC (ADEQ)
[2022-08-31 13:39] LABS: Anisocytosis 1+; Hypochromasia 1+
--- NOTE | 2022-08-31 13:55 | RAD_ITS ---
EXAM: XR CHEST, 1 VIEW CLINICAL INDICATION: fever TECHNIQUE: Frontal view of the chest. This report was created using [employer] report generation technology. COMPARISON: XR Chest dated 01/19/2021 FINDINGS: LUNGS AND PLEURAL SPACES: Normal. No consolidation or edema. No pneumothorax. No effusion. HEART: Normal heart size. MEDIASTINUM: No mediastinal or hilar mass. BONES/JOINTS: No acute abnormality. SOFT TISSUES: Normal. RAD/Chest 1 View (Portable) IMPRESSION: No acute cardiopulmonary abnormality. No interval change. Electronically Signed: Yariel Lemon MD at 14:10 EDT ,
[2022-08-31 14:35] LABS: Mucous, Urine 0 SEEN /hpf (<or=2+)
[2022-08-31 14:38] LABS: Color, Urine Yellow (Yellow); Glucose, Dipstick Normal (Normal); Ketone-Dipstick Negative (Negative); Leukocyte Esterase-Dipstick 100 /ul (Negative); Nitrite-Dipstick Negative (Negative); Occult Blood-Urine 25 /ul (Negative); Protein-Dipstick 15 mg/dl (Negative); Urine Bilirubin Dipstick Negative (Negative); Urine Clarity Clear (Clear); Urine Urobilinogen 1 mg/dl (Normal); Urine pH 6.5 (5.0 - 8.0)
[2022-08-31 14:41] LABS: Red Blood Cells-Urine 0-5 SEEN /hpf (0-5); Squamous Epithelial Cells - UA 0-5 SEEN /hpf (5-10); White Blood Cells 10-25 SEEN /hpf (0-5)
[2022-08-31 14:42] LABS: Bacteria 1+ /hpf (None Seen)
--- NOTE | 2022-08-31 15:39 | NURSING ---
DR LORA FOR DR GALVAN
[2022-08-31] MEDS: levoFLOXacin 750 MG Tablet PO (16:11)
== END 2022-08-31 16:16 | disposition home or self-care (01) ==
PROVIDERS: Emergency Provider Student in an Organized Health Care Education/Training Program; PCP Family Medicine; Visit Provider Student in an Organized Health Care Education/Training Program
DX: R53.1 Weakness (principal); M70.22 Olecranon bursitis, left elbow; I10 Essential (primary) hypertension; D64.9 Anemia, unspecified; F17.210 Nicotine dependence, cigarettes, uncomplicated; E78.00 Pure hypercholesterolemia, unspecified; F32.A Depression, unspecified; Z79.899 Other long term (current) drug therapy
CPT/HCPCS: 71045; 73201; 80053; 81001; 85025; 96361; 96374; 96375; 99284; J7030; Q9967; J2405

== ENCOUNTER 2022-09-12 13:54 | Observation (INO) | payer MEDICARE, SELFPAY ==
[2022-09-12] VITALS (14 sets, daily range): BP systolic 113–160; BP diastolic 52–78; PULSE 57–77; RESP 16–18; TEMP 36.3–37.1; O2SAT 92–98; BMI 33.7
[2022-09-12] MEDS: Lactated Ringers 1,000 ML 15 ML IV (12:05)
[2022-09-12] MEDS: Cefazolin 2 GM in 0.9% Normal Saline 100 ML IV ×2 (13:00→20:46)
[2022-09-12] MEDS: Lidocaine 1%/Epi 1:200 (30ml) 30 ML AMPUL (13:26)
[2022-09-12] MEDS: Lactated Ringers 1,000 ML 100 ML IV (13:50)
--- NOTE | 2022-09-12 14:09 | PCM.OPRPT ---
Report of Operation Date of Procedure: 09/12/22 Description of Surgical Findings:: Preoperative diagnosis: Left septic olecranon bursitis Postoperative diagnosis: Left septic olecranon bursitis Procedure: Left septic olecranon bursectomy with irrigation and debridement Surgeon: Paco Pan DO Bow Maker: Katy Edwards PA-C Anesthesia: General endotracheal Anesthesiologist: Dr. Calvillo Metal Drawer: Jones Lackey CRNA Complications: None apparent Drains: None Estimated blood loss: 75 cc Urinary output: None IV fluids: 800 cc crystalloid Specimens: None Surgical implants: None Surgical indications: This is a 66-year-old female seen in the outpatient setting. She was referred to my partner Dr. Rajat Somers after multiple emergency room visitations for suspected left elbow septic bursitis. Aspiration was performed and cultures grew out MSSA. She was following Dr. Lee from infectious disease. Despite appropriate, sensitive antibiotics fluid collection persisted. Dr. Garibay referred her to myself for discussion of septic olecranon bursectomy with irrigation and debridement. I saw the patient last week. She was nonseptic. The left elbow is warm to touch and there was obviously fluctuant. I recommended septic olecranon bursectomy with irrigation and debridement of the left elbow. We discussed due to the persistent bursitis, olecranon bursectomy and irrigation debridement was indicated. The risks, benefits, alternatives to the procedure reviewed with patient at length. Informed consent was obtained in the office. Risks of the procedure included but were not limited to bleeding, persistent infection, loss of life or limb, persistent swelling, persistent pain, neurovascular injury, DVT or PE, tendon injury, wound complications, stiffness. Approximately 60 cc of purulent fluid was aspirated from her elbow at her preoperative visit which did resulted in improvement in her symptoms in the interim but cellulitis and pain did persist as well as fluid collection. Description of procedure: Patient was seen in preoperative holding area. She was identified by name, medical record number, date of . The operative extremity was marked with a surgical marker. We confirmed informed consent with the patient and all questions were answered to her satisfaction. Anesthesia consent was also obtained by the anesthesia team prior to procedure. At time of her procedure, patient was brought to the operative suite and positioned supine on a standard operating table. 2 g Ancef was administered room time. General anesthesia was induced and laryngeal mask airway placed. All bony prominences well-padded. Patient was positioned in lateral decubitus position with the left side up. An axillary roll was placed. Fibular head was free on the down leg. All bony prominences were well-padded in the lateral decubitus position. We positioned the patient in the lateral decubitus position utilizing a beanbag. The operative extremity was brought over a radiolucent post. We then prepped and draped the left upper extremity in normal, sterile orthopedic fashion after rotating the bed 90 degrees. We performed a timeout with all parties in attendance in agreement with the side, site, operation to be performed. No concerns were voiced elected proceed with surgery. I planned a curvilinear incision over the olecranon curving slightly radial. Skin and subcutaneous tissue was sharply dissected with a 10 blade scalpel. Fluid was encountered after the bursal sac was entered. Fluid was serosanguineous without gross purulence. I then elevated the superficial bursal layer from the subcutaneous tissue Superficial layer of the bursal sac was excised after elevating it from the skin flaps both radially and ulnarly. I carried the bursal excision deeper down to the level of the ulnar periosteum and fascia. Triceps fascia was left intact. Wound was then copiously irrigated normal saline solution. I anesthetized the skin flaps and surrounding tissues with 20 cc 1% lidocaine with epinephrine 1: 100,000 to assist with hemostasis. Hemostasis was excellent. Due to the amount of space, I did elect to place a Hemovac drain which I passed from the subcutaneous border of the ulna through the skin overlying the triceps muscle belly fascia. Hemovac drain was sewn in place with 3-0 nylon suture. I then utilized a 0 Vicryl to reduce space by reapproximating the subcutaneous tissue to both the triceps fascia and the ulnar periosteum. Dermis was reapproximated with 3-0 Vicryl suture. Skin was finally reapproximated with horizontal mattress 3-0 nylon suture. Sterile compression dressing was then applied after the limb was cleansed. Patient was then repositioned in the supine position. She was safely extubated in the operative suite and transferred to her gurney and subsequently to PACU in stable condition. Need for skilled faculty i on call medical assistant: Katy Edwards PA-C was critical to the outcome of the case. During the course of the procedure the physician faculty i on call medical assistant played a vital role. Her intimate knowledge of my steps in the procedure aided in safe and expedient completion of the procedure. The PA played a vital role in positioning particularly in obtaining the appropriate positioning. The PA was also vital in the retraction of soft tissues during the exposure and protecting vital structures. She also played a vital role in closure with my direct supervision. Post Operative Plan: Patient will be placed in observation overnight for 24 hours IV antibiotics and for drain care. Weightbearing: Nonweightbearing operative extremity Antibiotics: Ancef 2 g x 1 dose preoperatively, Ancef x24 hours as well as continuing doxycycline twice daily. Infectious disease consult for final antibiotic recommendations for continuity of care purposes. DVT Prophylaxis: Early ambulation, aspirin 81 mg twice daily starting this evening Cole: None Drain: Maintain and document output per shift. Anticipate pulling drain postoperative day #1. Dressing: Likely change dressing tomorrow, reinforce as needed in the interim. X-Rays: None Pain Medication: Oxycodone and Tylenol ordered as needed as well as restarting home meloxicam Follow-up: 1 week post-operatively with me in the office for wound check
[2022-09-12] MEDS: Acetaminophen 500 MG Tablet 1000 MG PO ×2 (16:11→20:47)
[2022-09-12] MEDS: Aspirin 81 MG TAB.CHEW PO (17:54)
[2022-09-12] MEDS: 0.9% Saline Lock 10 ML Syringe IV (18:05)
[2022-09-12] MEDS: Doxycycline 100 MG CAPSULE PO (20:47)
[2022-09-12] MEDS: Primidone 50 MG Tablet PO (20:47)
[2022-09-12] MEDS: Nadolol 20 MG Tablet PO (20:47)
[2022-09-12] MEDS: oxyCODONE 5 MG Tablet 10 MG PO (23:24)
[2022-09-12] MEDS: MELATONIN 10 MG TABLET PO (23:24)
[2022-09-13 03:45] VITALS: BP 150/64; PULSE 58; RESP 18; TEMP 36.6; O2SAT 98
[2022-09-13] MEDS: Levothyroxine 100 MCG Tablet PO (05:22)
[2022-09-13] MEDS: Acetaminophen 500 MG Tablet 1000 MG PO ×2 (05:22→13:06)
[2022-09-13] MEDS: Cefazolin 2 GM in 0.9% Normal Saline 100 ML IV (05:22)
[2022-09-13 06:16] LABS: Hematocrit 26.5 % (37-47); Hemoglobin 8.8 g/dL (12.0-15.0); Mean Corp Hgb Conc 33.2 g/dL (32-36); Mean Corpuscular Hgb 33.7 pg (27.0-32.0); Mean Corpuscular Volume 101.5 fL (81-99); Mean Platelet Vol. 9.9 fl (6.2-12.0); POSITIVE MORPHOLOGY YES; Platelet Count 417 K/mm3 (150-450); RBC Distribution Width CV 22.9 % (11.6-14.6); RBC Distribution Width SD 86.4 fl (35.1-43.9); Red Blood Count 2.61 M/mm3 (4.2-5.4); White Blood Count 3.8 K/mm3 (4.4-11.0)
[2022-09-13 06:21] LABS: Scan Indicated on CBC? Y/N YES- FLAGS NOTED
[2022-09-13 06:53] LABS: Differential Comment SCANNED
--- NOTE | 2022-09-13 07:15 | PCM.PN.ORT ---
Subjective Subjective Patient seen and examined. Denies any new symptoms. States she accidentally pulled her drain out adjusting bed yesterday. Denies fevers, chills, nausea vomiting, chest pain or shortness of breath. Pain is controlled with current pain regimen. Objective Data Objective Data Vital Signs: Vital Signs Temp Pulse Resp BP Pulse Ox O2 Del Method O2 Flow Rate 97.9 F 58 L 18 150/64 H 98 Room Air 2 09/13/22 03:45 09/13/22 03:45 09/13/22 03:45 09/13/22 03:45 09/13/22 03:45 09/13/22 03:45 09/12/22 15:15 Oxygen Flow Rate (L/min) 2 Oxygen Delivery Method Room Air Weight: 196 lb 10.437 oz Body Mass Index (BMI) 33.7 Intake & Output: Intake and Output for Last 24 Hours 09/11/22 09/12/22 09/13/22 23:59 23:59 23:59 Intake Total 1914 110 / 110 Output Total 0 / 0 Balance 1914 110 / 110 Lab / Micro Data Result Diagrams: 09/13/22 06:06 Labs: Laboratory Results - last 24 hr 09/13/22 06:06: WBC 3.8 L, RBC 2.61 L, Hgb 8.8 L, Hct 26.5 L, MCV 101.5 H, MCH 33.7 H, MCHC 33.2, RDW Std Deviation 86.4 H, RDW Coeff of Ike 22.9 H, Plt Count 417, MPV 9.9, Differential Comment SCANNED Physical Exam Narrative General - A&Ox3, NAD. VSS/AF. Left upper Extremity - SILT & 5/5 in radial, ulnar, musculocutaneous, axillary, and median nerve distributions. Radial, ulnar pulses 2+. Compartments soft and compressible. BCR in finger tips. Incisional dressing clean dry and intact. Dressing removed. Skin edges well approximated without significant erythema. No recurrence of fluctuance. Assessment & Plan Assessment/Plan (1) Septic bursitis of elbow: PLAN: POD#1 s/p left septic olecranon bursectomy -Patient doing well. Wound benign. - Pain control -Infectious disease consulted. Outpatient cultures revealed MSSA. Patient is currently on Ancef x24 hours with plan to continue outpatient doxycycline, appreciate ID recommendations. - DVT PPX -aspirin 81 mg twice daily, SCDs, early mobilization -Plan to discharge home today pending ID recs.
[2022-09-13 09:34] VITALS: BP 107/43; PULSE 60; RESP 18; TEMP 36.6; O2SAT 96
[2022-09-13] MEDS: Aspirin 81 MG TAB.CHEW PO (09:38)
[2022-09-13] MEDS: Nadolol 20 MG Tablet PO (09:38)
[2022-09-13] MEDS: Doxycycline 100 MG CAPSULE PO (09:38)
[2022-09-13] MEDS: Sertraline 100 MG Tablet PO (09:39)
[2022-09-13] MEDS: Meloxicam 15 MG Tablet PO (09:39)
[2022-09-13] MEDS: Primidone 50 MG Tablet PO (09:39)
[2022-09-13] MEDS: Pantoprazole Sodium 20 MG Tablet PO (09:39)
[2022-09-13] MEDS: amLODIPine 10 MG Tablet PO (09:39)
[2022-09-13] MEDS: Lisinopril 20 MG Tablet PO (09:39)
[2022-09-13] MEDS: FLU VACC QS2022-23(6MOS UP)/PF 60 MCG/0.5 ML SYRINGE IM (09:47)
--- NOTE | 2022-09-13 11:19 | CASEMGMT ---
LAURA MANDEL NOTE: To room to meet w/pt. Introduced self and role. Pt sitting up in recliner chair. Pt denies having any home going/discharge planning needs. She states she lives w/a roommate who will be taking her home @ discharge and could assist, if needed, but she does not anticipate any needs. She states she has stocked things up well @ home. She is aware we are awaiting ID recommendations prior to discharge. Carlito HICKEY RN CM
[2022-09-13 11:57] VITALS: BP 140/60; BP 140/62; PULSE 60; RESP 18; TEMP 36.6; O2SAT 96
--- NOTE | 2022-09-13 12:52 | DCINST_ITS ---
Discharge Instructions Follow Up Care Test Results: Test results from this visit will be discussed in further detail at your follow- up appointment, if applicable. Discharge Plan Admission Admit Date/Time: 09/12/22 16:53 Primary Reason for Your Visit: L elbow bursectomy Attending Provider: Paco Pan Primary Care Provider: Gaurang Godinez Consulting Providers: Rolando Lee Instructions Additional Instructions / Restrictions: Okay to shower postoperative day #2. No tub soaks. Weight-bearing less than 3 pounds the upper extremity. Range of motion as tolerated. Sling for comfort. Follow-up with Dr. pan in 1 week. Ice as needed to the operative site. Dry sterile dressing changes daily to the elbow. Discharge Orders/Prescriptions Prescriptions: New oxycodone 5 mg tablet 5 mg PO Q6H PRN (Reason: pain) 7 Days Qty: 28 0RF Continued omeprazole 10 mg capsule,delayed release(DR/EC) 20 mg PO QDAY meloxicam 15 mg tablet 15 mg PO QDAY albuterol sulfate [ProAir HFA] 90 mcg/actuation HFA aerosol inhaler 2 puff INHALATION Q6H PRN (Reason: breathing) nadolol 20 mg tablet 20 mg PO BID Label Comments: MITRAL VALVE primidone 50 MG tablet 50 mg PO BID Label Comments: TREMORS lisinopril 20 MG tablet 20 mg PO DAILY Label Comments: HYPERTENSION amlodipine 10 MG tablet 10 mg PO DAILY levothyroxine 75 MCG tablet 100 mcg PO DAILY sertraline 100 mg tablet 100 mg PO DAILY doxycycline monohydrate 100 mg Capsule 100 mg PO BID Referrals / Follow Up: Gaurang Godinez MD [Primary Care Provider] - Paco Pan DO [Med Staff - Active Staff] - 09/20/22 Disposition Disposition (needs filled in before D/C Order can be placed): Home, Self Care
--- NOTE | 2022-09-13 12:56 | PCM.DC.SUM ---
Providers Date of Admission: 09/12/22 Primary Care Physician: Dr. Gaurang Godinez MD Consultations 09/12/22 13:52 Consult: Infectious Disease Routine Consulting Provider: Rolando Lee Reason for Consult: L Septic Olecranon Bursitis, known patient EMERGENT Consult: No MD Notified: Yes Date Notified: 09/12/22 Time Notified: 16:59 Method of Notification: Text Reason For Visit: SEPTIC LT OLECRANON BURSECTOMY Diagnosis Discharge Diagnosis (1) Septic bursitis of elbow: Status: Acute Code(s): M71.129 - Other infective bursitis, unspecified elbow Plan: POD#1 s/p left septic olecranon bursectomy -Patient doing well. Wound benign. - Pain control -Infectious disease consulted. Outpatient cultures revealed MSSA. Recommended continuing outpatient doxycycline. - DVT PPX -aspirin 81 mg twice daily, SCDs, early mobilization -Discharge to home today with follow-up in 2 weeks. Medications at Discharge Home Medications meloxicam 15 mg tablet 15 mg PO QDAY ARTHRITIS 04/01/18 nadolol 20 mg tablet 20 mg PO BID MVP 04/01/18 omeprazole 10 mg capsule,delayed release 20 mg PO QDAY GERD 04/01/18 lisinopril 20 mg tablet 20 mg PO DAILY BP 12/22/18 primidone 50 mg tablet 50 mg PO BID TREMORS 12/22/18 amlodipine 10 mg tablet 10 mg PO DAILY BLOOD PRESSURE 01/27/19 albuterol sulfate 90 mcg/actuation aerosol inhaler (ProAir HFA) 2 puff inhalation Q6H PRN breathing 01/21/20 levothyroxine 75 mcg tablet 100 mcg PO DAILY thyroid 02/01/20 sertraline 100 mg tablet 100 mg PO DAILY 07/26/21 doxycycline monohydrate 100 mg capsule 100 mg PO BID 09/10/22 oxycodone 5 mg tablet 5 mg PO Q6H PRN pain 7 days #28 tabs 09/13/22 Hospital Course Summary of Care Provided Minutes Spent on Discharge: 20 Hospital Course: Patient underwent uncomplicated left septic olecranon bursectomy with irrigation and debridement 09/12/2022. Patient did well with surgery, she was placed in observation overnight for IV antibiotics, infectious disease consultation, and drain monitoring. Patient accidentally pulled her own drain out postoperative day #0. Her wound was examined on postoperative day #[address] Lee saw the patient in consultation and agreed with continuing doxycycline based on outpatient cultures obtained. She was safely discharged to home on postoperative day #1 in stable condition. Physical Exam Narrative General - A&Ox3, NAD. VSS/AF. Left upper Extremity - SILT & 5/5 in radial, ulnar, musculocutaneous, axillary, and median nerve distributions. Radial, ulnar pulses 2+. Compartments soft and compressible. BCR in finger tips. Incisional dressing clean dry and intact. Dressing removed. Skin edges well approximated without significant erythema. No recurrence of fluctuance. Weight / BMI Weight Weight: 196 lb 10.437 oz Body Mass Index (BMI) 33.7 ABG / Lab / Microbiology Data Result Diagrams: 09/13/22 06:06 Laboratory: Laboratory Results - last 24 hr 09/13/22 06:06: WBC 3.8 L, RBC 2.61 L, Hgb 8.8 L, Hct 26.5 L, MCV 101.5 H, MCH 33.7 H, MCHC 33.2, RDW Std Deviation 86.4 H, RDW Coeff of Ike 22.9 H, Plt Count 417, MPV 9.9, Differential Comment SCANNED Meaningful Use Info Meaningful Use Diagnoses (Choose all that apply): None applicable Discharge Plan Admission Admit Date/Time: 09/12/22 16:53 Primary Reason for Your Visit: L elbow bursectomy Attending Provider: Paco Pan Primary Care Provider: Gaurang Godinez Consulting Providers: Rolando Lee Instructions Additional Instructions / Restrictions: Okay to shower postoperative day #2. No tub soaks. Weight-bearing less than 3 pounds the upper extremity. Range of motion as tolerated. Sling for comfort. Follow-up with Dr. pan in 1 week. Ice as needed to the operative site. Dry sterile dressing changes daily to the elbow. Discharge Orders/Prescriptions Prescriptions: New oxycodone 5 mg tablet 5 mg PO Q6H PRN (Reason: pain) 7 Days Qty: 28 0RF Continued omeprazole 10 mg capsule,delayed release(DR/EC) 20 mg PO QDAY meloxicam 15 mg tablet 15 mg PO QDAY albuterol sulfate [ProAir HFA] 90 mcg/actuation HFA aerosol inhaler 2 puff INHALATION Q6H PRN (Reason: breathing) nadolol 20 mg tablet 20 mg PO BID Label Comments: MITRAL VALVE primidone 50 MG tablet 50 mg PO BID Label Comments: TREMORS lisinopril 20 MG tablet 20 mg PO DAILY Label Comments: HYPERTENSION amlodipine 10 MG tablet 10 mg PO DAILY levothyroxine 75 MCG tablet 100 mcg PO DAILY sertraline 100 mg tablet 100 mg PO DAILY doxycycline monohydrate 100 mg Capsule 100 mg PO BID Referrals / Follow Up: Gaurang Godinez MD [Primary Care Provider] - Paco Pan DO [Med Staff - Active Staff] - 09/20/22 Disposition Disposition (needs filled in before D/C Order can be placed): Home, Self Care
--- NOTE | 2022-09-13 13:46 | CON.PCM.ID_ITS ---
Assessment & Plan Assessment/Plan (1) Septic bursitis of elbow: PLAN: Prior cx with mSSA. Aspiration 09/06 with heavy purulence drained. Has been on po doxy. Taken to OR 09/12/[address] Pan for I&D. Feeling much better. No surg cx sent but fluid much more clear per report. Ok for home with 2 weeks po doxy. Will follow, thank you, d/w Dr. Pan. Has appt with me next week. HPI Consult Data Date of Consult: 09/13/22 HPI Narrative Reason for Consultation: L elbow infection HPI Narrative: HAIM LIAO, is a 66 F with 1.5 months L elbow pain, redness, swelling, some drainage. Given several different courses of abx without improvement. Wound cx 08/14 with MSSA. No fever or chills. Pain with movement. Referred to my office, I changed her back to doxy, recommended ortho eval. Aspiration done 09/06 with several vials purulent fluid drained. Cx not sent. Taken to OR 09/12/[address] Pan for I&D. Feeling much better today. Full ROS performed and neg except as noted above. 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 Macrocytic anemia Nicotine dependence Non-rheumatic tricuspid valve insufficiency Obesity Osteoarthritis Prosthetic joint infection Secondary pulmonary arterial hypertension Shortness of breath on exertion Sleep-disordered breathing Smoker Thyroid disease Walker as ambulation aid Wears dentures Wears glasses Home Medications meloxicam 15 mg tablet 15 mg PO QDAY ARTHRITIS 04/01/18 [History Last Taken 12/04/20] nadolol 20 mg tablet 20 mg PO BID MVP 04/01/18 [History Last Taken 09/12/22 06:30] omeprazole 10 mg capsule,delayed release 20 mg PO QDAY GERD 04/01/18 [History Last Taken 09/12/22 06:30] lisinopril 20 mg tablet 20 mg PO DAILY BP 12/22/18 [History Last Taken 09/12/22 06:30] primidone 50 mg tablet 50 mg PO BID TREMORS 12/22/18 [History Last Taken 10/02/20 08:00] amlodipine 10 mg tablet 10 mg PO DAILY BLOOD PRESSURE 01/27/19 [History Last Taken 09/12/22 06:30] albuterol sulfate 90 mcg/actuation aerosol inhaler (ProAir HFA) 2 puff inhalation Q6H PRN breathing 01/21/20 [History Last Taken Unknown] levothyroxine 75 mcg tablet 100 mcg PO DAILY thyroid 02/01/20 [History Last Taken 09/12/22 06:30] sertraline 100 mg tablet 100 mg PO DAILY 07/26/21 [History Last Taken Unknown] doxycycline monohydrate 100 mg capsule 100 mg PO BID 09/10/22 [History Last Taken Unknown] oxycodone 5 mg tablet 5 mg PO Q6H PRN pain 7 days #28 tabs 09/13/22 [Rx Last Taken Unknown] Allergy/AdvReac Type Severity Reaction Status Date / Time meperidine [From Demerol] AdvReac Other Verified 09/12/22 12:02 Penicillins [PCN] AdvReac Nausea Verified 09/12/22 12:02 Family History Mother Heart disease Valvular Heart Disease Cancer leukemia Uncle Colon cancer Aunt Cancer Leukemia Surgical History (Updated 09/10/22 @ 09:17 by Mary Monterroso) history left ankle surgery history left hand surgery history left trigger finger release History of carpal tunnel surgery of left wrist History of laparoscopic cholecystectomy History of lumbar spinal fusion History of right knee joint replacement history spur removal right shoulder Hx of local excision of skin lesion Hx of total knee replacement Status post left knee replacement Social History Smoking Status: Current every day smoker tobacco type: cigarettes alcohol intake: current alcohol intake frequency: a few times a week substance use type: does not use Physical Exam Const alert, oriented x3 and no apparent distress General Appearance: cooperative and well developed HEENT normocephalic and head/scalp atraumatic Eyes PERRL and EOMs intact bilaterally Neck supple and No nodes Resp normal air movement and clear to auscultation bilaterally Cardio regular rate and regular rhythm GI soft to palpation, non-tender and non-distended Extremity General Extremity: Negative for edema Skin Skin Narrative: L elbow wrapped Neuro CN's II-XII intact bilaterally Lab / Micro Data Attestation: I reviewed the patient's lab results. Result Diagrams: 09/13/22 06:06 Labs: Laboratory Results - last 24 hr 09/13/22 06:06: WBC 3.8 L, RBC 2.61 L, Hgb 8.8 L, Hct 26.5 L, MCV 101.5 H, MCH 33.7 H, MCHC 33.2, RDW Std Deviation 86.4 H, RDW Coeff of Ike 22.9 H, Plt Count 417, MPV 9.9, Differential Comment SCANNED
== END 2022-09-13 13:30 | disposition home or self-care (01) ==
LOC: MS3 17:45 → SDC 09-16 10:08 → MS3 09-16 10:09
PROVIDERS: Admitting Provider Student in an Organized Health Care Education/Training Program; PCP Family Medicine; Referring Provider Student in an Organized Health Care Education/Training Program; Visit Provider Student in an Organized Health Care Education/Training Program
PROC: (CPT 24105; principal; 2022-09-12 13:50)
DX: M71.122 Other infective bursitis, left elbow (principal); F17.210 Nicotine dependence, cigarettes, uncomplicated; I10 Essential (primary) hypertension; E78.00 Pure hypercholesterolemia, unspecified; G89.29 Other chronic pain; M79.7 Fibromyalgia; M19.90 Unspecified osteoarthritis, unspecified site; E66.8 Other obesity; Z68.34 Body mass index [BMI] 34.0-34.9, adult; B95.61 Methicillin susceptible Staphylococcus aureus infection as the cause of diseases classified elsewhere; E07.9 Disorder of thyroid, unspecified; Z79.890 Hormone replacement therapy; Z79.899 Other long term (current) drug therapy; F32.A Depression, unspecified; Z23 Encounter for immunization
CPT/HCPCS: 24105; 01710; 36415; 85027; 96365; 96366; 99218; 99251; G0008; J7120; 90686; A4216; G0378; G0463; J2405

== ENCOUNTER → 2022-12-10 | Outpatient (CLI) | payer MEDICARE, SELFPAY ==
[2022-12-10 15:34] LABS: T4 Free Direct 0.73 ng/dL (0.76-1.46); Thyroid Stim Hormone (TSH) 4.67 uIU/mL (0.358-3.74)
== END | disposition home or self-care (01) ==
LOC: MFPLAB 12:22
PROVIDERS: PCP Family Medicine; Visit Provider Family Medicine
DX: E03.9 Hypothyroidism, unspecified (principal)
CPT/HCPCS: 36415; 84439; 84443

== ENCOUNTER 2023-01-06 11:49 | Day surgery (SDC) | payer MEDICARE, SELFPAY ==
[2023-01-06] VITALS (7 sets, daily range): BP systolic 106–125; BP diastolic 53–68; PULSE 58–70; RESP 16–18; TEMP 36.2–36.8; O2SAT 94–95; BMI 33.5
[2023-01-06] MEDS: Lactated Ringers 1,000 ML 15 ML IV (12:27)
[2023-01-06] MEDS: Lidocaine 1% (20 ml mdv) 20 ML Vial (13:53)
[2023-01-06] MEDS: MethylPREDNISolone Acetate 80 MG/ML Vial (13:53)
--- NOTE | 2023-01-06 13:53 | RAD_ITS ---
PROCEDURE: Bilateral T9-T12 medial branch block. DATE OF EXAMINATION: 01/06/2023. INDICATION: Female, 67 years old. Chronic low back pain. FLUOROSCOPY TIME (if supplied): (17.2 seconds) minutes/seconds. 7 images were submitted. RAD/Thoracic Spine Min 4 Views IMPRESSION: Intraoperative fluoroscopic imaging provided for bilateral T9-T12 medial branch block. Electronically Signed: Atul Lu MD at 14:46 EST ,
--- NOTE | 2023-01-06 14:51 | PCM.OPRPT ---
Report of Operation Date of Procedure: 01/06/23 Description of Surgical Findings:: PREOPERATIVE DIAGNOSES: 1. Thoracic spondylosis. 2. Thoracic degenerative disk disease. 3. Thoracic facet arthropathy. POSTOPERATIVE DIAGNOSES: 1. Thoracic spondylosis. 2. Thoracic degenerative disk disease. 3. Thoracic facet arthropathy. PROCEDURE PERFORMED: Bilateral thoracic medial branch block at T10, T11, and T12 ANESTHESIA: MAC. BLOOD LOSS: Minimal. COMPLICATIONS: None. DESCRIPTION OF PROCEDURE: History and physical of today was reviewed. Risks and benefits of the procedure were explained. The patient understood and agreed to proceed. Informed consent was obtained. IV inserted per routine protocol. The patient was taken to the operating room and placed in the prone position with a pillow positioned underneath the chest. The mid back area was prepped and draped in a sterile fashion using iodine x3. Under fluoroscopy guidance in an oblique view, the T10 through T12 vertebral bodies were visualized. The skin and subcutaneous tissue was anesthetized with approximately 5 mL of 1% lidocaine using a 25-gauge regular needle. Under direct visualization on fluoroscopy at approximately 25-degree angle, starting on the left T10, ending on the right T10 passing through the T11 and T12, using a 22-gauge 3-1/2 inch spinal needle, the needle was passed through the skin. The tip of the needle was maneuvered and directed towards the epiphyseal junction of each corresponding vertebra. Once the tip of the needle was at the vicinity of the medial branch and in contact with the bone, the needle was pulled approximately 2 mm off the bone after negative aspiration of blood or CSF and repeated confirmation on AP and oblique as well as lateral view a total of 12 cc of preservative-free 0.25% Marcaine with 80 mg of Depo-Medrol were injected in divided doses between those 4 levels the needles were then removed intact. The patient experienced no sign or symptoms of intrathecal or intravascular injection. The patient experienced no paresthesia. Assessment and plan: This is a 67-year-old female with thoracic spondylosis thoracic degenerative disc disease, thoracic facet arthropathy status post bilateral thoracic medial branch block at T10-T12, patient will continue her current medications, patient will follow in approximately 1 week for reevaluation.
== END 2023-01-06 15:00 | disposition home or self-care (01) ==
LOC: SDC 11:51 → AC 11:52
PROVIDERS: PCP Family Medicine; Referring Provider Anesthesiology Pain Medicine; Visit Provider Anesthesiology Pain Medicine
PROC: 3E0S3BZ Introduction of Anesthetic Agent into Epidural Space, Percutaneous Approach (ICD-10-PCS; CPT 62322; principal; 2023-01-06 13:25)
DX: M47.814 Spondylosis without myelopathy or radiculopathy, thoracic region (principal); M51.34 Other intervertebral disc degeneration, thoracic region; I10 Essential (primary) hypertension; E78.00 Pure hypercholesterolemia, unspecified; K21.9 Gastro-esophageal reflux disease without esophagitis; G89.29 Other chronic pain; E66.9 Obesity, unspecified; Z68.33 Body mass index [BMI] 33.0-33.9, adult; Z79.1 Long term (current) use of non-steroidal anti-inflammatories (NSAID); Z79.890 Hormone replacement therapy; Z79.899 Other long term (current) drug therapy
CPT/HCPCS: 64491; 01992; 64490; 72074; J7120

== ENCOUNTER 2023-03-17 08:30 | Day surgery (SDC) | payer MEDICARE, SELFPAY ==
[2023-03-17] VITALS (7 sets, daily range): BP systolic 97–118; BP diastolic 52–74; PULSE 55–69; RESP 16; TEMP 36.1–36.7; O2SAT 92–99; BMI 33.5
[2023-03-17] MEDS: Lactated Ringers 1,000 ML 15 ML IV (09:11)
--- NOTE | 2023-03-17 10:00 | RAD_ITS ---
STUDY: X-RAY - SACROILIAC JOINTS REASON FOR EXAM: Female, 67 years old. Intraprocedural digital documentation views of SI joint injections. TECHNIQUE: 2 intraprocedural digital documentation view(s) of the sacroiliac joints were obtained. COMPARISON: Lumbar spine images dated July 23, 2021. FINDINGS: 2 intraprocedural digital documentation views show injections adjacent to both SI joints. Stable lumbar and bilateral sacroiliac fusion changes. RAD/S-I Jts 3 or More Views IMPRESSION: Intraprocedural digital documentation views. Electronically Signed: Jamey Pritchett, at 11:12 EDT ,
[2023-03-17] MEDS: Lidocaine 1% (30 ml sdv) 30 ML Vial (10:12)
[2023-03-17] MEDS: MethylPREDNISolone Acetate 80 MG/ML Vial (10:13)
--- NOTE | 2023-03-17 10:18 | PCM.OPRPT ---
Report of Operation Date of Procedure: 03/17/23 Description of Surgical Findings:: PREOPERATIVE DIAGNOSES: 1. Sacroiliitis. 2. Sacroiliac joint dysfunction. POSTOPERATIVE DIAGNOSES: 1. Sacroiliitis. 2. Sacroiliac joint dysfunction. PROCEDURE PERFORMED:?Bilateral sacroiliac joint steroid injection under fluoroscopy guidance. ANESTHESIA:? MAC. BLOOD LOSS:? Minimal. COMPLICATIONS:? None. DESCRIPTION OF PROCEDURE:? History and physical of today was reviewed.? Risks and benefits of the procedure were explained.? The patient understood and agreed to the procedure.? Informed consent was obtained.? IV inserted per routine protocol.? The patient was taken to the operating room and placed in the prone position with a pillow positioned underneath the abdomen.? The lower back and buttock area was prepped and draped in a sterile fashion using iodine x3.? Under fluoroscopy guidance on an AP view, the bilateral SI joint was visualized.? The skin and subcutaneous tissue was anesthetized with approximately 5 mL of 1% lidocaine using a 25-gauge regular needle.? Under direct visualization with fluoroscopy at approximately 15-degree angle, using a 22-gauge 3-1/2-inch spinal needle, the needle was advanced via the skin.? The tip of the needle was maneuvered and directed towards the inferior one-third of the posterior SI joint.? Once the tip of the needle was at the vicinity of the joint, after negative aspiration for blood or CSF, a total of 1 mL of contrast was injected to confirm correct placement of the needle as well as cephalocaudal spread.? Confirmation was obtained on AP as well as oblique view.? After repeated negative aspiration and confirmation, a total of 4 mL of preservative-free 0.25% Marcaine with 40 mg of Depo-Medrol was injected in and around the SI joint and the same was repeated to the opposite side.? The needle was then removed intact.? The patient experienced no sign or symptoms of intrathecal or intravascular injection.? The patient experienced no paresthesia.? The procedure was completed without any apparent difficulty or any complications.? The patient appeared to tolerate it well. ASSESSMENT AND PLAN: ? This is a 67-year-old female with bilateral sacroiliitis, sacroiliac joint dysfunction status post bilateral sacroiliac joint steroid injection under fluoroscopic guidance, patient will continue her current medications, patient will follow up in approximately 2 weeks for reevaluation.
[2023-03-17] MEDS: oxyCODONE 5 MG Tablet PO (11:14)
== END 2023-03-17 11:26 | disposition home or self-care (01) ==
LOC: SDC 08:33 → AC 08:35
PROVIDERS: PCP Family Medicine; Referring Provider Anesthesiology Pain Medicine; Visit Provider Anesthesiology Pain Medicine
PROC: 3E0U3GC Introduction of Other Therapeutic Substance into Joints, Percutaneous Approach (ICD-10-PCS; CPT 27096; principal; 2023-03-17 10:05)
DX: M46.1 Sacroiliitis, not elsewhere classified (principal); I27.21 Secondary pulmonary arterial hypertension; M53.3 Sacrococcygeal disorders, not elsewhere classified; M25.551 Pain in right hip; M25.552 Pain in left hip; G89.29 Other chronic pain; I10 Essential (primary) hypertension; E78.00 Pure hypercholesterolemia, unspecified; E07.9 Disorder of thyroid, unspecified; K21.9 Gastro-esophageal reflux disease without esophagitis; E66.9 Obesity, unspecified; Z68.33 Body mass index [BMI] 33.0-33.9, adult; Z79.1 Long term (current) use of non-steroidal anti-inflammatories (NSAID); Z79.899 Other long term (current) drug therapy; F17.200 Nicotine dependence, unspecified, uncomplicated; Z96.653 Presence of artificial knee joint, bilateral
CPT/HCPCS: G0260; 64483; 72202; J7120

== ENCOUNTER 2023-12-04 07:55 | Day surgery (SDC) | payer MEDICARE, SELFPAY ==
[2023-12-03 09:36] LABS: Basophil# 0.06 X10^3/uL; Basophil% 1.2 % (0-1); Eosinophil# 0.23 X10^3/uL; Eosinophils% 4.7 % (0-5); Hematocrit 34.8 % (37-47); Hemoglobin 11.9 g/dL (12.0-15.0); Lymphocyte % 24.6 % (19-41); Mean Corp Hgb Conc 34.2 g/dL (32-36); Mean Corpuscular Hgb 34.2 pg (27.0-32.0); Mean Platelet Vol. 10.7 fl (6.2-12.0); Monocyte# 0.34 X10^3/uL; NRBC Flagged by Analyzer 0.6 % (0-5); Neutrophil # 3.03 X10^3/uL (2.7-7.7); Neutrophil % 62.3 % (47-70); POSITIVE MORPHOLOGY YES; Platelet Count 350 K/mm3 (150-450); RBC Distribution Width SD 89.5 fl (35.1-43.9); Red Blood Count 3.48 M/mm3 (4.2-5.4); White Blood Count 4.9 K/mm3 (4.4-11.0)
[2023-12-03 09:48] LABS: Differential Indicated SCAN CRITERIA MET
[2023-12-03 09:58] LABS: Anisocytosis 2+; Differential Comment SCANNED; Hypochromasia 1+; Macrocytosis 1+; Microcytosis 1+
[2023-12-03 10:14] LABS: Anion Gap 4 (5-15); BUN 14 mg/dL (7-18); BUN/Creat Ratio 23.9 RATIO (10-20); Calcium,Total 9.5 mg/dL (8.5-10.1); Chloride 106 mmol/L (98-107); Creatinine, Serum 0.59 mg/dL (0.55-1.02); EST Glomerular Filtration Rate 108 mL/min (>60); Est Glom Filt Rate - Afr Amer 131 mL/min (>60); Glucose 142 mg/dL (74-106); Potassium 4.2 mmol/L (3.5-5.1); Sodium Level 136 mmol/L (136-145)
[2023-12-04] VITALS (16 sets, daily range): BP systolic 97–147; BP diastolic 46–77; PULSE 46–72; RESP 16–20; TEMP 36.1–36.8; O2SAT 91–98; BMI 33.7
--- NOTE | 2023-12-04 08:34 | HP.PCM_ITS ---
HPI - General General Date of Admission: 12/04/23 Date of Service: 12/04/23 Chief Complaint: Left elbow swelling HPI Narrative This is a 68-year-old female who has been following in my office for left olecranon swelling. She developed septic olecranon bursitis in August 2022. She failed nonoperative treatment underwent left olecranon bursectomy with I&D with myself on 09/12/2022. The infection responded well to surgery and oral ant ibiotics. She recovered well, healed the wound without complication and no significant swelling in the immediate postoperative course. Several months later, patient developed atraumatic recurrence of swelling overlying her olecranon. We attempted serial aspiration and splinting as well as NSAIDs. There was improvement however swelling has persisted. She returned to my office last week with increased swelling without constitutional symptoms or significant pain. She denies any fevers, chills, nausea vomiting, chest pain or shortness of breath. She states overall feels she feels well and is frustrated regarding the swelling in her left elbow. She reports this is a nuisance especially when she lays her elbow on the table. 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 left scapula Macrocytic anemia Nicotine dependence Non-rheumatic tricuspid valve insufficiency Obesity Osteoarthritis Prosthetic joint infection Secondary pulmonary arterial hypertension Shortness of breath on exertion Sleep-disordered breathing Smoker Thyroid disease Walker as ambulation aid Wears dentures Wears glasses Home Medications meloxicam 15 mg tablet 15 mg PO QDAY ARTHRITIS 04/01/18 [History Last Taken 12/03/23] nadolol 20 mg tablet 20 mg PO BID MVP 04/01/18 [History Last Taken 12/04/23 07:15] omeprazole 10 mg capsule,delayed release 20 mg PO QDAY GERD 04/01/18 [History Last Taken 12/04/23 07:15] lisinopril 20 mg tablet 20 mg PO DAILY BP 12/22/18 [History Last Taken 12/04/23 07:15] primidone 50 mg tablet 50 mg PO BID TREMORS 12/22/18 [History Last Taken 12/04/23 07:15] amlodipine 10 mg tablet 10 mg PO DAILY BLOOD PRESSURE 01/27/19 [History Last Taken 12/04/23 07:15] albuterol sulfate 90 mcg/actuation aerosol inhaler (ProAir HFA) 2 puff inhalation Q6H PRN breathing 01/21/20 [History Last Taken 12/04/23 07:15] levothyroxine 75 mcg tablet 100 mcg PO DAILY thyroid 02/01/20 [History Last Taken 12/04/23 07:15] sertraline 100 mg tablet 100 mg PO DAILY 07/26/21 [History Last Taken 12/04/23] Allergy/AdvReac Type Severity Reaction Status Date / Time meperidine [From Demerol] AdvReac Other Verified 12/04/23 08:19 Penicillins [PCN] AdvReac Nausea Verified 12/04/23 08:19 Family History Mother Heart disease Valvular Heart Disease Cancer leukemia Uncle Colon cancer Aunt Cancer Leukemia Surgical History history left ankle surgery history left hand surgery history left trigger finger release History of carpal tunnel surgery of left wrist History of laparoscopic cholecystectomy History of lumbar spinal fusion History of right knee joint replacement history spur removal right shoulder Hx of local excision of skin lesion Hx of total knee replacement Status post left knee replacement Social History Smoking Status: Current every day smoker tobacco type: cigarettes alcohol intake: current alcohol intake frequency: a few times a week substance use type: does not use ROS ROS Narrative 12 point review systems obtained, negative unless otherwise noted in HPI. Vital Signs Vital Signs Vital Signs: 12/04/23 08:21 12/04/23 08:24 Temperature 97.0 F L Temperature Source Temporal Pulse Rate 72 Respiratory Rate 18 Respiratory Pattern Normal Blood Pressure 147/66 H Blood Pressure Mean 93 Blood Pressure Source Monitor Blood Pressure Position Semi-Fowlers Blood Pressure Location Right Arm Pulse Ox 96 Oxygen Delivery Method Room Air Weight Weight: 196 lb 12.8 oz Body Mass Index (BMI) 33.7 Physical Exam Narrative General -A&Ox3, NAD, appears stated age. Vital signs stable, afebrile. Respiratory -normal work of breathing, no intercostal retractions. CV -pulses regular, brisk capillary refill ?4 limbs. Abdomen-soft, nontender, nondistended. No guarding, rigidity, rebound tenderness. Musculoskeletal/neurologic -full range of motion nontender throughout bilateral lower extremities. Left elbow-fluctuant fluid collection overlying the olecranon without erythema or tenderness. No axillary lymphadenopathy. Sensation intact light touch C5-T1 dermatomes. Well-healed surgical incision. Full range of motion of the elbow 0-150 degrees, pronation/supination 90 degrees respectively. Cardinal motions of the left hand are intact. Radial pulse 2+ brisk capillary refill in the fingertips. Results Lab / Micro Data 12/03/23 08:53 12/03/23 08:53 Labs: Laboratory Results - last 24 hr 12/03/23 08:53: WBC 4.9, RBC 3.48 L, Hgb 11.9 L, Hct 34.8 L, MCV 100.0 H, MCH 34.2 H, MCHC 34.2, RDW Std Deviation 89.5 H, RDW Coeff of Ike 25.0 H, Plt Count 350, MPV 10.7, Immature Gran % (Auto) 0.200, Neut % (Auto) 62.3, Lymph % (Auto) 24.6, [place] % (Auto) 7.0, Eos % (Auto) 4.7, Baso % (Auto) 1.2 H, Absolute Neuts (auto) 3.0, Absolute Lymphs (auto) 1.20, Nucleated RBC % 0.6, Differential Comment SCANNED, Hypochromasia 1+, Anisocytosis 2+, Microcytosis 1+, Macrocytosis 1+, Sodium 136, Potassium 4.2, Chloride 106, Carbon Dioxide 26.0, Anion Gap 4 L, BUN 14, Creatinine 0.59, Est GFR (MDRD) Af Amer 131, Est GFR (MDR D) Non-Af 108, BUN/Creatinine Ratio 23.9 H, Glucose 142 H, Calcium 9.5 Assessment & Plan Assessment/Plan (1) Olecranon bursitis, left elbow: PLAN: Recurrent pseudo bursitis versus seroma formation left elbow -Patient has unfortunately failed nonoperative treatment. I recommended surgical intervention in the form of left olecranon bursectomy. The risks, benefits, terms procedure reviewed with the patient at length and she agreed to proceed. Risk included but were not limited to bleeding, infection, loss of life or limb, need for additional surgery, persistent pain or swelling, neurovascular injury, nonhealing wound, DVT or PE, risk of anesthesia, stiffness. Patient expressed understanding of these risks and wished to proceed with surgery. Informed consent obtained. -Preoperative CBC, BMP and EKG reviewed. No acute findings.
[2023-12-04] MEDS: Lactated Ringers 1,000 ML 15 ML IV (08:37)
[2023-12-04] MEDS: Cefazolin 2 GM in 0.9% Normal Saline (100mL Bag) 100 ML IV (08:59)
[2023-12-04] MEDS: Lidocaine 1% /Epi 1:100 (20ml) 20 ML Vial (09:24)
--- NOTE | 2023-12-04 10:36 | DCINST_ITS ---
Discharge Instructions Follow Up Care Test Results: Test results from this visit will be discussed in further detail at your follow- up appointment, if applicable. Discharge Plan Admission Primary Reason for Your Visit: Left olecranon bursectomy Attending Provider: Paco Pan Primary Care Provider: Gaurang Godinez Instructions Additional Instructions / Restrictions: Maintain surgical splint until follow-up. Follow-up in 1 week for wound check and splint removal. Splint must remain clean dry and intact until follow-up. Okay to apply ice to the left elbow. Range of motion as tolerated of the wrist and fingers. Weightbearing less than 2 pounds to the operative extremity. No driving until follow-up. Discharge Orders/Prescriptions Prescriptions: New oxycodone-acetaminophen 5-325 mg tablet 1 tab PO Q6H PRN (Reason: pain) 7 Days Qty: 28 0RF No Action omeprazole 10 mg capsule,delayed release(DR/EC) 20 mg PO QDAY meloxicam 15 mg tablet 15 mg PO QDAY albuterol sulfate [ProAir HFA] 90 mcg/actuation HFA aerosol inhaler 2 puff INHALATION Q6H PRN (Reason: breathing) nadolol 20 mg tablet 20 mg PO BID Patient Comments: MITRAL VALVE primidone 50 MG tablet 50 mg PO BID Patient Comments: TREMORS lisinopril 20 MG tablet 20 mg PO DAILY Patient Comments: HYPERTENSION amlodipine 10 MG tablet 10 mg PO DAILY levothyroxine 75 MCG tablet 100 mcg PO DAILY sertraline 100 mg tablet 100 mg PO DAILY Referrals / Follow Up: Gaurang Godinez MD [Primary Care Provider] - Paco Pan DO [Med Staff - Active Staff] - 12/12/23 Disposition Disposition (needs filled in before D/C Order can be placed): Home, Self Care
--- NOTE | 2023-12-04 10:36 | PCM.OPRPT ---
Report of Operation Date of Procedure: 12/04/23 Description of Surgical Findings:: Preoperative diagnosis: Left recurrent olecranon bursitis Postoperative diagnosis: Left recurrent olecranon bursitis Procedure: Left olecranon bursectomy with application of incisional wound VAC Surgeon: Paco Pan DO Anesthesia: General endotracheal Sales Development Director: Jones Lackey CRNA Complications: None apparent Drains: None Estimated blood loss: 5 cc Urinary output: None IV fluids: Per anesthesia record Specimens: None Surgical implants: None Surgical indications: This is a a 68-year-old female seen in the outpatient setting for recurrent swelling overlying her left olecranon. She underwent left olecranon bursectomy with I&D for septic olecranon bursitis on 09/12/2022 with myself. She recovered well with clearance of the infection with oral antibiotics. Swelling developed several months after the procedure and has been persistent despite nonoperative treatment including aspiration, corticosteroid injection, serial aspirations, NSAIDs, pressure dressings, splinting. I recommended surgical intervention in the form of left olecranon bursectomy. The risks, benefits, terms of procedure were reviewed with patient at length and she agreed to proceed. Risks of the procedure included but were not limited to bleeding, persistent infection, loss of life or limb, persistent swelling, persistent pain, neurovascular injury, DVT or PE, tendon injury, wound complications, stiffness. Description of procedure: Patient was seen in preoperative holding area. She was identified by name, medical record number, date of . The operative extremity was marked with a surgical marker. We confirmed informed consent with the patient and all questions were answered to her satisfaction. Anesthesia consent was also obtained by the anesthesia team prior to procedure. At time of her procedure, patient was brought to the operative suite and positioned supine on a standard operating table. 2 g Ancef was administered room time. General anesthesia was induced and laryngeal mask airway placed. All bony prominences well-padded. Patient was positioned in lateral decubitus position with the left side up. An axillary roll was placed. Fibular head was free on the down leg. All bony prominences were well-padded in the lateral decubitus position. We positioned the patient in the lateral decubitus position utilizing Mike med hip positioners. The operative extremity was brought over a radiolucent post. A well-padded pneumatic tourniquet was applied to left upper arm. We then prepped and draped the left upper extremity in normal, sterile orthopedic fashion after spending the bed 90 degrees. We performed a timeout with all parties in attendance in agreement with the side, site, operation to be performed. No concerns were voiced elected proceed with surgery. I examined the left upper extremity Esmarch bandage. Tourniquet was inflated to 250 mmHg remained up for 18 minutes. Large olecranon bursitis and previous surgical incision was noted. Elliptical skin excision was performed excising the previous scar in approximately 4 cm in its widest diameter due to redundant skin after bursectomy. The superficial layer of the bursa was encountered. This was dissected free from the overlying fatty layer. Bursa was then entered and serosanguineous fluid was encountered. Superficial and deep layers were dissected free. Complete bursectomy was performed. There were no bony spurs identified at the olecranon. Triceps fascia was left intact. Wound was then copiously irrigated normal saline solution. I anesthetized the skin flaps and surrounding tissues with 20 cc 1% lidocaine with epinephrine 1: 100,000 to assist with hemostasis. Tourniquet was then deflated. Hemostasis was excellent. Quilting stitches were placed with 0 Vicryl suture to eliminate space reapproximating the fatty layer to the periosteum and triceps fascia respectively. Dermis was reapproximated with 3-0 Vicryl suture. Skin was finally reapproximated with interrupted simple 3-0 nylon suture. A Prevena incisional wound VAC was then placed to limit edema postoperatively and reduce risk of seroma formation. Sterile compression dressing was then applied after the limb was cleansed. A well-padded posterior elbow fiberglass splint was then applied with the wrist free in 90 degrees of elbow flexion. Patient was then repositioned in the supine position. See it was safely extubated in the operative suite and transferred to her gurney and subsequently to PACU in stable condition. Post Operative Plan: Weightbearing: Nonweightbearing operative extremity Antibiotics: Ancef 2 g x 1 dose preoperatively DVT Prophylaxis: None indicated Cole: None Dressing: Maintain splint until follow-up keep in a clean, dry and intact. X-Rays: None Pain Medication: Percocet prescription provided Follow-up: 1 week post-operatively with me in the office for wound check
--- NOTE | 2023-12-04 12:01 | SUR.PHASEI ---
PT REQUIRES O2 TO KEEP SATS UP, TRYING TO WEAN O2 WHILE IN PACU,DR WOOD NOTIFIED, LUNGS CLEAR, DIMIN, PT IS SMOKER, DUONEB BREATHING TREATMENT ORDERED. PT USING I.S., C&DB.
[2023-12-04] MEDS: Albuterol 2.5 MG/3 ML VIAL.NEB. INHALATION (12:19)
== END 2023-12-04 14:20 | disposition home or self-care (01) ==
LOC: SDC 07:56 → AC 07:56
PROVIDERS: PCP Family Medicine; Referring Provider Student in an Organized Health Care Education/Training Program; Visit Provider Student in an Organized Health Care Education/Training Program
PROC: (CPT 24105; principal; 2023-12-04 08:40)
DX: M70.22 Olecranon bursitis, left elbow (principal); I27.21 Secondary pulmonary arterial hypertension; E78.00 Pure hypercholesterolemia, unspecified; I10 Essential (primary) hypertension; F17.210 Nicotine dependence, cigarettes, uncomplicated; Z79.1 Long term (current) use of non-steroidal anti-inflammatories (NSAID); Z79.890 Hormone replacement therapy; Z79.899 Other long term (current) drug therapy
CPT/HCPCS: 24105; 01710; 64415; 36415; 80048; 85025; 93005; J7120; J2405

== ENCOUNTER → 2024-01-21 | Outpatient (CLI) | payer MEDICARE, SELFPAY | END | disposition home or self-care (01) | PROVIDERS: PCP Family Medicine; Referring Provider Physician Assistant Surgical; Visit Provider Physician Assistant Surgical | DX: L03.114 Cellulitis of left upper limb (principal); M70.22 Olecranon bursitis, left elbow | CPT/HCPCS: 87070; 87075; 87205 ==

== ENCOUNTER → 2024-01-27 | Outpatient (CLI) | payer MEDICARE, SELFPAY ==
[2024-01-27 15:31] LABS: Absolute Lymphocyte Count 1.69 X10^3/uL (0.83-4.51); Absolute Neutrophil Count 2.6 X10^3/uL (2.0-7.7); Basophil# 0.05 X10^3/uL; Eosinophil# 0.18 X10^3/uL; Eosinophils% 3.8 % (0-5); Hematocrit 35.1 % (37-47); Hemoglobin 11.8 g/dL (12.0-15.0); Lymphocyte # 1.69 X10^3/ul (0.83-4.51); Lymphocyte % 35.3 % (19-41); Mean Corp Hgb Conc 33.6 g/dL (32-36); Mean Corpuscular Hgb 34.1 pg (27.0-32.0); Mean Corpuscular Volume 101.4 fL (81-99); Mean Platelet Vol. 11.4 fl (6.2-12.0); Monocyte# 0.32 X10^3/uL; Monocyte% 6.7 % (0-10); NRBC Flagged by Analyzer 0 % (0-5); Neutrophil # 2.55 X10^3/uL (2.7-7.7); Neutrophil % 53.2 % (47-70); POSITIVE MORPHOLOGY YES; Platelet Count 383 K/mm3 (150-450); RBC Distribution Width CV 23.7 % (11.6-14.6); RBC Distribution Width SD 89.1 fl (35.1-43.9); Red Blood Count 3.46 M/mm3 (4.2-5.4); White Blood Count 4.8 K/mm3 (4.4-11.0)
[2024-01-27 15:34] LABS: Differential Indicated SCAN CRITERIA MET
[2024-01-27 16:08] LABS: AST(SGOT) 13 U/L (15-37); Alanine Aminotransfer ALT/SGPT 29 U/L (13-56); Albumin, Serum 3.8 g/dL (3.2-5.0); Alkaline Phosphatase 64 U/L (45-117); Anion Gap 8 (5-15); BUN 12 mg/dL (7-18); BUN/Creat Ratio 22.3 RATIO (10-20); CRP 3.48 mg/L (0.0-3.0); Calcium,Total 9.1 mg/dL (8.5-10.1); Chloride 101 mmol/L (98-107); Creatinine, Serum 0.54 mg/dL (0.55-1.02); EST Glomerular Filtration Rate 119 mL/min (>60); Est Glom Filt Rate - Afr Amer 144 mL/min (>60); Globulin 3.7 g/dL (2.2-4.2); Glucose 101 mg/dL (74-106); Potassium 4.1 mmol/L (3.5-5.1); Protein, Total 7.5 g/dL (6.4-8.2); Rheumatoid Factor < 10.0 IU/mL (<15); Sodium Level 135 mmol/L (136-145); Uric Acid 4.8 mg/dL (2.6-6.0)
[2024-01-27 16:09] LABS: Erythrocyte Sedimentation Rate 28 mm/hr (0-30)
--- OUTSIDE RECORDS SUMMARY | 2024-01-27 20:57 | XMS RPT_ITS | CCD ---
Author Name Unknown Address [address] [place] [address] Organization [facility] Care Team Providers Care Title Insurance Agent Name Role Phone Yissel Bassett Unavailable DINORA NASH Admitting Unavail able VIJAYA CAAL Referring Unavailable [facility] Primary [facility] Unavailable PACO GONZALES Consulting Unavailable UNKNOWN, PROVIDER Attending Unavailable LUCIUS PEREZ III Consulting Unavailable Allergies Allergy Classification Reported Allergen(s) Allergy Type Date of Onset Reaction(s) Facility (1 source) meperidine drug allergy 2 [facility] Work Phone: (1 source) penicillin drug allergy [facility] Work Phone: (1 source) Meperidine; Translations: [MEPERIDINE (PF)] Drug Allergy [facility] (1 source) Penicillins; Translations: [PENICILLINS] Propensity to adverse reactions (disorder) [facility] Medications Completed/Discontinued Medications Medication Drug Class(es) Dates Sig (Normalized) Sig (Original) desipramine hydrochloride 10 mg oral tablet (3 sources) Tricyclic Antidepressant Start: 12-05-2011 take 1 tablet by mouth once daily DESIPRAMINE HCL 10 MG TABS One tablet by mouth daily DESIPRAMINE HCL [id number] Yissel N Bassett diclofenac sodium 50 mg delayed release oral tablet (3 sources) Nonsteroidal Anti-inflammatory Drug Start: 12-05-2011 take 1 tablet by mouth twice daily DICLOFENAC SODIUM 50 MG TBEC One tablet by mouth twice daily DICLOFENAC SODIUM [id number] Yissel N Bassett DULoxetine 30 mg delayed release oral capsule (3 sources) Serotonin and Norepinephrine Reuptake Inhibitor Start: 12-05-2011 take 1 tablet by mouth once daily CYMBALTA 30 MG CPEP One tablet by mouth daily DULOXETINE HCL [id number] Yissel Bassett CONJ ESTROG-MEDROXYPROGE ST CRISTOBAL (3 sources) Progestin, Estrogen Start: 12-25-2011 take 1 tablet by mouth once daily PREMPRO 0.625-2.5 MG TABS One tablet by mouth daily CONJ ESTROG-MEDROXYPRO GEST CRISTOBAL [id number] Yissel Bassett Problems Active Problems Problem Classification Problem Date Documented Date Episodic/Chronic Joint disorders and dislocations; trauma-related (4 sources) Chondromalacia of patella; Translations: [Derangement of meniscus] Onset: 03-23-2015 03-30-2015 Chronic Osteoarthritis (1 source) Osteoarthritis of knee; Translations: [Osteoarthritis of knee, unspecified] 03-01-2014 Chronic Unclassified (1 source) Unspecified fracture of unspecified thoracic vertebra; Translations: [Unspecified fracture of unspecified thoracic vertebra] Onset: 04-21-2015 04-27-2015 Past or Other Problems Problem Classification Problem Date Documented Date Episodic/Chronic Other aftercare (1 source) Encounter for other specified surgical aftercare; Translations: [Encounter for other specified surgical aftercare] Onset: 09-24-2016 09-24-2016 Episodic Other connective tissue disease (5 sources) Rotator cuff syndrome; Translations: [Acquired trigger finger] Onset: 12-05-2011 10-29-2016 Episodic Other non-traumatic joint disorders (7 sources) Hip pain; Translations: [Pain in right shoulder] Onset: 04-11-2015 04-11-2015 Episodic Spondylosis; intervertebral disc disorders; other back problems (2 sources) Low back pain; Translations: [Thoracic back pain] Onset: 04-21-2015 02-03-2012 Episodic Sprains and strains (1 source) Strain of hamstring tendon; Translations: [Strain of muscle, fascia and tendon of the posterior muscle group at thigh level, unspecified thigh] Onset: 04-11-2015 04-11-2015 Episodic Superficial injury; contusion (1 source) Contusion of hand; Translations: [Contusion of left hand] Onset: 12-08-2014 12-08-2014 Episodic Unclassified (1 source) finger infection, possibe flexor tenocynovitis Onset: 01-27-2019 Results Test Name Value Interpretation Reference Range Facil ity Vital Signs Date Time Vital Sign Value Performing Clinician Facility 04-21-2015 09:07-0400 BMI (Body Mass Index) 34.67 kg/m2 [facility] Work Phone: 04-21-2015 09:07-0400 Weight 91.63 kg [facility] Work Phone: 02-28-2014 08:30-0400 BP Diastolic 80 mm[Hg] [facility] Work Phone: 02-28-2014 08:30-0400 BP Systolic 124 mm[Hg] [facility] Work Phone: 11-29-2013 10:13-0500 Pulse (Heart Rate) 74 /min [facility] Work Phone: 12-05-2011 14:52-0500 Height 162.56 cm [facility] Work Phone: Encounters Encounter Date Encounter Type Care Provider Facility Start: 01-27-2019 End: 01-31-2019 Evaluation and management of inpatient DINORA NASH Facility:[facility] Plan of Treatment Date Care Activity Detail Author Start: 06-12-2017 End: 06-12-2017 Appointment Appointment [facility] Work Phone: Start: 11-13-2016 End: 11-13-2016 Physical Therapy General [facility], [address] [place] [address], [id number] [facility] Work Phone: Start: 10-29-2016 End: 10-29-2016 X-ray exam of shoulder X-Ray, Shoulder [facility] Work Phone: Start: 03-27-2016 End: 03-27-2016 Physical Therapy General Physical Therapy [facility], [address] [place] [address], [phone] [facility] Work Phone: Start: 03-07-2016 End: 03-07-2016 Mri jnt of lwr extre w/o dye MRI Joint Lower Extremity [facility] Work Phone: Start: 03-07-2016 End: 03-07-2016 X-ray exam, knee, 4 or more X-Ray, Knee [facility] Work Phone: Start: 04-27-2015 End: 04-27-2015 Physical Therapy General Physical Therapy [facility], [address] [place] [address], [phone] [facility] Work Phone: Start: 04-21-2015 End: 04-21-2015 X-ray exam of thoracic spine X-Ray, Spine, Thoracic, 3 views [facility] Work Phone: Start: 04-11-2015 End: 04-11-2015 Physical Therapy General [facility], [address] [place] [address], [phone] [facility] Work Phone: Start: 04-11-2015 End: 04-11-2015 X-ray exam of hip X-Ray, Hip Unilateral [facility] Work Phone: Start: 03-23-2015 End: 03-23-2015 X-ray exam, knee, 4 or more X-Ray, Knee [facility] Work Phone: Start: 12-08-2014 End: 12-08-2014 X-ray exam of hand X-Ray, Hand [facility] Work Phone: Payers Date Payer Category Payer Unknown [id number] Unknown [id number] Summary Purpose Family History No Family History Records FoundNo Family History Records Found Advance Directives No Advanced Directives Records FoundNo Advanced Directives Records Found Hospital Course Note HNO ID: [id number] Author: Stalin No Service: Hospital Medicine Author Type: Physician Type: Discharge Summary Filed: 01/31/2019 12:02 PM Note Text: DISCHARGE SUMMARY PATIENT NAME: Candy Monte Code Status: Not on file Highest Readmission Risk Score: 14 The 30 day readmissions risk score is derived from an internally validated risk model which evaluates patient level characteristics, utilization history, medication orders and lab results up until the day of discharge. Patients with a score of 40 or above are considered highest risk for readmission. Specific patient level drivers will be listed at the bottom of the summary. Admission Information Admission Information ADMIT DATE: 01/27/2019 DISCHARGE DATE: 01/31/2019 MY DOCTORS AND MEDICAL TEAM: My Main Hospital Doctor: Anabelle No Primary Care Provider: Kvng Michaud (Historical) Jeovany (Inactive) My Medical Team Members: Treatment Team: Attending Provider: Anabelle No Consulting: Paco Gonzales Consulting: Lucius (more content not included)... Note HNO ID: [id number] Author: Bernice Gonzales Service: Plastic Surgery Author Type: Physician Type: Brief Op Note Filed: 01/29/2019 12:47 AM Note Text: BRIEF OPERATIVE / PROCEDURE NOTE LOG ID: [id number] SURGERY/PROCEDURE DATE: 01/28/2019 INCISION/PROCEDURE START TIME: 1634 INCISION CLOSE/PROCEDURE END TIME: 1712 SURGEON(S)/PROCEDURALIST(S) AND SUPERVISOR FRAME ASSEMBLY(S): Surgeon(s) and Role: * Paco Gonzales - Primary * Paco Morejon MD - Resident - Assisting No Additional Staff SURGERY/PROCEDURE(S): I AND D flexor tenosynovitis L MF ANESTHESIA: General FINDINGS: ABOVE ESTIMATED BLOOD LOSS: 2 mls SPECIMENS: None COMPLICATIONS: None PRE-OP/PRE-PROCEDURE DIAGNOSIS: FLEXOR TENOSYNOVITIS L MF POST-OP/POST-PROCEDURE DIAGNOSIS: Abscess, palm [L02.519] SAME SIGNATURE: Paco Gonzales MD PATIENT NAME: Candy Mauriciotee DATE: January 29, 2019 TIME: 12:45 AM PAGER/CONTACT #: Procedure Findings Note HNO ID: [id number] Author: Bernice Gonzales Service: Plastic Surgery Author Type: Physician Type: Brief Op Note Filed: 01/29/2019 12:47 AM Note Text: BRIEF OPERATIVE / PROCEDURE NOTE LOG ID: [id number] SURGERY/PROCEDURE DATE: 01/28/2019 INCISION/PROCEDURE START TIME: 163 INCISION CLOSE/PROCEDURE END TIME: 1711 SURGEON(S)/PROCEDURALIST(S) AND SUPERVISOR FRAME ASSEMBLY(S): Surgeon(s) and Role: * Paco Gonzales - Primary * Paco Morejon MD - Resident - Assisting No Additional Staff SURGERY/PROCEDURE(S): I AND D flexor tenosynovitis L MF ANESTHESIA: General FINDINGS: ABOVE ESTIMATED BLOOD LOSS: 2 mls SPECIMENS: None COMPLICATIONS: None PRE-OP/PRE-PROCEDURE DIAGNOSIS: FLEXOR TENOSYNOVITIS L MF POST-OP/POST-PROCEDURE DIAGNOSIS: Abscess, palm [L02.519] SAME SIGNATURE: Paco Gonzales MD PATIENT NAME: Candy Monte DATE: January 29, 2019 TIME: 12:45 AM PAGER/CONTACT #: Additional Source Comments INFORMATION SOURCE (unrecogn ized section and content) DATE CREATED AUTHOR AUTHOR'S ORGANIZ ATION 04/29/2019 [facility] FOR RECORDS PERTAINING TO PATIENTS WHO ARE OR HAVE BEEN ENROLLED IN A CHEMICAL DEPENDENCY/SUBSTANCEABUSE PROGRAM, SOME INFORMATION MAY BE OMITTED. This clinical summary was aggregated from multiple sources. Caution should be exercised in using it in the provision of clinical care. This summary normalizes information from multiple sources, and as a consequence, information in this document may materially change the coding, format and clinical context of patient data. In addition, data may be omitted in some cases. CLINICAL DECISIONS SHOULD BE BASED ON THE PRIMARY CLINICAL RECORDS. [employer] provides no warranty or guarantee of the accuracy or completeness of information in this document.
[2024-01-29 11:24] LABS: T4 Free Direct 0.93 ng/dL (0.76-1.46)
[2024-01-29 13:08] LABS: ANTINUCLEAR ANTIBODIES DIRECT Negative (Negative)
== END | disposition home or self-care (01) ==
LOC: MFPLAB 11:32
PROVIDERS: PCP Family Medicine; Visit Provider Family Medicine
DX: I10 Essential (primary) hypertension (principal); M25.50 Pain in unspecified joint; R79.89 Other specified abnormal findings of blood chemistry
CPT/HCPCS: 36415; 80053; 84439; 84443; 84550; 85025; 85652; 86038; 86140; 86431

== ENCOUNTER → 2024-04-05 | Outpatient (CLI) | payer MEDICARE, SELFPAY ==
--- NOTE | 2024-04-05 10:32 | RAD_ITS ---
STUDY: X-RAY - UNILATERAL RIBS ( RIGHT ) WITH CHEST REASON FOR EXAM: Female, 68 years old. Pain, fall. TECHNIQUE - RIBS: 4 views of the right ribs. TECHNIQUE - CHEST: Single PA view of the chest. COMPARISON: None. FINDINGS - RIBS: There are fractures of the lateral aspects of the right eighth and ninth ribs. FINDINGS - CHEST: There are bilateral fusion rods in the lower thoracic and visualized upper lumbar spine. The lungs are clear and expanded. There is no demonstrated pleural abnormality. Normal size heart. Normal mediastinum and arthur. Normal visualized pulmonary arteries. Normal visualized aortic arch and descending thoracic aorta. Normal visualized thoracic spine. Normal visualized clavicles and shoulders. There is no demonstrated abnormality of the visualized soft tissue structures of the upper abdomen. RAD/Ribs Uni Min 3V w/PA Chest IMPRESSION: RIBS: Fractures of the lateral aspects of the right eighth and ninth ribs. CHEST: Unremarkable x-ray examination of the chest. Electronically Signed: Wolf Altman MD at 11:39 EDT ,
== END | disposition home or self-care (01) ==
PROVIDERS: PCP Family Medicine; Referring Provider Family Medicine; Visit Provider Family Medicine
DX: R07.81 Pleurodynia (principal)
CPT/HCPCS: 71101

== ENCOUNTER → 2024-04-28 | Outpatient (CLI) | payer MEDICARE, SELFPAY ==
[2024-04-28 12:34] LABS: Hematocrit 34.8 % (37-47); Hemoglobin 11.8 g/dL (12.0-15.0); Mean Corp Hgb Conc 33.9 g/dL (32-36); Mean Corpuscular Hgb 34.3 pg (27.0-32.0); Mean Corpuscular Volume 101.2 fL (81-99); Mean Platelet Vol. 10.7 fl (6.2-12.0); POSITIVE MORPHOLOGY YES; Platelet Count 348 K/mm3 (150-450); RBC Distribution Width CV 23.9 % (11.6-14.6); RBC Distribution Width SD 86.3 fl (35.1-43.9); Red Blood Count 3.44 M/mm3 (4.2-5.4); White Blood Count 5.5 K/mm3 (4.4-11.0)
[2024-04-28 12:39] LABS: Scan Indicated on CBC? Y/N YES- FLAGS NOTED
[2024-04-28 13:02] LABS: Anion Gap 5 (5-15); BUN 9 mg/dL (7-18); BUN/Creat Ratio 14.2 RATIO (10-20); Calcium,Total 9.6 mg/dL (8.5-10.1); Chloride 102 mmol/L (98-107); Cholesterol 238 mg/dL (200); Creatinine, Serum 0.64 mg/dL (0.55-1.02); EST Glomerular Filtration Rate 99 mL/min (>60); Est Glom Filt Rate - Afr Amer 119 mL/min (>60); Glucose 112 mg/dL (74-106); High Density Lipoprotein 60 mg/dL; Potassium 4.5 mmol/L (3.5-5.1); Sodium Level 133 mmol/L (136-145); T4 Free Direct 1.04 ng/dL (0.76-1.46); Thyroid Stim Hormone (TSH) 3.76 uIU/mL (0.358-3.74); Triglycerides 139 mg/dL; Very Low Density Lipoprotein 28 mg/dL (5-40)
[2024-04-28 16:03] LABS: Differential Comment SCANNED
== END | disposition home or self-care (01) ==
LOC: MFPLAB 10:53
PROVIDERS: PCP Family Medicine; Visit Provider Family Medicine
DX: R73.01 Impaired fasting glucose (principal); I10 Essential (primary) hypertension; E03.9 Hypothyroidism, unspecified
CPT/HCPCS: 36415; 80048; 80061; 84439; 84443; 85027

== ENCOUNTER → 2024-07-27 | Outpatient (CLI) | payer MEDICARE, SELFPAY ==
[2024-07-27 16:05] LABS: T4 Free Direct 1.08 ng/dL (0.76-1.46)
== END | disposition home or self-care (01) ==
LOC: MTLAB 10:57
PROVIDERS: PCP Family Medicine; Referring Provider Family Medicine; Visit Provider Family Medicine
DX: E03.9 Hypothyroidism, unspecified (principal)
CPT/HCPCS: 36415; 84439; 84443

== ENCOUNTER → 2025-03-17 | Outpatient (CLI) | payer MEDICARE, SELFPAY ==
--- NOTE | 2025-03-17 15:49 | RAD_ITS ---
PROCEDURE: HIP MIN 2 VIEWS (PORTABLE) 03/17/2025 REASON FOR EXAM: PAIN TECHNIQUE: Two views of the right hip were obtained COMPARISON: None FINDINGS: Bones: No acute fracture. Fixation screws and rods transverse the sacrum and sacroiliac joints. Joints: Normal alignment. Soft tissues: Soft tissues are unremarkable. Other: RAD/Hip Min 2 Views (Portable) IMPRESSION: No acute fracture or dislocation. Reading Location: [facility]
== END | disposition home or self-care (01) ==
LOC: MTRAD 15:48
PROVIDERS: PCP Family Medicine
DX: M25.551 Pain in right hip (principal)
CPT/HCPCS: 73502